=== PATIENT | female | born 2000 | race Caucasian/White ===

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

== ENCOUNTER → 2020-01-09 14:15 | Outpatient (BNVA) | payer SELFPAY | PROVIDERS: PCP Nurse Practitioner Family; Visit Provider Nurse Practitioner Family | DX: N92.6 Irregular menstruation, unspecified (principal) | CPT/HCPCS: 81025 ==

== ENCOUNTER → 2020-04-09 13:39 | Outpatient (BNVA) | payer SELFPAY | PROVIDERS: PCP Nurse Practitioner Family; Visit Provider Nurse Practitioner Family | DX: N39.0 Urinary tract infection, site not specified (principal); R30.0 Dysuria | CPT/HCPCS: 81000 ==

== ENCOUNTER 2020-06-26 20:49 | Emergency (ER) | payer SELFPAY ==
[2020-06-26 21:12] LABS: Basophils % 0.2 %; Eosinophils # 0.1 10^3/uL (0.0-0.8); Eosinophils % 0.6 %; Hematocrit 40.6 % (37.0-47.0); Hemoglobin 12.7 g/dL (11.5-15.3); Lymphocytes # 3.5 10^3/uL (1.5-6.5); Lymphocytes % 27.4 %; Mean Corpuscular HGB Conc 31.3 g/dL (30.0-36.0); Mean Corpuscular Hemoglobin 25.4 pg (28.0-34.0); Mean Corpuscular Volume 81.2 fL (81-99); Mean Platelet Volume 10.4 fL (7.4-10.4); Monocytes # 0.5 10^3/uL (0.2-0.9); Monocytes % 4.1 %; Neutrophils % 67.3 %; Nucleated Red Blood Cells % 0 %; Platelet Count 431 10^3/cmm (130-400); Red Cell Distribution Width 13.9 % (12.1-15.1); White Blood Count 12.8 10^3/uL (4.5-13.0)
[2020-06-26 21:21] VITALS: BP 120/79; PULSE 95; RESP 16; TEMP 36.6; O2SAT 96; BMI 45.3
--- NOTE | 2020-06-26 21:53 | W.ED.EXTPRO ---
HPI - Extremity Problem General: Chief complaint: Extremity Problem,Nontraumatic Stated complaint: r leg infection Time Seen by Provider: 06/26/20 21:32 History of Present Illness: HPI Narrative: Patient is a 19-year-old female comes to the ED with lesion on right lower leg. Patient says on Wednesday she noticed a red rochelle on her right lower leg. she then went into urgent care and they diagnosed with cellitis/possible spider bite and put her on cephalexin and steroid. Patient has been taking the antibiotic now for approximately 1-1/2 days. Lesion has now formed a circular pattern with redness. Patient denies any ulceration or drainage. Associated symptoms: Deny chest pain, fever(s) or rash Review of Systems Const: Denies: fever(s), chills or fatigue Eyes: Denies: change in vision or eye discomfort ENMT: Denies: throat pain, odynophagia, nasal discharge or nasal congestion Card: Denies: chest pain, palpitations, edema, swelling of feet/ankles, dyspnea on exertion or orthopnea Resp: Denies: dyspnea, productive cough or non-productive cough GI: Denies: abdominal pain, nausea, vomiting, diarrhea, constipation or hematochezia : Denies: flank pain, dysuria or hematuria Musc: Denies: neck pain, back pain or extremity swelling Skin/Breast: Reports: new lesions (On right lower extremity.); Denies: rash Neuro: Denies: headache(s), numbness in extremities or weakness in extremities PFS ED PFSH: Social History Smoking and tobacco status: never smoked Alcohol intake: never Female Reproductive History: Date of last menstrual period: 04/16/20 Physical Exam Const: COMMON NORMALS: no acute distress, patient oriented x3, healthy appearing and alert GENERAL APPEARANCE: cooperative and comfortable HENMT: COMMON NORMALS: normocephalic HEAD & SCALP: normocephalic MOUTH: Normal oral and palatal mucosa present THROAT: posterior oropharynx normal and uvula midline Eye: COMMON NORMALS: Equal, round and reactive pupils present PUPIL: Yes Equal, round and reactive pupils present Neck/C-Spine: COMMON NORMALS: supple GENERAL: Yes normal visual inspection Resp: COMMON NORMALS: normal respiratory effort, No retractions, No use of accessory muscles and clear to auscultation bilaterally AUSCULTATION: clear to auscultation bilaterally Cardio: COMMON NORMALS: regular rate, regular rhythm, S1 normal heart sound present, S2 normal heart sound present, No gallops present (Cardio), No clicks present (Cardio), No murmurs present (Cardio) and Peripheral pulses 2+ throughout RATE: regular rate RHYTHM: regular rhythm HEART SOUNDS: S1 normal heart sound present and S2 normal heart sound present PERIPHERAL PULSES: Peripheral pulses 2+ throughout GI: COMMON NORMALS: Normal to inspection, nondistended, normoactive bowel sounds present, Soft to palpation, non-tender and no masses PALPATION: Yes Soft to palpation : COMMON NORMALS: Yes no CVA tenderness BLADDER/KIDNEY EXAM: Yes no CVA tenderness Back/Pelvis: COMMON NORMALS: no CVA tenderness Extremity: NARRATIVE EXTREMITY EXAM: Circular erythematous, warm and tender lesion. No purulent drainage or discharged. No ulcerations seen either. Rash resembles cellulitis. GENERAL: Yes normal exam except as noted Neuro: COMMON NORMALS: patient oriented x3 and moves all extremities SENSORIUM/ORIENTATION: Yes alert Skin: NARRATIVE SKIN EXAM: Circular erythematous, warm and tender lesion. No purulent drainage or discharged. No ulcerations seen either. Rash resembles cellulitis. GENERAL SKIN EXAM: dry skin Course Vital Signs: Vital signs: Vital Signs Temperature 97.8 F 06/26/20 21:21 Pulse Rate 80 06/26/20 22:10 Respiratory Rate 16 06/26/20 22:10 Blood Pressure 119/81 06/26/20 22:10 Pulse Oximetry 98 06/26/20 22:10 MDM - Extremity (Nontraumatic) MDM Narrative: Medical decision making narrative: Patient is a 19-year-old female who comes to the ED with lesion on right lower leg. Patient was seen at urgent care on Wednesday diagnosed with cellulitis and sent home with prescription for cephalexin. Patient has only been taking antibiotic for about a day and a half. She states lesion has not improved. Exam shows Circular erythematous, warm and tender lesion. No purulent drainage or discharged. No ulcerations seen either. White blood cell count 12.8. Rash resembles cellulitis. Since patient just started taking the cephalexin I told patient to continue taking antibiotic and to reassess lesion approximately 3 to 4 days after taking antibiotics. She was discharged diagnosed with cellulitis. I have outlined lesion with marker so patient can monitor lesion progression. Return to ED precautions given. Follow-up with PCP in 7 to 10 days. Patient understood and agreed with plan. Lab Data: Attestation: I reviewed the patient's lab results. Labs: Lab Results 06/26/20 Range/Units 21:07 WBC 12.8 (4.5-13.0) 10^3/ uL RBC 5.00 (4.1-5.3) 10^6/u L Hgb 12.7 (11.5-15.3) g/dL Hct 40.6 (37.0-47.0) % MCV 81.2 (81-99) fL MCH 25.4 L (28.0-34.0) pg MCHC 31.3 (30.0-36.0) g/dL RDW 13.9 (12.1-15.1) % Plt Count 431 H (130-400) 10^3/c mm MPV 10.4 (7.4-10.4) fL Neut % (Auto) 67.3 % Lymph % (Auto) 27.4 % [place] % (Auto) 4.1 % Eos % (Auto) 0.6 % Baso % (Auto) 0.2 % Neut # (Auto) 8.60 H (1.8-8.0) 10^3/u L Lymph # (Auto) 3.5 (1.5-6.5) 10^3/u L [place] # (Auto) 0.5 (0.2-0.9) 10^3/u L Eos # (Auto) 0.1 (0.0-0.8) 10^3/u L Baso # (Auto) 0.0 (0.0-0.1) 10^3/u L Nucleated RBC % (a uto) 0 % Nucleated RBCs # 0.0 /100WBC Discharge Plan Discharge Patient Disposition: Home Clinical Impression: Cellulitis Qualifiers: Site of cellulitis: extremity Site of cellulitis of extremity: lower extremity Laterality: right Qualified Code(s): L03.115 - Cellulitis of right lower limb Condition: Stable Prescriptions: No Action hydroxyzine HCl 10 mg tablet 10 mg PO ONCE PRNRF: 0 albuterol sulfate [ProAir HFA] 90 mcg/actuation HFA aerosol inhaler 1 - 2 puff INHALATION Q6H PRN (Reason: shortness of breath or wheezing) Qty: 8.5 RF: 0 methylprednisolone [Medrol (Wilbert)] 4 mg tablets,dose pack See Rx Instructions PO PER PKG DIR Qty: 21 RF: 0 cephalexin 500 mg capsule 500 mg PO Q12H Qty: 20 RF: 0 triamcinolone acetonide 0.1 % cream 1 applic TOPICAL BID Qty: 80 RF: 0 clonazepam [Klonopin] 0.5 mg tablet 0.5 mg PO ONCE PRN (Reason: sleep) Qty: 30 RF: 5 Zofran 4 mg tablet 4 mg PO Q6H PRN (Reason: nausea and vomiting) Qty: 20 RF: 0 Discharge Orders: Discharge Order (Routine); Ordered 06/26/20 Ordered By: Som Brantley Referrals: Lesly Oviedo FNP [Primary Care Provider] - Discharge Diet: Regular Discharge Activity: Resume usual activity Patient Instructions: Cellulitis (ED), Insect Bite or Sting (ED), [place] Spider Bite (ED) Activity Restrictions/Additional Instructions: Follow-up with medical provider as directed in 5 to 7 days. Return to ED or urgent care if after 3+ days of being on antibiotics there is no improvement and lesion on the leg is getting worse. Continue taking previously prescribed medications. if central part of lesions starts to become ulcerated, then likely a spider bite. Return to the ER or your medical provider if condition worsens. Please read and understand discharge instructions. If any questions, please ask. Discharge Date/Time: 06/26/20 22:11 Coding Level of Care Code ED Company Controller for Yvette Pendleton
[2020-06-26 22:10] VITALS: BP 119/81; PULSE 80; RESP 16; O2SAT 98
== END 2020-06-26 22:11 | disposition home or self-care (01) ==
PROVIDERS: Emergency Medicine; Emergency Provider Physician Assistant; PCP Nurse Practitioner Family
DX: L03.115 Cellulitis of right lower limb (principal)
CPT/HCPCS: 12345; 85025; 99281

== ENCOUNTER 2020-10-03 18:43 | Emergency (ER) | payer SELFPAY ==
[2020-10-03 18:48] VITALS: BP 171/100; PULSE 90; RESP 18; TEMP 36.7; O2SAT 100; BMI 45.7
--- NOTE | 2020-10-03 19:29 | W.ED.EXTPRO ---
HPI - Extremity Problem General: Chief complaint: Extremity Problem,Nontraumatic Stated complaint: left arm numbness Time Seen by Provider: 10/03/20 19:05 History of Present Illness: HPI Narrative: 19-year-old female with MS comes in with left arm numbness and tingling. She had stopped her MS medications a year ago September. She states she has not had any flareups since that time. She states this started approximately 3 hours ago. She denies any weakness. She states that she has had this numbness and tingling previously with her MS. She denies any other complaints. Complaint: other (Numbness/tingling left upper extremity) Onset (ago): hour(s) (3) Location: left and upper extremity Radiation: none Relieving factors: nothing Exacerbating factors: nothing Associated symptoms: Reports no associated symptoms Context: other (History of multiple sclerosis) Review of Systems General: Reports: 10 or more systems reviewed and unremarkable except in HPI and below Narrative: Patient appears to be in no acute distress. She is awake and alert, answers all questions appropriately. Neuro: Reports: numbness in extremities (Current chief complaint of numbness/tingling in the left upper extremity.) and other (History of multiple sclerosis) PFSH ED PFSH: Medical History (Updated 10/03/20 @ 20:19 by Mason Li) Abnormal vaginal bleeding Chronic migraine Morbid obesity with BMI of 45.0-49.9, adult Multiple sclerosis Surgical History (Updated 08/21/20 @ 14:32 by Sp Louise MD) Hx of appendectomy Social History (Updated 08/21/20 @ 14:05 by Radha Snatos LPN) Smoking and tobacco status: never smoked Alcohol intake: never Marital status: Number of children: 0 Current occupational status: employed Female Reproductive History: Date of last menstrual period: 09/16/20 Physical Exam Const: COMMON NORMALS: no acute distress, healthy appearing, alert and well nourished GENERAL APPEARANCE: cooperative, comfortable, well kempt and well developed NUTRITIONAL APPEARANCE: obese ORIENTATION/CONSCIOUSNESS: Yes awake HENMT: COMMON NORMALS: normocephalic and atraumatic HEAD & SCALP: normocephalic and atraumatic Eye: COMMON NORMALS: Equal, round and reactive pupils present, EOMs intact bilaterally, conjunctivae normal and no scleral icterus GENERAL EYE: appearance normal, both eyes and all related structures CONJUNCTIVA: Yes conjunctivae normal SCLERA: sclerae normal PUPIL: Yes Equal, round and reactive pupils present Neck/C-Spine: COMMON NORMALS: full ROM, no lymphadenopathy, supple and no meningeal signs GENERAL: Yes normal visual inspection, Yes trachea midline, No anterior neck swelling, No lymphadenopathy, No tender, No torticollis and No Meningeal signs present CERVICAL SPINE: Yes cervical ROM normal, Yes normal cervical lordosis, No pain with cervical ROM, No Cervical spine tenderness, No Paracervical muscle tenderness, No Paracervical spasm and No Trapezius muscle tenderness Neuro: SENSORIUM/ORIENTATION: Yes alert MENINGEAL SIGNS: Yes no meningeal signs SPEECH: speech normal GAIT: Yes Normal gait present MOTOR EXAM: Other motor observations present (Good strength noted in both upper extremities. Good disability insurance claim examiner noted bilaterally) Psych: APPEARANCE: Yes well kempt Course Vital Signs: Vital signs: Vital Signs Temperature 98.1 F 10/03/20 18:48 Pulse Rate 90 10/03/20 18:48 Respiratory Rate 18 10/03/20 18:48 Blood Pressure 171/100 10/03/20 18:48 Pulse Oximetry 100 10/03/20 18:48 Discharge Plan Discharge Patient Disposition: Home Clinical Impression: Numbness and tingling in left arm, Multiple sclerosis Condition: Stable Prescriptions: New prednisone 20 mg tablet 20 mg PO BID Qty: 10 RF: 0 No Action acetaminophen [Tylenol] 325 mg tablet 325 mg PO QID PRN (Reason: Pain) RF: 0 clonazepam [Klonopin] 0.5 mg tablet 1 mg PO .hs PRN (Reason: sleep) Qty: 30 RF: 0 albuterol sulfate [ProAir HFA] 90 mcg/actuation HFA aerosol inhaler 1 - 2 puff INHALATION Q6H PRN (Reason: shortness of breath or wheezing) Qty: 8.5 RF: 0 ondansetron HCl [Zofran] 4 mg tablet 4 mg PO Q6H PRN (Reason: nausea and vomiting) Qty: 20 RF: 0 baclofen 20 mg tablet 20 mg PO BEDTIME RF: 0 Discharge Orders: Discharge ED (Routine); Ordered 10/03/20 Ordered By: Mason Li Referrals: Lesly Oviedo FNP [Primary Care Provider] - Discharge Diet: Usual diet Discharge Activity: Resume usual activity Patient Instructions: Multiple Sclerosis (GEN), Numbness and Tingling Activity Restrictions/Additional Instructions: Follow-up with your primary care provider. Follow-up with your neurologist. Coding Level of Care Code ED Lap Layer for Chg Fwd Exam Detailed
[2020-10-03 20:21] VITALS: BP 123/87; PULSE 87; RESP 16; O2SAT 99
== END 2020-10-03 20:22 | disposition home or self-care (01) ==
PROVIDERS: Emergency Provider Emergency Medicine; PCP Nurse Practitioner Family
DX: R20.0 Anesthesia of skin (principal); G35 Multiple sclerosis
CPT/HCPCS: 12345; 96372; 99281; 99283; J2930

== ENCOUNTER → 2021-03-04 15:53 | Outpatient (BNVA) | payer SELFPAY | PROVIDERS: PCP Nurse Practitioner Family; Visit Provider Nurse Practitioner | DX: J02.9 Acute pharyngitis, unspecified (principal); J02.0 Streptococcal pharyngitis | CPT/HCPCS: 87880 ==

== ENCOUNTER 2021-12-25 19:24 | Inpatient (IN) | payer SELFPAY ==
[2021-12-25 19:24] VITALS: BP 139/91; PULSE 110; RESP 18; TEMP 36.6; O2SAT 98; BMI 40.6
[2021-12-25 19:37] LABS: Basophils % 0.2 %; Eosinophils # 0.2 10^3/uL (0.0-0.8); Eosinophils % 1.1 %; Hemoglobin 11.4 g/dL (11.5-15.3); Lymphocytes % 30.4 %; Mean Corpuscular Hemoglobin 22.3 pg (28.0-34.0); Mean Corpuscular Volume 74.2 fl (81-99); Mean Platelet Volume 10.6 fL (7.4-10.4); Monocytes # 0.9 10^3/uL (0.2-0.9); Neutrophils # 8.04 10^3/uL (1.8-7.7); Neutrophils % 60.9 %; Nucleated Red Blood Cells % 0 %; Platelet Count 552 10^3/cmm (130-400); Red Blood Count 5.12 10^6/uL (4.1-5.3); White Blood Count 13.2 10^3/uL (4.0-10.0)
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
[2021-12-25 19:55] LABS: HCG, Serum Qual Negative (Negative)
[2021-12-25 20:00] LABS: Alanine Aminotransferase 42 U/L (0-33); Albumin Level 4.8 g/dL (3.5-5.2); Alkaline Phosphatase 78 IU/L (35-105); Anion Gap 16.8 (5-19); Aspartate Amino Transferase 33 U/L (0-32); Blood Urea Nitrogen 10 mg/dL (6-20); Calcium 9.4 mg/dL (8.5-10.5); Carbon Dioxide 23 mmol/L (22-29); Chloride 102 mmol/L (98-107); Globulin 3.5 g/dL (1.3-4.6); Glomerular Filtration Rate 126.2 mL/min (90-130); Glucose 89 mg/dL (65-115); Osmolality Calculated 285 mOsm/kg (285-295); Potassium 3.8 mmol/L (3.5-5.1); Sodium 138 mmol/L (136-145); Total Bilirubin 0.4 mg/dL (0.15-1.2); Total Protein 8.3 g/dL (6.6-8.7)
--- NOTE | 2021-12-25 20:55 | XRR_ITS ---
PROCEDURE INFORMATION: Exam: XR Chest Exam date and time: 12/25/2021 9:03 PM Age: 21 years old Clinical indication: Other: Ms flare up TECHNIQUE: Imaging protocol: XR of the chest. Views: 1 view. COMPARISON: CR Chest 2 views* [id number] 01/12/2018 2:38 AM FINDINGS: Lungs: Unremarkable. No consolidation. Pleural spaces: Unremarkable. No pleural effusion. No pneumothorax. Heart/Mediastinum: Unremarkable. No cardiomegaly. Bones/joints: Unremarkable. XR/XR chest 1V portable [id number] IMPRESSION: No acute findings.
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
[2021-12-25 21:51] LABS: Folate Level 13.2 ng/mL (4.8-37.3)
[2021-12-25 21:56] LABS: 25 Hydroxy Vitamin D 22 ng/mL (30-100); Ferritin 7 ng/mL (15-150); Iron 23 ug/dL (37-145); Magnesium 1.9 mg/dL (1.7-2.3); Percent Saturation 6.9 % (20-50); Thyroid Stimulating Hormone 3.01 uIU/mL (0.27-4.20); Total Iron Binding Capacity 330 mcg/dl; Unsaturated Iron Binding 307 ug/dL (112-347); Vitamin B12 799 pg/mL (232-1245)
[2021-12-25 22:18] LABS: Free T4 Free Thyroxine 1.21 ng/dL (0.82-1.77)
[2021-12-25 22:25] VITALS: BP 132/78; PULSE 88; RESP 16; O2SAT 97
[2021-12-25 22:26] VITALS: BMI 44.6
[2021-12-25 22:33] LABS: Urine Appearance SL Hazy (CLEAR); Urine Color Yellow (Yellow); pH Urine 6 (5-7)
[2021-12-25 22:34] LABS: Add Urine Culture? No; Add Urine Microscopic? YES; Bacteria Urine 1+ /hpf; Bilirubin Urine Neg (Negative); Blood Urine Neg (Negative); Glucose Urine UA Norm (Normal); Ketones Urine Negative (Negative); Leukocyte Esterase Urine 1+ (Negative); Nitrate Urine Negative (Negative); Protein Urine Neg (Negative); RBC Urine 0-4 /hpf (0-2); Sperm Urine 1+ /hpf; Squamous Epithelial Cell Urine 15-25 /hpf (0-5); Urobilinogen Urine 1 mg/dL (Negative); WBC Urine 15-25 /hpf (0-5)
[2021-12-25] MEDS: diphenhydrAMINE 25 mg Capsule PO (23:07)
[2021-12-25 23:58] VITALS: BP 144/89; PULSE 99; RESP 18; TEMP 36.6; O2SAT 98
[2021-12-26 04:00] VITALS: BP 117/69; PULSE 74; RESP 18; O2SAT 96
[2021-12-26 05:13] LABS: Basophils % 0.1 %; Hematocrit 36.1 % (37.0-47.0); Hemoglobin 10.7 g/dL (11.5-15.3); Lymphocytes # 1.3 10^3/uL (0.8-4.8); Lymphocytes % 13.9 %; Mean Corpuscular HGB Conc 29.6 g/dL (30.0-36.0); Mean Corpuscular Hemoglobin 22.2 pg (28.0-34.0); Mean Corpuscular Volume 75.1 fl (81-99); Mean Platelet Volume 10.6 fL (7.4-10.4); Monocytes % 0.4 %; Neutrophils # 7.66 10^3/uL (1.8-7.7); Neutrophils % 84.9 %; Nucleated Red Blood Cells % 0 %; Platelet Count 448 10^3/cmm (130-400); Red Blood Count 4.81 10^6/uL (4.1-5.3); Red Cell Distribution Width 15.9 % (12.1-15.1)
[2021-12-26 07:13] VITALS: BP 112/72; PULSE 90; RESP 16; TEMP 36.7; O2SAT 95
--- NOTE | 2021-12-26 08:00 | MR_ITS ---
WS: [id number] MRI LUMBAR SPINE WITHOUT AND WITH CONTRAST TECHNIQUE: Sagittal T1 postgadolinium and sagittal T2 imaging. Axial T2 imaging. Patient could not to lerate further imaging. CLINICAL INFORMATION: MS Flare COMPARISON: No prior MRI lumbar comparisons. FINDINGS: Mild lumbar curve. No acute compression. No high-grade central canal stenosis. Mild disc bulging L3-L 4 L4-L5 and L5-S1 with small annular tears/fissure. No enhancing lesions in the lower thoracic cord o r cauda equina nerve rootlets. L1-L2: Normal. L2-L3: Normal. L3-L4: Mild annular bulging with a tiny central protrusion and small annular fissure. Slight effaceme nt of ventral thecal sac. Mild narrowing of the subarticular recess bilaterally. Mild facet arthropat hy. Spinal canal and foramen are patent. L4-L5: Small central disc protrusion with annular fissure. Mild central canal stenosis with slight im pingement traversing L5 nerve roots bilaterally. Mild facet arthropathy. Mild RIGHT and no significan t LEFT foraminal narrowing. L5-S1: Broad-based LEFT pericentral disc protrusion with an annular tear. Impingement on the LEFT roselyn tral thecal sac and traversing LEFT S1 nerve root. Recommend correlation LEFT S1 nerve root symptoms. Spinal canal is patent. No significant central canal stenosis. Mild LEFT foraminal narrowing. Mild f acet arthropathy. Visualized pelvic bony structures: Normal. Paravertebral soft tissues: Normal. MR/MR lumbar spine w con [id number] IMPRESSION: 1. Mild lumbar curve. No acute compression. No high-grade central canal stenos is. 2. No enhancing lesions in the lower thoracic cord or cauda equina. 3. Broad-based LEFT pericentral disc protrusion L5-S1 impinges the traversing LEFT S1 nerve root in the subarticular recess. Recommend correlation LEFT S1 ne rve root symptoms. Spinal canal remains patent. Mild proximal LEFT L5-S1 forami nal narrowing. 4. Shallow central protrusion L3-L4 with a small annular fissure and slight ef facement of the ventral thecal sac. 5. Shallow central disc protrusion L4-L5 with mild central canal stenosis and slight impingement on the subarticular recess and traversing L5 nerve roots lizette aterally. 6. Mild facet arthropathy L3-L5.
--- NOTE | 2021-12-26 08:00 | MR_ITS ---
WS: [id number] MRI HEAD WITH CONTRAST TECHNIQUE: Sagittal T1, T2 axial, T2 axial FLAIR, axial susceptibility weighted imaging, axial diffus ion weighted images, and coronal T2 images were obtained. Pre and post-T1 axial and post T1 coronal i mages. ADC and FSPGR images. CLINICAL INFORMATION: MS Flare COMPARISON: MRI 1 FINDINGS: No evidence of restricted diffusion to suggest acute ischemia. Ventricular system and basal cisterns are patent. Patchy supratentorial white matter changes in a pericallosal and periventricular distribu tion unchanged since 2018. Stable lesions about the occipital horns bilaterally and LEFT inferior fro ntal lobe are stable. No new lesions. No enhancing lesions to indicate active demyelinating disease. Mild T1 hypointense lesion load. Normal optic chiasm and pituitary infundibulum. Normal Cavernous sin uses and Meckel's cave. Normal visualized dural venous sinuses. No significant atrophy of the corpus callosum. No significant parenchymal volume loss. No hemosiderin on susceptibly weighted images. Normal posterior fossa. Normal vascular flow voids the skull base. No extra axial fluid collections. MR/MR head wo/w con [id number] IMPRESSION: 1. No evidence of restricted diffusion to suggest acute ischemia. 2. Stable supratentorial demyelinating lesions. No new lesions compared to pre vious. 3. No enhancing lesions to indicate active disease. 4. No hemosiderin on susceptibly weighted images. 5. Mild T1 hypointense lesion load. No significant parenchymal volume loss.
--- NOTE | 2021-12-26 08:00 | MR_ITS ---
WS: [id number] MRI THORACIC SPINE WITHOUT AND WITH CONTRAST TECHNIQUE: Sagittal T2 imaging was obtained. Limited axial T2 sequences. Patient could not tolerate f urther imaging. Post gadolinium sagittal T1 imaging. CLINICAL INFORMATION: MS flare COMPARISON: November 04, 2017 FINDINGS: Some images degraded by motion artifact. Mild thoracic curve. Mild thoracic kyphosis. No acute compression fractures. Disc space heights verte bral body heights are well-maintained. No high-grade central canal stenosis. Cord signal appears norm al. A few tiny disc protrusions in the mid and upper thoracic spine more prominent at T4-T5, T5-T6, and T 6-T7. This is only covered on the sagittal imaging. Small protrusion T5-T6 eccentric to the RIGHT wit h slight contact of the thoracic cord only covered on the sagittal T2 imaging. Patient could not tole rate additional imaging. This appears more prominent compared to 2018. No high-grade central canal stenosis. Normal caliber thoracic aorta. MR/MR thoracic spine w con [id number] IMPRESSION: 1. No enhancing demyelinating plaques within the thoracic cord. 2. No high-grade central canal stenosis. 3. No significant cord atrophy. 4. Small protrusion T5-T6 eccentric to the RIGHT with slight contact of the th oracic cord. This is only covered on the sagittal T2 imaging. Patient could not tolerate additional imaging. 5. No other acute findings.
--- NOTE | 2021-12-26 08:00 | MR_ITS ---
WS: [id number] MRI CERVICAL SPINE WITHOUT AND WITH GADOLINIUM. TECHNIQUE: Sagittal T2 imaging. Post gadolinium sagittal T1 imaging. Axial T2 imaging. CLINICAL INFORMATION: MS flare COMPARISON: FINDINGS: Some images degraded by motion artifact. Straightening of the normal cervical lordosis. No high-grade central canal narrowing. Cord signal is normal. Disc bulging worse at C4-C5 C5-C6 and C6-C7. This is similar in appearance to previous. Sugge stion of a few tiny chronic demyelinating plaques at the cervical medullary junction and C5 level. No enhancing lesions to indicate active disease. No significant cord atrophy. C2-C3: Normal. C3-C4: Normal. C4-C5: Mild disc bulging and osteophytic ridging. Mild bilateral foraminal narrowing. Mild facet arth ropathy. C5-C6: Mild disc osteophytic ridging. Mild bilateral bony foraminal narrowing. Mild facet arthropathy . Spinal canal is patent. C6-C7: Mild disc bulging. Spinal canal and foramen appear patent. C7-T1: Normal. Visualized brain stem structures: Normal. Prevertebral soft tissues: Normal. MR/MR cervical spine w con [id number] IMPRESSION: 1. No enhancing demyelinating plaques in the cervical cord. 2. A few tiny faint chronic demyelinating plaques unchanged since 2018. No sig nificant cord atrophy. 3. Mild disc bulging C4-C5 C5-C6 and C6-C7 appears unchanged compared to 2018.
[2021-12-26] MEDS: gadobenate dimeglumine 20 mL vial IV (10:22)
--- NOTE | 2021-12-26 10:32 | PC.CHAP ---
Pastoral Care Encounter/Spiritual Assessment Type of Contact [] Declined hydro station operator visit [] Patient/Family/Request visit [] Outpatient visit [] Follow-up visit [] Physician referral [] Code/Alert [x] Routine visit [] Staff referral [] Actively dying [] Patient sleeping [] Family support [] [] Out of room [] Palliative care [] [] Receiving care in room [] Pre-surgical visit [] Trauma [] Long length of stay [] ICU visit [] Other: Relational/Emotional Strength [x] Patient feels connected with others/family/visitors/staff [] Distress [] Loneliness/isolation [] Abandonment Spirituality of Patient [] Person of Lily [] Attends Hoahaoism of their Lily [] Believes in Prayer [] Reads Bible or Restoration materials [x] There are Spiritual issues to be addressed Tearoom Host Interventions [x] Prayer [x] Active listening [] Non-anxious presence [] Spiritual/emotional support [] Crisis/trauma care [] Spiritual counseling [] Bereavement support [] Provided bereavement packet [] Provided Bible/devotional materials [] Provided toy/stuffed animal, coloring book to patient or family member [] Provided Communion [] Anointing/[place] [] Salvation [x] Completed spiritual assessment [] Other: Impact on Illness or Injury [] Angry [] Fearful [] Anxious [] Often cries [] Exhaustion [] Unable to work [] Unable to attend scientologist [] Unable to walk/stand [] Unable to read [] Unable to drive [] Unable to eat/drink [] Unable to sleep [] Unable to be with family [] Patient intubated [] Other: Summary Time spent with patient 5 min
--- NOTE | 2021-12-26 10:53 | P.PN_ITS ---
Subjective Subjective: Unable to be seen this morning due to patient not being in the room. She has gone for testing. Vitals/I&O/Wt Last Vital Signs Temp 98.1 F 12/26/21 07:13 Pulse 90 12/26/21 07:13 Resp 16 12/26/21 07:13 BP 112/72 12/26/21 07:13 Pulse Ox 95 12/26/21 07:13 12/25/21 12/26/21 12/26/21 22:59 06:59 14:59 Intake Total 258 / 258 Output Total 500 / 500 Balance 258 / 258 -500 / -242 Weight last 48 hrs Weight 97.522 kg Weight 107.048 kg Weight 107.048 kg Weight 97.522 kg Physical Exam Narrative: Patient not in room. Unable to examine. Data : 12/26/21 04:46 12/25/21 19:15 A&P Assessment and plan (1) Multiple sclerosis: Status: Acute (2) Bilateral leg weakness: Status: Acute (3) Morbid obesity with BMI of 45.0-49.9, adult: Status: Acute Plan #Multiple sclerosis exacerbation/flare #History of migraines #Thrombocytosis #Microcytic anemia #Obesity #Marijuana abuse ?Neurochecks every 4 hours ?PT consult ?Check B12, folic acid, TSH, free T4, magnesium, vitamin D ?MRI with and without contrast of following are currently pending: Head, cervical spine, thoracic spine, lumbar spine. Patient has gone for testing. ?Solu-Medrol 250 mg IV 8 hours. ?Further management decision after I see and examine the patient. Above plan is from history and physical. Full code 80 prophylaxis Lovenox Attestations Medical Necessity Statement*: Anticipate discharge in next 48 to 72 hours. Coding Level of Care Code Acute Medical Or Surgical Instrument Maker for Chg Fwd Diagnoses Multiple sclerosis G35 Bilateral leg weakness R29.898 Morbid obesity with BMI of 45.0-49.9, adult E66.01; Z68.42
[2021-12-26 15:12] VITALS: BP 116/76; PULSE 108; RESP 18; TEMP 36.7; O2SAT 97
[2021-12-26 20:13] VITALS: BP 111/73; PULSE 87; RESP 22; TEMP 36.6; O2SAT 99
[2021-12-26] MEDS: diphenhydrAMINE 50 mg Capsule PO (20:49)
[2021-12-26 21:48] LABS: Glucose Point of Care 192 mg/dL (70-110)
[2021-12-26] MEDS: iron sucrose 200 MG in sodium chloride 0.9% (100 ml) 100 ML 220 MG IV (21:58)
[2021-12-26 22:28] LABS: Chol HDL Ratio 3.48 mg/dL (0.0-4.40); Cholesterol 146 mg/dL (0-200); HDL Cholesterol 42 mg/dL (60-100); LDL Cholesterol Calculated 98 mg/dL (50-129); Triglycerides 31 mg/dL (0-150); VLDL Cholestrol Calculation 6 mg/dL (0-30)
[2021-12-26 22:45] LABS: Estmated Average Glucose 94; Hemoglobin A1C 4.9 % (4.0-6.0)
[2021-12-27] VITALS: BP 115/72; PULSE 85; RESP 20; TEMP 36.6; O2SAT 95
[2021-12-27 04:00] VITALS: BP 109/66; PULSE 84; RESP 18; TEMP 36.5; O2SAT 95
[2021-12-27 05:48] LABS: Basophils % 0.1 %; Hematocrit 37.3 % (37.0-47.0); Hemoglobin 10.7 g/dL (11.5-15.3); Lymphocytes # 1.5 10^3/uL (0.8-4.8); Lymphocytes % 6.3 %; Mean Corpuscular HGB Conc 28.7 g/dL (30.0-36.0); Mean Corpuscular Hemoglobin 22.3 pg (28.0-34.0); Mean Corpuscular Volume 77.7 fl (81-99); Mean Platelet Volume 11.4 fL (7.4-10.4); Monocytes # 0.6 10^3/uL (0.2-0.9); Monocytes % 2.5 %; Neutrophils # 21.56 10^3/uL (1.8-7.7); Neutrophils % 90.2 %; Nucleated Red Blood Cells % 0 %; Platelet Count 464 10^3/cmm (130-400); Red Cell Distribution Width 16.4 % (12.1-15.1); White Blood Count 23.9 10^3/uL (4.0-10.0)
[2021-12-27 06:11] LABS: Alanine Aminotransferase 26 U/L (0-33); Albumin Level 4.2 g/dL (3.5-5.2); Alkaline Phosphatase 78 IU/L (35-105); Anion Gap 15.3 (5-19); Aspartate Amino Transferase 20 U/L (0-32); Blood Urea Nitrogen 8 mg/dL (6-20); Calcium 8.5 mg/dL (8.5-10.5); Carbon Dioxide 21 mmol/L (22-29); Chloride 108 mmol/L (98-107); Globulin 2.4 g/dL (1.3-4.6); Glomerular Filtration Rate 155.7 mL/min (90-130); Glucose 198 mg/dL (65-115); Magnesium 2.1 mg/dL (1.7-2.3); Osmolality Calculated 294 mOsm/kg (285-295); Potassium 4.3 mmol/L (3.5-5.1); Sodium 140 mmol/L (136-145); Total Bilirubin 0.3 mg/dL (0.15-1.2); Total Protein 6.6 g/dL (6.6-8.7)
[2021-12-27 06:15] LABS: Glucose Point of Care 174 mg/dL (70-110)
[2021-12-27 08:00] VITALS: BP 116/70; PULSE 84; RESP 18; TEMP 36.9; O2SAT 97
[2021-12-27] MEDS: insulin lispro 100 unit/1 mL SUBCUT ×3 (09:08→22:00)
[2021-12-27] MEDS: pantoprazole DR 40 mg Tablet PO (09:09)
[2021-12-27 12:00] VITALS: BP 111/68; PULSE 90; RESP 18; TEMP 36.8; O2SAT 97
[2021-12-27 12:05] LABS: Glucose Point of Care 161 mg/dL (70-110)
--- NOTE | 2021-12-27 12:11 | PC.RESP ---
Niff greater than -60
--- NOTE | 2021-12-27 13:39 | PM.PN ---
Subjective Subjective: Seen this morning. She states she experienced a little bit of left arm weakness this morning which has resolved by now. Her lower extremities however are about the same. She does get shooting pain from all the way her hip to her foot at times. Otherwise she feels well. Vitals/I&O/Wt Last Vital Signs Temp 98.2 F 12/27/21 12:00 Pulse 90 12/27/21 12:00 Resp 18 12/27/21 12:00 BP 111/68 12/27/21 12:00 Pulse Ox 97 12/27/21 12:00 12/26/21 12/27/21 12/27/21 22:59 06:59 14:59 Intake Total 350 / 350 940 / 1290 Output Total 400 / 400 Balance 350 / 350 540 / 890 Weight last 48 hrs Weight 108.953 kg Weight 97.522 kg Weight 107.048 kg Weight 107.048 kg Weight 97.522 kg Physical Exam Narrative: General: Alert oriented x3, patient seen sitting in recliner appearing comfortable. HEENT: Normocephalic, atraumatic, EOMI, breathing room air. Cardio: Regular rate rhythm, normal S1-S2, no murmurs Respiratory: Good bilateral air entry, no wheezes no rhonchi appreciated GI: Abdomen soft, nontender, nondistended, bowel sounds + Behavior: Appropriate and cooperative Extremities:no edema, no cyanosis Neuro: Bilateral lower extremity weakness present 3 out of 5 sensation intact.? Weakness is improved but there is pain present upon movement. Data : 12/27/21 04:38 12/27/21 04:38 Micro: Microbiology 12/27/21 11:23 Blood Culture - Preliminary Blood SPECIMEN COLLECTED 12/27/21 11:18 Blood Culture - Preliminary Blood SPECIMEN COLLECTED Other data: Thoracic MRI 1.? No enhancing demyelinating plaques within the thoracic cord. 2.? No high-grade central canal stenosis. 3.? No significant cord atrophy. 4.? Small protrusion T5-T6 eccentric to the RIGHT with slight contact of the thoracic cord. This is only covered on the sagittal T2 imaging. Patient could not tolerate additional imaging. 5.? No other acute findings. Lumbar spine MRI 1.? Mild lumbar curve. No acute compression. No high-grade central canal stenosis. 2.? No enhancing lesions in the lower thoracic cord or cauda equina. 3.? Broad-based LEFT pericentral disc protrusion L5-S1 impinges the traversing LEFT S1 nerve root in the subarticular recess. Recommend correlation LEFT S1 nerve root symptoms. Spinal canal remains patent. Mild proximal LEFT L5-S1 foraminal narrowing. 4.? Shallow central protrusion L3-L4 with a small annular fissure and slight effacement of the ventral thecal sac. 5.? Shallow central disc protrusion L4-L5 with mild central canal stenosis and slight impingement on the subarticular recess and traversing L5 nerve roots bilaterally. 6.? Mild facet arthropathy L3-L5. Head MRI 1.? No evidence of restricted diffusion to suggest acute ischemia. 2.? Stable supratentorial demyelinating lesions. No new lesions compared to previous. 3.? No enhancing lesions to indicate active disease. 4.? No hemosiderin on susceptibly weighted images. 5.? Mild T1 hypointense lesion load. No significant parenchymal volume loss. Cervical spine MRI 1.? No enhancing demyelinating plaques in the cervical cord. 2.? A few tiny faint chronic demyelinating plaques unchanged since 2018. No significant cord atrophy. 3.? Mild disc bulging C4-C5 C5-C6 and C6-C7 appears unchanged compared to 2018. A&P Assessment and plan (1) Bilateral leg weakness: Status: Acute (2) Multiple sclerosis: Status: Acute (3) Morbid obesity with BMI of 45.0-49.9, adult: Status: Acute (4) Abnormal vaginal bleeding: Status: Acute (5) Iron deficiency anemia: Status: Acute (6) Hyperglycemia, drug-induced: Status: Acute (7) Anxiety: Status: Acute (8) UTI (urinary tract infection): Status: Acute Plan #Multiple sclerosis exacerbation/flare #Acute UTI #History of migraines #Thrombocytosis #Microcytic anemia #Obesity #Marijuana abuse #Anemia most likely iron deficiency ?Neurochecks every 4 hours ?PT consult ? Continue Solu-Medrol 250 mg every 6 hours. She will need 1 g daily for next 5 days. Vitamin D 22, TSH 3 Free T4 1.21. ? MRI complete. No new lesions seen on brain MRI. There is a left paracentral disc protrusion at L5-S1 impinging the left S1 nerve root. Patient denies any incontinence of urine. ? We will start patient on citalopram 20 mg daily ? Hydroxyzine 25 mg every 6 for anxiety ? Patient complains of dysuria and increased frequency. We will treat for UTI with Macrobid for 5 days. Urinalysis abnormal on admission. Urine culture has been sent. ? Iron panel indicates iron deficiency anemia. We will start her on Venofer 200 daily over 5 days. ? Low-dose insulin sliding scale due to hyperglycemia secondary to steroid use. ? Case discussed with Dr. Saravia over the phone. She will need to follow-up with Dr. Saravia after discharge. ? We will discharge patient when she clinically improves. ?NIF -60. Full code DVT prophylaxis Lovenox Attestations Medical Necessity Statement*: Greater than 24 to 48 hours daily. Discharge pending clinical improvement of symptoms. Coding Level of Care Code Acute Advisor Advocate Angel Co Founder for Chg Fwd Diagnoses Bilateral leg weakness R29.898 Multiple sclerosis G35 Morbid obesity with BMI of 45.0-49.9, adult E66.01; Z68.42 Abnormal vaginal bleeding N93.9 Iron deficiency anemia D50.9 Hyperglycemia, drug-induced R73.9; T50.905A Anxiety F41.9 UTI (urinary tract infection) N39.0
[2021-12-27] MEDS: hyDROXYzine 25 mg Capsule PO ×2 (14:18→21:37)
[2021-12-27] MEDS: acetaminophen 325 mg Tablet 650 MG PO (14:18)
[2021-12-27 16:00] VITALS: BP 107/69; PULSE 79; RESP 18; TEMP 36.7; O2SAT 97
[2021-12-27 17:47] LABS: Glucose Point of Care 116 mg/dL (70-110)
--- NOTE | 2021-12-27 17:48 | PC.RESP ---
Niff greater than -60
[2021-12-27 20:00] VITALS: PULSE 81; RESP 108; TEMP 36.6; O2SAT 98
[2021-12-27] MEDS: cefTRIAXone 1,000 MG in sodium chloride 0.9% (plus) 50 ML 100 MG IV (20:02)
[2021-12-27] MEDS: iron sucrose 200 MG in sodium chloride 0.9% (100 ml) 100 ML 220 MG IV (21:38)
[2021-12-28] VITALS (7 sets, daily range): BP systolic 110–124; BP diastolic 65–81; PULSE 69–89; RESP 16–20; TEMP 36.4–36.7; O2SAT 95–99
[2021-12-28 06:14] LABS: Glucose Point of Care 134 mg/dL (70-110)
[2021-12-28 06:39] LABS: Glucose Point of Care 194 mg/dL (70-110)
[2021-12-28] MEDS: cefTRIAXone 1,000 MG in sodium chloride 0.9% (plus) 50 ML 100 MG IV (08:10)
[2021-12-28] MEDS: pantoprazole DR 40 mg Tablet PO (08:11)
[2021-12-28] MEDS: citalopram 20 mg Tablet PO (08:11)
--- NOTE | 2021-12-28 08:38 | PC.RESP ---
Nif greater than -60
--- NOTE | 2021-12-28 12:45 | PM.PN ---
Subjective Subjective: Seen this morning. SHe states she is feeling better but not back to baseline. She is able to ambulate with a walker today but not without it. NO acute events overnight. Vitals/I&O/Wt Last Vital Signs Temp 98.0 F 12/28/21 08:00 Pulse 81 12/28/21 08:00 Resp 16 12/28/21 08:00 BP 124/65 12/28/21 08:00 Pulse Ox 98 12/28/21 08:00 12/27/21 12/28/21 12/28/21 22:59 06:59 14:59 Intake Total 530 / 530 350 / 880 Balance 530 / 530 350 / 880 Weight last 48 hrs Weight 108.953 kg Physical Exam Narrative: General: Alert oriented x3, patient seen sitting in recliner appearing comfortable. HEENT: Normocephalic, atraumatic, EOMI, breathing room air. Cardio: Regular rate rhythm, normal S1-S2, no murmurs Respiratory: Good bilateral air entry, no wheezes no rhonchi appreciated GI: Abdomen soft, nontender, nondistended, bowel sounds + Behavior: Appropriate and cooperative Extremities:no edema, no cyanosis Neuro: Cranial nerves II to XII intact, strength upper extremities 5 out of 5, right lower extremity strength 4/5, left lower extremity strength 3 out of 5.?Improved compared to yesterday. Sensation intact.? Data : 12/27/21 04:38 12/27/21 04:38 Micro: Microbiology 12/27/21 11:23 Blood Culture - Preliminary Blood NEGATIVE TO DATE 12/27/21 11:18 Blood Culture - Preliminary Blood NEGATIVE TO DATE 12/27/21 06:22 Occult Blood (FIT) - Final Stool Routine Collection Other data: Thoracic MRI 1.? No enhancing demyelinating plaques within the thoracic cord. 2.? No high-grade central canal stenosis. 3.? No significant cord atrophy. 4.? Small protrusion T5-T6 eccentric to the RIGHT with slight contact of the thoracic cord. This is only covered on the sagittal T2 imaging. Patient could not tolerate additional imaging. 5.? No other acute findings. Lumbar spine MRI 1.? Mild lumbar curve. No acute compression. No high-grade central canal stenosis. 2.? No enhancing lesions in the lower thoracic cord or cauda equina. 3.? Broad-based LEFT pericentral disc protrusion L5-S1 impinges the traversing LEFT S1 nerve root in the subarticular recess. Recommend correlation LEFT S1 nerve root symptoms. Spinal canal remains patent. Mild proximal LEFT L5-S1 foraminal narrowing. 4.? Shallow central protrusion L3-L4 with a small annular fissure and slight effacement of the ventral thecal sac. 5.? Shallow central disc protrusion L4-L5 with mild central canal stenosis and slight impingement on the subarticular recess and traversing L5 nerve roots bilaterally. 6.? Mild facet arthropathy L3-L5. Head MRI 1.? No evidence of restricted diffusion to suggest acute ischemia. 2.? Stable supratentorial demyelinating lesions. No new lesions compared to previous. 3.? No enhancing lesions to indicate active disease. 4.? No hemosiderin on susceptibly weighted images. 5.? Mild T1 hypointense lesion load. No significant parenchymal volume loss. Cervical spine MRI 1.? No enhancing demyelinating plaques in the cervical cord. 2.? A few tiny faint chronic demyelinating plaques unchanged since 2018. No significant cord atrophy. 3.? Mild disc bulging C4-C5 C5-C6 and C6-C7 appears unchanged compared to 2018. A&P Assessment and plan (1) UTI (urinary tract infection): Status: Acute (2) Anxiety: Status: Acute (3) Hyperglycemia, drug-induced: Status: Acute (4) Iron deficiency anemia: Status: Acute (5) Bilateral leg weakness: Status: Acute (6) Multiple sclerosis: Status: Acute (7) Morbid obesity with BMI of 45.0-49.9, adult: Status: Acute (8) Abnormal vaginal bleeding: Status: Acute Plan #Multiple sclerosis exacerbation/flare #Acute UTI #History of migraines #Thrombocytosis #Microcytic anemia #Obesity #Marijuana abuse #Anemia most likely iron deficiency ?Neurochecks every 4 hours ?PT consult ? Continue Solu-Medrol 250 mg every 6 hours.? She will need 1 g daily for next 5 days.? Vitamin D 22, TSH 3 Free T4 1.21. ? MRI complete.? No new lesions seen on brain MRI.? There is a left paracentral disc protrusion at L5-S1 impinging the left S1 nerve root.? Patient denies any incontinence of urine. ? We will start patient on citalopram 20 mg daily ? Hydroxyzine 25 mg every 6 for anxiety ? Patient complains of dysuria and increased frequency.? Urinalysis abnormal on admission.? Urine culture has been sent. Ceftriaxone 1 mg daily. Switch to oral at discharge. ? Iron panel indicates iron deficiency anemia.? Continue Venofer 200 daily over 5 days. ? Low-dose insulin sliding scale due to hyperglycemia secondary to steroid use. ? Case discussed with Dr. Saravia over the phone.? She will need to follow-up with Dr. Saravia after discharge. ? We will discharge patient when she clinically improves. ?NIF -60. -Pt is improving. Potential dc in AM. Full code DVT prophylaxis Lovenox Attestations Medical Necessity Statement*: Potential dc in AM pending clinical improvement. Coding Level of Care Code Acute Middle School Band Teacher for Chg Fwd Diagnoses UTI (urinary tract infection) N39.0 Anxiety F41.9 Hyperglycemia, drug-induced R73.9; T50.905A Iron deficiency anemia D50.9 Bilateral leg weakness R29.898 Multiple sclerosis G35 Morbid obesity with BMI of 45.0-49.9, adult E66.01; Z68.42 Abnormal vaginal bleeding N93.9
[2021-12-28 18:09] LABS: Glucose Point of Care 83 mg/dL (70-110)
[2021-12-28 18:09] LABS: Glucose Point of Care 210 mg/dL (70-110)
[2021-12-28] MEDS: hyDROXYzine 25 mg Capsule PO (19:57)
[2021-12-28 21:55] LABS: Glucose Point of Care 188 mg/dL (70-110)
[2021-12-28] MEDS: iron sucrose 200 MG in sodium chloride 0.9% (100 ml) 100 ML 220 MG IV (22:10)
[2021-12-28] MEDS: insulin lispro 100 unit/1 mL SUBCUT (22:10)
[2021-12-29] VITALS (7 sets, daily range): BP systolic 114–131; BP diastolic 69–82; PULSE 62–86; RESP 18–28; TEMP 36.6–36.9; O2SAT 94–97
[2021-12-29] MEDS: hyDROXYzine 25 mg Capsule PO ×2 (03:00→20:48)
[2021-12-29 05:05] LABS: Basophils % 0.2 %; Hematocrit 33.1 % (37.0-47.0); Hemoglobin 9.9 g/dL (11.5-15.3); Lymphocytes # 2.6 10^3/uL (0.8-4.8); Lymphocytes % 14.2 %; Mean Corpuscular HGB Conc 29.9 g/dL (30.0-36.0); Mean Corpuscular Hemoglobin 22.5 pg (28.0-34.0); Mean Corpuscular Volume 75.2 fl (81-99); Mean Platelet Volume 10.4 fL (7.4-10.4); Monocytes # 0.6 10^3/uL (0.2-0.9); Monocytes % 3.3 %; Neutrophils # 14.18 10^3/uL (1.8-7.7); Neutrophils % 78.9 %; Nucleated Red Blood Cells # 0.1 /100WBC; Nucleated Red Blood Cells % 0.3 %; Platelet Count 413 10^3/cmm (130-400); Red Cell Distribution Width 16.8 % (12.1-15.1)
[2021-12-29 05:17] LABS: Anion Gap 15.7 (5-19); Blood Urea Nitrogen 15 mg/dL (6-20); Calcium 7.9 mg/dL (8.5-10.5); Carbon Dioxide 21 mmol/L (22-29); Chloride 106 mmol/L (98-107); Glomerular Filtration Rate 155.7 mL/min (90-130); Glucose 140 mg/dL (65-115); Magnesium 2.2 mg/dL (1.7-2.3); Osmolality Calculated 291 mOsm/kg (285-295); Potassium 3.7 mmol/L (3.5-5.1); Sodium 139 mmol/L (136-145)
[2021-12-29 06:40] LABS: Glucose Point of Care 148 mg/dL (70-110)
[2021-12-29] MEDS: insulin lispro 100 unit/1 mL SUBCUT ×2 (09:21→20:48)
[2021-12-29] MEDS: pantoprazole DR 40 mg Tablet PO (09:22)
[2021-12-29] MEDS: citalopram 20 mg Tablet PO (09:22)
[2021-12-29] MEDS: cefTRIAXone 1,000 MG in sodium chloride 0.9% (plus) 50 ML 100 MG IV (11:49)
[2021-12-29 12:22] LABS: Glucose Point of Care 122 mg/dL (70-110)
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
--- NOTE | 2021-12-29 14:35 | P.PN_ITS ---
Subjective Subjective: The patient reports worsened weakness in the left lower extremity. Interferes with her ambulation. She denies any significant weakness in the left upper extremity. No fever or chills. No nausea or vomiting. No chest pain, shortness of breath, cough, palpitations. No problems with speech. No headache. Denies numbness. Denies any problems with bowel movements or bladder habits. Medications: Medication Review Details: Generic Name Dose Route Start Last Admin Trade Name Freq PRN Reason Stop Dose Admin Acetaminophen 650 mg 12/25/21 22:25 12/27/21 14:18 Acetaminophen 32 5 Mg Tablet PO 650 mg Q6H PRN Administration Mild/Mod Pain Or Temp >/= 101 Citalopram Hydrobr omide 20 mg 12/28/21 09:00 12/29/21 09:22 Citalopram 20 Mg Tablet PO 20 mg DAILY RAMEZ Administration Hydroxyzine Pamoat e 25 mg 12/27/21 13:49 12/29/21 03:00 Hydroxyzine 25 M g Capsule PO 25 mg QID PRN Administration ANXIETY Iron Sucrose 200 m g/ Sodium 110 mls @ 220 mls /hr 12/26/21 21:45 12/28/21 23:16 Chloride IV 12/30/21 22:14 Infused Q24H RAMEZ Infusion Ceftriaxone Sodium 1,000 mg/ 50 mls @ 100 mls/ hr 12/27/21 20:00 12/29/21 12:26 Sodium Chloride IV Infused DAILY RAMEZ Infusion Protocol Insulin Human Lisp ro 0 unit 12/27/21 08:00 12/29/21 12:26 Insulin Lispro 1 00 Unit/1 Ml SUBCUT Not Given WM&BEDTIME RAMEZ Protocol Methylprednisolone Sodium Succinate 250 mg 12/27/21 11:01 12/29/21 09:22 Methylprednisolo ne Sod Succ 125 Mg /2 Ml Inj IVP 250 mg Q6H RAMEZ Administration Pantoprazole Sodiu m 40 mg 12/26/21 09:00 12/29/21 09:[address] 40 Mg Tablet PO 40 mg DAILY RAMEZ Administration Vitals/I&O/Wt Last Vital Signs Temp 98.1 F 12/29/21 12:00 Pulse 83 12/29/21 12:00 Resp 18 12/29/21 12:00 BP 126/75 12/29/21 12:00 Pulse Ox 94 12/29/21 12:00 12/28/21 12/29/21 12/29/21 22:59 06:59 14:59 Intake Total 50 / 50 110 / 160 290 / 290 Balance 50 / 50 110 / 160 290 / 290 Physical Exam Narrative: General: Alert oriented x3, no acute distress. There is some frustration due to ongoing weakness in the leg. Responses are adequate. HEENT: Normocephalic, atraumatic, EOMI, breathing room air. Cardio: Regular rate rhythm, normal S1-S2, no murmurs Respiratory: Good bilateral air entry, no wheezes no rhonchi appreciated GI: Abdomen soft, nontender, nondistended, bowel sounds + Behavior: Appropriate and cooperative Extremities:no edema, no cyanosis, no calf tenderness. No bruises or swellings. Neuro: Cranial nerves II to XII intact, strength upper extremities 5 out of 5, right lower extremity strength 4/5, left lower extremity strength 2 out of 5. Normal speech. Data : 12/29/21 04:43 12/29/21 04:43 Other Labs: Radiology Impressions Chest X-Ray 12/25/21 20:55 IMPRESSION: No acute findings. Cervical Spine MRI 12/26/21 08:00 IMPRESSION: 1. No enhancing demyelinating plaques in the cervical cord. 2. A few tiny faint chronic demyelinating plaques unchanged since 2018. No significant cord atrophy. 3. Mild disc bulging C4-C5 C5-C6 and C6-C7 appears unchanged compared to 2018. Head MRI 12/26/21 08:00 IMPRESSION: 1. No evidence of restricted diffusion to suggest acute ischemia. 2. Stable supratentorial demyelinating lesions. No new lesions compared to pre vious. 3. No enhancing lesions to indicate active disease. 4. No hemosiderin on susceptibly weighted images. 5. Mild T1 hypointense lesion load. No significant parenchymal volume loss. Lumbar Spine MRI 12/26/21 08:00 IMPRESSION: 1. Mild lumbar curve. No acute compression. No high-grade central canal stenosis. 2. No enhancing lesions in the lower thoracic cord or cauda equina. 3. Broad-based LEFT pericentral disc protrusion L5-S1 impinges the traversing LEFT S1 nerve root in the subarticular recess. Recommend correlation LEFT S1 nerve root symptoms. Spinal canal remains patent. Mild proximal LEFT L5-S1 foraminal narrowing. 4. Shallow central protrusion L3-L4 with a small annular fissure and slight effacement of the ventral thecal sac. 5. Shallow central disc protrusion L4-L5 with mild central canal stenosis and slight impingement on the subarticular recess and traversing L5 nerve roots bilaterally. 6. Mild facet arthropathy L3-L5. Thoracic Spine MRI 12/26/21 08:00 IMPRESSION: 1. No enhancing demyelinating plaques within the thoracic cord. 2. No high-grade central canal stenosis. 3. No significant cord atrophy. 4. Small protrusion T5-T6 eccentric to the RIGHT with slight contact of the thoracic cord. This is only covered on the sagittal T2 imaging. Patient could not tolerate additional imaging. 5. No other acute findings. Laboratory Results WBC 18.0 10^3/uL (4.0-10.0) H 12/29/21 04:43 RBC 4.40 10^6/uL (4.1-5.3) 12/29/21 04:43 Hgb 9.9 g/dL (11.5-15.3) L 12/29/21 04:43 Hct 33.1 % (37.0-47.0) L 12/29/21 04:43 MCV 75.2 fl (81-99) L 12/29/21 04:43 MCH 22.5 pg (28.0-34.0) L 12/29/21 04:43 MCHC 29.9 g/dL (30.0-36.0) L 12/29/21 04:43 RDW 16.8 % (12.1-15.1) H 12/29/21 04:43 Plt Count 413 10^3/cmm (130-400) H 12/29/21 04:43 MPV 10.4 fL (7.4-10.4) 12/29/21 04:43 Neut % (Auto) 78.9 % 12/29/21 04:43 Lymph % (Auto) 14.2 % 12/29/21 04:43 Terrell % (Auto) 3.3 % 12/29/21 04:43 Eos % (Auto) 0.0 % 12/29/21 04:43 Baso % (Auto) 0.2 % 12/29/21 04:43 Neut # (Auto) 14.18 10^3/uL (1.8-7.7) H 12/29/21 04:43 Lymph # (Auto) 2.6 10^3/uL (0.8-4.8) 12/29/21 04:43 Terrell # (Auto) 0.6 10^3/uL (0.2-0.9) 12/29/21 04:43 Eos # (Auto) 0.0 10^3/uL (0.0-0.8) 12/29/21 04:43 Baso # (Auto) 0.0 10^3/uL (0.0-0.1) 12/29/21 04:43 Nucleated RBC % (auto) 0.3 % 12/29/21 04:43 Nucleated RBCs # 0.1 /100WBC 12/29/21 04:43 Sodium 139 mmol/L (136-145) 12/29/21 04:43 Potassium 3.7 mmol/L (3.5-5.1) 12/29/21 04:43 Chloride 106 mmol/L (98-107) 12/29/21 04:43 Carbon Dioxide 21 mmol/L (22-29) L 12/29/21 04:43 Anion Gap 15.7 (5-19) 12/29/21 04:43 BUN 15 mg/dL (6-20) 12/29/21 04:43 Creatinine 0.5 mg/dL (0.5-0.9) 12/29/21 04:43 GFR Calculation 155.7 mL/min (90-130) H 12/29/21 04:43 Glucose 140 mg/dL (65-115) H 12/29/21 04:43 POC Glucose 122 mg/dL (70-110) H 12/29/21 11:24 Estimat Average Glucose 94 12/26/21 19:15 Hemoglobin A1c 4.9 % (4.0-6.0) 12/26/21 19:15 Calculated Osmolality 291 mOsm/kg (285-295) 12/29/21 04:43 Calcium 7.9 mg/dL (8.5-10.5) L 12/29/21 04:43 Magnesium 2.2 mg/dL (1.7-2.3) 12/29/21 04:43 Iron 23 ug/dL (37-145) L 12/25/21 19:15 TIBC 330 mcg/dl 12/25/21 19:15 % Saturation 6.9 % (20-50) L 12/25/21 19:15 Unsat Iron Binding 307 ug/dL (112-347) 12/25/21 19:15 Ferritin 7 ng/mL (15-150) L 12/25/21 19:15 Total Bilirubin 0.3 mg/dL (0.15-1.2) 12/27/21 04:38 AST 20 U/L (0-32) 12/27/21 04:38 ALT 26 U/L (0-33) 12/27/21 04:38 Alkaline Phosphatase 78 IU/L (35-105) 12/27/21 04:38 Total Protein 6.6 g/dL (6.6-8.7) 12/27/21 04:38 Albumin 4.2 g/dL (3.5-5.2) 12/27/21 04:38 Globulin 2.4 g/dL (1.3-4.6) 12/27/21 04:38 Triglycerides 31 mg/dL (0-150) 12/26/21 19:15 Cholesterol 146 mg/dL (0-200) 12/26/21 19:15 LDL Cholesterol, Calc 98 mg/dL (50-129) 12/26/21 19:15 Total VLDL Cholesterol 6 mg/dL (0-30) 12/26/21 19:15 HDL Cholesterol 42 mg/dL (60-100) L 12/26/21 19:15 Cholesterol/HDL Ratio 3.48 mg/dL (0.0-4.40) 12/26/21 19:15 Vitamin B12 799 pg/mL (232-1245) 12/25/21 19:15 25-OH Vitamin D Total 22 ng/mL (30-100) L 12/25/21 19:15 Folate 13.2 ng/mL (4.8-37.3) 12/25/21 19:15 TSH 3.01 uIU/mL (0.27-4.20) 12/25/21 19:15 Free T4 1.21 ng/dL (0.82-1.77) 12/25/21 19:15 HCG, Qual Negative (Negative) 12/25/21 19:15 Urine Color Yellow (Yellow) 12/25/21 21:30 Urine Appearance Sl hazy (CLEAR) 12/25/21 21:30 Urine pH 6 (5-7) 12/25/21 21:30 Ur Specific [place] 1.020 (1.005-1.030) 12/25/21 21:30 Urine Protein Neg (Negative) 12/25/21 21:30 Urine Glucose (UA) Norm (Normal) 12/25/21 21:30 Urine Ketones Negative (Negative) 12/25/21 21:30 Urine Blood Neg (Negative) 12/25/21 21:30 Urine Nitrate Negative (Negative) 12/25/21 21:30 Urine Bilirubin Neg (Negative) 12/25/21 21:30 Urine Urobilinogen 1 mg/dL (Negative) H 12/25/21 21:30 Ur Leukocyte Esterase 1+ (Negative) H 12/25/21 21:30 Urine RBC 0-4 /hpf (0-2) H 12/25/21 21:30 Urine WBC 15-25 /hpf (0-5) H 12/25/21 21:30 Ur Squamous Epith Cells 15-25 /hpf (0-5) H 12/25/21 21:30 Amorphous Sediment Not Reportable 12/25/21 21:30 Urine Bacteria 1+ /hpf (NONE) H 12/25/21 21:30 Urine Sperm 1+ /hpf 12/25/21 21:30 Micro: Microbiology 12/27/21 16:00 Urine Culture - Final Urine,Voided Strep agalactiae - (group b) 12/27/21 11:23 Blood Culture - Preliminary Blood NEGATIVE TO DATE 12/27/21 11:18 Blood Culture - Preliminary Blood NEGATIVE TO DATE A&P Assessment and plan (1) UTI (urinary tract infection): Status: Acute (2) Anxiety: Status: Acute (3) Hyperglycemia, drug-induced: Status: Acute (4) Iron deficiency anemia: Status: Acute (5) Bilateral leg weakness: Status: Acute (6) Multiple sclerosis: Status: Acute (7) Morbid obesity with BMI of 45.0-49.9, adult: Status: Acute (8) Abnormal vaginal bleeding: Status: Acute Plan #Multiple sclerosis exacerbation/flare #Acute UTI #History of migraines #Thrombocytosis #Microcytic anemia #Obesity #Marijuana abuse #Anemia most likely iron deficiency ?Neurochecks every 4 hours ?PT consult ? Continue Solu-Medrol 250 mg every 6 hours.? She will need 1 g daily for next 5 days.? Vitamin D 22, TSH 3 Free T4 1.21. ? MRI complete.? No new lesions seen on brain MRI.? There is a left paracentral disc protrusion at L5-S1 impinging the left S1 nerve root.? Patient denies any incontinence of urine. ? We will start patient on citalopram 20 mg daily ? Hydroxyzine 25 mg every 6 for anxiety ? Patient complains of dysuria and increased frequency.? Urinalysis abnormal on admission.? Urine culture has been sent. Ceftriaxone 1 mg daily. Switch to oral at discharge. ? Iron panel indicates iron deficiency anemia.? Continue Venofer 200 daily over 5 days. ? Low-dose insulin sliding scale due to hyperglycemia secondary to steroid use. ? Case discussed with Dr. Saravia over the phone.? She will need to follow-up with Dr. Saravia after discharge. ? We will discharge patient when she clinically improves. ?NIF -60. -Pt is improving. Potential dc in AM. Full code DVT prophylaxis Lovenox [place] Left lower extremity weakness. MRI revealed MS lesions but no evidence of flares. Completing course of steroids without significant improvement of the weakness. There is L5/S1 disc disease. We will consult Dr. Briceno for neurosurgical evaluation. I am wondering if the patient might be a candidate for decompression. I appreciate Dr. Briceno's input. Continue PT OT efforts. History of MS. The patient will continue outpatient follow-up with Dr. Saravia. UTI. Continue Rocephin. Iron deficiency. Replacing iron via IV DVT prophylaxis. Ambulation and SCDs. Hyperglycemia due to the steroids. Hoping to see improved numbers after completion of steroid treatments. Leukocytosis. Due to steroids mainly. We will continue monitoring. The plan of care was discussed with the patient and her family. They verbalized understanding and agreement with the plan of care. Attestations Medical Necessity Statement*: The plan of care requires that she remains hospitalized. Coding Level of Care Code Acute Configuration Management Specialist for Chg Fwd Diagnoses UTI (urinary tract infection) N39.0 Anxiety F41.9 Hyperglycemia, drug-induced R73.9; T50.905A Iron deficiency anemia D50.9 Bilateral leg weakness R29.898 Multiple sclerosis G35 Morbid obesity with BMI of 45.0-49.9, adult E66.01; Z68.42 Abnormal vaginal bleeding N93.9
[2021-12-29 17:09] LABS: Glucose Point of Care 126 mg/dL (70-110)
[2021-12-29 20:19] LABS: Glucose Point of Care 187 mg/dL (70-110)
[2021-12-29] MEDS: iron sucrose 200 MG in sodium chloride 0.9% (100 ml) 100 ML 220 MG IV (21:10)
[2021-12-30] VITALS (7 sets, daily range): BP systolic 114–145; BP diastolic 75–85; PULSE 68–78; RESP 14–18; TEMP 36.7–37.1; O2SAT 92–98
[2021-12-30 06:42] LABS: Glucose Point of Care 153 mg/dL (70-110)
[2021-12-30] MEDS: insulin lispro 100 unit/1 mL SUBCUT ×4 (08:44→21:17)
[2021-12-30] MEDS: cefTRIAXone 1,000 MG in sodium chloride 0.9% (plus) 50 ML 100 MG IV (08:44)
[2021-12-30] MEDS: pantoprazole DR 40 mg Tablet PO (08:45)
[2021-12-30] MEDS: citalopram 20 mg Tablet PO (08:45)
--- NOTE | 2021-12-30 10:42 | PM.PN ---
Subjective Subjective: The patient reports worsened unchanged weakness in the left lower extremity. Interferes with her ambulation. She denies any significant weakness in the left upper extremity. No fever or chills. No nausea or vomiting. No chest pain, shortness of breath, cough, palpitations. No problems with speech. No headache. Denies numbness. Denies any problems with bowel movements or bladder habits. Medications: Medication Review Details: Generic Name Dose Route Start Last Admin Trade Name Freq PRN Reason Stop Dose Admin Acetaminophen 650 mg 12/25/21 22:25 12/27/21 14:18 Acetaminophen 32 5 Mg Tablet PO 650 mg Q6H PRN Administration Mild/Mod Pain Or Temp >/= 101 Citalopram Hydrobr omide 20 mg 12/28/21 09:00 12/29/21 09:22 Citalopram 20 Mg Tablet PO 20 mg DAILY RAMEZ Administration Hydroxyzine Pamoat e 25 mg 12/27/21 13:49 12/29/21 03:00 Hydroxyzine 25 M g Capsule PO 25 mg QID PRN Administration ANXIETY Iron Sucrose 200 m g/ Sodium 110 mls @ 220 mls /hr 12/26/21 21:45 12/28/21 23:16 Chloride IV 12/30/21 22:14 Infused Q24H RAMEZ Infusion Ceftriaxone Sodium 1,000 mg/ 50 mls @ 100 mls/ hr 12/27/21 20:00 12/29/21 12:26 Sodium Chloride IV Infused DAILY RAMEZ Infusion Protocol Insulin Human Lisp ro 0 unit 12/27/21 08:00 12/29/21 12:26 Insulin Lispro 1 00 Unit/1 Ml SUBCUT Not Given WM&BEDTIME RAMEZ Protocol Methylprednisolone Sodium Succinate 250 mg 12/27/21 11:01 12/29/21 09:22 Methylprednisolo ne Sod Succ 125 Mg /2 Ml Inj IVP 250 mg Q6H RAMEZ Administration Pantoprazole Sodiu m 40 mg 12/26/21 09:00 12/29/21 09:[address] 40 Mg Tablet PO 40 mg DAILY RAMEZ Administration Vitals/I&O/Wt Last Vital Signs Temp 98.7 F 12/30/21 08:00 Pulse 78 12/30/21 08:00 Resp 18 12/30/21 08:00 BP 127/76 12/30/21 08:00 Pulse Ox 92 12/30/21 08:00 12/29/21 12/30/21 12/30/21 22:59 06:59 14:59 Intake Total 0 / 290 110 / 400 Balance 0 / 290 110 / 400 Physical Exam Narrative: General: Alert oriented x3, no acute distress. There is some frustration due to ongoing weakness in the leg. Responses are adequate. HEENT: Normocephalic, atraumatic, EOMI, breathing room air. Respiratory: No respiratory distress. Behavior: Appropriate and cooperative Extremities:no edema, no cyanosis, no calf tenderness. Neuro: Cranial nerves II to XII intact, strength upper extremities 5 out of 5, right lower extremity strength 4/5, left lower extremity strength 2 out of 5. Normal speech. Data : 12/29/21 04:43 12/29/21 04:43 Micro: Microbiology 12/27/21 16:00 Urine Culture - Final Urine,Voided Strep agalactiae - (group b) A&P Assessment and plan (1) UTI (urinary tract infection): Status: Acute (2) Anxiety: Status: Acute (3) Hyperglycemia, drug-induced: Status: Acute (4) Iron deficiency anemia: Status: Acute (5) Bilateral leg weakness: Status: Acute (6) Multiple sclerosis: Status: Acute (7) Morbid obesity with BMI of 45.0-49.9, adult: Status: Acute (8) Abnormal vaginal bleeding: Status: Acute Plan #Multiple sclerosis exacerbation/flare #Acute UTI #History of migraines #Thrombocytosis #Microcytic anemia #Obesity #Marijuana abuse #Anemia most likely iron deficiency ?Neurochecks every 4 hours ?PT consult ? Continue Solu-Medrol 250 mg every 6 hours.? She will need 1 g daily for next 5 days.? Vitamin D 22, TSH 3 Free T4 1.21. ? MRI complete.? No new lesions seen on brain MRI.? There is a left paracentral disc protrusion at L5-S1 impinging the left S1 nerve root.? Patient denies any incontinence of urine. ? We will start patient on citalopram 20 mg daily ? Hydroxyzine 25 mg every 6 for anxiety ? Patient complains of dysuria and increased frequency.? Urinalysis abnormal on admission.? Urine culture has been sent. Ceftriaxone 1 mg daily. Switch to oral at discharge. ? Iron panel indicates iron deficiency anemia.? Continue Venofer 200 daily over 5 days. ? Low-dose insulin sliding scale due to hyperglycemia secondary to steroid use. ? Case discussed with Dr. Saravia over the phone.? She will need to follow-up with Dr. Saravia after discharge. ? We will discharge patient when she clinically improves. ?NIF -60. -Pt is improving. Potential dc in AM. Full code DVT prophylaxis Lovenox [place] Left lower extremity weakness. MRI revealed MS lesions but no evidence of flares. Completing course of steroids without significant improvement of the weakness. There is L5/S1 disc disease. Appreciate Dr. Briceno for neurosurgical evaluation. Probably the patient will undergo decompression tomorrow. Continue PT OT efforts. History of MS. The patient will continue outpatient follow-up with Dr. Saravia. UTI. Continue Rocephin. Iron deficiency. Replacing iron via IV DVT prophylaxis. Ambulation and SCDs. Hyperglycemia due to the steroids. Hoping to see improved numbers after completion of steroid treatments. Leukocytosis. Due to steroids mainly. We will continue monitoring. The plan of care was discussed with the patient. They verbalized understanding and agreement with the plan of care. Attestations Medical Necessity Statement*: Surgery tomorrow Coding Level of Care Code Acute Electrical Assemblies Supervisor for Chg Fwd Diagnoses UTI (urinary tract infection) N39.0 Anxiety F41.9 Hyperglycemia, drug-induced R73.9; T50.905A Iron deficiency anemia D50.9 Bilateral leg weakness R29.898 Multiple sclerosis G35 Morbid obesity with BMI of 45.0-49.9, adult E66.01; Z68.42 Abnormal vaginal bleeding N93.9
[2021-12-30 11:38] LABS: Glucose Point of Care 166 mg/dL (70-110)
[2021-12-30] MEDS: diphenhydrAMINE 25 mg Capsule PO (14:19)
[2021-12-30 18:00] LABS: Glucose Point of Care 166 mg/dL (70-110)
[2021-12-30 21:02] LABS: Glucose Point of Care 158 mg/dL (70-110)
[2021-12-30] MEDS: iron sucrose 200 MG in sodium chloride 0.9% (100 ml) 100 ML 220 MG IV (23:04)
[2021-12-31] VITALS (16 sets, daily range): BP systolic 105–133; BP diastolic 69–87; PULSE 61–86; RESP 13–21; TEMP 36.1–37; O2SAT 92–98
--- NOTE | 2021-12-31 | SCC_ITS ---
Procedure done: 1. L5/S1 laminectomy, partial facetectomy and discectomy 2. L4/5 laminectomy with partial facetectomy 20.5 seconds of fluoroscopic guidance, for a cumulative dose of 16.15 mGy, was provided to Dr. Briceno by the radiology department. C-arm images of the lumbar spine were saved for the patient's permanent record. [facility]
--- NOTE | 2021-12-31 | XR_ITS ---
WS: [id number] Exam: XR lumbar spine 1V [id number] Date/Time of Exam: 12/31/2021 12:00 AM Reason For Exam: ms flare up. left l4-5, left l5-s1 decompression Anterior posterior C-arm images of the lower lumbar spine are submitted for evaluation. Localization hardware positioned over the L4-5 and L5-S1 disc levels. No other significant finding on this limited series.
[2021-12-31] MEDS: diphenhydrAMINE 25 mg Capsule PO ×2 (02:55→21:10)
[2021-12-31 05:31] LABS: Basophils % 0.2 %; Hematocrit 37.9 % (37.0-47.0); Hemoglobin 11.4 g/dL (11.5-15.3); Lymphocytes # 2.4 10^3/uL (0.8-4.8); Lymphocytes % 14.6 %; Mean Corpuscular HGB Conc 30.1 g/dL (30.0-36.0); Mean Corpuscular Hemoglobin 22.7 pg (28.0-34.0); Mean Corpuscular Volume 75.3 fl (81-99); Mean Platelet Volume 10.7 fL (7.4-10.4); Monocytes # 0.6 10^3/uL (0.2-0.9); Monocytes % 3.5 %; Neutrophils # 12.68 10^3/uL (1.8-7.7); Nucleated Red Blood Cells # 0.1 /100WBC; Nucleated Red Blood Cells % 0.6 %; Platelet Count 438 10^3/cmm (130-400); Red Blood Count 5.03 10^6/uL (4.1-5.3); White Blood Count 16.1 10^3/uL (4.0-10.0)
[2021-12-31 05:59] LABS: Albumin Level 3.9 g/dL (3.5-5.2); Anion Gap 17.4 (5-19); Blood Urea Nitrogen 15 mg/dL (6-20); Carbon Dioxide 23 mmol/L (22-29); Chloride 102 mmol/L (98-107); Glomerular Filtration Rate 126.2 mL/min (90-130); Glucose 145 mg/dL (65-115); Magnesium 2.5 mg/dL (1.7-2.3); Phosphorus 4.2 mg/dL (2.5-4.5); Potassium 3.4 mmol/L (3.5-5.1); Sodium 139 mmol/L (136-145)
[2021-12-31 06:29] LABS: Glucose Point of Care 149 mg/dL (70-110)
--- NOTE | 2021-12-31 09:38 | ANES.PREANE2 ---
Pre-Anesthetic Assessment Height/Weight: Height 1.55 m Weight 108.953 kg Temp Pulse Resp BP Pulse Ox 98.3 F 77 17 133/77 98 12/31/21 08:00 12/31/21 08:00 12/31/21 03:20 12/31/21 08:00 12/31/21 07:50 Preop Diagnosis: Herniated nucleus pulposus to the left at L4-5 L5-S1 Operation Date: 12/31/21 10:10 Proposed Procedures p Lumbar Spine Decompression(Not Applicable) - Kaushal Briceno, Familial anesthetic complications: None Was Beta Cinda taken within 24 hours: N/A Was Clonidine taken within 24 hours: N/A Last intake: 12/30/21 Social No alcohol and No tobacco Exam alert, oriented x 3, clear to auscultation bilaterally and regular rate & rhythm Airway Submandibular: within normal limits Cervical ROM: within normal limits Mallampati: Class II Dentition: full Pulmonary Exertional Dyspnea and Sleep Apnea Not using CPAP CV/HEM Anemia UTI hx AUB K 3.4 Hepatic None reported Metabolic Morbid Obesity [facility] [place] Lower Back Pain Neuropsych Anxiety, Headache and Neuropathy (Radiculopathy ) MS not on treatment B/L leg weakness Anxiety Herniated nucleus pulposus MRI Head 01/02 MR/MR head wo/w con [id number] IMPRESSION: ? 1.? No evidence of restricted diffusion to suggest acute ischemia. 2.? Stable supratentorial demyelinating lesions. No new lesions compared to previous. 3.? No enhancing lesions to indicate active disease. 4.? No hemosiderin on susceptibly weighted images. 5.? Mild T1 hypointense lesion load. No significant parenchymal volume loss. ? MRI Neck 01/02 MR/MR cervical spine w con [id number] IMPRESSION: ? 1.? No enhancing demyelinating plaques in the cervical cord. 2.? A few tiny faint chronic demyelinating plaques unchanged since 2018. No significant cord atrophy. 3.? Mild disc bulging C4-C5 C5-C6 and C6-C7 appears unchanged compared to 2018. MRI T spine 422 MR/MR thoracic spine w con [id number] IMPRESSION: ? 1.? No enhancing demyelinating plaques within the thoracic cord. 2.? No high-grade central canal stenosis. 3.? No significant cord atrophy. 4.? Small protrusion T5-T6 eccentric to the RIGHT with slight contact of the thoracic cord. This is only covered on the sagittal T2 imaging. Patient could not tolerate additional imaging. 5.? No other acute findings. ? ? Anesthetic Plan ASA status: 3 Anesthesia: Anesthesia Evaluation and General Other: We discussed risk and benefits of general anesthesia including PONV, sore throat (sometimes severe), corneal abrasion, MS exacerbation, positioning and peripheral nerve injuries, life threatening allergic reaction, post operative ICU admission requiring prolonged intubation, stroke, heart attack, , and rare incidences of recall. Patient consents to proceed with general anesthesia. Plan general with euthermia. Risk of > 500 ml blood loss (7ml/kg in children): No Medications/Allergies Home Medications Medication Instructions Recorded Confirmed Last Taken Type No Known Home Medications 12/25/21 12/25/21 Unknown History Allergies Allergy/AdvReac Type Severity Reaction Status Date / Time No Known Allergies Allergy Verified 08/18/21 13:30 Current Medications Generic Name Dose Route Start Last Admin Trade Name Freq PRN Reason Stop Dose Admin Acetaminophen 650 mg 12/25/21 22:25 12/27/21 14:18 Acetaminophen 325 Mg Tablet PO 650 mg Q6H PRN Administration Mild/Mod Pain Or Temp >/= 101 Citalopram Hydrobromide 20 mg 12/28/21 09:00 12/30/21 08:45 Citalopram 20 Mg Tablet PO 20 mg DAILY RAMEZ Administration Diphenhydramine HCl 25 mg 12/30/21 13:51 12/31/21 02:55 Diphenhydramine 25 Mg Capsule PO 25 mg Q8H PRN Administration INFLAMMATION Hydroxyzine Pamoate 25 mg 12/27/21 13:49 12/29/21 20:48 Hydroxyzine 25 Mg Capsule PO 25 mg QID PRN Administration ANXIETY Ceftriaxone Sodium 1,000 mg/ 50 mls @ 100 mls/hr 12/27/21 20:00 12/30/21 13:00 Sodium Chloride IV Infused DAILY RAMEZ Infusion Protocol Insulin Human Lispro 0 unit 12/27/21 08:00 12/31/21 07:16 Insulin Lispro 100 Unit/1 Ml SUBCUT Not Given WM&BEDTIME RAMEZ Protocol Pantoprazole Sodium 40 mg 12/26/21 09:00 12/30/21 08:[address] 40 Mg Tablet PO 40 mg DAILY RAMEZ Administration Additional Medication Information Generic Name Dose Route Start Last Admin Trade Name Latrice PRN Reason Stop Dose Admin Acetaminophen 650 mg 12/25/21 22:25 12/27/21 14:18 Acetaminophen 325 Mg Tablet PO 650 mg Q6H PRN Administration Mild/Mod Pain Or Temp >/= 101 Citalopram Hydrobromide 20 mg 12/28/21 09:00 12/29/21 09:22 Citalopram 20 Mg Tablet PO 20 mg DAILY RAMEZ Administration Hydroxyzine Pamoate 25 mg 12/27/21 13:49 12/29/21 03:00 Hydroxyzine 25 Mg Capsule PO 25 mg QID PRN Administration ANXIETY Iron Sucrose 200 mg/ Sodium 110 mls @ 220 mls/hr 12/26/21 21:45 12/28/21 23:16 Chloride IV 12/30/21 22:14 Infused Q24H RAMEZ Infusion Ceftriaxone Sodium 1,000 mg/ 50 mls @ 100 mls/hr 12/27/21 20:00 12/29/21 12:26 Sodium Chloride IV Infused DAILY RAMEZ Infusion Protocol Insulin Human Lispro 0 unit 12/27/21 08:00 12/29/21 12:26 Insulin Lispro 100 Unit/1 Ml SUBCUT Not Given WM&BEDTIME RAMEZ Protocol Methylprednisolone Sodium Succinate 250 mg 12/27/21 11:01 12/29/21 09:22 Methylprednisolone Sod Succ 125 Mg/2 Ml Inj IVP 250 mg Q6H RAMEZ Administration Pantoprazole Sodium 40 mg 12/26/21 09:00 12/29/21 09:[address] 40 Mg Tablet PO 40 mg DAILY RAMEZ Administration [facility] Anesthesia Medical History Abnormal vaginal bleeding Chronic migraine Morbid obesity with BMI of 45.0-49.9, adult Multiple sclerosis Surgical History Hx of appendectomy Social History Smoking and tobacco status: never smoked Alcohol intake: never Marital status: Number of children: 0 Current occupational status: employed Female Reproductive History Date of last menstrual period: 09/16/20 Data Anesthesia : 12/31/21 05:05 12/31/21 05:05 Short CBC 12/31/21 Range/Units 05:05 WBC 16.1 H (4.0-10.0) 10^3/uL Hgb 11.4 L (11.5-15.3) g/dL Hct 37.9 (37.0-47.0) % MCV 75.3 L (81-99) fl Plt Count 438 H (130-400) 10^3/cmm Neut % (Auto) 79.0 % Neut # (Auto) 12.68 H (1.8-7.7) 10^3/uL BMP 12/31/21 05:05 Sodium 139 Potassium 3.4 L Chloride 102 Carbon Dioxide 23 BUN 15 Creatinine 0.6 Glucose 145 H Calcium 9.0 Liver Function 12/31/21 Range/Units 05:05 Albumin 3.9 (3.5-5.2) g/dL Cardiac Studies: No Data to Display
[2021-12-31] MEDS: sodium chloride 0.9% 1,000 ML 30 ML IV (10:12)
[2021-12-31 10:41] LABS: OR HCG Qualitative Urine Negative (Negative)
--- NOTE | 2021-12-31 10:48 | P.PN_ITS ---
Subjective Subjective: No significant changes since yesterday. Reports left lower extremity weakness. No problems with speech. No weakness in the upper extremities. Going to the OR soon. Medications: Medication Review Details: Generic Name Dose Route Start Last Admin Trade Name Freq PRN Reason Stop Dose Admin Acetaminophen 650 mg 12/25/21 22:25 12/27/21 14:18 Acetaminophen 32 5 Mg Tablet PO 650 mg Q6H PRN Administration Mild/Mod Pain Or Temp >/= 101 Citalopram Hydrobr omide 20 mg 12/28/21 09:00 12/30/21 08:45 Citalopram 20 Mg Tablet PO 20 mg DAILY RAMEZ Administration Diphenhydramine HC l 25 mg 12/30/21 13:51 12/31/21 02:55 Diphenhydramine 25 Mg Capsule PO 25 mg Q8H PRN Administration INFLAMMATION Hydroxyzine Pamoat e 25 mg 12/27/21 13:49 12/29/21 20:48 Hydroxyzine 25 M g Capsule PO 25 mg QID PRN Administration ANXIETY Ceftriaxone Sodium 1,000 mg/ 50 mls @ 100 mls/ hr 12/27/21 20:00 12/30/21 13:00 Sodium Chloride IV Infused DAILY RAMEZ Infusion Protocol Sodium Chloride 1,000 mls @ 30 ml s/hr 12/31/21 10:15 12/31/21 10:12 Sodium Chloride 0.9% IV 01/01/22 10:14 30 mls/hr .Q24H RAMEZ Administration Insulin Human Lisp ro 0 unit 12/27/21 08:00 12/31/21 07:16 Insulin Lispro 1 00 Unit/1 Ml SUBCUT Not Given WM&BEDTIME RAMEZ Protocol Pantoprazole Sodiu m 40 mg 12/26/21 09:00 12/30/21 08:[address] 40 Mg Tablet PO 40 mg DAILY RAMEZ Administration Vitals/I&O/Wt Last Vital Signs Temp 97 F L 12/31/21 10:04 Pulse 73 12/31/21 10:04 Resp 18 12/31/21 10:04 BP 120/78 12/31/21 10:04 Pulse Ox 97 12/31/21 10:04 12/30/21 12/31/21 12/31/21 22:59 06:59 14:59 Intake Total 110 / 280 Balance 110 / 280 Physical Exam Narrative: General: Alert oriented x3, no acute distress. There is some frustration due to ongoing weakness in the leg. Responses are adequate. HEENT: Normocephalic, atraumatic, EOMI, breathing room air. Respiratory: No respiratory distress. Behavior: Appropriate and cooperative Extremities:no edema, no cyanosis, no calf tenderness. Neuro: Cranial nerves II to XII intact, strength upper extremities 5 out of 5, right lower extremity strength 4/5, left lower extremity strength 2 out of 5. Normal speech. Data : 12/31/21 05:05 12/31/21 05:05 A&P Assessment and plan (1) UTI (urinary tract infection): Status: Acute (2) Anxiety: Status: Acute (3) Hyperglycemia, drug-induced: Status: Acute (4) Iron deficiency anemia: Status: Acute (5) Bilateral leg weakness: Status: Acute (6) Multiple sclerosis: Status: Acute (7) Morbid obesity with BMI of 45.0-49.9, adult: Status: Acute (8) Abnormal vaginal bleeding: Status: Acute Plan #Multiple sclerosis exacerbation/flare #Acute UTI #History of migraines #Thrombocytosis #Microcytic anemia #Obesity #Marijuana abuse #Anemia most likely iron deficiency ?Neurochecks every 4 hours ?PT consult ? Continue Solu-Medrol 250 mg every 6 hours.? She will need 1 g daily for next 5 days.? Vitamin D 22, TSH 3 Free T4 1.21. ? MRI complete.? No new lesions seen on brain MRI.? There is a left paracentral disc protrusion at L5-S1 impinging the left S1 nerve root.? Patient denies any incontinence of urine. ? We will start patient on citalopram 20 mg daily ? Hydroxyzine 25 mg every 6 for anxiety ? Patient complains of dysuria and increased frequency.? Urinalysis abnormal on admission.? Urine culture has been sent. Ceftriaxone 1 mg daily. Switch to oral at discharge. ? Iron panel indicates iron deficiency anemia.? Continue Venofer 200 daily over 5 days. ? Low-dose insulin sliding scale due to hyperglycemia secondary to steroid use. ? Case discussed with Dr. Saravia over the phone.? She will need to follow-up with Dr. Saravia after discharge. ? We will discharge patient when she clinically improves. ?NIF -60. -Pt is improving. Potential dc in AM. Full code DVT prophylaxis Lovenox [place] Left lower extremity weakness. MRI revealed MS lesions but no evidence of flares. Completed IV steroids. Will consider prednisone taper if okay from the surgical standpoint after the surgery. History of MS. The patient will continue outpatient follow-up with Dr. Saravia. L5/S1 disc disease. Appreciate Dr. Briceno for neurosurgical evaluation. Going to the OR today. Pain management. Continue PT OT efforts. UTI. Continue Rocephin. Iron deficiency. Replacing iron via IV DVT prophylaxis. Ambulation and SCDs. Hyperglycemia due to the steroids. Hoping to see improved numbers after completion of steroid treatments. Leukocytosis. Due to steroids mainly. We will continue monitoring. The plan of care was discussed with the patient and the family. They verbalized understanding and agreement with the plan of care. Attestations Medical Necessity Statement*: Going to the OR today. Will need PT OT assessment before determining her projected discharge date after the surgery. Coding Level of Care Code Acute Personnel Consultant for Chg Fwd Diagnoses UTI (urinary tract infection) N39.0 Anxiety F41.9 Hyperglycemia, drug-induced R73.9; T50.905A Iron deficiency anemia D50.9 Bilateral leg weakness R29.898 Multiple sclerosis G35 Morbid obesity with BMI of 45.0-49.9, adult E66.01; Z68.42 Abnormal vaginal bleeding N93.9
--- NOTE | 2021-12-31 12:35 | PM.OP ---
Operative Report Date of procedure: December 31, 2021 Pre-op diagnosis: Preop Diagnosis Herniated nucleus pulposus to the left at L4-5 L5-S1 Post-op diagnosis: same Procedure done: 1. L5/S1 laminectomy, partial facetectomy and discectomy 2. L4/5 laminectomy with partial facetectomy Surgeon: Kaushal Briceno Health Insurance Adjuster: Lennox Fuchs Health Insurance Adjuster: The surgical elastic knitter, Lennox Fuchs, PAC was needed for his expertise under the microscope. He was important and necessary throughout the procedure to complete in a safe and timely manner. He assisted with patient positioning prepping and draping tissue retraction suctioning of the operative field protection of the dural sac and tissue closure Procedure: 1. L5/S1 laminectomy, with partial facetectomy and discectomy 2. L4/5 Laminectomy with partial facetectomy Patient is brought to the operative suite. After undergoing anesthesia they are placed in the prone position. All areas of impingement are well padded. Patient is then prepped and draped in the normal sterile fashion. A skin incision is made over the L4/5 level. This is confirmed under c-arm guidance. A series of dilators are passed and the tubular retractor is docked on the L4 lamina. A bovie is used to clear the soft tissue off the lamina and the L 4/5 facet joint. A high speed renee is then used to perform the laminectomy and take down the medial aspect of the L 4/5 facet joint. A kerrison rongeure was then used to take down the remaining lamina and smooth the edge of the laminectomy up to the point where the ligamentum flavum attaches. Attention was then brought to the medial aspect of the facet joint. The remaining medial aspect of the superior and inferior aspect of the facet joint were taken down with the kerrison from the pedicle of L4 to L 5. The facet joint had significant hypertrophy. Attention was then brought to the Ligamentum Flavum. The ligament was taken down from the lamina of L4 to L5 and out medially to the remaining facet joint. The ligament was thick. The dura was then exposed. The dura was in good repair. The L4 nerve was then traced with a curette out the L4/5 foramen and found to be adequately decompressed. The L5 nerve was traced with a curette around the L5 pedicle. The lateral recess was opened with a kerrison helping to further decompress the L5 nerve. Wound is then irrigated copiously with saline and surgiflo is used to stop any bleeding. The tubular retractor is removed and A skin incision is made over the L5/S1 level. This is confirmed under c-arm guidance. A series of dilators are passed and the tubular retractor is docked on the L5 lamina. A bovie is used to clear the soft tissue off the lamina and the L 5/S1 facet joint. A high speed renee is then used to perform the laminectomy and take down the medial aspect of the L 5/S1 facet joint. A kerrison rongeure was then used to take down the remaining lamina and smooth the edge of the laminectomy up to the point where the ligamentum flavum attaches. Attention was then brought to the medial aspect of the facet joint. The remaining medial aspect of the superior and inferior aspect of the facet joint were taken down with the kerrison from the pedicle of L5 to S1. The facet joint had significant hypertrophy. Attention was then brought to the Ligamentum Flavum. The ligament was taken down from the lamina of L5 to S1 and out medially to the remaining facet joint. The ligament was thick. The dura was then exposed. The dura was in good repair. The L5 nerve was then traced with a curette out the l5/s1 foramen and found to be adequately decompressed. The s1 nerve was traced with a curette around the S1 pedicle. The lateral recess was opened with a kerrison helping to further decompress the S1 nerve. Wound is then irrigated copiously with saline and surgiflo is used to stop any bleeding. The tubular retractor is removed and the wound is closed with vicryl and monocryl suture. Glue is then used to protect the wound. A sterile dressing is then placed. Patient was then placed in the supine position and transferred to the PACU in stable condition.
[2021-12-31] MEDS: HYDROmorphone 1 mg/mL INJ 1 mL 0.5 MG IVP (12:40)
--- NOTE | 2021-12-31 12:53 | SUR.PHASEI ---
1236 PT TO PACU 5 PT AWKE ALERT ON RA SATS 95% IV TO RT HAND #20 PATENT WITH NS200 ML AT KVO RATE PER GRAVITY PT ABLE TO MOVE BILAT FEET TO COMMAND STRONG BILAT FLEXATION AND EXTENSION DORSAL. MONITOR SR NO ECTOPY NOTED, VSS. DRESSING TO LOWER BACK D/I 1240 SEE IV PAIN MED GIVEN PER AUTOMATION AND CONTROLS INSTRUCTOR ORDER TO START WITH DILAUDID FOR PAIN IN PACU
[2021-12-31] MEDS: HYDROcodone-acetaminophen 5-325 mg Tablet PO ×2 (15:56→19:56)
[2021-12-31] MEDS: ketorolac 30 mg/mL INJ IVP (15:56)
--- NOTE | 2021-12-31 17:45 | ANE.PACU2 ---
Inpatient post-anesthesia follow up: Airway intact: Yes Vital signs: Temperature 98 F Pulse Rate 75 Respiratory Rate 14 Blood Pressure 105/69 Pulse Oximetry 92 Oxygen Delivery Me thod Room Air Oxygen Flow Rate 3 Fraction of Inspir ed Oxygen Hydration adequate: Yes Nausea and vomiting: No Pain level: 2 Mental status: Baseline
[2021-12-31 17:59] LABS: Glucose Point of Care 182 mg/dL (70-110)
[2021-12-31] MEDS: insulin lispro 100 unit/1 mL SUBCUT ×2 (18:12→21:10)
[2021-12-31] MEDS: docusate sodium 100 mg Capsule PO (18:12)
[2021-12-31 20:55] LABS: Glucose Point of Care 146 mg/dL (70-110)
[2022-01-01] VITALS: BP 103/63; PULSE 61; RESP 17; TEMP 36.4; O2SAT 95
[2022-01-01 03:03] LABS: Basophils % 0.1 %; Hematocrit 33.3 % (37.0-47.0); Hemoglobin 10.2 g/dL (11.5-15.3); Lymphocytes # 2.4 10^3/uL (0.8-4.8); Lymphocytes % 11.3 %; Mean Corpuscular HGB Conc 30.6 g/dL (30.0-36.0); Mean Platelet Volume 10.5 fL (7.4-10.4); Monocytes # 1.6 10^3/uL (0.2-0.9); Monocytes % 7.5 %; Neutrophils # 17.06 10^3/uL (1.8-7.7); Neutrophils % 78.7 %; Nucleated Red Blood Cells % 0.1 %; Platelet Count 410 10^3/cmm (130-400); Red Blood Count 4.44 10^6/uL (4.1-5.3); Red Cell Distribution Width 18.6 % (12.1-15.1); White Blood Count 21.7 10^3/uL (4.0-10.0)
[2022-01-01 03:26] LABS: Albumin Level 3.2 g/dL (3.5-5.2); Anion Gap 12.7 (5-19); Blood Urea Nitrogen 15 mg/dL (6-20); Calcium 8.3 mg/dL (8.5-10.5); Carbon Dioxide 25 mmol/L (22-29); Chloride 105 mmol/L (98-107); Glomerular Filtration Rate 126.2 mL/min (90-130); Glucose 112 mg/dL (65-115); Phosphorus 4.4 mg/dL (2.5-4.5); Potassium 3.7 mmol/L (3.5-5.1); Sodium 139 mmol/L (136-145)
[2022-01-01 04:00] VITALS: BP 103/65; PULSE 57; RESP 18; TEMP 36.6; O2SAT 97
[2022-01-01] MEDS: enoxaparin 40 mg/0.4 mL Syringe SUBCUT (04:58)
[2022-01-01] MEDS: HYDROcodone-acetaminophen 5-325 mg Tablet PO ×2 (06:18→11:02)
[2022-01-01 06:42] LABS: Glucose Point of Care 108 mg/dL (70-110)
[2022-01-01 07:20] VITALS: BP 106/72; PULSE 69; RESP 12; TEMP 36.5; O2SAT 96
--- NOTE | 2022-01-01 07:42 | P.PN_ITS ---
Subjective Subjective: POD 1 Patient is up in the chair having some mild back pain. States the leg pain is completely resolved. She denies any shortness of breath, chest pain, headaches. Vitals/I&O/Wt Last Vital Signs Temp 97.7 F 01/01/22 07:20 Pulse 69 01/01/22 07:20 Resp 12 01/01/22 07:20 BP 106/72 01/01/22 07:20 Pulse Ox 96 01/01/22 07:20 12/31/21 01/01/22 01/01/22 22:59 06:59 14:59 Intake Total 500 / 596.5 940 / 1536.5 Output Total 1000 / 1025 Balance 500 / 571.5 -60 / 511.5 Weight last 48 hrs Weight 249 lb 8 oz Physical Exam Narrative: Patient presents alert and oriented x3 with a good general appearance normal mood and affect. Normal coordination normal stability. Mild tenderness around the incisional site but clean and dry. No signs of erythema or drainage. No signs of infection. Patient denies any fevers or chills. 5/5 motor strength both lower extremities with negative straight leg raise b ilaterally. Calves are supple no medial thigh tenderness. Pulses are 2+ at the dorsalis pedis and posterior tibial region. Good capillary refill throughout normal sensation light touch both lower extremities. Data : 01/01/22 02:09 01/01/22 02:09 A&P Assessment and plan (1) Status post lumbar laminectomy: Encourage her to continue walking program. No bending lifting or twisting more than 15 pounds. Keep the incision clean and dry. We will see her back in the office in 1 week's time for a wound check. Status: Acute Attestations Medical Necessity Statement*: Defer to medical team Coding Level of Care Code Acute Flight Deck Officer for Chg Fwd Diagnoses Status post lumbar laminectomy Z98.890
[2022-01-01] MEDS: citalopram 20 mg Tablet PO (07:48)
[2022-01-01] MEDS: pantoprazole DR 40 mg Tablet PO (07:49)
[2022-01-01] MEDS: docusate sodium 100 mg Capsule PO (07:49)
[2022-01-01] MEDS: cefTRIAXone 1,000 MG in sodium chloride 0.9% (plus) 50 ML 100 MG IV (07:49)
[2022-01-01] MEDS: predniSONE 20 mg Tablet 40 MG PO (07:49)
[2022-01-01 08:00] VITALS: BP 106/72; PULSE 69; RESP 12; TEMP 36.5
--- NOTE | 2022-01-01 10:55 | P.DS_ITS ---
Discharge Providers Date of Admission: 12/25/21 21:05 Date of Discharge: January 01, 2022 Attending Provider at Admission: Nikhil Gillis DO Attending Provider at Discharge: Fransico Parker Primary Care Provider: JUSTIN Kaur Diagnoses at Discharge Discharge Diagnosis (1) Status post lumbar laminectomy: Status: Acute Reason for Visit Reason for Visit: MS flare up Hospital Course Hospital Course Please see patient's H&P, consult notes, progress notes and procedure notes for more details. Discharge diagnoses and problem list #Multiple sclerosis exacerbation/flare #Acute UTI #History of migraines #Thrombocytosis #Microcytic anemia #Obesity #Marijuana abuse #Anemia most likely iron deficiency MS. Left lower extremity weakness.? MRI revealed MS lesions but no radiographic evidence of flares.? Completed IV steroids due to clinical concerns. The mat ent will continue outpatient follow-up with Dr. Saravia. Today I discussed with Dr. Saravia regarding hospital course and patient's condition at discharge. She recommended to stop the steroids at discharge. I appreciate her input. The patient was instructed to follow-up with Dr. Saravia in 1 week for further monitoring and management. She was asked to come back to emergency room if she develops any new weakness, numbness, problems with gait, vision, speech, or any other new complaints. She verbalized understanding and agreement. L5/S1 disc disease.? Appreciate Dr. Briceno for neurosurgical evaluation.? She underwent laminectomy yesterday and her left lower extremity is much improved today. She is going to go home with outpatient PT OT recommendations. Discussed with the case management and multidisciplinary team. Continue pain management.? UTI.? She will complete course of therapy with oral Omnicef. Iron deficiency.? Replaced IV. Being discharged on oral iron. Outpatient monitoring and adjustments are recommended. We will follow-up with the primary care physician. Hyperglycemia due to the steroids.? Outpatient monitoring and screening for possible diabetes. Management per primary care physician Leukocytosis.? Due to steroids mainly.? Repeat CBC in 1 week. No evidence of infection at this time The patient is feeling well and is eager to go home. She is very excited that her symptoms have improved significantly. Reports improved numbness and weakness in the left lower extremity. No weakness in the upper extremities. No dysuria or incontinence. Physical Exam Narrative: General: Alert oriented x3, no acute distress. Normal mood, response are adequate. HEENT: Normocephalic, atraumatic, EOMI, breathing room air. Respiratory: No respiratory distress. Clear to auscultation bilaterally Heart S1, S2, regular Extremities:no edema, no cyanosis, no calf tenderness. Neuro: Cranial nerves II to XII intact, strength upper extremities 5 out of 5, right lower extremity strength 5/5, left lower extremity strength 4 out of 5. Normal speech. Discharge Data Studies Completed and Pending Completed Studies During Hospitalization Category Date Time Status XR chest 1V portable [id number] Stat Exams 12/25/21 20:55 Completed XR lumbar spine 1V [id number] Routine Exams 12/31/21 Completed MR cervical spine w con [id number] Urgent MRI 12/26/21 08:00 Completed MR head wo/w con [id number] Urgent MRI 12/26/21 08:00 Completed MR lumbar spine w con [id number] Urgent MRI 12/26/21 08:00 Completed MR thoracic spine w con [id number] Urgent MRI 12/26/21 08:00 Completed Pending at discharge Category Date Time Status Blood Culture Stat Lab 12/27/21 11:23 Results Complete Blood Count w/Auto AM LABS Lab 01/02/22 04:00 Ordered Sputum Culture and Gram Stain Stat Lab 12/27/21 10:57 Uncollected Radiology Impressions Chest X-Ray 12/25/21 20:55 IMPRESSION: No acute findings. Cervical Spine MRI 12/26/21 08:00 IMPRESSION: 1. No enhancing demyelinating plaques in the cervical cord. 2. A few tiny faint chronic demyelinating plaques unchanged since 2018. No significant cord atrophy. 3. Mild disc bulging C4-C5 C5-C6 and C6-C7 appears unchanged compared to 2018. Head MRI 12/26/21 08:00 IMPRESSION: 1. No evidence of restricted diffusion to suggest acute ischemia. 2. Stable supratentorial demyelinating lesions. No new lesions compared to previous. 3. No enhancing lesions to indicate active disease. 4. No hemosiderin on susceptibly weighted images. 5. Mild T1 hypointense lesion load. No significant parenchymal volume loss. Lumbar Spine MRI 12/26/21 08:00 IMPRESSION: 1. Mild lumbar curve. No acute compression. No high-grade central canal stenosis. 2. No enhancing lesions in the lower thoracic cord or cauda equina. 3. Broad-based LEFT pericentral disc protrusion L5-S1 impinges the traversing LEFT S1 nerve root in the subarticular recess. Recommend correlation LEFT S1 nerve root symptoms. Spinal canal remains patent. Mild proximal LEFT L5-S1 foraminal narrowing. 4. Shallow central protrusion L3-L4 with a small annular fissure and slight effacement of the ventral thecal sac. 5. Shallow central disc protrusion L4-L5 with mild central canal stenosis and slight impingement on the subarticular recess and traversing L5 nerve roots bilaterally. 6. Mild facet arthropathy L3-L5. Thoracic Spine MRI 12/26/21 08:00 IMPRESSION: 1. No enhancing demyelinating plaques within the thoracic cord. 2. No high-grade central canal stenosis. 3. No significant cord atrophy. 4. Small protrusion T5-T6 eccentric to the RIGHT with slight contact of the thoracic cord. This is only covered on the sagittal T2 imaging. Patient could not tolerate additional imaging. 5. No other acute findings. Laboratory Results WBC 21.7 10^3/uL (4.0-10.0) H 01/01/22 02:09 RBC 4.44 10^6/uL (4.1-5.3) 01/01/22 02:09 Hgb 10.2 g/dL (11.5-15.3) L 01/01/22 02:09 Hct 33.3 % (37.0-47.0) L 01/01/22 02:09 MCV 75.0 fl (81-99) L 01/01/22 02:09 MCH 23.0 pg (28.0-34.0) L 01/01/22 02:09 MCHC 30.6 g/dL (30.0-36.0) 01/01/22 02:09 RDW 18.6 % (12.1-15.1) H 01/01/22 02:09 Plt Count 410 10^3/cmm (130-400) H 01/01/22 02:09 MPV 10.5 fL (7.4-10.4) H 01/01/22 02:09 Neut % (Auto) 78.7 % 01/01/22 02:09 Lymph % (Auto) 11.3 % 01/01/22 02:09 [place] % (Auto) 7.5 % 01/01/22 02:09 Eos % (Auto) 0.0 % 01/01/22 02:09 Baso % (Auto) 0.1 % 01/01/22 02:09 Neut # (Auto) 17.06 10^3/uL (1.8-7.7) H 01/01/22 02:09 Lymph # (Auto) 2.4 10^3/uL (0.8-4.8) 01/01/22 02:09 [place] # (Auto) 1.6 10^3/uL (0.2-0.9) H 01/01/22 02:09 Eos # (Auto) 0.0 10^3/uL (0.0-0.8) 01/01/22 02:09 Baso # (Auto) 0.0 10^3/uL (0.0-0.1) 01/01/22 02:09 Nucleated RBC % (auto) 0.1 % 01/01/22 02:09 Nucleated RBCs # 0.0 /100WBC 01/01/22 02:09 Sodium 139 mmol/L (136-145) 01/01/22 02:09 Potassium 3.7 mmol/L (3.5-5.1) 01/01/22 02:09 Chloride 105 mmol/L (98-107) 01/01/22 02:09 Carbon Dioxide 25 mmol/L (22-29) 01/01/22 02:09 Anion Gap 12.7 (5-19) 01/01/22 02:09 BUN 15 mg/dL (6-20) 01/01/22 02:09 Creatinine 0.6 mg/dL (0.5-0.9) 01/01/22 02:09 GFR Calculation 126.2 mL/min (90-130) 01/01/22 02:09 Glucose 112 mg/dL (65-115) 01/01/22 02:09 POC Glucose 108 mg/dL (70-110) 01/01/22 06:33 Estimat Average Glucose 94 12/26/21 19:15 Hemoglobin A1c 4.9 % (4.0-6.0) 12/26/21 19:15 Calculated Osmolality 291 mOsm/kg (285-295) 12/29/21 04:43 Calcium 8.3 mg/dL (8.5-10.5) L 01/01/22 02:09 Phosphorus 4.4 mg/dL (2.5-4.5) 01/01/22 02:09 Magnesium 2.5 mg/dL (1.7-2.3) H 12/31/21 05:05 Iron 23 ug/dL (37-145) L 12/25/21 19:15 TIBC 330 mcg/dl 12/25/21 19:15 % Saturation 6.9 % (20-50) L 12/25/21 19:15 Unsat Iron Binding 307 ug/dL (112-347) 12/25/21 19:15 Ferritin 7 ng/mL (15-150) L 12/25/21 19:15 Total Bilirubin 0.3 mg/dL (0.15-1.2) 12/27/21 04:38 AST 20 U/L (0-32) 12/27/21 04:38 ALT 26 U/L (0-33) 12/27/21 04:38 Alkaline Phosphatase 78 IU/L (35-105) 12/27/21 04:38 Total Protein 6.6 g/dL (6.6-8.7) 12/27/21 04:38 Albumin 3.2 g/dL (3.5-5.2) L 01/01/22 02:09 Globulin 2.4 g/dL (1.3-4.6) 12/27/21 04:38 Triglycerides 31 mg/dL (0-150) 12/26/21 19:15 Cholesterol 146 mg/dL (0-200) 12/26/21 19:15 LDL Cholesterol, Calc 98 mg/dL (50-129) 12/26/21 19:15 Total VLDL Cholesterol 6 mg/dL (0-30) 12/26/21 19:15 HDL Cholesterol 42 mg/dL (60-100) L 12/26/21 19:15 Cholesterol/HDL Ratio 3.48 mg/dL (0.0-4.40) 12/26/21 19:15 Vitamin B12 799 pg/mL (232-1245) 12/25/21 19:15 25-OH Vitamin D Total 22 ng/mL (30-100) L 12/25/21 19:15 Folate 13.2 ng/mL (4.8-37.3) 12/25/21 19:15 TSH 3.01 uIU/mL (0.27-4.20) 12/25/21 19:15 Free T4 1.21 ng/dL (0.82-1.77) 12/25/21 19:15 HCG, Qual Negative (Negative) 12/25/21 19:15 Urine Color Yellow (Yellow) 12/25/21 21:30 Urine Appearance Sl hazy (CLEAR) 12/25/21 21:30 Urine pH 6 (5-7) 12/25/21 21:30 Ur Specific [place] 1.020 (1.005-1.030) 12/25/21 21:30 Urine Protein Neg (Negative) 12/25/21 21:30 Urine Glucose (UA) Norm (Normal) 12/25/21 21:30 Urine Ketones Negative (Negative) 12/25/21 21:30 Urine Blood Neg (Negative) 12/25/21 21: Urine Nitrate Negative (Negative) 12/25/21 21:30 Urine Bilirubin Neg (Negative) 12/25/21 21:30 Urine Urobilinogen 1 mg/dL (Negative) H 12/25/21 21:30 Ur Leukocyte Esterase 1+ (Negative) H 12/25/21 21:30 Urine RBC 0-4 /hpf (0-2) H 12/25/21 21:30 Urine WBC 15-25 /hpf (0-5) H 12/25/21 21:30 Ur Squamous Epith Cells 15-25 /hpf (0-5) H 12/25/21 21:30 Amorphous Sediment Not Reportable 12/25/21 21:30 Urine Bacteria 1+ /hpf (NONE) H 12/25/21 21:30 Urine Sperm 1+ /hpf 12/25/21 21:30 Urine HCG, Qual Negative (Negative) 12/31/21 10:40 Vitals Last Vital Signs Temp 97.7 F 01/01/22 08:00 Pulse 69 01/01/22 08:00 Resp 12 01/01/22 08:00 BP 106/72 01/01/22 08:00 Pulse Ox 96 01/01/22 07:20 Discharge Plan Discharge Patient Disposition: Home Condition: Stable Prescriptions: New acetaminophen 325 mg Tablet 650 mg PO Q4H PRN (Reason: Mild Pain or fever >101.5) Qty: 30 0RF cefdinir 300 mg capsule 300 mg PO BID 10 Days Qty: 6 0RF hydrocodone-acetaminophen 5-325 mg Tablet 1 - 2 tab PO Q4H PRN (Reason: Moderate To Severe Pain) Qty: 30 0RF docusate sodium 100 mg Capsule 100 mg PO BID Qty: 30 0RF ferrous sulfate 325 mg (65 mg iron) tablet 325 mg PO DAILY Qty: 30 0RF Discharge Orders: Discharge Order (Routine); Ordered 01/01/22 Ordered By: Fransico Parker Other Ambulatory Orders: Complete Blood Count w/Auto (Routine) Timeframe: 1 Week Location: Determined by Patient Ordered By: Fransico Parker Physical Therapy Eval and Treat Outpatient (Order) Timeframe: 3 Days Facility: [facility] - Location: Physical Therapy Ordered By: Fransico Parker Referrals: Colleen Saravia MD [Physician] - 4-7 days Kaushal Briceno DO [Physician] - Lesly Oviedo FNP [Primary Care Provider] - Discharge Diet: Regular Discharge Activity: Increase activity as tolerated Patient Instructions: Opioid Safety Activity Restrictions/Additional Instructions: Thank you for [facility] for your care! The following is a list of instructions, from your provider, to follow upon your discharge to ensure you have the optimal recovery from your recent injury orsurgery. Follow-up care is a kilpatrick part of your treatment and safety. Be sure to make and go to all appointments, and call your doctor if you are having problems. If you do not already have a follow-up appointment made, call Dr. Fraser office in the next 1-3 days to make follow up appointment for 1-2 weeks at [phone]. It is also a good idea to know your test results and keep a list of the medicines you take. Medications will be prescribed for you at your provider's discretion. These medications are to be used as instructed; if they are taken more often that prescribed they will not be refilled early and in most cases will not be refilled at all. > When a refill is needed,you should contact edith sun 2-3 business days before your prescription runs out. Medications will NOT be refilled by [employer] providers after hours! > Many pain medications contain Tylenol (Acetaminophen). Do not consume more than 4,000 mg of Tylenol per day in total with any combination ofmedications. > Pain medications can cause constipation. Please use an over the counter stool softener as directed, while taking pain medications. Consulty our local pharmacist with questions or recommendations on stool softeners. If constipation persists, contact our office or your primary care provider. > While under our care,you are not to receive pain medications or other controlled substances from any other provider unless our office is notified and approves. Any attempts to do so will result in refusal to prescribe any further pain medications and possible dismissal from our practice. ? Your wound and/or dressing should remain clean and dry for 2 days after surgery. On postoperative day 2 (48 hours after your surgery) the dressing (if present) should be removed and it is okay to shower and get the incision wet. Pad dry afterwards. No further dressing should be required from that point on. Do not put any creams or ointments on theincision > It is normal for there to be a small amount of discharge (bloody or blood tinged) present from a surgical wound for the first 1-3days. > The wound should be examined twice a day for signs of infection. Mild redness or bruising is to be expected but indications that an infection maybe starting would include; An increase in redness, swelling, or discharge, a foul odor present around the incision, and/or a fever greater than 101 ?F ? Showering is permitted, however we ask that you do not take a bath, sit in a whirlpool / Jacuzzi, or go swimming for 1 month. For only the first 2 days after surgery, lt wilt be necessary for you to cover your wound/dressing with plastic and tape to keep it dry. ? Walking is essential for the healing process after surgery. We would like you to slowly advance your walking. This should be done on relatively flat clear ground (inside or out) or can be done on a treadmill. Vickie mber this goal does not have to happen all at once, slowly increase your distance and duration. This can be broken into more more than one walk per day as tolerated. Patients who walk as directed after surgery rarely require Physical Therapy. In the unlikely event this issue arises your provider will direct hospital staff to make the appropriate arrangements. ? No lifting over 5 pounds {a gallon of milk) or bending/twisting until further notice. Each of these activities places an unnecessary amount of stress onto the body and can impede the delicate healing process. > Instead of bending at the waist, keep your back straight and bend at the knees. > Instead of twisting your torso, keep your back straight and turn your entire body with your feet. ? You may sleep in any position which makes you comfortable. Many patients find comfort sleeping in a reclining chair. It is not abnormal to have difficulty sleeping for the first several weeks following your surgery. We recommend trying Benadry! or Tylenol PM as directed to help with your sleeping difficulties. Both medications are over the counter and available withoutprescription. ? NO SMOKING!!! Smoking dramatically increases the probability of developing postoperative wound infections. ? Common complaints after lumbar and/or thoracic spine surgery include, but are not limited to: numbness and/or tingling in the legs, pain around the incision and surrounding tissues, muscle spasms, or stiffness of the middle to low back. Contact our office if these symptoms persist or if an acute change occurs. ? No driving for the first 3-5days, and not while taking narcotics until seen at your follow-up appointment and cleared. There are no restrictions for riding on short trips, however if you take a longer trip, arrangements should be made to make regular stops to get out of the vehicle and stretch . ? Swelling is an unfortunate event that will take place with any surgery and is the primary source of your postoperative discomfort. While walking and regular approved activities helps control inflammation, there are additional steps you can take to minimizeswelling. > Place ice over the surgical site and surrounding tissue for twenty minutes, followed by applying a low/medium heat (heating pad) for an additional twenty minutes every 1-2 hours as needed for painrelief. > You may use of over the counter anti-inflammatory medications (Ibuprofen, Motrin, Aleve, Advil, etc) as directed on the package label. These types of medicines wm significantly reduce the amount of discomfort you experience after surgery from swelling. It should be noted that if you have and allergy to any of these medications, or a history of ulcers or kidney disease you should consult you primary care provider prior to starting these medications. Discharge Attestations Time Spent in Discharge Care*: greater than 30 min Quality Metrics Clinical Quality Measures [ No reported AMI, CVA or VTE this stay] Coding Level of Care Code Acute g [facility] note Diagnoses Status post lumbar laminectomy Z98.890
[2022-01-01 11:02] VITALS: BP 115/77; PULSE 75; RESP 13; O2SAT 96
[2022-01-01 11:02] LABS: Glucose Point of Care 117 mg/dL (70-110)
[2022-01-01 13:18] VITALS: BP 115/77; PULSE 75; RESP 13; O2SAT 96
--- NOTE | 2022-01-05 06:53 | W.PM.OPSUD ---
Surgery/Procedure H&P Update DATE OF PROCEDURE: December 31, 2021 DATE H&P PERFORMED: 12/29/21 H&P UPDATE INFORMATION: I have reviewed H&P completed within last 30 days, I have examined patient prior to procedure and No changes to prior documentation PREOP DIAGNOSIS: Herniated nucleus pulposus to the left at L4-5 L5-S1 PLANNED PROCEDURE: Operation Date: 12/31/21 10:10 Proposed Procedures p Lumbar Spine Decompression(Not Applicable) - Kaushal Briceno DO
== END 2022-01-01 13:18 | disposition home or self-care (01) | DRG 29 ==
LOC: ER 21:09 → MEDSURG 22:17
PROVIDERS: Anesthesiology; Internal Medicine; Orthopaedic Surgery; Admitting Provider Internal Medicine; Emergency Provider Nurse Practitioner Family; PCP Nurse Practitioner Family; Visit Provider Internal Medicine
PROC: 01NB0ZZ Release Lumbar Nerve, Open Approach (ICD-10-PCS; CPT 63005; principal; 2021-12-31 10:00)
DX: G35 Multiple sclerosis (principal); Z68.42 Body mass index [BMI] 45.0-49.9, adult; N39.0 Urinary tract infection, site not specified; M51.27 Other intervertebral disc displacement, lumbosacral region; F12.10 Cannabis abuse, uncomplicated; D75.839 Thrombocytosis, unspecified; D50.9 Iron deficiency anemia, unspecified; E66.01 Morbid (severe) obesity due to excess calories; F41.9 Anxiety disorder, unspecified; R73.9 Hyperglycemia, unspecified; T38.0X5A Adverse effect of glucocorticoids and synthetic analogues, initial encounter; M79.604 Pain in right leg; D72.829 Elevated white blood cell count, unspecified; Z86.69 Personal history of other diseases of the nervous system and sense organs
CPT/HCPCS: 36415; 36416; 70553; 71045; 72020; 72142; 72147; 72149; 76000; 80048; 80053; 80061; 80069; 81001; 81025; 82274; 82306; 82607; 82728; 82746; 82962; 83036; 83540; 83550; 83735; 84439; 84443; 84703; 85025; 87040; 87086; 87205; 96372; 96374; 97110; 97116; 97161; 97164; 97530; 99285; A9577; J0690; J0696; J1100; J1170; J1200; J1650; J1756; J1815; J1885; J2250; J2405; J2704; J2710; J2930; J3010; J3490; J7030; J7050; J7512; Q0163

== ENCOUNTER → 2022-03-23 09:26 | Outpatient (BNVA) | payer SELFPAY | PROVIDERS: PCP Nurse Practitioner Family; Visit Provider Family Medicine | DX: N92.6 Irregular menstruation, unspecified (principal); N92.0 Excessive and frequent menstruation with regular cycle | CPT/HCPCS: 81025 ==

== ENCOUNTER → 2022-03-31 16:17 | Outpatient (BNVA) | payer SELFPAY | PROVIDERS: PCP Nurse Practitioner Family; Visit Provider Family Medicine | DX: Z12.4 Encounter for screening for malignant neoplasm of cervix (principal) | CPT/HCPCS: 88175 ==

== ENCOUNTER 2022-04-28 08:55 | Emergency (ER) | payer SELFPAY ==
[2022-04-28 09:04] VITALS: BP 172/99; PULSE 111; RESP 16; TEMP 36.6; O2SAT 97; BMI 46.3
--- NOTE | 2022-04-28 09:04 | ECG_ITS ---
[facility] Test Date: 2022-04-28 Pat Name: Allyn Lira Department: Room: Gender: Female Electrical Electronics Engineer: : 2000 Requested By: Sreedhar Phillips Order Number: [id number] Sarahy MD: Ariadne Rodriguez M.D. Measurements Intervals [place] Rate: 107 P: 55 [place]: 142 QRS: 25 QRSD: 80 T: 49 QT: 317 QTc: 423 Interpretive Statements SINUS TACHYCARDIA LOW QRS VOLTAGE IN PRECORDIAL LEADS [QRS DEFLECTION < 1.0 mV IN CHEST LEADS] No previous ECG available for comparison Electronically Signed On 04-28-2022 18:01:25 CDT by Ariadne Rodriguez M.D. [email or web address]
--- NOTE | 2022-04-28 09:21 | XR_ITS ---
WS: [id number] Exam: XR chest 1V portable [id number] Date/Time of Exam: 04/28/2022 9:21 AM Reason For Exam: dyspnea/cough Comparison 12/25/2021. Findings: The lungs are clear and fully expanded. Costophrenic angles are sharp. No infiltrates. Bronchovascula r relief appears normal. Cardiac silhouette is unremarkable. Bony elements are intact. XR/XR chest 1V portable [id number] IMPRESSION: Unremarkable chest radiograph.
--- NOTE | 2022-04-28 09:34 | ED_ITS ---
HPI - Chest Pain General: Chief Complaint: Chest Pain Stated Complaint: Chest pains Time Seen by Provider: 04/28/22 09:11 Source: patient Mode of arrival: ambulatory Limitations: no limitations History of Present Illness: 21-year-old female presents emergency room with complaint of chest pain. She had it for the last 3 days not radiate is worse when she takes a deep breath. Also increases with palp patient of the chest wall. She not had any fever sweats chills cough or shortness of breath. No re cent upper respiratory symptoms. No trauma. MD complaint: chest pain Onset (ago): day(s) (3) Pain location: substernal Pain radiation: none Severity: mild Quality: sharp Relieving factors: other (Shallow inspiration) Exacerbating factors: inspiration and palpation Associated symptoms: Deny abdominal pain, diaphoresis, dyspnea, fever(s), leg edema, nausea, palpitations, sense of impending doom, syncope or vomiting Treatment prior to arrival: none Review of Systems Const: Denies: fever(s), chills, fatigue, malaise or diaphoresis ENMT: Denies: throat pain, ear or mastoid pain, nasal discharge or nasal congestion Card: Reports: chest pain; Denies: palpitations or syncope Resp: Denies: dyspnea GI: Denies: abdominal pain, nausea or vomiting : Denies: flank pain, difficulty voiding, dysuria, urinary frequency or urinary urgency Skin/Breast: Denies: rash or pruritus [facility] ED PFSH: Medical History Abnormal vaginal bleeding Anxiety Chronic migraine Hyperglycemia, drug-induced Morbid obesity with BMI of 45.0-49.9, adult Multiple sclerosis Surgical History Hx of appendectomy Social History Smoking and tobacco status: never smoked Alcohol intake: never Marital status: Number of children: 0 Current occupational status: employed Female Reproductive History: Date of last menstrual period: 09/16/20 Spontaneous abortions: No Physical Exam Const: COMMON NORMALS: no acute distress GENERAL APPEARANCE: cooperative a nd comfortable ORIENTATION/CONSCIOUSNESS: Yes awake, Yes oriented to person, Yes oriented to place and Yes oriented to time HENMT: COMMON NORMALS: normocephalic, atraumatic and hearing grossly normal bilaterally HEAD & SCALP: normocephalic and atraumatic Eye: COMMON NORMALS: Equal, round and reactive pupils present, EOMs intact bilaterally, conjunctivae normal and no scleral icterus CONJUNCTIVA: Yes conjunctivae normal PUPIL: Yes Equal, round and reactive pupils present Neck/C-Spine: COMMON NORMALS: full ROM, no lymphadenopathy, supple and no JVD Resp: COMMON NORMALS: normal respiratory effort, No retractions, No use of accessory muscles and clear to auscultation bilaterally AUSCULTATION: clear to auscultation bilaterally Cardio: COMMON NORMALS: no JVD, regular rate, regular rhythm and No murmurs present (Cardio) RATE: regular rate RHYTHM: regular rhythm GI: COMMON NORMALS: Soft to palpation and No hepatosplenomegaly present AUSCULTATION: Yes normoactive bowel sounds PALPATION: Yes Soft to palpation, No Tenderness to palpation present (GI), No Guarding due to palpation present (GI) and Yes No hepatosplenomegaly present Extremity: COMMON NORMALS: normal to inspection, capillary refill normal, no clubbing, cyanosis or edema, no calf tenderness and no pedal edema Neuro: SENSORIUM/ORIENTATION: Yes oriented to person, Yes oriented to place and Yes oriented to time Skin: COMMON NORMALS: no rashes or lesions noted GENERAL SKIN EXAM: no rashes or lesions noted Course Vital Signs: Vital signs: Vital Signs Temperature 97.8 F 04/28/22 09:04 Pulse Rate 90 04/28/22 11:23 Respiratory Rate 16 04/28/22 09:04 Blood Pressure 121/74 04/28/22 11:23 Pulse Oximetry 99 04/28/22 11:23 Oxygen Delivery Me thod 04/28/22 11:22 MDM - Chest Pain Medical Decision Making Labs imaging and EKG reviewed patient and her pain is reproducible chest pain deep inspiration discharge home with anti-inflammatories. She also has some anxiety issues gave her some hydroxyzine to use as needed. Medical Records I reviewed the patient's medical records. Lab Data I reviewed the patient's lab results. : 04/28/22 09:45 Radiology Impressions Chest X-Ray 04/28/22 09:21 IMPRESSION: Unremarkable chest radiograph. Laboratory Results WBC 13.6 10^3/uL (4.0-10.0) H 04/28/22 09:45 RBC 5.20 10^6/uL (4.1-5.3) 04/28/22 09:45 Hgb 13.3 g/dL (11.5-15.3) 04/28/22 09:45 Hct 42.4 % (37.0-47.0) 04/28/22 09:45 MCV 81.5 fl (81-99) 04/28/22 09:45 MCH 25.6 pg (28.0-34.0) L 04/28/22 09:45 MCHC 31.4 g/dL (30.0-36.0) 04/28/22 09:45 RDW 13.8 % (12.1-15.1) 04/28/22 09:45 Plt Count 423 10^3/cmm (130-400) H 04/28/22 09:45 MPV 10.0 fL (7.4-10.4) 04/28/22 09:45 Neut % (Auto) 76.7 % 04/28/22 09:45 Lymph % (Auto) 15.2 % 04/28/22 09:45 [place] % (Auto) 7.3 % 04/28/22 09:45 Eos % (Auto) 0.4 % 04/28/22 09:45 Baso % (Auto) 0.1 % 04/28/22 09:45 Neut # (Auto) 10.45 10^3/uL (1.8-7.7) H 04/28/22 09:45 Lymph # (Auto) 2.1 10^3/uL (0.8-4.8) 04/28/22 09:45 [place] # (Auto) 1.0 10^3/uL (0.2-0.9) H 04/28/22 09:45 Eos # (Auto) 0.1 10^3/uL (0.0-0.8) 04/28/22 09:45 Baso # (Auto) 0.0 10^3/uL (0.0-0.1) 04/28/22 09:45 Nucleated RBC % (auto) 0 % 04/28/22 09:45 Nucleated RBCs # 0.0 /100WBC 04/28/22 09:45 Discharge Plan Discharge Patient Disposition: Home Clinical Impression: Anterior chest wall pain, Anxiety Condition: Stable Prescriptions: New diclofenac sodium 75 mg tablet,delayed release (DR/EC) 75 mg PO Q12H PRN (Reason: pain) Qty: 20 0RF hydroxyzine HCl 25 mg tablet 25 mg PO Q4H PRN (Reason: anxiety) Qty: 20 0RF No Action Emgality Syringe 120 mg/mL syringe 240 mg SUBCUT ONCE Qty: 2 3RF acetaminophen 325 mg Tablet 650 mg PO Q4H PRN (Reason: Mild Pain or fever >101.5) Qty: 30 0RF ropinirole 0.5 mg tablet 0.5 mg PO DAILY PRN (Reason: Restless Leg(S)) Rx Instructions: 1-2 at bedtime for restless legs Discharge Orders: Discharge ED (Routine); Ordered 04/28/22 Ordered By: Sreedhar Marvin Referrals: eLsly Oviedo FNP [Primary Care Provider] - Discharge Diet: Usual diet Discharge Activity: Increase activity as tolerated Patient Instructions: Opioid Safety Activity Restrictions/Additional Instructions: Case management will help you establish with a primary care provider. Coding Level of Care Code ED Marine Operations Coordinator for Chg Fwd Exam Comprehensive
[2022-04-28] MEDS: ketorolac 30 mg/mL INJ IVP (09:55)
[2022-04-28 09:57] LABS: Basophils % 0.1 %; Eosinophils # 0.1 10^3/uL (0.0-0.8); Eosinophils % 0.4 %; Hematocrit 42.4 % (37.0-47.0); Hemoglobin 13.3 g/dL (11.5-15.3); Lymphocytes # 2.1 10^3/uL (0.8-4.8); Lymphocytes % 15.2 %; Mean Corpuscular HGB Conc 31.4 g/dL (30.0-36.0); Mean Corpuscular Hemoglobin 25.6 pg (28.0-34.0); Mean Corpuscular Volume 81.5 fl (81-99); Monocytes % 7.3 %; Neutrophils # 10.45 10^3/uL (1.8-7.7); Neutrophils % 76.7 %; Nucleated Red Blood Cells % 0 %; Platelet Count 423 10^3/cmm (130-400); Red Cell Distribution Width 13.8 % (12.1-15.1); White Blood Count 13.6 10^3/uL (4.0-10.0)
[2022-04-28 09:59] VITALS: BP 129/81; PULSE 102; O2SAT 96
[2022-04-28 10:06] VITALS: PULSE 96; O2SAT 95
[2022-04-28 11:22] VITALS: BP 121/74; PULSE 90; O2SAT 99
[2022-04-28 11:23] VITALS: BP 121/74; PULSE 90; O2SAT 99
== END 2022-04-28 11:24 | disposition home or self-care (01) ==
PROVIDERS: Emergency Provider Family Medicine; PCP Nurse Practitioner Family
DX: R07.89 Other chest pain (principal); F41.9 Anxiety disorder, unspecified
CPT/HCPCS: 71045; 85025; 93005; 96374; 99284; J1885

== ENCOUNTER 2022-05-03 19:06 | Emergency (ER) | payer SELFPAY ==
[2022-05-03 19:11] VITALS: BP 126/90; PULSE 104; RESP 17; TEMP 36.8; O2SAT 98; BMI 45.3
[2022-05-03 20:11] LABS: Rapid Strep A Test Negative (Negative)
--- NOTE | 2022-05-03 20:17 | W.ED.GENADLT ---
HPI - General Adult General: Chief complaint: General Medical Stated complaint: throat pain Time Seen by Provider: 05/03/22 19:38 History of Present Illness: Patient is a 21-year-old female comes to the ED with sore throat. Symptoms started this morning when she woke up. She states that she frequently gets strep throat. Today her sore throat is rated a 7 out of 10. She looked in the mirror and noticed that her tonsils are swollen and thought she needed to be seen by a provider. Urgent care was closely came to the ED. Denies any fever, nausea/vomiting, bladder or bowel symptoms. Patient did state that she has had some nasal congestion and drainage for the past couple days. Associated symptoms: Deny chest pain, dyspnea, headache(s), nausea, rash, palpitations or vomiting Review of Systems Const: Denies: fever(s), chills or fatigue Eyes: Denies: change in vision or eye discomfort ENMT: Reports: throat pain, odynophagia, nasal discharge and nasal congestion Card: Denies: chest pain, palpitations, edema, swelling of feet/ankles, dyspnea on exertion or orthopnea Resp: Denies: dyspnea, productive cough or non-productive cough GI: Denies: abdominal pain, nausea, vomiting, diarrhea, constipation or hematochezia : Denies: flank pain, dysuria or hematuria Musc: Denies: neck pain, back pain or extremity swelling Skin/Breast: Denies: rash or new lesions Neuro: Denies: headache(s), numbness in extremities or weakness in extremities [facility] ED PFSH: Medical History Abnormal vaginal bleeding Anxiety Chronic migraine Hyperglycemia, drug-induced Morbid obesity with BMI of 45.0-49.9, adult Multiple sclerosis Surgical History Hx of appendectomy Social History Smoking and tobacco status: never smoked Alcohol intake: never Marital status: Number of children: 0 Current occupational status: employed Female Reproductive History: Date of last menstrual period: 09/16/20 Spontaneous abortions: No Physical Exam Const: COMMON NORMALS: no acute distress, patient oriented x3 and alert GENERAL APPEARANCE: cooperative HENMT: COMMON NORMALS: normocephalic HEAD & SCALP: normocephalic MOUTH: Normal oral and palatal mucosa present THROAT: uvula midline, abnormal tonsil bilateral exudates and hypertrophy 3+ and posterior oropharynx abnormal erythema and exudates Neck/C-Spine: COMMON NORMALS: supple GENERAL: Yes normal visual inspection Resp: COMMON NORMALS: normal respiratory effort, No retractions, No use of accessory muscles and clear to auscultation bilaterally AUSCULTATION: clear to auscultation bilaterally Cardio: COMMON NORMALS: regular rate, regular rhythm, S1 normal heart sound present, S2 normal heart sound present, No gallops present (Cardio), No clicks present (Cardio), No murmurs present (Cardio) and Peripheral pulses 2+ throughout RATE: regular rate RHYTHM: regular rhythm HEART SOUNDS: S1 normal heart sound present and S2 normal heart sound present PERIPHERAL PULSES: Peripheral pulses 2+ throughout GI: COMMON NORMALS: Normal to inspection, nondistended, normoactive bowel sounds present, Soft to palpation, non-tender and no masses PALPATION: Yes Soft to palpation : COMMON NORMALS: Yes no CVA tenderness BLADDER/KIDNEY EXAM: Yes no CVA tenderness Back/Pelvis: COMMON NORMALS: no CVA tenderness Extremity: COMMON NORMALS: normal to inspection Neuro: COMMON NORMALS: patient oriented x3 SENSORIUM/ORIENTATION: Yes alert GAIT: Yes Normal gait present Skin: GENERAL SKIN EXAM: dry skin Course Vital Signs: Vital signs: Vital Signs Temperature 98.3 F 05/03/22 20:28 Pulse Rate 98 05/03/22 20:28 Respiratory Rate 17 05/03/22 20:28 Blood Pressure 130/84 05/03/22 20:28 Pulse Oximetry 98 05/03/22 20:28 Oxygen Delivery Me thod 05/03/22 19:11 [facility] - General Adult Medical Decision Making Patient is a 21-year-old female comes to the ED with sore throat. Vitals are stable. Exam of patient shows 3+ hypertrophy of the tonsils with some exudates present. Posterior pharynx has erythema and some exudates as well. Strep test was negative. Given patient's exam findings I am going to treat her with an antibiotic. She is diagnosed with pharyngitis and acute infective tonsillitis. She was discharged home with a prescription for amoxicillin. Told to follow-up with her PCP in the next week for reevaluation. Return to ED precautions given. Patient understood and agreed with plan. Lab Data I reviewed the patient's lab results. Laboratory Results Group A Strep Rapid Negative (Negative) 05/03/22 20:00 Discharge Plan Discharge Patient Disposition: Home Clinical Impression: Pharyngitis Qualifiers: Pharyngitis/tonsillitis etiology: unspecified etiology Qualified Code(s): J02.9 - Acute pharyngitis, unspecified Acute infective tonsillitis Qualifiers: Pharyngitis/tonsillitis etiology: other specified organisms Qualified Code(s): J03.80 - Acute tonsillitis due to other specified organisms Condition: Stable Prescriptions: New amoxicillin 500 mg capsule 500 mg PO BID 10 Days Qty: 20 0RF No Action Emgality Syringe 120 mg/mL syringe 240 mg SUBCUT ONCE Qty: 2 3RF acetaminophen 325 mg Tablet 650 mg PO Q4H PRN (Reason: Mild Pain or fever >101.5) Qty: 30 0RF ropinirole 0.5 mg tablet 0.5 mg PO DAILY PRN (Reason: Restless Leg(S)) Rx Instructions: 1-2 at bedtime for restless legs diclofenac sodium 75 mg tablet,delayed release (DR/EC) 75 mg PO Q12H PRN (Reason: pain) Qty: 20 0RF hydroxyzine HCl 25 mg tablet 25 mg PO Q4H PRN (Reason: anxiety) Qty: 20 0RF Discharge Orders: Discharge ED (Routine); Ordered 05/03/22 Ordered By: Som Brantley Referrals: Lesly Oviedo FNP [Primary Care Provider] - Discharge Diet: Regular Discharge Activity: Increase activity as tolerated Patient Instructions: Pharyngitis (ED), Tonsillitis (ED) Activity Restrictions/Additional Instructions: Follow-up with medical provider as directed in the next 7 to 10 days for reevaluation. Take medications as prescribed. Return to the ER or your medical provider if condition worsens. Please read and understand discharge instructions. Thank you for choosing [facility] for your healthcare needs today. Please realize this is an emergency room and that we are providing you with a medical screening exam and this may not be complete and all inclusive of all the testing and or work up that you may need to determine your ailment or severity of your illness. It is very important that you follow up as instructed or that you return to the Emergency Department should you have concerns or if your condition changes or worsens in any way. Coding Level of Care Code ED Oil Burner for Yvette Fwd Exam Comprehensive
[2022-05-03 20:28] VITALS: BP 130/84; PULSE 98; RESP 17; TEMP 36.8; O2SAT 98
[2022-05-03] MEDS: amoxicillin 500 mg Capsule PO (20:28)
== END 2022-05-03 20:30 | disposition home or self-care (01) ==
PROVIDERS: Emergency Provider Physician Assistant; PCP Nurse Practitioner Family
DX: J03.80 Acute tonsillitis due to other specified organisms (principal); G35 Multiple sclerosis
CPT/HCPCS: 87081; 87880; 99283

== ENCOUNTER → 2022-06-04 13:40 | Outpatient (BNVA) | payer SELFPAY | PROVIDERS: PCP Nurse Practitioner Family; Visit Provider Family Medicine | DX: R19.8 Other specified symptoms and signs involving the digestive system and abdomen (principal); N30.90 Cystitis, unspecified without hematuria | CPT/HCPCS: 81000; 81025 ==

== ENCOUNTER 2022-06-29 21:16 | Emergency (ER) | payer SELFPAY ==
[2022-06-29 21:20] VITALS: BP 129/83; PULSE 104; RESP 16; TEMP 36.8; O2SAT 97; BMI 46.8
--- NOTE | 2022-06-29 22:04 | ED_ITS ---
HPI - General Adult General: Chief complaint: Vaginal Bleeding Stated complaint: Period Pain Time Seen by Provider: 06/29/22 22:01 History of Present Illness: 21-year-old female comes in today for complaints of pelvic pain with abnormal vaginal bleeding. Patient reports bleeding since 04 June. Patient was seen by primary care this morning and diagnosed with a urinary tract infection. Patient reports passing large clots and going through 3 pads since being seen by primary care this morning. Patient appears nontoxic. Patient appears in mild pain. Patient has a history of anxiety disorder, chronic migraines, low back pain, iron deficiency, and morbid obesity. Review of Systems Const: Denies: fever(s) : Reports: vaginal bleeding and pelvic pain [facility] ED PFSH: Medical History Abnormal vaginal bleeding Anxiety Chronic migraine Hyperglycemia, drug-induced Morbid obesity with BMI of 45.0-49.9, adult Multiple sclerosis Surgical History Hx of appendectomy Social History Smoking and tobacco status: never smoked Alcohol intake: never Marital status: Number of children: 0 Current occupational status: employed Female Reproductive History: Date of last menstrual period: 06/04/22 Spontaneous abortions: No Physical Exam Const: COMMON NORMALS: alert HENMT: COMMON NORMALS: normocephalic HEAD & SCALP: normocephalic Neck/C-Spine: COMMON NORMALS: full ROM Resp: COMMON NORMALS: normal respiratory effort and clear to auscultation bilaterally AUSCULTATION: clear to auscultation bilaterally Cardio: COMMON NORMALS: regular rate RATE: regular rate Back/Pelvis: COMMON NORMALS: thoracic and lumbar spine normal to inspection Extremity: COMMON NORMALS: normal to inspection Neuro: SENSORIUM/ORIENTATION: Yes alert Skin: COMMON NORMALS: turgor normal GENERAL SKIN EXAM: turgor normal Course Vital Signs: Vital signs: Vital Signs Temperature 98.2 F 06/29/22 21:20 Pulse Rate 104 H 06/29/22 21:20 Respiratory Rate 16 06/29/22 21:20 Blood Pressure 129/83 06/29/22 21:20 Pulse Oximetry 97 06/29/22 21:20 Oxygen Delivery Me thod 06/29/22 21:20 MDM - General Adult Medical Decision Making 21-year-old female comes in today for complaints of abnormal uterine bleeding. Patient reports going through 3 pads today within 30 minutes of each pad. Patient reports some large clots. Bleeding is slowed down since this evening. On exam abdomen is soft with some tenderness in the suprapubic area. Respirations are even lungs are clear to auscultation. Skin is warm and dry. Patient moves all extremities well. Pupils are equal and reactive. Differentia l diagnosis includes but not limited to anemia, abnormal uterine bleeding, pelvic mass, ovarian cyst, ectopic . CBC CMP were unremarkable. Patient did have some microcytic blood cells. Urine was adulterated with large amounts of red blood cells. hCG was negative. Ultrasound of the pelvis noted 2 cm cyst on the left ovary but no signs of abnormal pelvic mass. Reviewed exam with patient recommended norethindrone acetate 5 mg daily for the next 10 days to control abnormal uterine bleeding. Case management was also requested to help patient with her follow-up appoint with NURSE WOUND CARE. Lab Data : 06/29/22 22:10 06/29/22 22:10 Laboratory Results WBC 8.4 10^3/uL (4.0-10.0) 06/29/22 22:10 RBC 4.87 10^6/uL (4.1-5.3) 06/29/22 22:10 Hgb 12.6 g/dL (11.5-15.3) 06/29/22 22:10 Hct 39.1 % (37.0-47.0) 06/29/22 22:10 MCV 80.3 fl (81-99) L 06/29/22 22:10 MCH 25.9 pg (28.0-34.0) L 06/29/22 22:10 MCHC 32.2 g/dL (30.0-36.0) 06/29/22 22:10 RDW 14.9 % (12.1-15.1) 06/29/22 22:10 Plt Count 399 10^3/cmm (130-400) 06/29/22 22:10 MPV 10.2 fL (7.4-10.4) 06/29/22 22:10 Neut % (Auto) 54.5 % 06/29/22 22:10 Lymph % (Auto) 35.0 % 06/29/22 22:10 [place] % (Auto) 6.9 % 06/29/22 22:10 Eos % (Auto) 3.2 % 06/29/22 22:10 Baso % (Auto) 0.2 % 06/29/22 22:10 Neut # (Auto) 4.60 10^3/uL (1.8-7.7) 06/29/22 22:10 Lymph # (Auto) 3.0 10^3/uL (0.8-4.8) 06/29/22 22:10 [place] # (Auto) 0.6 10^3/uL (0.2-0.9) 06/29/22 22:10 Eos # (Auto) 0.3 10^3/uL (0.0-0.8) 06/29/22 22:10 Baso # (Auto) 0.0 10^3/uL (0.0-0.1) 06/29/22 22:10 Nucleated RBC % (auto) 0 % 06/29/22 22:10 Nucleated RBCs # 0.0 /100WBC 06/29/22 22:10 Sodium 137 mmol/L (136-145) 06/29/22 22:10 Potassium 3.8 mmol/L (3.5-5.1) 06/29/22 22:10 Chloride 104 mmol/L (98-107) 06/29/22 22:10 Carbon Dioxide 22 mmol/L (22-29) 06/29/22 22:10 Anion Gap 14.8 (5-19) 06/29/22 22:10 BUN 8 mg/dL (6-20) 06/29/22 22:10 Creatinine 0.7 mg/dL (0.5-0.9) 06/29/22 22:10 GFR Calculation 105.6 mL/min (90-130) 06/29/22 22:10 Glucose 96 mg/dL (65-115) 06/29/22 22:10 Calculated Osmolality 282 mOsm/kg (285-295) L 06/29/22 22:10 Calcium 9.3 mg/dL (8.5-10.5) 06/29/22 22:10 Total Bilirubin 0.4 mg/dL (0.15-1.2) 06/29/22 22:10 AST 25 U/L (0-32) 06/29/22 22:10 ALT 31 U/L (0-33) 06/29/22 22:10 Alkaline Phosphatase 73 U/L (35-105) 06/29/22 22:10 Total Protein 7.3 g/dL (6.6-8.7) 06/29/22 22:10 Albumin 4.2 g/dL (3.5-5.2) 06/29/22 22:10 Globulin 3.1 g/dL (1.3-4.6) 06/29/22 22:10 Lipase 34 U/L (13-60) 06/29/22 22:10 HCG, Qual Negative (Negative) 06/29/22 22:10 Urine Color Red (Yellow) 06/29/22 22:05 Urine Appearance Sl hazy (CLEAR) A 06/29/22 22: Urine pH 7 (5-7) 06/29/22 22:05 Ur Specific [place] 1.020 (1.005-1.030) 06/29/22 22:05 Urine Protein 2+ (Negative) H 06/29/22 22:05 Urine Glucose (UA) Norm (Normal) 06/29/22 22:05 Urine Ketones 1+ (Negative) H 06/29/22 22:05 Urine Blood 3+ (Negative) H 06/29/22 22:05 Urine Nitrate Negative (Negative) 06/29/22 22:05 Urine Bilirubin Neg (Negative) 06/29/22 22:05 Prot Sulfosalicylic Acd Negative (Negative) 06/29/22:05 Urine Urobilinogen 4 mg/dL (Negative) H 06/29/22 22:05 Ur Leukocyte Esterase 1+ (Negative) H 06/29/22 22:05 Urine RBC Too numerous to cnt /hpf (0-2) H 06/29/22 22:05 Urine WBC 0-4 /hpf (0-5) H 06/29/22 22:05 Ur Squamous Epith Cells 0-4 /hpf (0-5) H 06/29/22 22:05 Amorphous Sediment Not Reportable 06/29/22 22:05 Urine Bacteria Trace /hpf (NONE) 06/29/22 22:05 Discharge Plan Discharge Patient Disposition: Home Clinical Impression: Dysfunctional uterine bleeding Iron deficiency anemia Qualifiers: Iron deficiency anemia type: chronic blood loss Qualified Code(s): D50.0 - Iron deficiency anemia secondary to blood loss (chronic) Condition: Stable Prescriptions: New norethindrone acetate 5 mg tablet 5 mg PO DAILY 10 Days Qty: 10 0RF No Action escitalopram oxalate [Lexapro] 5 mg tablet 5 mg PO DAILY Qty: 30 1RF clonazepam 1 mg tablet 1 mg PO DAILY PRN (Reason: Severe anxiety) Qty: 14 0RF cephalexin 500 mg capsule 500 mg PO BID Qty: 14 0RF acetaminophen 325 mg Tablet 650 mg PO Q4H PRN (Reason: Mild Pain or fever >101.5) Qty: 30 0RF Discharge Orders: Discharge ED (Routine); Ordered 06/29/22 Ordered By: Melvin Sinha Referrals: Yasir Hamilton DO [Primary Care Provider] - Discharge Diet: Usual diet Discharge Activity: Increase activity as tolerated Patient Instructions: Abnormal (Dysfunctional) Uterine Bleeding (ED) Activity Restrictions/Additional Instructions: Drink plenty of water. Eat a healthy diet. Take hormone norephedrine acetate 5 mg daily for the next 10 days to stop bleeding. Follow-up with NURSE WOUND CARE for fu rther evaluation and treatment. Return to ER for high fever greater than 100.4, uncontrolled abdominal pelvic pain, or new concerns. Coding Level of Care Code ED Chief Customer Officer for Yvette Fwd Exam Comprehensive
--- NOTE | 2022-06-29 22:12 | USR_ITS ---
PROCEDURE INFORMATION: Exam: US Nonobstetric Pelvis; Complete Exam date and time: 06/29/2022 11:17 PM Age: 21 years old Clinical indication: Pelvic pain; Prior surgery; Surgery date: 6+ months; Surgery type: Appendectomy 2011; Patient HX: Heavy vaginal bleeding, non-stop since June 04, 2022. Long history of irregular menses. Last regular cycle was 2019. G1-p0-a1-l1 (one miscarriage). ; Additional info: Pelvic pain, abnormal vaginal bleeding TECHNIQUE: Imaging protocol: Transabdominal pelvic nonobstetric ultrasound. Complete exam. Real time ultrasound with image documentation. COMPARISON: US abdomen limited [id number] 09/08/2018 10:34 AM FINDINGS: Uterus: 7.6 x 5.1 x 6.0 cm uterus. 5 mm endometrial stripe. Right ovary/adnexa: 3.3 x 2.0 x 2.3 cm right ovary with estimated volume 8.0 cc. Left ovary/adnexa: 3.1 x 2.6 x 3.4 cm left ovary with estimated volume 14 cc. 2 cm simple left ovarian cyst. Intraperitoneal space: No intraperitoneal fluid. Urinary bladder: Normal. US/US pelvic complete* [id number] IMPRESSION: 1. 2 cm simple left ovarian cyst. 2. Normal uterus. 3. Normal ovarian perfusion bilaterally with no torsion.
[2022-06-29 22:13] LABS: Basophils % 0.2 %; Eosinophils # 0.3 10^3/uL (0.0-0.8); Eosinophils % 3.2 %; Hematocrit 39.1 % (37.0-47.0); Hemoglobin 12.6 g/dL (11.5-15.3); Mean Corpuscular HGB Conc 32.2 g/dL (30.0-36.0); Mean Corpuscular Hemoglobin 25.9 pg (28.0-34.0); Mean Corpuscular Volume 80.3 fl (81-99); Mean Platelet Volume 10.2 fL (7.4-10.4); Monocytes # 0.6 10^3/uL (0.2-0.9); Monocytes % 6.9 %; Neutrophils % 54.5 %; Nucleated Red Blood Cells % 0 %; Platelet Count 399 10^3/cmm (130-400); Red Blood Count 4.87 10^6/uL (4.1-5.3); Red Cell Distribution Width 14.9 % (12.1-15.1); White Blood Count 8.4 10^3/uL (4.0-10.0)
[2022-06-29 22:36] LABS: HCG, Serum Qual Negative (Negative)
[2022-06-29 22:40] LABS: Alanine Aminotransferase 31 U/L (0-33); Albumin Level 4.2 g/dL (3.5-5.2); Alkaline Phosphatase 73 U/L (35-105); Anion Gap 14.8 (5-19); Aspartate Amino Transferase 25 U/L (0-32); Blood Urea Nitrogen 8 mg/dL (6-20); Calcium 9.3 mg/dL (8.5-10.5); Carbon Dioxide 22 mmol/L (22-29); Chloride 104 mmol/L (98-107); Globulin 3.1 g/dL (1.3-4.6); Glomerular Filtration Rate 105.6 mL/min (90-130); Glucose 96 mg/dL (65-115); Lipase 34 U/L (13-60); Osmolality Calculated 282 mOsm/kg (285-295); Potassium 3.8 mmol/L (3.5-5.1); Sodium 137 mmol/L (136-145); Total Bilirubin 0.4 mg/dL (0.15-1.2); Total Protein 7.3 g/dL (6.6-8.7)
[2022-06-29] MEDS: sodium chloride 0.9% 500 ML 999 ML IV (22:40)
[2022-06-29] MEDS: ketorolac 30 mg/mL INJ 15 MG IVP (22:40)
[2022-06-29 22:45] LABS: Add Urine Microscopic? YES; Bilirubin Urine Neg (Negative); Blood Urine 3+ (Negative); Glucose Urine UA Norm (Normal); Ketones Urine 1+ (Negative); Leukocyte Esterase Urine 1+ (Negative); Nitrate Urine Negative (Negative); Protein Urine 2+ (Negative); Sulfosalicylic Acid Urine Negative (Negative); Urine Appearance SL Hazy (CLEAR); Urine Color Red (Yellow); Urobilinogen Urine 4 mg/dL (Negative); pH Urine 7 (5-7)
[2022-06-29 22:48] LABS: Add Urine Culture? No; Bacteria Urine TRACE /hpf; RBC Urine TOO NUMEROUS TO CNT /hpf (0-2); Squamous Epithelial Cell Urine 0-4 /hpf (0-5); WBC Urine 0-4 /hpf (0-5)
--- NOTE | 2022-06-30 15:45 | DCPLANNER ---
Addendum entered by Nedra Villaseñor 09/09/22 13:28: Patient had a follow up appointment scheduled with [facility] - patient did attend appointment. Addendum entered by Nedra Villaseñor 07/01/22 10:43: Patient has a follow up appointment scheduled for Thursday, September 01, 2022 at 8:[address] Boo at [facility]. Clinic will call patient with appointment information. Original Note: shift manager had message to schedule a follow up appointment for patient with [facility]. shift manager sent patients information to the front office staff at [facility]. Patients information will be printed and reviewed. Clinic will call patient with appointment information.
== END 2022-06-30 00:09 | disposition home or self-care (01) ==
PROVIDERS: Emergency Medicine; Emergency Provider Nurse Practitioner Family; PCP Family Medicine
DX: D50.0 Iron deficiency anemia secondary to blood loss (chronic) (principal); N93.8 Other specified abnormal uterine and vaginal bleeding
CPT/HCPCS: 76856; 80053; 81000; 81001; 81025; 83690; 84703; 85025; 87086; 96361; 96374; 99285; J1885; J7040

== ENCOUNTER 2022-07-02 15:30 | Emergency (ER) | payer SELFPAY ==
[2022-07-02 15:59] VITALS: BP 151/95; PULSE 92; RESP 16; TEMP 36.9; O2SAT 97
[2022-07-02 19:27] LABS: Basophils % 0.4 %; Eosinophils # 0.1 10^3/uL (0.0-0.8); Eosinophils % 1.3 %; Hematocrit 40.3 % (37.0-47.0); Hemoglobin 12.6 g/dL (11.5-15.3); Lymphocytes # 2.9 10^3/uL (0.8-4.8); Lymphocytes % 31.3 %; Mean Corpuscular HGB Conc 31.3 g/dL (30.0-36.0); Mean Corpuscular Hemoglobin 25.4 pg (28.0-34.0); Mean Corpuscular Volume 81.3 fl (81-99); Mean Platelet Volume 10.6 fL (7.4-10.4); Monocytes # 0.6 10^3/uL (0.2-0.9); Monocytes % 6.3 %; Neutrophils # 5.55 10^3/uL (1.8-7.7); Neutrophils % 60.5 %; Nucleated Red Blood Cells % 0 %; Platelet Count 437 10^3/cmm (130-400); Red Blood Count 4.96 10^6/uL (4.1-5.3); Red Cell Distribution Width 15.1 % (12.1-15.1); White Blood Count 9.2 10^3/uL (4.0-10.0)
[2022-07-02 19:56] LABS: Alanine Aminotransferase 34 U/L (0-33); Albumin Level 4.2 g/dL (3.5-5.2); Alkaline Phosphatase 72 U/L (35-105); Anion Gap 14.8 (5-19); Aspartate Amino Transferase 27 U/L (0-32); Blood Urea Nitrogen 8 mg/dL (6-20); Calcium 9.4 mg/dL (8.5-10.5); Carbon Dioxide 24 mmol/L (22-29); Chloride 104 mmol/L (98-107); Globulin 3.5 g/dL (1.3-4.6); Glomerular Filtration Rate 126.2 mL/min (90-130); Glucose 71 mg/dL (65-115); Osmolality Calculated 285 mOsm/kg (285-295); Potassium 3.8 mmol/L (3.5-5.1); Sodium 139 mmol/L (136-145); Total Bilirubin 0.5 mg/dL (0.15-1.2); Total Protein 7.7 g/dL (6.6-8.7)
--- NOTE | 2022-07-02 20:24 | USR_ITS ---
PROCEDURE INFORMATION: Exam: US Pelvis Complete, Transabdominal and US Pelvis, Transvaginal Exam date and time: 07/02/2022 9:17 PM Age: 21 years old Clinical indication: Dysmenorrhea; Patient HX: Patient was seen here on 06/29/2022. C/O continued bilateral lower pelvic pain. G1-p0-a1-l0 miscarriage HX; Additional info: Abd pain TECHNIQUE: Imaging protocol: Real-time complete transabdominal and transvaginal pelvic ultrasound with image documentation. Transvaginal imaging was used for better evaluation of the endometrium, adnexa, and/or cervix. COMPARISON: US pelvic complete* [id number] 06/29/2022 11:17 PM FINDINGS: Uterus: The uterus is unremarkable. The uterus measures 7.1 x 5.0 x 6.2 cm. The endometrium is unremarkable. Endometrium measures 4.1 mm. Right ovary/adnexa: The right ovary measures 3.0 x 1.9 x 2.6 cm. Multiple subcentimeter follicles in the right ovary. Normal arterial and venous waveforms on Doppler imaging in the right ovary. Left ovary/adnexa: The left ovary measures 2.0 x 1.0 x 1.6 cm. Multiple subcentimeter follicles in the left ovary. Normal arterial and venous waveforms on Doppler imaging in the left ovary. Intraperitoneal space: Small amount of free fluid in the left adnexa adjacent to the left ovary. Urinary bladder: Unremarkable as visualized. US/US pelvic complete* [id number] IMPRESSION: 1. Small amount of free fluid in the left adnexa adjacent to the left ovary. 2. Multiple subcentimeter follicles in both right and left ovaries.
--- NOTE | 2022-07-02 20:29 | W.ED.ABDPA2 ---
HPI - Abdominal Pain General: Chief Complaint: Abdominal Pain Stated Complaint: abd pain/bleeding Time Seen by Provider: 07/02/22 20:23 Source: patient Mode of arrival: ambulatory Limitations: no limitations History of Present Illness: 21-year-old female who states that she been having some vaginal bleeding over the last month and some lower abdominal cramping she was seen here 3 days ago had an ultrasound that showed a ovarian cyst she supposed to follow-up with NURSING DEPARTMENT CHAIRPERSON but her follow-up was in August states that today she had some increased bleeding and increased pain in her left lower quadrant. States the pain currently is a 7 out of 10 denies any large amount of bleeding denies passing any clots denies any fever or dysuria. Associated Symptoms: Denies chills and fever(s) Related Data: Date of Last Menstrual Period: 07/02/22 Review of Systems Const: Denies: fever(s), chills, body aches or change in appetite Eyes: Denies: blurry vision or eye discomfort ENMT: Denies: throat pain or dental pain Card: Denies: chest pain Resp: Denies: dyspnea GI: Reports: abdominal pain : Reports: vaginal bleeding Musc: Denies: neck pain or back pain Skin/Breast: Denies: rash Neuro: Denies: headache(s) Psych: Denies: depression Ned/Lymph: Denies: easy bruising All/Imm: Denies: urticaria PFSH ED PFSH: Medical History Abnormal vaginal bleeding Anxiety Chronic migraine Hyperglycemia, drug-induced Morbid obesity with BMI of 45.0-49.9, adult Multiple sclerosis Surgical History Hx of appendectomy Social History Smoking and tobacco status: never smoked Alcohol intake: never Marital status: Number of children: 0 Current occupational status: employed Female Reproductive History: Date of last menstrual period: 07/02/22 Spontaneous abortions: No Physical Exam Const: COMMON NORMALS: no acute distress, patient oriented x3 and healthy appearing HENMT: COMMON NORMALS: normocephalic and atraumatic HEAD & SCALP: normocephalic and atraumatic Eye: COMMON NORMALS: Equal, round and reactive pupils present and EOMs intact bilaterally PUPIL: Yes Equal, round and reactive pupils present Neck/C-Spine: COMMON NORMALS: full ROM and supple Chest: COMMONS NORMALS: normal inspection of the chest and normal palpation of entire chest wall Resp: COMMON NORMALS: normal respiratory effort, No retractions, No use of accessory muscles and clear to auscultation bilaterally AUSCULTATION: clear to auscultation bilaterally Cardio: COMMON NORMALS: regular rate, regular rhythm and No murmurs present (Cardio) RATE: regular rate RHYTHM: regular rhythm GI: COMMON NORMALS: Normal to inspection, nondistended, normoactive bowel sounds present, Soft to palpation, non-tender and no masses PALPATION: Yes Soft to palpation Extremity: COMMON NORMALS: normal to inspection and full ROM Neuro: COMMON NORMALS: patient oriented x3, moves all extremities and no focal motor deficits Psych: COMMON NORMALS: mental status grossly normal, Normal thought process present and cooperative THOUGHT PROCESS: Normal thought process present Skin: COMMON NORMALS: no rashes or lesions noted and no wounds GENERAL SKIN EXAM: no rashes or lesions noted Course Vital Signs: Vital signs: Vital Signs Temperature 98.5 F 07/02/22 15:59 Pulse Rate 92 07/02/22 15:59 Respiratory Rate 16 07/02/22 15:59 Blood Pressure 151/95 07/02/22 15:59 Pulse Oximetry 97 07/02/22 15:59 Oxygen Delivery Me thod 07/02/22 15:59 MDM - Abdominal Pain Medical Decision Making Patient presents here with dysfunctional uterine bleeding along with some abdominal pain her exam here is benign ultrasound showed no acute abnormalities we will start her on pain meds she is to follow-up with NURSING DEPARTMENT CHAIRPERSON she is return if worsening she understands agrees to plan. Lab Data : 07/02/22 18:32 07/02/22 18:32 Labs/Radiology: Laboratory Results WBC 9.2 10^3/uL (4.0-10.0) 07/02/22 18:32 RBC 4.96 10^6/uL (4.1-5.3) 07/02/22 18:32 Hgb 12.6 g/dL (11.5-15.3) 07/02/22 18:32 Hct 40.3 % (37.0-47.0) 07/02/22: MCV 81.3 fl (81-99) 07/02/22: MCH 25.4 pg (28.0-34.0) L 07/02/22: MCHC 31.3 g/dL (30.0-36.0) 07/02/22: RDW 15.1 % (12.1-15.1) 07/02/22: Plt Count 437 10^3/cmm (130-400) H 07/02/22: MPV 10.6 fL (7.4-10.4) H 07/02/22: Neut % (Auto) 60.5 % 07/02/22: Lymph % (Auto) 31.3 % 07/02/22: Brewster % (Auto) 6.3 % 07/02/22: Eos % (Auto) 1.3 % 07/02/22: Baso % (Auto) 0.4 % 07/02/22: Neut # (Auto) 5.55 10^3/uL (1.8-7.7) 07/02/22: Lymph # (Auto) 2.9 10^3/uL (0.8-4.8) 07/02/22: Brewster # (Auto) 0.6 10^3/uL (0.2-0.9) 07/02/22: Eos # (Auto) 0.1 10^3/uL (0.0-0.8) 07/02/22: Baso # (Auto) 0.0 10^3/uL (0.0-0.1) 07/02/22: Nucleated RBC % (auto) 0 % 07/02/22: Nucleated RBCs # 0.0 /100WBC 07/02/22 18: Sodium 139 mmol/L (136-145) 07/02/22: Potassium 3.8 mmol/L (3.5-5.1) 07/02/22: Chloride 104 mmol/L (98-107) 07/02/22 18: Carbon Dioxide 24 mmol/L (22-29) 07/02/22 18: Anion Gap 14.8 (5-19) 07/02/22 18:32 BUN 8 mg/dL (6-20) 07/02/22 18:32 Creatinine 0.6 mg/dL (0.5-0.9) 07/02/22 18:32 GFR Calculation 126.2 mL/min (90-130) 07/02/22 18:32 Glucose 71 mg/dL (65-115) 07/02/22 18:32 Calculated Osmolality 285 mOsm/kg (285-295) 07/02/22 18:32 Calcium 9.4 mg/dL (8.5-10.5) 07/02/22 18:32 Total Bilirubin 0.5 mg/dL (0.15-1.2) 07/02/22 18:32 AST 27 U/L (0-32) 07/02/22 18:32 ALT 34 U/L (0-33) H 07/02/22 18:32 Alkaline Phosphatase 72 U/L (35-105) 07/02/22 18:32 Total Protein 7.7 g/dL (6.6-8.7) 07/02/22 18:32 Albumin 4.2 g/dL (3.5-5.2) 07/02/22 18:32 Globulin 3.5 g/dL (1.3-4.6) 07/02/22 18:32 Discharge Plan Discharge Patient Disposition: Home Clinical Impression: Abdominal pain, DUB (dysfunctional uterine bleeding) Condition: Stable Prescriptions: New hydrocodone-acetaminophen 5-325 mg tablet 1 tab PO Q6H PRN (Reason: pain) Qty: 14 0RF No Action escitalopram oxalate [Lexapro] 5 mg tablet 5 mg PO DAILY Qty: 30 1RF clonazepam 1 mg tablet 1 mg PO DAILY PRN (Reason: Severe anxiety) Qty: 14 0RF cephalexin 500 mg capsule 500 mg PO BID Qty: 14 0RF acetaminophen 325 mg Tablet 650 mg PO Q4H PRN (Reason: Mild Pain or fever >101.5) Qty: 30 0RF norethindrone acetate 5 mg tablet 5 mg PO DAILY 10 Days Qty: 10 0RF Discharge Orders: Discharge ED (Routine); Ordered 07/02/22 Ordered By: Hannah Moore Referrals: Yasir Hamilton DO [Primary Care Provider] - Discharge Diet: Advance as tolerated Discharge Activity: Resume usual activity Patient Instructions: Abdominal Pain (ED), Opioid Safety Coding Level of Care Code ED [employer] Operator for Chg Fwd Exam Comprehensive
[2022-07-02] MEDS: HYDROcodone-acetaminophen 5-325 mg Tablet 1 TAB PO (20:41)
[2022-07-02 21:50] VITALS: BP 150/84; PULSE 89; RESP 16; O2SAT 98
--- NOTE | 2022-07-03 10:38 | DCPLANNER ---
Addendum entered by Nedra Villaseñor 07/03/22 13:58: online communications manager placed a referral to [facility] from a previous visit on 06.29.22 - please refer to that visit with updated notes concerning appointment information. Original Note: online communications manager had message to schedule a follow up appointment for patient with [facility]. online communications manager sent patients information to the front office staff at [facility]. Patients information will be printed and reviewed. Clinic will call patient with appointment information.
== END 2022-07-02 21:52 | disposition home or self-care (01) ==
PROVIDERS: Registered Nurse; Emergency Provider Emergency Medicine; PCP Family Medicine
DX: N93.8 Other specified abnormal uterine and vaginal bleeding (principal); R10.9 Unspecified abdominal pain; G35 Multiple sclerosis
CPT/HCPCS: 36415; 76856; 80053; 85025; 99284

== ENCOUNTER 2022-07-07 15:22 | Outpatient (CLI) | payer SELFPAY ==
[2022-07-07 18:39] LABS: Follicle Stimulating Hormone 8.2 mIU/mL; Prolactin 10.97 ng/mL (4.8-23.3); Thyroid Stimulating Hormone 3.47 uIU/mL (0.27-4.20)
== END 2022-07-07 15:23 | disposition home or self-care (01) ==
LOC: LAB 15:24
PROVIDERS: PCP Family Medicine; Visit Provider Obstetrics & Gynecology
DX: N93.9 Abnormal uterine and vaginal bleeding, unspecified (principal)
CPT/HCPCS: 36415; 83001; 84146; 84443; 84702

== ENCOUNTER → 2022-07-17 12:15 | Outpatient (BNVA) | payer SELFPAY | PROVIDERS: PCP Family Medicine; Visit Provider Obstetrics & Gynecology | DX: N92.1 Excessive and frequent menstruation with irregular cycle (principal); N83.291 Other ovarian cyst, right side; N85.4 Malposition of uterus | CPT/HCPCS: 76830 ==

== ENCOUNTER → 2022-07-22 13:11 | Outpatient (BNVA) | payer SELFPAY | PROVIDERS: PCP Family Medicine; Visit Provider Specialist | DX: G35 Multiple sclerosis (principal); G43.711 Chronic migraine without aura, intractable, with status migrainosus; R63.5 Abnormal weight gain; Z68.27 Body mass index [BMI] 27.0-27.9, adult | CPT/HCPCS: 99215 ==

== ENCOUNTER 2022-07-24 14:50 | Outpatient (CLI) | payer SELFPAY ==
[2022-07-24 15:10] LABS: Basophils % 0.3 %; Eosinophils # 0.2 10^3/uL (0.0-0.8); Eosinophils % 1.7 %; Hematocrit 40.7 % (37.0-47.0); Hemoglobin 12.6 g/dL (11.5-15.3); Lymphocytes # 2.6 10^3/uL (0.8-4.8); Lymphocytes % 28.4 %; Mean Corpuscular Volume 80.6 fl (81-99); Monocytes # 0.5 10^3/uL (0.2-0.9); Monocytes % 5.4 %; Neutrophils # 5.91 10^3/uL (1.8-7.7); Nucleated Red Blood Cells % 0 %; Platelet Count 364 10^3/cmm (130-400); Red Blood Count 5.05 10^6/uL (4.1-5.3); Red Cell Distribution Width 15.1 % (12.1-15.1); White Blood Count 9.3 10^3/uL (4.0-10.0)
[2022-07-24 15:43] LABS: Estmated Average Glucose 97
[2022-07-24 16:09] LABS: Alanine Aminotransferase 35 U/L (0-33); Albumin Level 4.5 g/dL (3.5-5.2); Alkaline Phosphatase 70 U/L (35-105); Anion Gap 13.5 (5-19); Aspartate Amino Transferase 30 U/L (0-32); Blood Urea Nitrogen 10 mg/dL (6-20); Calcium 9.3 mg/dL (8.5-10.5); Carbon Dioxide 25 mmol/L (22-29); Chloride 102 mmol/L (98-107); Globulin 3.1 g/dL (1.3-4.6); Glomerular Filtration Rate 126.2 mL/min (90-130); Glucose 118 mg/dL (65-115); Osmolality Calculated 284 mOsm/kg (285-295); Potassium 3.5 mmol/L (3.5-5.1); Sodium 137 mmol/L (136-145); Thyroid Stimulating Hormone 2.68 uIU/mL (0.27-4.20); Total Bilirubin 0.3 mg/dL (0.15-1.2); Total Protein 7.6 g/dL (6.6-8.7)
== END 2022-07-24 14:51 | disposition home or self-care (01) ==
LOC: LAB 14:51
PROVIDERS: PCP Family Medicine; Visit Provider Specialist
DX: R20.0 Anesthesia of skin (principal); R20.2 Paresthesia of skin
CPT/HCPCS: 80053; 83036; 84443; 85025

== ENCOUNTER 2022-07-31 15:34 | Outpatient (CLI) | payer SELFPAY ==
[2022-07-31 17:24] LABS: Estradiol 48.8 pg/mL; Follicle Stimulating Hormone 6.8 mIU/mL
[2022-08-03 17:13] LABS: Anti-Mullerian Hormone Female 3.22 ng/mL (1.02-14.63)
== END 2022-07-31 15:35 | disposition home or self-care (01) ==
LOC: LAB 15:36
PROVIDERS: PCP Family Medicine; Visit Provider Obstetrics & Gynecology
DX: N97.9 Female infertility, unspecified (principal)
CPT/HCPCS: 82670; 83001; 83520

== ENCOUNTER 2022-10-20 12:13 | Emergency (ER) | payer MEDICAID, SELFPAY ==
[2022-10-20 12:26] VITALS: BP 128/89; PULSE 92; RESP 19; TEMP 36.7; O2SAT 97; BMI 47.2
[2022-10-20 14:55] LABS: Basophils % 0.2 %; Eosinophils # 0.3 10^3/uL (0.0-0.8); Eosinophils % 2.6 %; Hematocrit 43.6 % (37.0-47.0); Hemoglobin 13.5 g/dL (11.5-15.3); Lymphocytes # 3.2 10^3/uL (0.8-4.8); Lymphocytes % 33.4 %; Mean Corpuscular Hemoglobin 24.4 pg (28.0-34.0); Mean Corpuscular Volume 78.7 fl (81-99); Mean Platelet Volume 9.9 fL (7.4-10.4); Monocytes # 0.7 10^3/uL (0.2-0.9); Monocytes % 6.8 %; Neutrophils # 5.39 10^3/uL (1.8-7.7); Neutrophils % 56.9 %; Nucleated Red Blood Cells % 0 %; Platelet Count 430 10^3/cmm (130-400); Red Blood Count 5.54 10^6/uL (4.1-5.3); Red Cell Distribution Width 14.4 % (12.1-15.1); White Blood Count 9.5 10^3/uL (4.0-10.0)
--- NOTE | 2022-10-20 15:08 | ED_ITS ---
HPI - General Adult General: Chief complaint: General Medical Stated complaint: vision loss, leg/arm numbness Time Seen by Provider: 10/20/22 14:32 Source: patient Mode of arrival: ambulatory History of Present Illness: 21-year-old female presents emergency room she is stating she is having an MS flareup she has been seen by Dr. Saravia for MS previous notes were reviewed she tried various medications different side effects with failure and has not remained on any thing long-term. She has been having what she describes as a flareup for the last several weeks now has not advanced at this point but is persisting. She is concerned that the symptoms could worsen she wants treatment with high-dose steroids. She is not currently taking anything although several medications are listed she has not been taking them. She has not any other problems no fever sweats or chills no cough cold symptoms chest or abdominal pain no dysuria urgency frequency nausea vomiting or diarrhea Onset (ago): week(s) Severity: mild Relieving factors: none Exacerbating factors: none Associated symptoms: Reports malaise and weakness; Deny chest pain, confusion, cough, diaphoresis, decreased appetite, dyspnea, fevers/chills, headache(s), nausea, rash, palpitations, seizures, short of breath, syncope or vomiting Treatments prior to arrival: none Review of Systems Const: Reports: fatigue and malaise; Denies: fever(s), chills or diaphoresis Eyes: Reports: blurry vision ENMT: Denies: throat pain, ear or mastoid pain, nasal discharge or nasal congestion Card: Denies: chest pain, palpitations or syncope Resp: Denies: dyspnea GI: Denies: abdominal pain, nausea or vomiting : Denies: flank pain, difficulty voiding, dysuria, urinary frequency or urinary urgency Skin/Breast: Denies: rash Neuro: Reports: numbness in extremities; Denies: headache(s) or confusion PFSH ED PFSH: Medical History Abnormal vaginal bleeding Anxiety Chronic migraine Hyperglycemia, drug-induced Morbid obesity with BMI of 45.0-49.9, adult Multiple sclerosis Psychiatric care Surgical History Hx of appendectomy Family History Father Diabetes Grandfather Diabetes paternal Grandmother Diabetes paternal Hypertension paternal Denies family history of Colon cancer Ovarian cancer Clotting disorder Heart disease Hyperlipidemia Breast cancer Anesthesia complication Bleeding disorder Uterine cancer Thyroid condition Stroke Social History Smoking and tobacco status: never smoked Alcohol intake: never Marital status: Number of children: 0 Current occupational status: employed Female Reproductive History: Date of last menstrual period: 07/02/22 Spont aneous abortions: No Physical Exam Const: COMMON NORMALS: no acute distress GENERAL APPEARANCE: cooperative and comfortable ORIENTATION/CONSCIOUSNESS: Yes awake, Yes oriented to person, Yes oriented to place and Yes oriented to time HENMT: COMMON NORMALS: normocephalic, atraumatic, hearing grossly normal bilaterally, external ears normal, EAC's normal, TM's normal bilaterally, Normal nasal mucous membranes and turbinates present, moist oral mucous membranes and oropharynx normal HEAD & SCALP: normocephalic and atraumatic NOSE: Normal nasal mucous membranes and turbinates present EXTERNAL EAR: Yes external ears normal EXTERNAL AUDITORY CANAL: EAC's normal TYMPANIC MEMBRANE: TM's normal bilaterally Eye: COMMON NORMALS: Equal, round and reactive pupils present, EOMs intact bilaterally, conjunctivae normal and no scleral icterus CONJUNCTIVA: Yes conjunctivae normal PUPIL: Yes Equal, round and reactive pupils present Neck/C-Spine: COMMON NORMALS: full ROM, no lymphadenopathy, supple and no JVD Lymph: LYMPHATIC: no lymphadenopathy noted and no lymphedema noted Resp: COMMON NORMALS: normal respiratory effort, No retractions, No use of accessory muscles and clear to auscultation bilaterally AUSCULTATION: clear to auscultation bilaterally Cardio: COMMON NORMALS: no JVD, regular rate, regular rhythm and No murmurs present (Cardio) RATE: regular rate RHYTHM: regular rhythm GI: COMMON NORMALS: Soft to palpation and No hepatosplenomegaly present AUSCULTATION: Yes normoactive bowel sounds PALPATION: Yes Soft to palpation, No Tenderness to palpation present (GI), No Guarding due to palpation present (GI) and Yes No hepatosplenomegaly present Extremity: COMMON NORMALS: normal to inspection, capillary refill normal, no clubbing, cyanosis or edema, no calf tenderness and no pedal edema Neuro: SENSORIUM/ORIENTATION: Yes oriented to person, Yes oriented to place and Yes oriented to time Skin: COMMON NORMALS: no rashes or lesions noted GENERAL SKIN EXAM: no rashes or lesions noted Course 2 Vital Signs: Vital signs: Vital Signs Temperature 98.0 F 10/20/22 12:26 Pulse Rate 87 10/20/22 15:20 Respiratory Rate 16 10/20/22 15:20 Blood Pressure 151/94 10/20/22 15:20 Pulse Oximetry 99 10/20/22 15:20 Oxygen Delivery Me thod 10/20/22 15:20 MDM - General Adult Medical Decision Making Reviewed patient's old records and called and discussed with Dr. Saravia. She does not feel it would be appropriate to treat with high-dose steroids at this point. She does recommend follow-up with neurology in the office. She does feel there are other options that the patient could pursue. Patient is wanting to get a second opinion and after discussion essentially that is why she is here. Advised her that I would defer to Dr. Saravia and treatment of progressive degenerative neurologic disease. She certainly is formal qualified for long-term management. Patient expressed that she is frustrated with where she is at. Recommend at this point that she follow-up with Dr. Saravia she has not seen her in since September for about the time she said this flareup seemed to begin although it has not worsened. She is still functional at this time. We will make a referral to case management to try to get her an appointment with another neurologist for second opinion however encouraged the patient I think she would be far better served discussing her concerns with Dr. Saravia since it is very difficult to be seen by neurology in this area due to lack of availability. If symptoms do change he certainly moderate return. Medical Records I reviewed the patient's medical records. Lab Data I reviewed the patient's lab results. 10/20/22 14:45 10/20/22 14:45 Laboratory Results WBC 9.5 10^3/uL (4.0-10.0) 10/20/22 14:45 RBC 5.54 10^6/uL (4.1-5.3) H 10/20/22 14:45 Hgb 13.5 g/dL (11.5-15.3) 10/20/22 14:45 Hct 43.6 % (37.0-47.0) 10/20/22 14:45 MCV 78.7 fl (81-99) L 10/20/22 14:45 MCH 24.4 pg (28.0-34.0) L 10/20/22 14:45 MCHC 31.0 g/dL (30.0-36.0) 10/20/22 14:45 RDW 14.4 % (12.1-15.1) 10/20/22 14:45 Plt Count 430 10^3/cmm (130-400) H 10/20/22 14:45 MPV 9.9 fL (7.4-10.4) 10/20/22 14:45 Neut % (Auto) 56.9 % 10/20/22 14:45 Lymph % (Auto) 33.4 % 10/20/22 14:45 [place]pie % (Auto) 6.8 % 10/20/22 14:45 Eos % (Auto) 2.6 % 10/20/22 14:45 Baso % (Auto) 0.2 % 10/20/22 14:45 Neut # (Auto) 5.39 10^3/uL (1.8-7.7) 10/20/22 14:45 Lymph # (Auto) 3.2 10^3/uL (0.8-4.8) 10/20/22 14:45 Gillespie # (Auto) 0.7 10^3/uL (0.2-0.9) 10/20/22 14:45 Eos # (Auto) 0.3 10^3/uL (0.0-0.8) 10/20/22 14:45 Baso # (Auto) 0.0 10^3/uL (0.0-0.1) 10/20/22 14:45 Nucleated RBC % (auto) 0 % 10/20/22 14:45 Nucleated RBCs # 0.0 /100WBC 10/20/22 14:45 Sodium 135 mmol/L (136-145) L 10/20/22 14:45 Potassium 4.0 mmol/L (3.5-5.1) 10/20/22 14:45 Chloride 98 mmol/L (98-107) 10/20/22 14:45 Carbon Dioxide 26 mmol/L (22-29) 10/20/22 14:45 Anion Gap 15.0 (5-19) 10/20/22 14:45 BUN 8 mg/dL (6-20) 10/20/22 14:45 Creatinine 0.7 mg/dL (0.5-0.9) 10/20/22 14:45 GFR Calculation 105.6 mL/min (90-130) 10/20/22 14:45 Glucose 67 mg/dL (65-115) 10/20/22 14:45 Calculated Osmolality 277 mOsm/kg (285-295) L 10/20/22 14:45 Calcium 9.3 mg/dL (8.5-10.5) 10/20/22 14:45 Total Bilirubin 0.7 mg/dL (0.15-1.2) 10/20/22 14:45 AST 36 U/L (0-32) H 10/20/22 14:45 ALT 47 U/L (0-33) H 10/20/22 14:45 Alkaline Phosphatase 80 U/L (35-105) 10/20/22 14:45 Total Protein 7.9 g/dL (6.6-8.7) 10/20/22 14:45 Albumin 4.9 g/dL (3.5-5.2) 10/20/22 14:45 Globulin 3.0 g/dL (1.3-4.6) 10/20/22 14:45 Discharge Plan Discharge Patient Disposition: Home Clinical Impression: Multiple sclerosis Condition: Stable Prescriptions: No Action escitalopram oxalate [Lexapro] 10 mg tablet 10 mg PO DAILY Qty: 30 5RF propranolol 20 mg tablet 10 mg PO BID 90 Days Qty: 90 3RF Emgality Syringe 120 mg/mL syringe 240 mg SUBCUT ONCE Qty: 2 0RF Rx Instructions: Loading Dose Emgality Syringe 120 mg/mL syringe 120 mg SUBCUT ONCE Qty: 1 6RF acetaminophen 325 mg Tablet 650 mg PO Q4H PRN (Reason: Mild Pain or fever >101.5) Qty: 30 0RF Discharge Orders: Discharge ED (Routine); Ordered 10/20/22 Ordered By: Sreedhar Marvin Referrals: Yasir Hamilton DO [Primary Care Provider] - Discharge Diet: Usual diet Discharge Activity: Increase activity as tolerated Patient Instructions: Opioid Safety, Pain Management Activity Restrictions/Additional Instructions: Reccommend you follow up with Dr. Saravia or neurology as soon as you are able. Coding Level of Care Code ED [employer] Express Clerk for Yvette Pendleton
[2022-10-20 15:20] VITALS: BP 151/94; PULSE 87; RESP 16; O2SAT 99
[2022-10-20 15:21] LABS: Alanine Aminotransferase 47 U/L (0-33); Albumin Level 4.9 g/dL (3.5-5.2); Alkaline Phosphatase 80 U/L (35-105); Aspartate Amino Transferase 36 U/L (0-32); Blood Urea Nitrogen 8 mg/dL (6-20); Calcium 9.3 mg/dL (8.5-10.5); Carbon Dioxide 26 mmol/L (22-29); Chloride 98 mmol/L (98-107); Creatinine Clr Calc Pharmacy 148.5926; Glomerular Filtration Rate 105.6 mL/min (90-130); Glucose 67 mg/dL (65-115); Osmolality Calculated 277 mOsm/kg (285-295); Sodium 135 mmol/L (136-145); Total Bilirubin 0.7 mg/dL (0.15-1.2); Total Protein 7.9 g/dL (6.6-8.7)
--- NOTE | 2022-10-21 11:19 | DCPLANNER ---
Addendum entered by Nedra Villaseñor 01/13/23 11:31: This appointment was cancelled Addendum entered by Nedra Villaseñor 10/23/22 13:38: digital sales manager received the following message from the neurology clinic regarding follow up appointment: Patient is established and was seen on 09/16/22 with follow up appt on 01/08/23 @ 3:00 pm. Patient has a follow up appointment scheduled for Sunday, January 08, 2023 at 3:[address] Saravia at neurology. Clinic will call patient with appointment information. Original Note: digital sales manager had a message to schedule a follow up appointment for patient with neurology. digital sales manager sent patients information to the front office staff at neurology. Patients information will be printed and reviewed. Clinic will call patient with appointment information.
== END 2022-10-20 15:51 | disposition home or self-care (01) ==
PROVIDERS: Emergency Provider Family Medicine; PCP Family Medicine
DX: G35 Multiple sclerosis (principal)
CPT/HCPCS: 36415; 80053; 85025; 99283

== ENCOUNTER 2022-11-01 14:20 | Emergency (ER) | payer SELFPAY ==
[2022-11-01 14:20] VITALS: BP 121/82; PULSE 90; RESP 20; TEMP 36.7; O2SAT 99; BMI 47.2
--- NOTE | 2022-11-01 14:27 | ED_ITS ---
HPI - Back Pain/Injury General: Chief Complaint: Back Pain/Injury Stated Complaint: low back pain Time Seen by Provider: 11/01/22 14:27 History of Present Illness: Ms. Lira is a 21-year-old lady with history of spine surgery presenting due to back pain. She reports bending over to lift something out of a suitcase when she heard a pop and felt a pop in her low back. She has had pain since that time which has not improved. No new neurologic symptoms. Similar to before her surgery. No other specific changes in health, exacerbating, or alleviating factors identified. Onset (ago): hour(s) Timing: constant Severity: severe Similar Symptoms Previously: Yes Quality: sharp and aching Location: lumbar spine Radiation: none Exacerbating factors: movement Relieving factors: none Context: while lifting and bending Associated symptoms: Reports no associated symptoms Treatments prior to arrival: acetaminophen Review of Systems General: Reports: 10 or more systems reviewed and unremarkable except in HPI and below PFSH ED PFSH: Medical History Abnormal vaginal bleeding Anxiety Chronic migraine Hyperglycemia, drug-induced Morbid obesity with BMI of 45.0-49.9, adult Multiple sclerosis Psychiatric care Surgical History Hx of appendectomy Family History Father Diabetes Grandfather Diabetes paternal Grandmother Diabetes paternal Hypertension paternal Denies family history of Colon cancer Ovarian cancer Clotting disorder Heart disease Hyperlipidemia Breast cancer Anesthesia complication Bleeding disorder Uterine cancer Thyroid condition Stroke Social History Smoking and tobacco status: never smoked Alcohol intake: never Marital status: Number of children: 0 Current occupational status: employed Female Reproductive History: Spontaneous abortions: No Physical Exam Const: COMMON NORMALS: alert GENERAL APPEARANCE: cooperative and well developed HENMT: COMMON NORMALS: normocephalic and atraumatic HEAD & SCALP: normocephalic and atraumatic Eye: COMMON NORMALS: conjunctivae normal CONJUNCTIVA: Yes conjunctivae normal SCLERA: sclerae normal Neck/C-Spine: COMMON NORMALS: supple GENERAL: Yes trachea midline Resp: COMMON NORMALS: clear to auscultation bilaterally EFFORT & INSPECTION: Yes able to speak in complete sentences AUSCULTATION: clear to auscultation bilaterally Cardio: COMMON NORMALS: regular rate and regular rhythm RATE: regular rate RHYTHM: regular rhythm GI: COMMON NORMALS: Soft to palpation PALPATION: Yes Soft to palpation and No Tenderness to palpation present (GI) Back/Pelvis: THORACIC SPINE/UPPER BACK: No thoracic spinal tenderness LUMBAR SPINE/LOWER BACK: Yes lumbar spinal tenderness and Yes paraspinal muscle tenderness Extremity: GENERAL: Yes normal exam except as noted and No edema Neuro: COMMON NORMALS: moves all extremities SENSORIUM/ORIENTATION: Yes alert and No Orientation impaired Psych: COMMON NORMALS: mental status grossly normal and Normal thought process present THOUGHT PROCESS: Normal thought process present Course Vital Signs: Vital signs: Vital Signs Temperature 98.1 F 11/01/22 14:20 Pulse Rate 76 11/01/22 17:28 Respiratory Rate 16 11/01/22 17:28 Blood Pressure 121/82 11/01/22 14:20 Pulse Oximetry 100 11/01/22 17:28 Oxygen Delivery Me thod 11/01/22 14:20 MDM - Back Pain/Injury Medical Decision Making 21-year-old lady with multiple past diagnoses presenting to the emergency department for back pain. This occurred in the context of bending and lifting. No loss of control of bowel or bladder, no weakness or other red flag symptoms. Exam as above. Mild hematuria present the patient does report being on her period. Given surgical history I believe that x-rays are not likely to be clinically useful. CT obtained and demonstrates no acute pathology. Patient improved with multimodal approach. Most likely etiology of patient's symptoms is musculoskeletal low back pain. The results of ED evaluation were discussed with the patient including prescriptions and/or symptomatic cares (if applicable) including appropriate and responsible use, followup plan, and return precautions. The patient verbalized understanding and felt safe for discharge. Medical Records I reviewed the patient's medical records. Labs I reviewed the patient's lab results. Radiology Impressions Lumbar Spine CT 11/01/22 14:36 IMPRESSION: There are degenerative changes as described above. No evidence for acute fracture. Laboratory Results HCG, Qual Negative (Negative) 11/01/22 14:50 Urine Color Straw (Yellow) 11/01/22 14:50 Urine Appearance Sl hazy (CLEAR) A 11/01/22 14:50 Urine pH 5 (5-7) 11/01/22 14:50 Ur Specific [place] 1.030 (1.005-1.030) 11/01/22 14:50 Urine Protein Neg (Negative) 11/01/22 14:50 Urine Glucose (UA) Norm (Normal) 11/01/22 14:50 Urine Ketones Negative (Negative) 11/01/22 14:50 Urine Blood 3+ (Negative) H 11/01/22 14:50 Urine Nitrate Negative (Negative) 11/01/22 14:50 Urine Bilirubin Neg (Negative) 11/01/22 14:50 Urine Urobilinogen Norm mg/dL (Negative) 11/01/22 14:50 Ur Leukocyte Esterase Negative (Negative) 11/01/22 14:50 Urine RBC 40-50 /hpf (0-2) H 11/01/22 14:50 Urine WBC 0-4 /hpf (0-5) H 11/01/22 14:50 Ur Squamous Epith Cells 0-4 /hpf (0-5) H 11/01/22 14:50 Amorphous Sediment Not Reportable 11/01/22 14:50 Urine Bacteria Trace /hpf (NONE) 11/01/22 14:50 Discharge Plan Discharge Patient Disposition: Home Clinical Impression: Low back pain Condition: Stable Prescriptions: New oxycodone 5 mg tablet 5 mg PO Q4H PRN (Reason: pain) Qty: 10 0RF methocarbamol 750 mg tablet 750 mg PO Q8H PRN (Reason: back pain) Qty: 20 0RF No Action propranolol 20 mg tablet 10 mg PO BID 90 Days Qty: 90 3RF fluoxetine 20 mg capsule 20 mg PO DAILY Qty: 30 1RF trazodone 50 mg tablet 100 mg PO .HS PRN (Reason: insomnia) Qty: 60 1RF acetaminophen 325 mg Tablet 650 mg PO Q4H PRN (Reason: Mild Pain or fever >101.5) Qty: 30 0RF Discharge Orders: Discharge ED (Routine); Ordered 11/01/22 Ordered By: Matthew Awan Referrals: Yasir Hamilton, [Primary Care Provider] - Discharge Diet: Usual diet Discharge Activity: Increase activity as tolerated Patient Instructions: Acute Low Back Pain (ED), Lower Back Exercises (ED), Opioid Safety Activity Restrictions/Additional Instructions: Thank you for visiting the emergency department. You were seen and evaluated for low back pain. The exact cause your symptoms is unclear though is likely related to muscle strain. I would expect improvement in the next few days. You may use [id number] medications such as acetaminophen and ibuprofen for pain however please do not exceed the daily recommended dosage as listed on the packaging and please keep in mind that many namebrand medications contain the same active ingredients. Please avoid these medications if previously instructed to do so by another physician due to other underlying medical condition. I will prescribe oxycodone, use this cautiously as it is an opioid. Please follow-up with your primary care provider. Return to the emergency department for uncontrolled pain, any new neurologic symptoms, or anything else that you are concerned about and feel needs emergency department evaluation. Coding Level of Care Code ED Call Center Support Consultant for Yvette Pendleton
--- NOTE | 2022-11-01 14:36 | CTR_ITS ---
PROCEDURE INFORMATION: Exam: CT Lumbar Spine Without Contrast Exam date and time: 11/01/2022 3:31 PM Age: 21 years old Clinical indication: Low back pain; Prior surgery; Additional info: Sudden pain with lifting, HX surgery TECHNIQUE: Imaging protocol: Computed tomography of the lumbar spine without contrast. Radiation optimization: All CT scans at this facility use at least one of these dose optimization techniques: automated exposure control; mA and/or kV adjustment per patient size (includes targeted exams where dose is matched to clinical indication); or iterative reconstruction. Other protocol: This patient has received 0 known CTs and 0 known cardiac nuclear medicine studies in the 12 months prior to the current study. COMPARISON: MR lumbar spine w con [id number] 12/26/2021 11:31 AM RADIATION DOSE METRICS: Total DLP (mGy-cm): 1410.04 FINDINGS: Bones/joints: No acute fracture. Normal alignment. Lower lumbar mild facet arthropathy. There are small marginal osteophytes across the L3-L4, L4-L5, and L5-S1 levels. Multilevel mild disc space narrowing. L1-L2: No significant disc bulge or herniation. No severe spinal canal stenosis. No significant neural foraminal narrowing. L2-L3: No significant disc bulge or herniation. No severe spinal canal stenosis. No significant neural foraminal narrowing. L3-L4: There is a minimal disc bulge with a superimposed midline protrusion indenting the anterior thecal sac. Neural foramina and canal are within normal limits in caliber. L4-L5: There is a minimal disc bulge with a superimposed midline/right paracentral protrusion indenting the anterior thecal sac. No significant canal or neural foramina stenosis. L5-S1: There is a minimal disc bulge with a superimposed left paracentral protrusion and posterior osteophytes which contribute to mild to moderate narrowing of the left neural foramen. Soft tissues: Unremarkable. CT/CT lumbar spine wo con* [id number] IMPRESSION: There are degenerative changes as described above. No evidence for acute fracture.
[2022-11-01] MEDS: cyclobenzaprine 10 mg Tablet PO (14:48)
[2022-11-01] MEDS: morphine 4 mg/mL SDV 1 mL IM (14:49)
[2022-11-01 15:15] LABS: HCG Qualitative Urine. Negative (Negative)
[2022-11-01 15:25] LABS: Urine Appearance SL Hazy (CLEAR); Urine Color Straw (Yellow); pH Urine 5 (5-7)
[2022-11-01 15:26] LABS: Add Urine Culture? Yes; Add Urine Microscopic? YES; Bacteria Urine TRACE /hpf; Bilirubin Urine Neg (Negative); Blood Urine 3+ (Negative); Glucose Urine UA Norm (Normal); Ketones Urine Negative (Negative); Leukocyte Esterase Urine Negative (Negative); Nitrate Urine Negative (Negative); Protein Urine Neg (Negative); RBC Urine 40-50 /hpf (0-2); Squamous Epithelial Cell Urine 0-4 /hpf (0-5); Urobilinogen Urine Norm (Negative); WBC Urine 0-4 /hpf (0-5)
[2022-11-01] MEDS: ketorolac 30 mg/mL INJ IM (16:54)
[2022-11-01] MEDS: diazePAM 2 mg Tablet PO (16:55)
[2022-11-01 17:28] VITALS: PULSE 76; RESP 16; O2SAT 100
== END 2022-11-01 17:29 | disposition home or self-care (01) ==
PROVIDERS: Emergency Provider Emergency Medicine; PCP Family Medicine
DX: M54.50 Low back pain, unspecified (principal); G35 Multiple sclerosis
CPT/HCPCS: 72131; 81001; 81025; 87086; 96372; 99284; J1885; J2270

== ENCOUNTER 2022-12-20 22:08 | Emergency (ER) | payer SELFPAY ==
[2022-12-20 22:09] VITALS: BP 167/120; PULSE 115; RESP 14; TEMP 36.8; O2SAT 99
--- NOTE | 2022-12-20 22:21 | CTR_ITS ---
PROCEDURE INFORMATION: Exam: CT Head Without Contrast Exam date and time: 12/20/2022 11:09 PM Age: 22 years old Clinical indication: Pain; Headache; Additional info: WEBB TECHNIQUE: Imaging protocol: Computed tomography of the head without contrast. Radiation optimization: All CT scans at this facility use at least one of these dose optimization techniques: automated exposure control; mA and/or kV adjustment per patient size (includes targeted exams where dose is matched to clinical indication); or iterative reconstruction. REPORTING DATA: Count of CT and Cardiac NM exams in prior 12 months: This patient has received [address] and 0 known cardiac nuclear medicine studies in the 12 months prior to the current study. COMPARISON: MR head wo/w con [id number] 12/26/2021 10:15 AM RADIATION DOSE METRICS: Total DLP (mGy-cm): 1116 FINDINGS: Brain: Normal. No hemorrhage. Unremarkable white matter. No mass effect. Cerebral ventricles: No ventriculomegaly. Paranasal sinuses: Visualized sinuses are unremarkable. No fluid levels. Mastoid air cells: Visualized mastoid air cells are well aerated. Bones/joints: Unremarkable. No acute fracture. Soft tissues: Unremarkable. CT/CT head wo con* [id number] IMPRESSION: No acute intracranial abnormality.
--- NOTE | 2022-12-20 22:21 | XRR_ITS ---
PROCEDURE INFORMATION: Exam: XR Chest Exam date and time: 12/20/2022 10:41 PM Age: 22 years old Clinical indication: Shortness of breath; Additional info: SOB TECHNIQUE: Imaging protocol: Radiologic exam of the chest. Views: 1 view. COMPARISON: CR XR chest 1V portable [id number] 04/28/2022 9:29 AM FINDINGS: Lungs: Unremarkable. No consolidation. Pleural spaces: Unremarkable. No pleural effusion. No pneumothorax. Heart/Mediastinum: Unremarkable. No cardiomegaly. Bones/joints: Unremarkable. XR/XR chest 1V portable [id number] IMPRESSION: No acute findings.
--- NOTE | 2022-12-20 22:27 | ECG_ITS ---
[facility] Test Date: 2022-12-20 Pat Name: Allyn Lira Department: Room: Gender: Female Soap Mixer: : 2000 Requested By: Hannah Moore Order Number: [id number] Sarahy MD: Raimundo Baez M.D. Measurements Intervals [place] Rate: 88 P: 53 [place]: 135 QRS: -12 QRSD: 83 T: 9 QT: 335 QTc: 407 Interpretive Statements SINUS RHYTHM POSSIBLE LEFT ATRIAL ENLARGEMENT [-0.1mV P-WAVE IN V1/V2] POSSIBLE ANTERIOR MYOCARDIAL INFARCTION , OF INDETERMINATE AGE [30 ms Q WAVE IN V3/V4, OR R < 0.2 mV IN V4] Compared to ECG 04/28/2022 09:04:01 Myocardial infarct finding now present Sinus tachycardia no longer present Electronically Signed On 12-21-2022 23:36:53 CDT by Raimundo Baez M.D. [id number]
--- NOTE | 2022-12-20 22:29 | ED_ITS ---
HPI - General Adult General: Chief complaint: General Medical Stated complaint: numbness and tingling in bilateral arms and legs Time Seen by Provider: 12/20/22 22:21 Source: patient Mode of arrival: ambulatory Limitations: no limitations History of Present Illness: 22-year-old female has a history of anxiety along with EMS she states that over the last 2 days she has had some numbness in EXTR extremities she states she had some double vision. She states she is also been having some memory issues. She states she is concerned that she may be having an MS flare states she is also very anxious she denies any chest pain denies any fevers denies any vomiting. Patient able answer all my questions appropriately here with no difficulties. Associated symptoms: Deny chest pain, dyspnea, nausea, rash or vomiting Review of Systems Const: Denies: fever(s), chills, body aches or change in appetite Eyes: Denies: blurry vision or eye discomfort ENMT: Denies: throat pain or dental pain Card: Denies: chest pain Resp: Denies: dyspnea GI: Denies: abdominal pain, nausea, vomiting or diarrhea : Denies: dysuria Musc: Denies: neck pain or back pain Skin/Breast: Denies: rash Neuro: Reports: numbness in extremities and dizziness Psych: Reports: anxiety Ned/Lymph: Denies: easy bruising All/Imm: Denies: urticaria PFSH ED PFSH: Medical History Abnormal vaginal bleeding Anxiety Chronic migraine Hyperglycemia, drug-induced Morbid obesity with BMI of 45.0-49.9, adult Multiple sclerosis Psychiatric care Surgical History Hx of appendectomy Family History Father Diabetes Grandfather Diabetes paternal Grandmother Diabetes paternal Hypertension paternal Denies family history of Colon cancer Ovarian cancer Clotting disorder Heart disease Hyperlipidemia Breast cancer Anesthesia complication Bleeding disorder Uterine cancer Thyroid condition Stroke Social History Smoking and tobacco status: never smoked Alcohol intake: never Marital status: Number of children: 0 Current occupational status: employed Female Reproductive History: Spontaneous abortions: No Physical Exam Const: COMMON NORMALS: no acute distress, patient oriented x3 and healthy appearing GENERAL APPEARANCE: anxious HENMT: COMMON NORMALS: normocephalic and atraumatic HEAD & SCALP: normocephalic and atraumatic Eye: COMMON NORMALS: Equal, round and reactive pupils present and EOMs intact bilaterally PUPIL: Yes Equal, round and reactive pupils present Neck/C-Spine: COMMON NORMALS: full ROM and supple Chest: COMMONS NORMALS: normal inspection of the chest and normal palpation of entire chest wall Resp: COMMON NORMALS: normal respiratory effort, No retractions, No use of accessory muscles and clear to auscultation bilaterally AUSCULTATION: clear to auscultation bilaterally Cardio: COMMON NORMALS: regular rate, regular rhythm and No murmurs present (Cardio) RATE: regular rate RHYTHM: regular rhythm GI: COMMON NORMALS: Normal to inspection, nondistended, normoactive bowel sounds present, Soft to palpation, non-tender and no masses PALPATION: Yes Soft to palpation Extremity: COMMON NORMALS: normal to inspection and full ROM Neuro: COMMON NORMALS: patient oriented x3, moves all extremities and no focal motor deficits Psych: COMMON NORMALS: mental status grossly normal, Normal thought process present and cooperative THOUGHT PROCESS: Normal thought process present Skin: COMMON NORMALS: no rashes or lesions noted and no wounds GENERAL SKIN EXAM: no rashes or lesions noted Course Vital Signs: Vital signs: Vital Signs Temperature 98.3 F 12/20/22 22:09 Pulse Rate 115 H 12/20/22 22:09 Respiratory Rate 14 12/20/22 22:09 Blood Pressure 167/120 12/20/22 22:09 Pulse Oximetry 99 12/20/22 22:09 Oxygen Delivery Me thod 12/20/22 22:09 [facility] - General Adult Medical Decision Making Patient presents here with history of MS she had some blurred vision paresthesias been going off and on for months this is lasted 2 days she does appear anxious she feels much improved her symptoms have resolved after Ativan and Solu-Medrol her white counts slightly elevated as she was recently on steroids she has no signs of infection we will start her on prednisone she is to follow-up with her neurologist she is return if worsening. Lab Data 12/20/22 22:49 12/20/22 22:49 Radiology Impressions Chest X-Ray 12/20/22 22:21 IMPRESSION: No acute findings. Head CT 12/20/22 22:21 IMPRESSION: No acute intracranial abnormality. Laboratory Results WBC 14.6 10^3/uL (4.0-10.0) H 12/20/22 22:49 RBC 5.35 10^6/uL (4.1-5.3) H 12/20/22 22:49 Hgb 13.5 g/dL (11.5-15.3) 12/20/22 22:49 Hct 43.0 % (37.0-47.0) 12/20/22 22:49 MCV 80.4 fl (81-99) L 12/20/22 22:49 MCH 25.2 pg (28.0-34.0) L 12/20/22 22:49 MCHC 31.4 g/dL (30.0-36.0) 12/20/22 22:49 RDW 15.8 % (12.1-15.1) H 12/20/22 22:49 Plt Count 376 10^3/cmm (130-400) 12/20/22 22:49 MPV 9.5 fL (7.4-10.4) 12/20/22 22:49 Neut % (Auto) 63.0 % 12/20/22 22:49 Lymph % (Auto) 28.2 % 12/20/22 22:49 [place] % (Auto) 7.0 % 12/20/22 22:49 Eos % (Auto) 1.4 % 12/20/22 22:49 Baso % (Auto) 0.1 % 12/20/22 22:49 Neut # (Auto) 9.17 10^3/uL (1.8-7.7) H 12/20/22 22:49 Lymph # (Auto) 4.1 10^3/uL (0.8-4.8) 12/20/22 22:49 [place] # (Auto) 1.0 10^3/uL (0.2-0.9) H 12/20/22 22:49 Eos # (Auto) 0.2 10^3/uL (0.0-0.8) 12/20/22 22:49 Baso # (Auto) 0.0 10^3/uL (0.0-0.1) 12/20/22 22:49 Nucleated RBC % (auto) 0 % 12/20/22 22:49 Nucleated RBCs # 0.0 /100WBC 12/20/22 22:49 Sodium 138 mmol/L (136-145) 12/20/22 22:49 Potassium 4.0 mmol/L (3.5-5.1) 12/20/22 22:49 Chloride 100 mmol/L (98-107) 12/20/22 22:49 Carbon Dioxide 26 mmol/L (22-29) 12/20/22 22:49 Anion Gap 16.0 (5-19) 12/20/22 22:49 BUN 14 mg/dL (6-20) 12/20/22 22:49 Creatinine 0.7 mg/dL (0.5-0.9) 12/20/22 22:49 GFR Calculation 104.6 mL/min (90-130) 12/20/22 22:49 Glucose 92 mg/dL (65-115) 12/20/22 22:49 Calculated Osmolality 286 mOsm/kg (285-295) 12/20/22 22:49 Calcium 9.3 mg/dL (8.5-10.5) 12/20/22 22:49 Total Bilirubin 0.9 mg/dL (0.15-1.2) 12/20/22 22:49 AST 30 U/L (0-32) 12/20/22 22:49 ALT 33 U/L (0-33) 12/20/22 22:49 Alkaline Phosphatase 77 U/L (35-105) 12/20/22 22:49 Total Protein 8.0 g/dL (6.6-8.7) 12/20/22 22:49 Albumin 4.2 g/dL (3.5-5.2) 12/20/22 22:49 Globulin 3.8 g/dL (1.3-4.6) 12/20/22 22:49 Lipase 73 U/L (13-60) H 12/20/22 22:49 HCG, Qual Negative (Negative) 12/20/22 22:49 Urine Color Red (Yellow) 12/20/22 22:38 Urine Appearance Hazy (CLEAR) A 12/20/22 22:38 Urine pH 7 (5-7) 12/20/22 22:38 Ur Specific [place] 1.015 (1.005-1.030) 12/20/22 22:38 Urine Protein 2+ (Negative) H 12/20/22 22:38 Urine Glucose (UA) Norm (Normal) 12/20/22 22:38 Urine Ketones Negative (Negative) 12/20/22 22:38 Urine Blood 3+ (Negative) H 12/20/22 22:38 Urine Nitrate Negative (Negative) 12/20/22 22:38 Urine Bilirubin Neg (Negative) 12/20/22 22:38 Urine Urobilinogen 4 mg/dL (Negative) H 12/20/22 22:38 Ur Leukocyte Esterase Trace (Negative) H 12/20/22 22:38 Urine RBC Too numerous to cnt /hpf (0-2) H 12/20/22 22:38 Urine WBC 15-25 /hpf (0-5) H 12/20/22 22:38 Ur Squamous Epith Cells 0-4 /hpf (0-5) H 12/20/22 22:38 Amorphous Sediment Not Reportable 12/20/22 22:38 Urine Bacteria 2+ /hpf (NONE) H 12/20/22 22:38 EKG Data EKG 1: I personally reviewed and interpreted this EKG as follows: EKG interpretation date: 12/20/22 EKG interpretation time: 22:27 Interpretation: nsr hr [address] or t wave abnormalities qrs 83 qtc 381 Computer generated interpretation: Chest X-Ray 12/20/22 22:21 IMPRESSION: No acute findings. Head CT 12/20/22 22:21 IMPRESSION: No acute intracranial abnormality. Discharge Plan Discharge Patient Disposition: Home Clinical Impression: Blurred vision, Paresthesia, Anxiety, Multiple sclerosis Condition: Stable Prescriptions: New prednisone 50 mg tablet 50 mg PO DAILY Qty: 5 0RF No Action propranolol 20 mg tablet 10 mg PO BID 90 Days Qty: 90 3RF methylprednisolone 4 mg tablet 12 mg PO TID Rx Instructions: Every seven (7) days the dosage drops down one (1) tablet for 17 days. hydroxyzine HCl 50 mg tablet 50 mg PO QID PRN (Reason: insomnia/anxiety) Qty: 120 1RF duloxetine 30 mg capsule,delayed release(DR/EC) 30 mg PO DAILY 30 Days Qty: 30 0RF duloxetine 60 mg capsule,delayed release(DR/EC) 60 mg PO DAILY Qty: 30 0RF Rx Instructions: Take 30 mg for 1 month then start 60 mg. acetaminophen 325 mg Tablet 650 mg PO Q4H PRN (Reason: Mild Pain or fever >101.5) Qty: 30 0RF methocarbamol 750 mg tablet 750 mg PO Q8H PRN (Reason: back pain) Qty: 20 0RF Discharge Orders: Discharge ED (Routine); Ordered 12/20/22 Ordered By: Hannah Moore Referrals: Yasir Hamilton, [Primary Care Provider] - 1-3 days Discharge Diet: Advance as tolerated Discharge Activity: Resume usual activity Patient Instructions: Multiple Sclerosis (DC) Coding Level of Care Code ED Garment Inspector for Yvette Pendleton
[2022-12-20] MEDS: sodium chloride 0.9% 1,000 ML 999 ML IV (22:52)
[2022-12-20] MEDS: LORazepam 2 mg/mL INJ 1 mL 1 MG IVP (22:53)
[2022-12-20 22:55] LABS: Basophils % 0.1 %; Eosinophils # 0.2 10^3/uL (0.0-0.8); Eosinophils % 1.4 %; Hemoglobin 13.5 g/dL (11.5-15.3); Lymphocytes # 4.1 10^3/uL (0.8-4.8); Lymphocytes % 28.2 %; Mean Corpuscular HGB Conc 31.4 g/dL (30.0-36.0); Mean Corpuscular Hemoglobin 25.2 pg (28.0-34.0); Mean Corpuscular Volume 80.4 fl (81-99); Mean Platelet Volume 9.5 fL (7.4-10.4); Neutrophils # 9.17 10^3/uL (1.8-7.7); Nucleated Red Blood Cells % 0 %; Platelet Count 376 10^3/cmm (130-400); Red Blood Count 5.35 10^6/uL (4.1-5.3); Red Cell Distribution Width 15.8 % (12.1-15.1); White Blood Count 14.6 10^3/uL (4.0-10.0)
[2022-12-20 22:57] LABS: Bilirubin Urine Neg (Negative); Blood Urine 3+ (Negative); Glucose Urine UA Norm (Normal); Ketones Urine Negative (Negative); Nitrate Urine Negative (Negative); Protein Urine 2+ (Negative); Specific Gravity, Urine 1.015 (1.005-1.030); Urine Appearance Hazy (CLEAR); Urine Color Red (Yellow); Urobilinogen Urine 4 mg/dL (Negative); pH Urine 7 (5-7)
[2022-12-20 22:58] LABS: Add Urine Microscopic? YES; Leukocyte Esterase Urine Trace (Negative); RBC Urine TOO NUMEROUS TO CNT /hpf (0-2)
[2022-12-20 22:59] LABS: Bacteria Urine 2+ /hpf; Squamous Epithelial Cell Urine 0-4 /hpf (0-5); WBC Urine 15-25 /hpf (0-5)
[2022-12-20 23:00] LABS: Add Urine Culture? Yes
[2022-12-20 23:07] LABS: HCG, Serum Qual Negative (Negative)
[2022-12-20 23:16] LABS: Alanine Aminotransferase 33 U/L (0-33); Albumin Level 4.2 g/dL (3.5-5.2); Alkaline Phosphatase 77 U/L (35-105); Blood Urea Nitrogen 14 mg/dL (6-20); Calcium 9.3 mg/dL (8.5-10.5); Carbon Dioxide 26 mmol/L (22-29); Chloride 100 mmol/L (98-107); Globulin 3.8 g/dL (1.3-4.6); Glomerular Filtration Rate 104.6 mL/min (90-130); Glucose 92 mg/dL (65-115); Lipase 73 U/L (13-60); Osmolality Calculated 286 mOsm/kg (285-295); Sodium 138 mmol/L (136-145); Total Bilirubin 0.9 mg/dL (0.15-1.2)
[2022-12-20 23:32] LABS: Aspartate Amino Transferase 30 U/L (0-32)
--- NOTE | 2022-12-21 14:04 | DCPLANNER ---
Addendum entered by Nedra Villaseñor 12/22/22 09:10: it service delivery manager received the following message from the neurology clinic regarding follow up appointment: Spoke with patient this morning. She wanted to see if she could come in today to see Dr. Saravia for flare-up of MS symptoms. However, Dr. Saravia is out of the office for two weeks and will not return until 01/04/2023. I spoke with Dr. Conway concerning this patient and was willing to work her in on his schedule in the morning. I called the patient back to update and she stated she had a referral to a Neurologist in [place] and was heading there to see if she could be seen today. I asked her to call the office back with an update. She verbalized understanding and appreciation. She has no further questions or concerns at this time. Original Note: it service delivery manager had message to schedule a follow up appointment for patient with neurology. it service delivery manager sent patients information to the front office staff at neurology. Patients information will be printed and reviewed. Clinic will call patient with appointment information.
== END 2022-12-21 00:58 | disposition home or self-care (01) ==
PROVIDERS: Emergency Provider Emergency Medicine; PCP Family Medicine
DX: H53.8 Other visual disturbances (principal); R20.2 Paresthesia of skin; F41.9 Anxiety disorder, unspecified; G35 Multiple sclerosis
CPT/HCPCS: 70450; 71045; 80053; 81001; 83690; 84703; 85025; 87086; 93005; 96361; 96374; 96375; 99285; J2060; J2930; J7030

== ENCOUNTER 2022-12-28 08:50 | Emergency (ER) | payer SELFPAY ==
--- NOTE | 2022-12-28 08:51 | XR_ITS ---
WS: [id number] Portable AP upright chest, 12/28/2022 Clinical Data: chest pain Comparison: Portable chest, 12/20/2022 Findings: No nodules, masses or effusions are seen. The heart is normal. The pulmonary vascularity is not increased. No pneumonia or pneumothorax is seen. XR/XR chest 1V portable [id number] Impression: Negative chest.
--- NOTE | 2022-12-28 08:56 | ECG_ITS ---
[facility] Test Date: 2022-12-28 Pat Name: Allyn Lira Department: Room: Gender: Female Dry Mill Operator: : 2000 Requested By: Robyn Caruso Order Number: [id number] Sarahy MD: Buster Larios M.D. Measurements Intervals [place] Rate: 103 P: 137 DC: 134 QRS: 17 QRSD: 86 T: -6 QT: 332 QTc: 437 Interpretive Statements SINUS TACHYCARDIA POSSIBLE LEFT ATRIAL ENLARGEMENT [-0.1mV P-WAVE IN V1/V2] Compared to ECG 12/20/2022 22:27:37 Sinus rhythm no longer present Myocardial infarct finding no longer present Electronically Signed On 12-28-2022 17:12:11 CDT by Buster Larios M.D. [id number]
[2022-12-28 09:01] VITALS: BP 122/88; PULSE 98; TEMP 36.7; O2SAT 99; BMI 47.2
[2022-12-28 10:11] LABS: Basophils % 0.2 %; Eosinophils # 0.2 10^3/uL (0.0-0.8); Eosinophils % 2.4 %; Hematocrit 41.3 % (37.0-47.0); Hemoglobin 12.6 g/dL (11.5-15.3); Lymphocytes # 1.6 10^3/uL (0.8-4.8); Lymphocytes % 26.3 %; Mean Corpuscular HGB Conc 30.5 g/dL (30.0-36.0); Mean Corpuscular Volume 82.1 fl (81-99); Mean Platelet Volume 9.8 fL (7.4-10.4); Monocytes # 0.3 10^3/uL (0.2-0.9); Monocytes % 5.2 %; Neutrophils # 4.04 10^3/uL (1.8-7.7); Neutrophils % 65.4 %; Nucleated Red Blood Cells % 0 %; Platelet Count 343 10^3/cmm (130-400); Red Blood Count 5.03 10^6/uL (4.1-5.3); Red Cell Distribution Width 15.9 % (12.1-15.1); White Blood Count 6.2 10^3/uL (4.0-10.0)
[2022-12-28 10:38] LABS: Troponin(5th) Baseline 6 ng/L (0-10)
[2022-12-28 10:46] LABS: Alanine Aminotransferase 44 U/L (0-33); Albumin Level 4.2 g/dL (3.5-5.2); Alkaline Phosphatase 73 U/L (35-105); Anion Gap 12.8 (5-19); Aspartate Amino Transferase 39 U/L (0-32); Blood Urea Nitrogen 8 mg/dL (6-20); Calcium 8.9 mg/dL (8.5-10.5); Carbon Dioxide 23 mmol/L (22-29); Chloride 101 mmol/L (98-107); Globulin 3.3 g/dL (1.3-4.6); Glomerular Filtration Rate 104.6 mL/min (90-130); Glucose 94 mg/dL (65-115); NT Pro B Type Natriuretic Pept 36 pg/mL (0-125); Osmolality Calculated 274 mOsm/kg (285-295); Potassium 3.8 mmol/L (3.5-5.1); Sodium 133 mmol/L (136-145); Total Bilirubin 0.8 mg/dL (0.15-1.2); Total Protein 7.5 g/dL (6.6-8.7)
--- NOTE | 2022-12-28 11:04 | ECG_ITS ---
[facility] Test Date: 2022-12-28 Pat Name: Allyn Lira Department: Room: Gender: Female Mail List Processor: : 2000 Requested By: Sreedhar Phillips Order Number: [id number] Sarahy MD: Buster Larios M.D. Measurements Intervals [place] Rate: 95 P: 36 [place]: 142 QRS: 7 QRSD: 84 T: 13 QT: 330 QTc: 417 Interpretive Statements SINUS RHYTHM Compared to ECG 12/28/2022 08:56:47 Sinus tachycardia no longer present Electronically Signed On 12-28-2022 17:09:38 CDT by Buster Larios M.D. [id number]
--- NOTE | 2022-12-28 12:41 | ED_ITS ---
HPI - Chest Pain General: Chief Complaint: Chest Pain Stated Complaint: CP, pain down right arm Time Seen by Provider: 12/28/22 12:40 Source: patient Mode of arrival: ambulatory Limitations: no limitations History of Present Illness: Patient is a 22-year-old female presents to ED today for evaluation of chest pain. Patient states she has a longstanding history of chest pains states she has had multiple emergency department evaluations for her chest discomforts. She states sometimes at home after chest pain begins that she will take a baby aspirin and within minutes feels better. Patient states she has been seen here in our ED, her PCP, as well as [facility] ED for these chest pains. She states at one point she looked on a patient portal and said her EKG computer generated interpretation said she had a heart attack. She also said [facility] told her she had a heart attack yet she was never admitted to the hospital nor started on any type of cardiac medication. Denies SOB/difficulty breathing. No PE risk factors. No fevers/URI like symptoms. Denies exertional component. complaint: chest pain Onset (ago): hour(s) Timing of current episode: episodic Prior episodes: Yes Onset: during rest Pain location: substernal Pain radiation: none Severity: moderate Quality: tightness and heaviness Relieving factors: other (aspirin) Exacerbating factors: nothing Associated symptoms: Reports no associated symptoms; Deny abdominal pain, dyspnea, nausea, palpitations, syncope or vomiting Treatment prior to arrival: aspirin Risk Factors: Coronary artery disease risk factors: none Thoracic aortic dissection risk factors: none Related Data: On Oral Contraceptives: No Review of Systems Card: Reports: chest pain; Denies: palpitations, irregular heart rhythm, edema, swelling of feet/ankles, lightheadedness, syncope, pre-syncope, dyspnea on exertion, orthopnea or leg pain with exertion Resp: Denies: dyspnea, productive cough, non-productive cough, wheezing, hemoptysis or chest congestion GI: Denies: abdominal pain, nausea, vomiting or diarrhea Musc: Denies: neck pain, back pain, extremity pain or joint pain Skin/Breast: Denies: rash Neuro: Denies: headache(s), numbness in extremities, weakness in extremities or sensory changes [facility] ED PFSH: Medical History Abnormal vaginal bleeding Anxiety Chronic migraine Hyperglycemia, drug-induced Morbid obesity with BMI of 45.0-49.9, adult Multiple sclerosis Psychiatric care Surgical History Hx of appendectomy Family History Father Diabetes Grandfather Diabetes paternal Grandmother Diabetes paternal Hypertension paternal Denies family history of Colon cancer Ovarian cancer Clotting disorder Heart disease Hyperlipidemia Breast cancer Anesthesia complication Bleeding disorder Uterine cancer Thyroid condition Stroke Social History Smoking and tobacco status: never smoked Alcohol intake: never Marital status: Number of children: 0 Current occupational status: employed Female Reproductive History: Spontaneous abortions: No Physical Exam Const: COMMON NORMALS: no acute distress, patient oriented x3, no limitations and alert GENERAL APPEARANCE: cooperative NUTRITIONAL APPEARANCE: obese morbidly obese ORIENTATION/CONSCIOUSNESS: Yes awake, Yes oriented to person, Yes oriented to place and Yes oriented to time Neck/C-Spine: COMMON NORMALS: no JVD Chest: COMMONS NORMALS: normal inspection of the chest and normal palpation of entire chest wall Resp: COMMON NORMALS: normal respiratory effort and clear to auscultation bilaterally AUSCULTATION: clear to auscultation bilaterally Cardio: COMMON NORMALS: no JVD, regular rate and regular rhythm RATE: regular rate RHYTHM: regular rhythm GI: COMMON NORMALS: Normal to inspection, nondistended, normoactive bowel sounds present, Soft to palpation and non-tender PALPATION: Yes Soft to palpation Extremity: COMMON NORMALS: normal to inspection, no joint enlargement, no clubbing, cyanosis or edema and no pedal edema GENERAL: Yes normal exam except as noted Neuro: COMMON NORMALS: patient oriented x3 SENSORIUM/ORIENTATION: Yes alert, Yes oriented to person, Yes oriented to place and Yes oriented to time Skin: COMMON NORMALS: no rashes or lesions noted GENERAL SKIN EXAM: no rashes or lesions noted Course Vital Signs: Vital signs: Vital Signs Temperature 98.1 F 12/28/22 09:01 Pulse Rate 100 12/28/22 12:45 Respiratory Rate 19 H 12/28/22 12:45 Blood Pressure 122/88 12/28/22 09:01 Pulse Oximetry 100 12/28/22 12:45 Oxygen Delivery Me thod Room Air 12/28/22 12:45 MDM - Chest Pain Medical Decision Making Patient appears in no acute distress. Her vital signs are perfect. Patient's blood work including troponin are unremarkable. She has minor elevations to her LFTs most likely consistent with a fatty liver as patient is morbidly obese. Her baseline and repeat EKGs show no ischemic changes. She has no significant risk factors for cardiac disease apart from her obesity. Patient's history does not seem accurate as she tells me she was told at [facility] she had a heart attack yet she was not hospitalized nor was she started on any type of cardiac medication regimen nor was she given cardiology follow-up. At this time I have zero suspicion for cardiac etiology for patient's discomfort. She reports multiple episodes previously and multiple evaluations. At this time I recommend she follow-up with her primary care provider. Return ED precautions given. Lab Data 12/28/22 10:04 12/28/22 10:04 Radiology Impressions Chest X-Ray 12/28/22 08:51 Impression: Negative chest. Laboratory Results WBC 6.2 10^3/uL (4.0-10.0) 12/28/22 10:04 RBC 5.03 10^6/uL (4.1-5.3) 12/28/22 10:04 Hgb 12.6 g/dL (11.5-15.3) 12/28/22 10:04 Hct 41.3 % (37.0-47.0) 12/28/22 10:04 MCV 82.1 fl (81-99) 12/28/22 10:04 MCH 25.0 pg (28.0-34.0) L 12/28/22 10:04 MCHC 30.5 g/dL (30.0-36.0) 12/28/22 10:04 RDW 15.9 % (12.1-15.1) H 12/28/22 10:04 Plt Count 343 10^3/cmm (130-400) 12/28/22 10:04 MPV 9.8 fL (7.4-10.4) 12/28/22 10:04 Neut % (Auto) 65.4 % 12/28/22 10:04 Lymph % (Auto) 26.3 % 12/28/22 10:04 [place] % (Auto) 5.2 % 12/28/22 10:04 Eos % (Auto) 2.4 % 12/28/22 10:04 Baso % (Auto) 0.2 % 12/28/22 10:04 Neut # (Auto) 4.04 10^3/uL (1.8-7.7) 12/28/22 10:04 Lymph # (Auto) 1.6 10^3/uL (0.8-4.8) 12/28/22 10:04 [place] # (Auto) 0.3 10^3/uL (0.2-0.9) 12/28/22 10:04 Eos # (Auto) 0.2 10^3/uL (0.0-0.8) 12/28/22 10:04 Baso # (Auto) 0.0 10^3/uL (0.0-0.1) 12/28/22 10:04 Nucleated RBC % (auto) 0 % 12/28/22 10:04 Nucleated RBCs # 0.0 /100WBC 12/28/22 10:04 Sodium 133 mmol/L (136-145) L 12/28/22 10:04 Potassium 3.8 mmol/L (3.5-5.1) 12/28/22 10:04 Chloride 101 mmol/L (98-107) 12/28/22 10:04 Carbon Dioxide 23 mmol/L (22-29) 12/28/22 10:04 Anion Gap 12.8 (5-19) 12/28/22 10:04 BUN 8 mg/dL (6-20) 12/28/22 10:04 Creatinine 0.7 mg/dL (0.5-0.9) 12/28/22 10:04 GFR Calculation 104.6 mL/min (90-130) 12/28/22 10:04 Glucose 94 mg/dL (65-115) 12/28/22 10:04 Calculated Osmolality 274 mOsm/kg (285-295) L 12/28/22 10:04 Calcium 8.9 mg/dL (8.5-10.5) 12/28/22 10:04 Total Bilirubin 0.8 mg/dL (0.15-1.2) 12/28/22 10:04 AST 39 U/L (0-32) H 12/28/22 10:04 ALT 44 U/L (0-33) H 12/28/22 10:04 Alkaline Phosphatase 73 U/L (35-105) 12/28/22 10:04 Troponin T Baseline 6 ng/L (0-10) 12/28/22 10:04 NT-Pro-B Natriuret Pep 36 pg/mL (0-125) 12/28/22 10:04 Total Protein 7.5 g/dL (6.6-8.7) 12/28/22 10:04 Albumin 4.2 g/dL (3.5-5.2) 12/28/22 10:04 Globulin 3.3 g/dL (1.3-4.6) 12/28/22 10:04 Discharge Plan Discharge Patient Disposition: Home Clinical Impression: Atypical chest pain Condition: Stable Prescriptions: No Action propranolol 20 mg tablet 10 mg PO BID 90 Days Qty: 90 3RF methylprednisolone 4 mg tablet 12 mg PO TID Rx Instructions: Every seven (7) days the dosage drops down one (1) tablet for 17 days. hydroxyzine HCl 50 mg tablet 50 mg PO QID PRN (Reason: insomnia/anxiety) Qty: 120 1RF duloxetine 30 mg capsule,delayed release(DR/EC) 30 mg PO DAILY 30 Days Qty: 30 0RF duloxetine 60 mg capsule,delayed release(DR/EC) 60 mg PO DAILY Qty: 30 0RF Rx Instructions: Take 30 mg for 1 month then start 60 mg. acetaminophen 325 mg Tablet 650 mg PO Q4H PRN (Reason: Mild Pain or fever >101.5) Qty: 30 0RF methocarbamol 750 mg tablet 750 mg PO Q8H PRN (Reason: back pain) Qty: 20 0RF prednisone 50 mg tablet 50 mg PO DAILY Qty: 5 0RF Discharge Orders: Discharge ED (Routine); Ordered 12/28/22 Ordered By: Robyn Caruso Referrals: Yasir Hamilton DO [Primary Care Provider] - Stand Alone Forms: Work/School Release Coding Level of Care Code ED Vendor Relationship Manager for Yvette Pendleton
[2022-12-28 12:45] VITALS: PULSE 100; RESP 19; O2SAT 100
[2022-12-28 13:06] VITALS: PULSE 106; RESP 18; O2SAT 96
[2022-12-28 13:10] LABS: Troponin 5 2HR Delta 0 ABS# (0-10)
== END 2022-12-28 13:07 | disposition home or self-care (01) ==
PROVIDERS: Family Medicine; Emergency Provider Physician Assistant; PCP Family Medicine
DX: R07.89 Other chest pain (principal); G35 Multiple sclerosis
CPT/HCPCS: 36415; 71045; 80053; 83880; 84484; 85025; 93005; 99285

== ENCOUNTER 2023-03-22 12:18 | Emergency (ER) | payer BC, SELFPAY ==
[2023-03-22 12:46] VITALS: BP 123/78; PULSE 76; RESP 18; TEMP 36.9; O2SAT 99; BMI 47.2
[2023-03-22 12:52] VITALS: BP 134/88; PULSE 75; RESP 18; TEMP 36.9; O2SAT 96
[2023-03-22 13:49] LABS: Basophils % 0.1 %; Eosinophils # 0.2 10^3/uL (0.0-0.8); Eosinophils % 2.5 %; Hematocrit 40.8 % (37.0-47.0); Hemoglobin 12.8 g/dL (11.5-15.3); Lymphocytes # 2.1 10^3/uL (0.8-4.8); Mean Corpuscular HGB Conc 31.4 g/dL (30.0-36.0); Mean Corpuscular Hemoglobin 25.2 pg (28.0-34.0); Mean Corpuscular Volume 80.3 fl (81-99); Mean Platelet Volume 10.4 fL (7.4-10.4); Monocytes # 0.5 10^3/uL (0.2-0.9); Monocytes % 7.1 %; Neutrophils % 59.2 %; Nucleated Red Blood Cells % 0 %; Platelet Count 343 10^3/cmm (130-400); Red Blood Count 5.08 10^6/uL (4.1-5.3); Red Cell Distribution Width 14.6 % (12.1-15.1); White Blood Count 6.8 10^3/uL (4.0-10.0)
--- NOTE | 2023-03-22 13:56 | W.ED.FEMALGU ---
HPI - Female Genitourinary General: Chief complaint: Vaginal Bleeding Stated complaint: severe vaginal bleeding and chest pain Time Seen by Provider: 03/22/23 13:50 Source: patient Mode of arrival: ambulatory History of Present Illness: 22-year-old female presents emergency room with complaint of heavy vaginal bleeding. This been a longstanding issue she is seeking gynecology for it before she is not currently on anything she states she has had continual menstruation for nearly a months now to varying degrees it has worsened again the last several days. She denies any dysuria urgency or frequency no flank pain. She is seen Dr. Boo in the past MD elicited complaint: vaginal bleeding Onset (ago): week(s) (4) Severity: moderate Quality of pain: cramping Consistency: constant Vaginal bleeding: heavy Exacerbating factors: none Relieving factors: none Associated symptoms: Deny abdominal pain, short of breath, fevers/chills, headache(s), nausea, rash, seizures, syncope, vaginal bleeding, vaginal discharge or weakness Review of Systems Const: Denies: fever(s), chills, fatigue or malaise Card: Reports: chest pain; Denies: palpitations, irregular heart rhythm or syncope Resp: Denies: dyspnea, productive cough or non-productive cough GI: Denies: abdominal pain, nausea or vomiting : Reports: vaginal bleeding; Denies: dysuria, urinary frequency, urinary urgency or vaginal discharge Musc: Reports: back pain; Denies: neck pain Skin/Breast: Denies: rash or pruritus Neuro: Denies: headache(s) PFS ED PFSH: Medical History Abnormal vaginal bleeding Anxiety Chronic migraine Hyperglycemia, drug-induced Morbid obesity with BMI of 45.0-49.9, adult Multiple sclerosis Psychiatric care Surgical History Hx of appendectomy Family History Father Diabetes Grandfather Diabetes paternal Grandmother Diabetes paternal Hypertension paternal Denies family history of Colon cancer Ovarian cancer Clotting disorder Heart disease Hyperlipidemia Breast cancer Anesthesia complication Bleeding disorder Uterine cancer Thyroid condition Stroke Social History Smoking and tobacco status: never smoked Alcohol intake: never Substance/Drug Use: never Marital status: Number of children: 0 Current occupational status: employed Female Reproductive History: Spontaneous abortions: No Physical Exam Const: GENERAL APPEARANCE: cooperative and comfortable ORIENTATION/CONSCIOUSNESS: Yes awake, Yes oriented to person, Yes oriented to place and Yes oriented to time HENMT: COMMON NORMALS: normocephalic, atraumatic and hearing grossly normal bilaterally HEAD & SCALP: normocephalic and atraumatic Resp: COMMON NORMALS: normal respiratory effort, No retractions, No use of accessory muscles and clear to auscultation bilaterally AUSCULTATION: clear to auscultation bilaterally Cardio: COMMON NORMALS: regular rate, regular rhythm and No murmurs present (Cardio) RATE: regular rate RHYTHM: regular rhythm GI: COMMON NORMALS: Soft to palpation and No hepatosplenomegaly present AUSCULTATION: Yes normoactive bowel sounds PALPATION: Yes Soft to palpation, No Tenderness to palpation present (GI), No Guarding due to palpation present (GI) and Yes No hepatosplenomegaly present : SPECULUM EXAM - VAGINA: No vaginal bleeding OB/EXTERNAL & SPECULUM: No vaginal bleeding Extremity: COMMON NORMALS: normal to inspection, capillary refill normal, no clubbing, cyanosis or edema, no calf tenderness and no pedal edema Neuro: SENSORIUM/ORIENTATION: Yes oriented to person, Yes oriented to place and Yes oriented to time Skin: COMMON NORMALS: no rashes or lesions noted GENERAL SKIN EXAM: no rashes or lesions noted Course Vital Signs: Vital signs: Vital Signs Temperature 98.4 F 03/22/23 15:00 Pulse Rate 75 03/22/23 12:52 Respiratory Rate 18 03/22/23 12:52 Blood Pressure 125/75 03/22/23 14:00 Pulse Oximetry 96 03/22/23 12:52 Oxygen Delivery Me thod Room Air 03/22/23 12:52 MDM - Female Medical Decision Making Hemoglobin stable hCG negative. Patient has a history of metromenorrhagia. Recommend she start medroxyprogesterone 10 mg daily for 10 days. Discussed with the bleeding should stabilize and stop and then will resume when she finishes the course. Follow-up with Dr. Boo in the next 7 to 10 days return if is worsening problems. Medical Records I reviewed the patient's medical records. Lab Data I reviewed the patient's lab results. 03/22/23 13:38 03/22/23 13:38 Laboratory Results WBC 6.8 10^3/uL (4.0-10.0) 03/22/23 13:38 RBC 5.08 10^6/uL (4.1-5.3) 03/22/23 13:38 Hgb 12.8 g/dL (11.5-15.3) 03/22/23 13:38 Hct 40.8 % (37.0-47.0) 03/22/23 13:38 MCV 80.3 fl (81-99) L 03/22/23 13:38 MCH 25.2 pg (28.0-34.0) L 03/22/23 13:38 MCHC 31.4 g/dL (30.0-36.0) 03/22/23 13:38 RDW 14.6 % (12.1-15.1) 03/22/23 13:38 Plt Count 343 10^3/cmm (130-400) 03/22/23 13:38 MPV 10.4 fL (7.4-10.4) 03/22/23 13:38 Neut % (Auto) 59.2 % 03/22/23 13:38 Lymph % (Auto) 31.0 % 03/22/23 13:38 [place] % (Auto) 7.1 % 03/22/23 13:38 Eos % (Auto) 2.5 % 03/22/23 13:38 Baso % (Auto) 0.1 % 03/22/23 13:38 Neut # (Auto) 4.00 10^3/uL (1.8-7.7) 03/22/23 13:38 Lymph # (Auto) 2.1 10^3/uL (0.8-4.8) 03/22/23 13:38 [place] # (Auto) 0.5 10^3/uL (0.2-0.9) 03/22/23 13:38 Eos # (Auto) 0.2 10^3/uL (0.0-0.8) 03/22/23 13:38 Baso # (Auto) 0.0 10^3/uL (0.0-0.1) 03/22/23 13:38 Nucleated RBC % (auto) 0 % 03/22/23 13:38 Nucleated RBCs # 0.0 /100WBC 03/22/23 13:38 Sodium 135 mmol/L (136-145) L 03/22/23 13:38 Potassium 4.1 mmol/L (3.5-5.1) 03/22/23 13:38 Chloride 102 mmol/L (98-107) 03/22/23 13:38 Carbon Dioxide 24 mmol/L (22-29) 03/22/23 13:38 Anion Gap 13.1 (5-19) 03/22/23 13:38 BUN 7 mg/dL (6-20) 03/22/23 13:38 Creatinine 0.6 mg/dL (0.5-0.9) 03/22/23 13:38 GFR Calculation 125.0 mL/min (90-130) 03/22/23 13:38 Glucose 84 mg/dL (65-115) 03/22/23 13:38 Calculated Osmolality 277 mOsm/kg (285-295) L 03/22/23 13:38 Calcium 9.2 mg/dL (8.5-10.5) 03/22/23 13:38 Total Bilirubin 0.6 mg/dL (0.15-1.2) 03/22/23 13:38 AST 32 U/L (0-32) 03/22/23 13:38 ALT 39 U/L (0-33) H 03/22/23 13:38 Alkaline Phosphatase 72 U/L (35-105) 03/22/23 13:38 Total Protein 7.2 g/dL (6.6-8.7) 03/22/23 13:38 Albumin 4.2 g/dL (3.5-5.2) 03/22/23 13:38 Globulin 3.0 g/dL (1.3-4.6) 03/22/23 13:38 Lipase 24 U/L (13-60) 03/22/23 13:38 HCG, Qual Negative (Negative) 03/22/23 13:38 Urine Color Yellow (Yellow) 03/22/23 14:30 Urine Appearance Clear (CLEAR) 03/22/23 14:30 Urine pH 6 (5-7) 03/22/23 14:30 Ur Specific [place] 1.015 (1.005-1.030) 03/22/23 14:30 Urine Protein Neg (Negative) 03/22/23 14:30 Urine Glucose (UA) Norm (Normal) 03/22/23 14:30 Urine Ketones Negative (Negative) 03/22/23 14:30 Urine Blood 3+ (Negative) H 03/22/23 14:30 Urine Nitrate Negative (Negative) 03/22/23 14:30 Urine Bilirubin Neg (Negative) 03/22/23 14:30 Urine Urobilinogen Norm mg/dL (Negative) 03/22/23 14:30 Ur Leukocyte Esterase Negative (Negative) 03/22/23 14:30 Urine RBC 10-15 /hpf (0-2) H 03/22/23 14:30 Urine WBC None /hpf (0-5) 03/22/23 14:30 Ur Squamous Epith Cells 0-4 /hpf (0-5) H 03/22/23 14:30 Amorphous Sediment Not Reportable 03/22/23 14:30 Urine Bacteria Trace /hpf (NONE) 03/22/23 14:30 Discharge Plan Discharge Patient Disposition: Home Clinical Impression: Menometrorrhagia Condition: Stable Prescriptions: New medroxyprogesterone 10 mg tablet 10 mg PO DAILY 10 Days Qty: 10 0RF Rx Instructions: begin day 16 of cycle No Action glatiramer 40 mg/mL syringe 40 mg SUBCUT .3 X Weekly Rx Instructions: ON [id number] amitriptyline 25 mg tablet 25 mg PO DAILY gabapentin 600 mg tablet 600 mg PO DAILY acetaminophen 325 mg Tablet 650 mg PO Q4H PRN (Reason: Mild Pain or fever >101.5) Qty: 30 0RF Discharge Orders: Discharge ED (Routine); Ordered 03/22/23 Ordered By: Sreedhar Marvin Referrals: Yasir Hamilton DO [Primary Care Provider] - Discharge Diet: Usual diet Discharge Activity: Increase activity as tolerated Patient Instructions: Opioid Safety, Pain Management Activity Restrictions/Additional Instructions: You were seen today for irregular vaginal bleeding. Start the medroxyprogesterone today 1 pill daily for 10 days. While you are taking the medications the vaginal bleeding should cease however when you finish she will have a heavy period again. Recommend that you follow-up with Dr. Boo sometime in the next 7 to 10 days. Coding Level of Care Code ED Employee Development Specialist for Yvette Pendleton
[2023-03-22 14:00] VITALS: BP 125/75
[2023-03-22 14:02] LABS: HCG, Serum Qual Negative (Negative)
[2023-03-22 14:05] LABS: Alanine Aminotransferase 39 U/L (0-33); Albumin Level 4.2 g/dL (3.5-5.2); Alkaline Phosphatase 72 U/L (35-105); Anion Gap 13.1 (5-19); Aspartate Amino Transferase 32 U/L (0-32); Blood Urea Nitrogen 7 mg/dL (6-20); Calcium 9.2 mg/dL (8.5-10.5); Carbon Dioxide 24 mmol/L (22-29); Chloride 102 mmol/L (98-107); Glucose 84 mg/dL (65-115); Osmolality Calculated 277 mOsm/kg (285-295); Potassium 4.1 mmol/L (3.5-5.1); Sodium 135 mmol/L (136-145); Total Bilirubin 0.6 mg/dL (0.15-1.2); Total Protein 7.2 g/dL (6.6-8.7)
[2023-03-22] MEDS: sodium chloride 0.9% 1,000 ML 999 ML IV (14:19)
[2023-03-22 14:51] LABS: Lipase 24 U/L (13-60)
[2023-03-22 14:55] LABS: Add Urine Microscopic? YES; Bilirubin Urine Neg (Negative); Blood Urine 3+ (Negative); Glucose Urine UA Norm (Normal); Ketones Urine Negative (Negative); Leukocyte Esterase Urine Negative (Negative); Nitrate Urine Negative (Negative); Protein Urine Neg (Negative); Specific Gravity, Urine 1.015 (1.005-1.030); Urine Appearance Clear (CLEAR); Urine Color Yellow (Yellow); Urobilinogen Urine Norm (Negative); pH Urine 6 (5-7)
[2023-03-22 14:56] LABS: Add Urine Culture? Yes; Bacteria Urine TRACE /hpf; Squamous Epithelial Cell Urine 0-4 /hpf (0-5)
[2023-03-22 15:00] VITALS: TEMP 36.9
[2023-03-22 16:34] VITALS: BP 124/68; PULSE 88; RESP 18; TEMP 36.9; O2SAT 99
== END 2023-03-22 16:00 | disposition home or self-care (01) ==
PROVIDERS: Physician Assistant; Emergency Provider Family Medicine; PCP Family Medicine
DX: N92.1 Excessive and frequent menstruation with irregular cycle (principal); E66.01 Morbid (severe) obesity due to excess calories; Z68.42 Body mass index [BMI] 45.0-49.9, adult; Z79.899 Other long term (current) drug therapy
CPT/HCPCS: 36415; 80053; 81001; 83690; 84703; 85025; 87086; 99284; J7030

== ENCOUNTER 2023-03-31 12:51 | Emergency (ER) | payer BC, SELFPAY ==
[2023-03-31 12:57] VITALS: BP 120/71; PULSE 84; RESP 16; TEMP 36.9; O2SAT 99; BMI 47.2
--- NOTE | 2023-03-31 13:09 | ECG_ITS ---
[facility] Test Date: 2023-03-31 Pat Name: Allyn Lira Department: Room: Gender: Female Engineer [employer]: : 2000 Requested By: Sreedhar Phillips Order Number: [id number] Sarahy MD: Raimundo Baez M.D. Measurements Intervals [place] Rate: 96 P: 41 NC: 138 QRS: 17 QRSD: 85 T: 13 QT: 338 QTc: 428 Interpretive Statements SINUS RHYTHM POSSIBLE LEFT ATRIAL ENLARGEMENT [-0.1mV P-WAVE IN V1/V2] Compared to ECG 12/28/2022 12:49:14 No significant changes Electronically Signed On 03-31-2023 21:17:37 CDT by Raimundo Baez M.D. [email or web address]
--- NOTE | 2023-03-31 13:13 | W.ED.CHESTPA ---
HPI - Chest Pain General: Chief Complaint: Chest Pain Stated Complaint: Alfonso sent for chest pain and vaginal bleeding Time Seen by Provider: 03/31/23 13:13 Source: patient Mode of arrival: ambulatory History of Present Illness: 22-year-old female she was seen about 10 days ago for mental menorrhagia and started on medroxyprogesterone. She reports that the bleeding never stopped she followed up with Dr. Benitez who referred her to the emergency room. She is finished the medroxyprogesterone she does not want appointment with [facility] for another 3 weeks. He is also complaining of some shortness of breath some generalized chest discomfort that she has had for several days. No radiation of the pain. No shortness of breath no fever sweats chills. MD complaint: chest pain and other (Heavy vaginal bleeding) Onset (ago): week(s) Pain location: substernal Pain radiation: none Relieving factors: nothing Exacerbating factors: nothing Associated symptoms: Reports dyspnea; Deny abdominal pain, diaphoresis, fever(s), leg edema, nausea, palpitations, sense of impending doom, syncope or vomiting Review of Systems Const: Denies: fever(s) or diaphoresis ENMT: Denies: throat pain, ear or mastoid pain, nasal discharge or nasal congestion Card: Reports: chest pain; Denies: palpitations or syncope Resp: Reports: dyspnea; Denies: productive cough or non-productive cough GI: Denies: abdominal pain, nausea or vomiting : Denies: flank pain, difficulty voiding, dysuria, urinary frequency or urinary urgency Musc: Denies: neck pain or back pain Skin/Breast: Denies: rash or pruritus [facility] ED PFSH: Medical History Abnormal vaginal bleeding Anxiety Chronic migraine Hyperglycemia, drug-induced Morbid obesity with BMI of 45.0-49.9, adult Multiple sclerosis Psychiatric care Surgical History Hx of appendectomy Family History Father Diabetes Grandfather Diabetes paternal Grandmother Diabetes paternal Hypertension paternal Denies family history of Colon cancer Ovarian cancer Clotting disorder Heart disease Hyperlipidemia Breast cancer Anesthesia complication Bleeding disorder Uterine cancer Thyroid condition Stroke Social History Smoking and tobacco status: never smoked Alcohol intake: never Substance/Drug Use: never Marital status: Number of children: 0 Current occupational status: employed Female Reproductive History: Spontaneous abortions: No Physical Exam Const: COMMON NORMALS: no acute distress GENERAL APPEARANCE: cooperative and comfortable ORIENTATION/CONSCIOUSNESS: Yes awake, Yes oriented to person, Yes oriented to place and Yes oriented to time HENMT: COMMON NORMALS: normocephalic, atraumatic and hearing grossly normal bilaterally HEAD & SCALP: normocephalic and atraumatic Resp: COMMON NORMALS: normal respiratory effort, No retractions, No use of accessory muscles and clear to auscultation bilaterally AUSCULTATION: clear to auscultation bilaterally Cardio: COMMON NORMALS: regular rate, regular rhythm and No murmurs present (Cardio) RATE: regular rate RHYTHM: regular rhythm GI: COMMON NORMALS: Soft to palpation and No hepatosplenomegaly present AUSCULTATION: Yes normoactive bowel sounds PALPATION: Yes Soft to palpation, No Tenderness to palpation present (GI), No Guarding due to palpation present (GI) and Yes No hepatosplenomegaly present Extremity: COMMON NORMALS: normal to inspection, capillary refill normal, no clubbing, cyanosis or edema, no calf tenderness and no pedal edema Neuro: SENSORIUM/ORIENTATION: Yes oriented to person, Yes oriented to place and Yes oriented to time Skin: COMMON NORMALS: no rashes or lesions noted GENERAL SKIN EXAM: no rashes or lesions noted Course Vital Signs: Vital signs: Vital Signs Temperature 98.4 F 03/31/23 12:57 Pulse Rate 89 03/31/23 14:36 Respiratory Rate 18 03/31/23 14:36 Blood Pressure 143/90 03/31/23 14:36 Pulse Oximetry 92 03/31/23 14:36 Oxygen Delivery Me thod Room Air 03/31/23 14:36 MDM - Chest Pain Medical Decision Making EKG normal patient is not tachycardic or hypoxic and I believe she has a PE at this point she is not symptomatic of such. Her hemoglobin is stable. We will increase her medroxyprogesterone to 20 mg daily for 10 days and have her follow-up with gynecology as soon as possible. Return if she has further problems. Medical Records I reviewed the patient's medical records. Lab Data I reviewed the patient's lab results. 03/31/23 13:20 03/31/23 13:20 Radiology Impressions Chest X-Ray 03/31/23 13:25 IMPRESSION: Unremarkable chest radiograph. Laboratory Results WBC 6.6 10^3/uL (4.0-10.0) 03/31/23 13:20 RBC 5.21 10^6/uL (4.1-5.3) 03/31/23 13:20 Hgb 12.9 g/dL (11.5-15.3) 03/31/23 13:20 Hct 41.2 % (37.0-47.0) 03/31/23 13:20 MCV 79.1 fl (81-99) L 03/31/23 13:20 MCH 24.8 pg (28.0-34.0) L 03/31/23 13:20 MCHC 31.3 g/dL (30.0-36.0) 03/31/23 13:20 RDW 14.7 % (12.1-15.1) 03/31/23 13:20 Plt Count 384 10^3/cmm (130-400) 03/31/23 13:20 MPV 10.0 fL (7.4-10.4) 03/31/23 13:20 Neut % (Auto) 54.0 % 03/31/23 13:20 Lymph % (Auto) 32.1 % 03/31/23 13:20 [place] % (Auto) 9.0 % 03/31/23 13:20 Eos % (Auto) 4.4 % 03/31/23 13:20 Baso % (Auto) 0.3 % 03/31/23 13:20 Neut # (Auto) 3.56 10^3/uL (1.8-7.7) 03/31/23 13:20 Lymph # (Auto) 2.1 10^3/uL (0.8-4.8) 03/31/23 13:20 [place] # (Auto) 0.6 10^3/uL (0.2-0.9) 03/31/23 13:20 Eos # (Auto) 0.3 10^3/uL (0.0-0.8) 03/31/23 13:20 Baso # (Auto) 0.0 10^3/uL (0.0-0.1) 03/31/23 13:20 Nucleated RBC % (auto) 0 % 03/31/23 13:20 Nucleated RBCs # 0.0 /100WBC 03/31/23 13:20 Sodium 137 mmol/L (136-145) 03/31/23 13:20 Potassium 3.9 mmol/L (3.5-5.1) 03/31/23 13:20 Chloride 104 mmol/L (98-107) 03/31/23 13:20 Carbon Dioxide 25 mmol/L (22-29) 03/31/23 13:20 Anion Gap 11.9 (5-19) 03/31/23 13:20 BUN 8 mg/dL (6-20) 03/31/23 13:20 Creatinine 0.7 mg/dL (0.5-0.9) 03/31/23 13:20 GFR Calculation 104.6 mL/min (90-130) 03/31/23 13:20 Glucose 80 mg/dL (65-115) 03/31/23 13:20 Calculated Osmolality 281 mOsm/kg (285-295) L 03/31/23 13:20 Calcium 9.1 mg/dL (8.5-10.5) 03/31/23 13:20 Total Bilirubin 0.5 mg/dL (0.15-1.2) 03/31/23 13:20 AST 42 U/L (0-32) H 03/31/23 13:20 ALT 48 U/L (0-33) H 03/31/23 13:20 Alkaline Phosphatase 75 U/L (35-105) 03/31/23 13:20 Total Protein 7.9 g/dL (6.6-8.7) 03/31/23 13:20 Albumin 4.4 g/dL (3.5-5.2) 03/31/23 13:20 Globulin 3.5 g/dL (1.3-4.6) 03/31/23 13:20 Discharge Plan Discharge Patient Disposition: Home Clinical Impression: Menometrorrhagia, PCOS (polycystic ovarian syndrome) Condition: Stable Prescriptions: New medroxyprogesterone 10 mg tablet 20 mg PO DAILY 10 Days Qty: 20 0RF Discontinued medroxyprogesterone 10 mg tablet 10 mg PO DAILY 10 Days Qty: 10 0RF Rx Instructions: begin day 16 of cycle No Action glatiramer 40 mg/mL syringe 40 mg SUBCUT .3 X Weekly Rx Instructions: ON [id number] amitriptyline 25 mg tablet 25 mg PO DAILY gabapentin 600 mg tablet 600 mg PO DAILY acetaminophen 325 mg Tablet 650 mg PO Q4H PRN (Reason: Mild Pain or fever >101.5) Qty: 30 0RF Discharge Orders: Discharge ED (Routine); Ordered 03/31/23 Ordered By: Sreedhar Marvin Referrals: Yasir Hamilton DO [Primary Care Provider] - Discharge Diet: Usual diet Discharge Activity: Resume usual activity Patient Instructions: Opioid Safety, Pain Management Activity Restrictions/Additional Instructions: You are seen today for abnormal heavy uterine bleeding. Recommend you increase your medroxyprogesterone to 20 mg daily follow-up with gynecology as soon as you are able ask case management to make contact with them to see if they can move your appointment up. Your hemoglobin today is stable from the last visit to the emergency room. Coding Level of Care Code ED Fire Tender for Yvette Pendleton
--- NOTE | 2023-03-31 13:25 | XR_ITS ---
WS: [id number] Exam: XR chest 1V portable [id number] Date/Time of Exam: 03/31/2023 1:34 PM Reason For Exam: dyspnea/cough Findings: The lungs are clear and fully expanded. Costophrenic angles are sharp. No infiltrates. Bronchovascula r relief appears normal. Cardiac silhouette is unremarkable. Bony elements are intact. XR/XR chest 1V portable [id number] IMPRESSION: Unremarkable chest radiograph.
[2023-03-31 13:30] LABS: Basophils % 0.3 %; Eosinophils # 0.3 10^3/uL (0.0-0.8); Eosinophils % 4.4 %; Hematocrit 41.2 % (37.0-47.0); Hemoglobin 12.9 g/dL (11.5-15.3); Lymphocytes # 2.1 10^3/uL (0.8-4.8); Lymphocytes % 32.1 %; Mean Corpuscular HGB Conc 31.3 g/dL (30.0-36.0); Mean Corpuscular Hemoglobin 24.8 pg (28.0-34.0); Mean Corpuscular Volume 79.1 fl (81-99); Monocytes # 0.6 10^3/uL (0.2-0.9); Neutrophils # 3.56 10^3/uL (1.8-7.7); Nucleated Red Blood Cells % 0 %; Platelet Count 384 10^3/cmm (130-400); Red Blood Count 5.21 10^6/uL (4.1-5.3); Red Cell Distribution Width 14.7 % (12.1-15.1); White Blood Count 6.6 10^3/uL (4.0-10.0)
[2023-03-31 13:31] VITALS: BP 123/90; PULSE 94; RESP 18; O2SAT 97
[2023-03-31 13:39] VITALS: BP 128/90; PULSE 91; RESP 16; O2SAT 96
[2023-03-31 13:55] LABS: Alanine Aminotransferase 48 U/L (0-33); Albumin Level 4.4 g/dL (3.5-5.2); Alkaline Phosphatase 75 U/L (35-105); Anion Gap 11.9 (5-19); Aspartate Amino Transferase 42 U/L (0-32); Blood Urea Nitrogen 8 mg/dL (6-20); Calcium 9.1 mg/dL (8.5-10.5); Carbon Dioxide 25 mmol/L (22-29); Chloride 104 mmol/L (98-107); Globulin 3.5 g/dL (1.3-4.6); Glomerular Filtration Rate 104.6 mL/min (90-130); Glucose 80 mg/dL (65-115); Osmolality Calculated 281 mOsm/kg (285-295); Potassium 3.9 mmol/L (3.5-5.1); Sodium 137 mmol/L (136-145); Total Bilirubin 0.5 mg/dL (0.15-1.2); Total Protein 7.9 g/dL (6.6-8.7)
[2023-03-31 14:36] VITALS: BP 143/90; PULSE 89; RESP 18; O2SAT 92
--- NOTE | 2023-04-01 10:08 | DCPLANNER ---
Addendum entered by Nedra Villaseñor 04/02/23 13:02: Patient had a follow up appointment scheduled with [facility] - patient did attend appointment. Original Note: wind energy project manager had message to schedule a follow up appointment for patient with [facility]. wind energy project manager sent patients information to the front office staff at [facility]. Patients information will be printed and reviewed. Clinic will call patient with appointment information.
== END 2023-03-31 15:25 | disposition home or self-care (01) ==
PROVIDERS: Emergency Provider Family Medicine; PCP Family Medicine
DX: N92.1 Excessive and frequent menstruation with irregular cycle (principal); E28.2 Polycystic ovarian syndrome
CPT/HCPCS: 71045; 80053; 85025; 93005; 99285

== ENCOUNTER → 2023-04-01 13:30 | Outpatient (BNVA) | payer BC, SELFPAY | PROVIDERS: PCP Family Medicine; Visit Provider Obstetrics & Gynecology | DX: N92.1 Excessive and frequent menstruation with irregular cycle (principal) | CPT/HCPCS: 83036; 83525 ==

== ENCOUNTER → 2023-04-05 07:58 | Outpatient (BNVA) | payer BC, SELFPAY | PROVIDERS: PCP Family Medicine; Visit Provider Obstetrics & Gynecology | DX: N92.0 Excessive and frequent menstruation with regular cycle (principal) | CPT/HCPCS: 76830 ==

== ENCOUNTER → 2023-05-20 13:13 | Outpatient (BNVA) | payer BC, SELFPAY | PROVIDERS: PCP Family Medicine; Visit Provider Nurse Practitioner Family | DX: R05.9 Cough, unspecified (principal) | CPT/HCPCS: 87426 ==

== ENCOUNTER 2023-07-22 10:19 | Emergency (ER) | payer BC, SELFPAY ==
[2023-07-22 10:26] VITALS: BP 121/92; PULSE 82; RESP 16; TEMP 36.7; O2SAT 99; BMI 47.2
--- NOTE | 2023-07-22 10:34 | ED_ITS ---
HPI - Back Pain/Injury General: Chief Complaint: Back Pain/Injury Stated Complaint: lower back pain, top part of legs numb Time Seen by Provider: 07/22/23 10:25 Source: patient Mode of arrival: ambulatory History of Present Illness: 22-year-old female presents emergency room with low back pain with pain rating into her lower extremities no difficulty with fecal incontinence or urinary retention. Pain radiates down both legs. She has previously had a L5-S1 L4-5 laminectomy and partial facetectomies with discectomy at the L 5 S1 level.. No recent trauma or fall. MD elicited complaint: back pain Pertinent past history: prior back pain Location: lumbar spine Radiation: left upper leg and right upper leg Exacerbating factors: sitting upright and walking Relieving factors: supine Associated symptoms: Deny abdominal pain, arthralgias, chills, change in bowel habits, difficulty walking, dysuria, fatigue, fecal incontinence, fever(s), hematuria, myalgias, nausea, numbness, syncope, tingling/numbness/burning, urinary frequency, urinary urgency, vomiting or weakness Review of Systems Const: Denies: fever(s), chills or fatigue Card: Denies: syncope Resp: Denies: dyspnea GI: Denies: abdominal pain, nausea, vomiting, fecal incontinence or change in bowel habits : Denies: dysuria, urinary urgency or hematuria Musc: Denies: neck pain or back pain Skin/Breast: Denies: rash Neuro: Denies: difficulty walking [facility] ED PFSH: Medical History Abnormal vaginal bleeding Anxiety Chronic migraine Hyperglycemia, drug-induced Morbid obesity with BMI of 45.0-49.9, adult Multiple sclerosis Psychiatric care Surgical History Hx of appendectomy Status post lumbar spine surgery for decompression of spinal cord Family History Father Diabetes Grandfather Diabetes paternal Grandmother Diabetes paternal Hypertension paternal Denies family history of Colon cancer Ovarian cancer Clotting disorder Heart disease Hyperlipidemia Breast cancer Anesthesia complication Bleeding disorder Uterine cancer Thyroid condition Stroke Social History Smoking and tobacco/nicotine status: never used tobacco/nicotine Alcohol intake: never Substance/Drug Use: never Marital status: Number of children: 0 Current occupational status: employed Female Reproductive History: Date of last menstrual period: 06/13/23 Sp ontaneous abortions: No Physical Exam Const: GENERAL APPEARANCE: cooperative and comfortable ORIENTATION/CONSCIOUSNESS: Yes awake, Yes oriented to person, Yes oriented to place and Yes oriented to time HENMT: COMMON NORMALS: normocephalic, atraumatic and hearing grossly normal bilaterally HEAD & SCALP: normocephalic and atraumatic Resp: COMMON NORMALS: normal respiratory effort, No retractions, No use of accessory muscles and clear to auscultation bilaterally AUSCULTATION: clear to auscultation bilaterally Cardio: COMMON NORMALS: regular rate, regular rhythm and No murmurs present (Cardio) RATE: regular rate RHYTHM: regular rhythm GI: COMMON NORMALS: Soft to palpation and No hepatosplenomegaly present AUSCULTATION: Yes normoactive bowel sounds PALPATION: Yes Soft to palpation, No Tenderness to palpation present (GI), No Guarding due to palpation present (GI) and Yes No hepatosplenomegaly present Extremity: COMMON NORMALS: normal to inspection, capillary refill normal, no clubbing, cyanosis or edema, no calf tenderness and no pedal edema Neuro: SENSORIUM/ORIENTATION: Yes oriented to person, Yes oriented to place and Yes oriented to time OTHER: Deep tendon reflexes +24 bilaterally patellar tendon straight leg raising negative dorsum plantar flex strength 5 of 5 sensation lower extremities normal Skin: COMMON NORMALS: no rashes or lesions noted GENERAL SKIN EXAM: no rashes or lesions noted Course Vital Signs: Vital signs: Vital Signs Temperature 98.0 F 07/22/23 10:26 Pulse Rate 99 07/22/23 11:23 Respiratory Rate 17 07/22/23 11:23 Blood Pressure 130/107 07/22/23 11:23 Pulse Oximetry 95 07/22/23 11:23 Oxygen Delivery Me thod Room Air 07/22/23 11:23 MDM - Back Pain/Injury Medical Decision Making Symptoms improved with medications given will discharge home with steroid taper anti-inflammatories and muscle relaxer. Follow-up with Dr. Briceno if not improving Medical Records I reviewed the patient's medical records. Labs I reviewed the patient's lab results. No radiology studies performed this visit Discharge Plan Discharge Patient Disposition: Home Clinical Impression: Lumbar radiculopathy Condition: Stable Prescriptions: New tizanidine 4 mg tablet 4 mg PO Q6H PRN (Reason: muscle spasticity) Qty: 20 0RF Rx Instructions: do not exceed 3 doses per 24 hrs hydrocodone-acetaminophen 5-325 mg tablet 1 tab PO Q6H PRN (Reason: pain) Qty: 15 0RF prednisone 20 mg tablet 20 mg PO TID Qty: 15 0RF Rx Instructions: 1 p.o. 3 times daily x3 days, 1 p.o. twice daily x2 days, 1 p.o. daily x2 days No Action amitriptyline 25 mg tablet 25 mg PO DAILY metformin 500 mg tablet 500 mg PO DAILY Qty: 90 0RF ibuprofen 800 mg tablet 800 mg PO TID Qty: 90 0RF acetaminophen 325 mg Tablet 650 mg PO Q4H PRN (Reason: Mild Pain or fever >101.5) Qty: 30 0RF Discharge Orders: Discharge ED (Routine); Ordered 07/22/23 Ordered By: Sreedhar Marvin Referrals: Yasir Hamilton DO [Primary Care Provider] - Discharge Diet: Usual diet Discharge Activity: Limit activity as instructed Patient Instructions: Back Pain (ED), Opioid Safety, Pain Management Activity Restrictions/Additional Instructions: Thank you for choosing [facility] for your healthcare needs today. Please realize this is an emergency room and that we are providing you with a medical screening exam and this may not be complete and all inclusive of all the testing and or work up that you may need to determine your ailment or severity of your illness. It is very important that you follow up as instructed or that you return to the Emergency Department should you have concerns or if your condition changes or worsens in any way. If not improving follow-up with Dr. Briceno Stand Alone Forms: Work/School Release Coding Level of Care Code ED Gill Box Tender for Yvette Pendleton
[2023-07-22] MEDS: ketorolac 30 mg/mL INJ IVP (10:59)
[2023-07-22 11:00] VITALS: RESP 17; O2SAT 96
[2023-07-22] MEDS: dexamethasone 10 mg/mL INJ IM (11:00)
[2023-07-22] MEDS: orphenadrine 30 mg/mL Inj 2 mL 60 MG IVP (11:00)
[2023-07-22] MEDS: morphine 4 mg/mL SDV 1 mL IVP (11:00)
[2023-07-22] MEDS: ketorolac 30 mg/mL INJ IM (11:16)
[2023-07-22 11:23] VITALS: BP 130/107; PULSE 99; RESP 17; O2SAT 95
--- NOTE | 2023-07-22 11:27 | PC.NURSE ---
Per Dr. Marvin, after attempting an IV using ultrasound 4 times, Dr. Marvin reviewed the medications I had pulled up to give the patient via IV push and stated that I could give them IM. So I gave all of the IV medications via IM.
== END 2023-07-22 12:14 | disposition home or self-care (01) ==
PROVIDERS: Emergency Provider Family Medicine; PCP Family Medicine
DX: M54.16 Radiculopathy, lumbar region (principal); Z79.84 Long term (current) use of oral hypoglycemic drugs; G35 Multiple sclerosis
CPT/HCPCS: 96372; 96374; 96375; 99284; J1100; J1885; J2270; J2360

== ENCOUNTER → 2023-08-16 12:55 | Outpatient (BNVA) | payer BC, SELFPAY | PROVIDERS: PCP Family Medicine; Visit Provider Obstetrics & Gynecology | DX: N93.9 Abnormal uterine and vaginal bleeding, unspecified (principal); Z31.69 Encounter for other general counseling and advice on procreation | CPT/HCPCS: 83001; 83520; 84443 ==

== ENCOUNTER 2023-08-30 08:15 | Outpatient (CLI) | payer BC, SELFPAY ==
--- NOTE | 2023-08-30 08:30 | FL_ITS ---
WS: [id number] Hysterosalpingogram, 08/30/2023 Clinical Data: N97.9 - Female infertility, unspecified Comparison: None. Fluoroscopy time: 0min [id number] # of spot films: 4 Findings: Dr. BOYKIN no injected contrast material. The uterine configuration was normal. No intraluminal filling d efects were seen. There was a small bubble which did dissipate. Both fallopian tubes filled and there is bilateral pelvic spill. There is no fallopian tube dilatation. Impression: Negative hysterosalpingogram.
== END 2023-08-30 08:16 | disposition home or self-care (01) ==
LOC: RAD 08:17
PROVIDERS: PCP Family Medicine; Visit Provider Obstetrics & Gynecology
DX: N97.9 Female infertility, unspecified (principal)
CPT/HCPCS: 74740

== ENCOUNTER 2023-10-31 18:03 | Emergency (ER) | payer BC, SELFPAY ==
[2023-10-31 18:07] VITALS: BP 139/88; PULSE 110; RESP 16; TEMP 36.6; O2SAT 100; BMI 47.2
--- NOTE | 2023-10-31 18:07 | XRR_ITS ---
PROCEDURE INFORMATION: Exam: XR Chest Exam date and time: 10/31/2023 6:43 PM Age: 22 years old Clinical indication: Shortness of breath; Additional info: SOB TECHNIQUE: Imaging protocol: Radiologic exam of the chest. Views: 1 view. COMPARISON: CR XR chest 1V portable [id number] 03/31/2023 1:30 PM FINDINGS: Lungs: Unremarkable. No consolidation. Pleural spaces: Unremarkable. No pleural effusion. No pneumothorax. Heart/Mediastinum: Unremarkable. No cardiomegaly. Bones/joints: Unremarkable. XR/XR chest 1V portable [id number] IMPRESSION: No acute findings.
[2023-10-31 18:26] VITALS: BP 140/92; PULSE 105; RESP 16; O2SAT 99
--- NOTE | 2023-10-31 19:14 | ED_ITS ---
HPI - URI/Sore Throat General: Chief Complaint: Upper Respiratory Infection Stated Complaint: sob headache lung pain Time Seen by Provider: 10/31/23 18:30 Source: patient and family Mode of arrival: ambulatory Limitations: no limitations History of Present Illness: Patient is a 22-year-old female who presents to ED today with a complaint of nasal congestion, runny nose, discharge, chest congestion, productive cough, and body aches. Patient states she felt like she might be getting sick yesterday evening but states she woke up this morning with diffuse body aches. She states her productive cough is one of her most bothersome symptoms and states she feels short of breath when she is coughing. She reports coughing up thick yellow phlegm. Denies sick contacts. She has not been running fevers. MD elicited complaint: cough, rhinorrhea, nasal congestion and sinus pain Onset (ago): hour(s) Consistency: constant Severity: moderate Description of mucous: yellow Able to tolerate fluids by mouth: Yes Exacerbating factors: other (coughing) Relieving factors: nothing Associated symptoms: Reports chills, nasal congestion and sinus pain; Deny abdominal pain, chest pain, diarrhea, ear or mastoid pain, fever(s), headache(s), nausea or vomiting Treatments prior to arrival: none Review of Systems Const: Reports: chills, body aches and other (body aches); Denies: fever(s), fatigue, malaise or night sweats Eyes: Denies: change in vision, blurry vision, photophobia, eye discomfort or eye discharge ENMT: Reports: nasal discharge, nasal congestion and sinus pain; Denies: throat pain, enlarged tonsils, odynophagia, swelling of lips/tongue, oral sores, ear or mastoid pain, ear discharge or post nasal drip Card: Denies: chest pain, palpitations, irregular heart rhythm, edema, lightheadedness, syncope, pre-syncope, dyspnea on exertion or orthopnea Resp: Reports: dyspnea, productive cough and chest congestion; Denies: non-productive cough, wheezing or hemoptysis GI: Denies: abdominal pain, nausea, vomiting or diarrhea Musc: Denies: neck pain, back pain, extremity pain or joint pain Skin/Breast: Denies: rash Neuro: Denies: headache(s), numbness in extremities, weakness in extremities, sensory changes or dizziness All/Imm: Denies: facial swelling or seasonal rhinorrhea PFSH ED PFSH: Medical History Psychiatric care Anxiety Hyperglycemia, drug-induced Morbid obesity with BMI of 45.0-49.9, adult Abnormal vaginal bleeding Chronic migraine Multiple sclerosis Surgical History Status post lumbar spine surgery for decompression of spinal cord Hx of appendectomy Family History Father Diabetes Grandfather Diabetes paternal Grandmother Diabetes paternal Hypertension paternal Denies family history of Colon cancer Ovarian cancer Clotting disorder Heart disease Hyperlipidemia Breast cancer Anesthesia complication Bleeding disorder Uterine cancer Thyroid disease Stroke Social History Smoking and tobacco/nicotine status: never used tobacco/nicotine Alcohol intake: never Substance/Drug Use: never Marital status: Number of children: 0 Current occupational status: employed Female Reproductive History: Spontaneous abortions: No Physical Exam Const: COMMON NORMALS: no acute distress, patient oriented x3, no limitations, alert and well nourished GENERAL APPEARANCE: cooperative NUTRITIONAL APPEARANCE: obese morbidly obese (BMI 47.2) HENMT: COMMON NORMALS: normocephalic, atraumatic, hearing grossly normal bilaterally, external ears normal, EAC's normal, TM's normal bilaterally, Normal external nose present, Normal nasal mucous membranes and turbinates present, moist oral mucous membranes and gingiva normal HEAD & SCALP: normal to inspection, normocephalic and atraumatic FACE & SINUS: normal facial exam NOSE: Normal external nose present and Normal nasal mucous membranes and turbinates present EXTERNAL EAR: Yes external ears normal EXTERNAL AUDITORY CANAL: EAC's normal TYMPANIC MEMBRANE: TM's normal bilaterally MOUTH: Normal oral and palatal mucosa present and lip normal THROAT: posterior oropharynx normal and tonsils normal (large tonsils-appear normal/physiologic) Eye: GENERAL EYE: appearance normal, both eyes and all related structures Neck/C-Spine: COMMON NORMALS: full ROM and no lymphadenopathy GENERAL: Yes normal visual inspection Resp: COMMON NORMALS: normal respiratory effort and clear to auscultation bilaterally AUSCULTATION: clear to auscultation bilaterally Cardio: COMMON NORMALS: regular rhythm RATE: tachycardic (mild) RHYTHM: regular rhythm Extremity: COMMON NORMALS: no clubbing, cyanosis or edema, no calf tenderness and no pedal edema Neuro: ADRIANA COMA SCALE: document GCS findings [place] coma scale eye opening: Spontaneous Adriana coma scale verbal response: Orientated [place] coma scale motor response: Obey commands Adriana coma scale total score: 15 COMMON NORMALS: patient oriented x3 SENSORIUM/ORIENTATION: Yes alert Skin: COMMON NORMALS: no rashes or lesions noted GENERAL SKIN EXAM: no rashes or lesions noted Course Vital Signs: Vital signs: Vital Signs Temperature 97.9 F 10/31/23 18:07 Pulse Rate 105 H 10/31/23 18:26 Respiratory Rate 16 10/31/23 18:26 Blood Pressure 140/92 10/31/23 18:26 Pulse Oximetry 99 10/31/23 18:26 Oxygen Delivery Me thod Room Air 10/31/23 18:26 MDM - URI/Sore Throat Medical Decision Making Patient's vital signs are stable. Her CXR is unremarkable. Respiratory panel collected and pending. Will place her on steroids. She will be contacted if her respiratory panel comes back positive and we can tailor any form of treatment at that time. Return ED precautions given. Otherwise follow-up with primary care in 1 to 2 weeks if she does not seem to be improving. Lab Data I reviewed the patient's lab results. Radiology Impressions Chest X-Ray 10/31/23 18:07 IMPRESSION: No acute findings. All radiology interpretation(s) finalized by discharge Discharge Plan Discharge Patient Disposition: Home Clinical Impression: Viral illness Condition: Stable Prescriptions: New prednisone 10 mg tablet 10 mg PO DAILY 10 Days Qty: 20 0RF Rx Instructions: Take 5 tabs on day 1-2, 4 tabs on day 3, 3 tabs on day 4, 2 tabs on day 5, and 1 tab on day 6 No Action amitriptyline 25 mg tablet 25 mg PO DAILY metformin 500 mg tablet 500 mg PO DAILY Qty: 90 0RF ibuprofen 800 mg tablet 800 mg PO TID Qty: 90 0RF acetaminophen 325 mg Tablet 650 mg PO Q4H PRN (Reason: Mild Pain or fever >101.5) Qty: 30 0RF tizanidine 4 mg tablet 4 mg PO Q6H PRN (Reason: muscle spasticity) Qty: 20 0RF Rx Instructions: do not exceed 3 doses per 24 hrs hydrocodone-acetaminophen 5-325 mg tablet 1 tab PO Q6H PRN (Reason: pain) Qty: 15 0RF prednisone 20 mg tablet 20 mg PO TID Qty: 15 0RF Rx Instructions: 1 p.o. 3 times daily x3 days, 1 p.o. twice daily x2 days, 1 p.o. daily x2 days Discharge Orders: Discharge ED (Routine); Ordered 10/31/23 Ordered By: Robyn Caruso Referrals: Yasir Hamilton DO [Primary Care Provider] - Patient Instructions: Viral Syndrome (ED) Activity Restrictions/Additional Instructions: As we discussed we will contact you later today if your respiratory panel comes back positive for anything. Stand Alone Forms: Work/School Release Coding Level of Care Code ED Stain Wiper for Yvette Pendleton
[2023-10-31] MEDS: methylPREDNISolone sod succ 125 mg/2 mL INJ IM (19:43)
[2023-10-31 19:52] VITALS: BP 140/92; PULSE 105; RESP 16; TEMP 36.6; O2SAT 99
[2023-10-31 20:51] LABS: Adenovirus Not Detected (NOT DETECT); Chlamydia Pneumoniae Not Detected (NOT DETECT); Human Metapneumovirus Not Detected (NOT DETECT); Human Rhinovirus/Enterovirus Not Detected (NOT DETECT); Influenza A Not Detected (NOT DETECT); Influenza A H1 Not Detected (NOT DETECT); Influenza A H1-2009 Not Detected (NOT DETECT); Influenza A H3 Not Detected (NOT DETECT); Influenza B Not Detected (NOT DETECT); Mycoplasma Pneumoniae Not Detected (NOT DETECT); Parainfluenza Virus Type 1 Not Detected (NOT DETECT); Parainfluenza Virus Type 2 Not Detected (NOT DETECT); Parainfluenza Virus Type 3 Not Detected (NOT DETECT); Parainfluenza Virus Type 4 Not Detected (NOT DETECT); Respiratory Syncytial Virus A Not Detected (NOT DETECT); Respiratory Syncytial Virus B Not Detected (NOT DETECT); SARS-COV-2 Not Detected (NOT DETECT)
[2023-10-31 21:25] LABS: Coronavirus 229E,HKU1,NL63,OC4 Detected (NOT DETECT)
== END 2023-10-31 19:53 | disposition home or self-care (01) ==
PROVIDERS: Emergency Provider Physician Assistant; PCP Family Medicine
DX: B34.9 Viral infection, unspecified (principal); Z79.84 Long term (current) use of oral hypoglycemic drugs; G35 Multiple sclerosis
CPT/HCPCS: 71045; 87486; 87581; 87633; 96372; 99284; J2930

== ENCOUNTER 2024-01-17 08:31 | Emergency (ER) | payer BC, SELFPAY ==
[2024-01-17 08:38] VITALS: BP 131/68; PULSE 88; TEMP 36.6; O2SAT 100; BMI 47.2
--- NOTE | 2024-01-17 08:51 | ED_ITS ---
HPI - Abdominal Pain 2 General: Chief Complaint: Abdominal Pain Stated Complaint: abd pain Time Seen by Provider: 01/17/24 08:36 Source: patient Mode of arrival: ambulatory History of Present Illness: 23-year-old female presents to the emerg ency room with complaints of abdominal discomfort. He has had this in the past. She is epigastric discomfort rating to the right upper quadrant and into the back. Last night she was up most the night with abdominal discomfort and cramping and radiating pain into the back along with acholic loose stools. She has had them in the past but not as intense as last night. She has not noticed anything that aggravates or relieves it. She has previously had an appendectomy no other previous abdominal surgeries MD elicited complaint: abdominal pain Onset (ago): hour(s) Pain Consistency: intermittent Location: Epigastric and RUQ Severity: moderate Quality: cramping Exacerbating factors: nothing Relieving factors: nothing Associated Symptoms: Reports bloating, diarrhea (Acholic), nausea and poor appetite; Denies anorexia, belching, change in bowel habits, change in stool character, chills, coffee ground emesis, constipation, GI cramping, dyspepsia, dysuria, excessive flatus, fever(s), heartburn, hematochezia, hematuria, hematemesis, fecal incontinence, loose stools, melena, syncope and vomiting Review of Systems 2 Const: Denies: fever(s) or chills Card: Denies: chest pain or syncope Resp: Denies: dyspnea GI: Reports: nausea, diarrhea (Acholic) and bloating; Denies: abdominal pain, vomiting, hematemesis, coffee ground emesis, heartburn, constipation, GI cramping, belching, excessive flatus, fecal incontinence, change in bowel habits, change in stool character, hematochezia or melena : Denies: dysuria, urinary frequency, urinary urgency or hematuria Musc: Denies: neck pain or back pain Skin/Breast: Denies: rash PFSH ED 2 PFSH: Medical History Psychiatric care Anxiety Hyperglycemia, drug-induced Morbid obesity with BMI of 45.0-49.9, adult Abnormal vaginal bleeding Chronic migraine Multiple sclerosis Surgical History Status post lumbar spine surgery for decompression of spinal cord Hx of appendectomy Family History Father Diabetes Grandfather Diabetes paternal Grandmother Diabetes paternal Hypertension paternal Denies family history of Colon cancer Ovarian cancer Clotting disorder Heart disease Hyperlipidemia Breast cancer Anesthesia complication Bleeding disorder Uterine cancer Thyroid disease Stroke Social History Smoking and tobacco/nicotine status: never used tobacco/nicotine Alcohol intake: never Substance/Drug Use: never Marital status: Number of children: 0 Current occupational status: employed Female Reproductive History: Spontaneous abortions: No Physical Exam 2 Const: GENERAL APPEARANCE: cooperative and comfortable O RIENTATION/CONSCIOUSNESS: Yes awake, Yes oriented to person, Yes oriented to place and Yes oriented to time HENMT: COMMON NORMALS: normocephalic, atraumatic and hearing grossly normal bilaterally HEAD & SCALP: normocephalic and atraumatic Resp: COMMON NORMALS: normal respiratory effort, No retractions, No use of accessory muscles and clear to auscultation bilaterally AUSCULTATION: clear to auscultation bilaterally Cardio: COMMON NORMALS: regular rate, regular rhythm and No murmurs present (Cardio) RATE: regular rate RHYTHM: regular rhythm GI: COMMON NORMALS: No hepatosplenomegaly present AUSCULTATION: Yes normoactive bowel sounds PALPATION: Yes Tenderness to palpation present (GI) (Epigastric/right upper quadrant positive Fenton sign), No Guarding due to palpation present (GI) and Yes No hepatosplenomegaly present Extremity: COMMON NORMALS: normal to inspection, capillary refill normal, no clubbing, cyanosis or edema, no calf tenderness and no pedal edema Neuro: SENSORIUM/ORIENTATION: Yes oriented to person, Yes oriented to place and Yes oriented to time Skin: COMMON NORMALS: no rashes or lesions noted GENERAL SKIN EXAM: no rashes or lesions noted Course 2 Vital Signs: Vital signs: Vital Signs Temperature 97.9 F 01/17/24 08:38 Pulse Rate 88 01/17/24 08:38 Blood Pressure 131/68 01/17/24 08:38 Pulse Oximetry 100 01/17/24 08:38 Oxygen Delivery Me thod Room Air 01/17/24 08:38 MDM - Abdominal Pain Medical Decision Making Gallbladder ultrasound unremarkable. Suspect patient has biliary dyskinesia with epigastric right upper quadrant abdominal pain radiating to her back slight increase in liver enzymes with a normal T. bili. She also had acholic stools. Will set her up for an outpatient HIDA scan and follow-up with general surgery. Reviewed foods to avoid. Gave hydrocodone and promethazine to use if has recurrent symptoms. If she has recurrent symptoms and or uncontrollable return to the emergency room Medical Records I reviewed the patient's medical records. Lab Data I reviewed the patient's lab results. 01/17/24 08:50 01/17/24 08:50 Labs/Radiology: Radiology Impressions Gallbladder Ultrasound 01/17/24 09:01 IMPRESSION: Normal right upper quadrant ultrasound. Laboratory Results WBC 9.37 10^3/uL (3.29-11.43) 01/17/24 08:50 RBC 5.54 10^6/uL (3.85-5.65) 01/17/24 08:50 Hgb 13.20 g/dL (11.27-16.99) 01/17/24 08:50 Hct 42.6 % (36-47) 01/17/24 08:50 MCV 76.9 fl (85-98) L 01/17/24 08:50 MCH 23.8 pg (27-33) L 01/17/24 08:50 MCHC 31.0 g/dL (30-55) 01/17/24 08:50 RDW 16.8 % (12.1-15.1) H 01/17/24 08:50 Plt Count 440 10^3/cmm (157-399) H 01/17/24 08:50 MPV 10.1 fL (7.4-10.4) 01/17/24 08:50 Neut % (Auto) 64.8 % 01/17/24 08:50 Lymph % (Auto) 26.7 % 01/17/24 08:50 [place] % (Auto) 6.0 % 01/17/24 08:50 Eos % (Auto) 2.0 % 01/17/24 08:50 Baso % (Auto) 0.3 % 01/17/24 08:50 Neut # (Auto) 6.07 10^3/uL (1.8-7.7) 01/17/24 08:50 Lymph # (Auto) 2.5 10^3/uL (0.8-4.8) 01/17/24 08:50 [place] # (Auto) 0.6 10^3/uL (0.2-0.9) 01/17/24 08:50 Eos # (Auto) 0.2 10^3/uL (0.0-0.8) 01/17/24 08:50 Baso # (Auto) 0.0 10^3/uL (0.0-0.1) 01/17/24 08:50 Nucleated RBC % (auto) 0 % 01/17/24 08:50 Nucleated RBCs # 0.0 /100WBC 01/17/24 08:50 Sodium 137 mmol/L (136-145) 01/17/24 08:50 Potassium 4.3 mmol/L (3.5-5.1) 01/17/24 08:50 Chloride 103 mmol/L (98-107) 01/17/24 08:50 Carbon Dioxide 23 mmol/L (22-29) 01/17/24 08:50 Anion Gap 15.3 (5-19) 01/17/24 08:50 BUN 10 mg/dL (6-20) 01/17/24 08:50 Creatinine 0.6 mg/dL (0.5-0.9) 01/17/24 08:50 GFR Calculation 123.9 mL/min (90-130) 01/17/24 08:50 Glucose 153 mg/dL (65-115) H 01/17/24 08:50 Calculated Osmolality 286 mOsm/kg (285-295) 01/17/24 08:50 Calcium 9.3 mg/dL (8.5-10.5) 01/17/24 08:50 Magnesium 1.8 mg/dL (1.7-2.3) 01/17/24 08:50 Total Bilirubin 0.4 mg/dL (0.15-1.2) 01/17/24 08:50 AST 35 U/L (0-32) H 01/17/24 08:50 ALT 44 U/L (0-33) H 01/17/24 08:50 Alkaline Phosphatase 76 U/L (35-105) 01/17/24 08:50 Total Protein 8.4 g/dL (6.6-8.7) 01/17/24 08:50 Albumin 4.6 g/dL (3.5-5.2) 01/17/24 08:50 Globulin 3.8 g/dL (1.3-4.6) 01/17/24 08:50 Lipase 44 U/L (13-60) 01/17/24 08:50 HCG, Qual Negative (Negative) 01/17/24 08:50 Urine Color Yellow (Yellow) 01/17/24 08:55 Urine Appearance Hazy (CLEAR) A 01/17/24 08:55 Urine pH 7 (5-7) 01/17/24 08:55 Ur Specific Barre 1.015 (1.005-1.030) 01/17/24 08:55 Urine Protein Neg (Negative) 01/17/24 08:55 Urine Glucose (UA) Norm (Normal) 01/17/24 08:55 Urine Ketones Negative (Negative) 01/17/24 08:55 Urine Blood Neg (Negative) 01/17/24 08:55 Urine Nitrate Negative (Negative) 01/17/24 08:55 Urine Bilirubin Neg (Negative) 01/17/24 08:55 Urine Urobilinogen Neg mg/dL (Negative) 01/17/24 08:55 Ur Leukocyte Esterase Negative (Negative) 01/17/24 08:55 Urine RBC 0-4 /hpf (0-2) H 01/17/24 08:55 Urine WBC 0-4 /hpf (0-5) H 01/17/24 08:55 Ur Squamous Epith Cells 10-15 /hpf (0-5) H 01/17/24 08:55 Amorphous Sediment Not Reportable 01/17/24 08:55 Urine Bacteria Trace /hpf (NONE) 01/17/24 08:55 Urine Mucus Trace /hpf 01/17/24 08:55 All radiology interpretation(s) finalized by discharge Discharge Plan Discharge Patient Disposition: Home Clinical Impression: Cholecystitis, Biliary colic Condition: Stable Prescriptions: New hydrocodone-acetaminophen 5-325 mg tablet 1 tab PO Q6H PRN (Reason: pain) Qty: 15 0RF promethazine 25 mg tablet 25 mg PO Q6H PRN (Reason: nausea and vomiting) Qty: 20 0RF No Action metformin 500 mg tablet 500 mg PO DAILY Qty: 90 3RF Discharge Orders: Discharge ED (Routine); Ordered 01/17/24 Ordered By: Sreedhar Marvin Referrals: Yasir Hamilton, [Primary Care Provider] - Discharge Activity: Resume usual activity Patient Instructions: Cholecystitis (ED), Biliary Colic (ED), Abdominal Pain (ED), Opioid Safety, Pain Management Activity Restrictions/Additional Instructions: Thank you for choosing [facility] for your healthcare needs today. Please realize this is an emergency room and that we are providing you with a medical screening exam and this may not be complete and all inclusive of all the testing and or work up that you may need to determine your ailment or severity of your illness. It is very important that you follow up as instructed or that you return to the Emergency Department should you have concerns or if your condition changes or worsens in any way. You were seen today with complaints of abdominal pain. Given your symptoms and the laboratory findings your symptoms are due to gallbladder dysfunction. Avoid fatty foods citrus foods and alcohol. Case management make arrangements for you to follow-up with surgery Coding Level of Care Code ED Drying Rack Changer for Yvette Pendleton
--- NOTE | 2024-01-17 09:01 | US_ITS ---
WS: [id number] RIGHT UPPER QUADRANT ULTRASOUND HISTORY: RUQ abd pain radiating into the back COMPARISON: 09/08/2018 Liver: 15.2 cm in length. Normal size liver and echogenicity. No bile duct dilatation or mass. Portal Vein: Normal hepatopetal flow with monophasic waveform. Gallbladder: Normally distended gallbladder with no stones or wall thickening. CBD: 0.4 cm Pancreas: Normal size and echogenicity. Right kidney: 11.5 cm in length. Normal size and echogenicity. No hydronephrosis or mass. Aorta and IVC: Unremarkable abdominal aorta and IVC. No ascites. US/US gall bladder [id number] IMPRESSION: Normal right upper quadrant ultrasound.
[2024-01-17 09:03] LABS: Basophils % 0.3 %; Eosinophils # 0.2 10^3/uL (0.0-0.8); Hematocrit 42.6 % (36-47); Lymphocytes # 2.5 10^3/uL (0.8-4.8); Lymphocytes % 26.7 %; Mean Corpuscular Hemoglobin 23.8 pg (27-33); Mean Corpuscular Volume 76.9 fl (85-98); Mean Platelet Volume 10.1 fL (7.4-10.4); Monocytes # 0.6 10^3/uL (0.2-0.9); Neutrophils # 6.07 10^3/uL (1.8-7.7); Neutrophils % 64.8 %; Nucleated Red Blood Cells % 0 %; Platelet Count 440 10^3/cmm (157-399); Red Blood Count 5.54 10^6/uL (3.85-5.65); Red Cell Distribution Width 16.8 % (12.1-15.1); White Blood Count 9.37 10^3/uL (3.29-11.43)
[2024-01-17 09:19] LABS: HCG, Serum Qual Negative (Negative)
[2024-01-17 09:24] LABS: Alanine Aminotransferase 44 U/L (0-33); Albumin Level 4.6 g/dL (3.5-5.2); Alkaline Phosphatase 76 U/L (35-105); Anion Gap 15.3 (5-19); Aspartate Amino Transferase 35 U/L (0-32); Blood Urea Nitrogen 10 mg/dL (6-20); Calcium 9.3 mg/dL (8.5-10.5); Carbon Dioxide 23 mmol/L (22-29); Chloride 103 mmol/L (98-107); Creatinine Clr Calc Pharmacy 170.4444; Globulin 3.8 g/dL (1.3-4.6); Glomerular Filtration Rate 123.9 mL/min (90-130); Glucose 153 mg/dL (65-115); Lipase 44 U/L (13-60); Magnesium 1.8 mg/dL (1.7-2.3); Osmolality Calculated 286 mOsm/kg (285-295); Potassium 4.3 mmol/L (3.5-5.1); Sodium 137 mmol/L (136-145); Total Bilirubin 0.4 mg/dL (0.15-1.2); Total Protein 8.4 g/dL (6.6-8.7)
[2024-01-17 09:58] LABS: Add Urine Microscopic? YES; Bilirubin Urine Neg (Negative); Blood Urine Neg (Negative); Glucose Urine UA Norm (Normal); Ketones Urine Negative (Negative); Leukocyte Esterase Urine Negative (Negative); Nitrate Urine Negative (Negative); Protein Urine Neg (Negative); RBC Urine 0-4 /hpf (0-2); Specific Gravity, Urine 1.015 (1.005-1.030); Urine Appearance Hazy (CLEAR); Urine Color Yellow (Yellow); Urobilinogen Urine Neg (Negative); WBC Urine 0-4 /hpf (0-5); pH Urine 7 (5-7)
[2024-01-17 09:59] LABS: Add Urine Culture? No; Bacteria Urine TRACE /hpf; Mucus Urine TRACE /hpf
--- NOTE | 2024-01-25 12:11 | DCPLANNER ---
Sent Hida scan out patient request to centralized scheduling
== END 2024-01-17 10:38 | disposition home or self-care (01) ==
PROVIDERS: Emergency Provider Family Medicine; PCP Family Medicine
DX: K81.9 Cholecystitis, unspecified (principal); G35 Multiple sclerosis
CPT/HCPCS: 76705; 80053; 81001; 83690; 83735; 84703; 85025; 99284

== ENCOUNTER 2024-01-18 22:16 | Emergency (ER) | payer BC, SELFPAY ==
[2024-01-18 22:20] VITALS: BP 129/88; PULSE 128; RESP 18; TEMP 36.9; O2SAT 97
--- NOTE | 2024-01-18 22:34 | CTR_ITS ---
PROCEDURE INFORMATION: Exam: CT Abdomen And Pelvis With Contrast Exam date and time: 01/18/2024 11:17 PM Age: 23 years old Clinical indication: Abdominal pain; Prior surgery; Surgery date: 6+ months; Surgery type: Appy; Additional info: Epigastric pain TECHNIQUE: Imaging protocol: Computed tomography of the abdomen and pelvis with contrast. Radiation optimization: All CT scans at this facility use at least one of these dose optimization techniques: automated exposure control; mA and/or kV adjustment per patient size (includes targeted exams where dose is matched to clinical indication); or iterative reconstruction. Contrast material: OMNI 350; Contrast volume: 100 ml; Contrast route: INTRAVENOUS (IV); COMPARISON: US gall bladder [id number] 01/17/2024 9:27 AM RADIATION DOSE METRICS: Total DLP (mGy-cm): 1193.7 FINDINGS: Lungs: Lung bases are clear. Liver: There is a diffuse decrease in hepatic parenchymal density, consistent with moderate fatty infiltration. There is no focal abnormality within the liver. Gallbladder and bile ducts: The gallbladder is normal. There is no common bile duct dilation. Pancreas: The pancreas is normal. Spleen: The spleen is normal. Adrenal glands: The adrenal glands are normal. Kidneys and ureters: The kidneys are normal. There is no evidence of hydronephrosis. There is no evidence of renal or ureteral calcifications. Stomach and bowel: There is no evidence of colitis/diverticulitis. There is no evidence of intestinal obstruction. Stomach is moderately distended with food and fluid. There are flaky calcific densities within the stomach and throughout the colon which may represent some ingested medication. Please correlate with the patient's history. Appendix: Not identified Intraperitoneal space: There is no evidence of free intraperitoneal fluid. Vasculature: Unremarkable. No abdominal aortic aneurysm. Lymph nodes: Unremarkable. No enlarged lymph nodes. Urinary bladder: Unremarkable as visualized. Reproductive: Endometrium is thickened to 16 mm. Bones/joints: Unremarkable. No acute fracture. Soft tissues: Unremarkable. CT/CT abdomen pelvis w con* [id number] IMPRESSION: 1. Fatty liver 2. Distended stomach of uncertain significance. This could be due to recent ingestion of a meal. Please correlate with the patient's history.
[2024-01-18 22:40] VITALS: BP 131/84; PULSE 112; RESP 18; O2SAT 92
[2024-01-18 22:44] LABS: Erythrocyte Sedimentation Rate 20 mm/hr (0-15)
[2024-01-18 22:46] VITALS: RESP 18; O2SAT 95
[2024-01-18 22:46] LABS: Basophils % 0.2 %; Eosinophils # 0.2 10^3/uL (0.0-0.8); Eosinophils % 1.5 %; Hematocrit 40.2 % (36-47); Lymphocytes # 3.3 10^3/uL (0.8-4.8); Lymphocytes % 27.1 %; Mean Corpuscular HGB Conc 31.3 g/dL (30-55); Mean Corpuscular Volume 76.4 fl (85-98); Mean Platelet Volume 9.8 fL (7.4-10.4); Monocytes # 0.8 10^3/uL (0.2-0.9); Monocytes % 6.6 %; Neutrophils # 7.87 10^3/uL (1.8-7.7); Neutrophils % 64.4 %; Nucleated Red Blood Cells % 0 %; Platelet Count 437 10^3/cmm (157-399); Red Blood Count 5.26 10^6/uL (3.85-5.65); Red Cell Distribution Width 16.4 % (12.1-15.1); White Blood Count 12.23 10^3/uL (3.29-11.43)
[2024-01-18] MEDS: morphine 4 mg/mL SDV 1 mL IVP (22:46)
[2024-01-18] MEDS: ondansetron 2 mg/ML SDV 2 mL 4 MG IVP (22:46)
[2024-01-18] MEDS: sodium chloride 0.9% 1,000 ML 999 ML IV (22:48)
--- NOTE | 2024-01-18 22:48 | ED_ITS ---
Documented by User: PETE Benitez 01/19/24 01:12 HPI - Abdominal Pain 2 General: Chief Complaint: Abdominal Pain Stated Complaint: Gall Bladder Pains Time Seen by Provider: 01/18/24 22:29 Source: patient Mode of arrival: ambulatory Limitations: no limitations History of Present Illness: Patient is a 23-year-old female presenting to the emergency department complaining of epigastric pain onset past couple days. Patient was seen in the emergency department yesterday for the same complaint, where she had negative gallbladder ultrasound and was sent home with outpatient follow-up for further evaluation with HIDA scan. She notes that since being discharged, her pain has only worsened and her nausea and diarrhea have also steadily worsened. She notes no improvement from her hydrocodone. She states the pain is now shooting through to her back, and is a constant sharpness. No fever, urinary symptoms, blood in stool, vomiting, or other symptoms to report at this time. She has a history of appendectomy, still has her gallbladder. She does note that her pain is improved with lying supine, no other specific alleviating or exacerbating factors noted. MD elicited complaint: abdominal pain Onset (ago): day(s) Pain Consistency: constant Location: Epigastric and RUQ Severity: severe Quality: stabbing and sharp Radiation: back Relieving factors: other (Lying supine) Associated Symptoms: Reports diarrhea and nausea; Denies bloating, change in stool character, chills, constipation, dysuria, fever(s), hematochezia and vomiting Related Data: Date of Last Menstrual Period: 11/25/23 Review of Systems 2 General: Reports: 10 or more systems reviewed and unremarkable except in HPI and below Const: Denies: fever(s), chills, change in appetite, change in weight or diaphoresis ENMT: Denies: throat pain or hoarseness Card: Denies: chest pain, palpitations or lightheadedness Resp: Denies: dyspnea, productive cough or wheezing GI: Reports: abdominal pain, nausea and diarrhea; Denies: vomiting, constipation, bloating, change in stool character or hematochezia : Denies: flank pain, difficulty voiding, dysuria, urinary frequency or urinary urgency Musc: Denies: neck pain or back pain Skin/Breast: Denies: rash or new lesions Neuro: Denies: headache(s) or dizziness PFSH ED 2 PFSH: Medical History Psychiatric care Anxiety Hyperglycemia, drug-induced Morbid obesity with BMI of 45.0-49.9, adult Abnormal vaginal bleeding Chronic migraine Multiple sclerosis Surgical History Status post lumbar spine surgery for decompression of spinal cord Hx of appendectomy Family History Father Diabetes Grandfather Diabetes paternal Grandmother Diabetes paternal Hypertension paternal Denies family history of Colon cancer Ovarian cancer Clotting disorder Heart disease Hyperlipidemia Breast cancer Anesthesia complication Bleeding disorder Uterine cancer Thyroid disease Stroke Social History Smoking and tobacco/nicotine status: never used tobacco/nicotine Alcohol intake: never Substance/Drug Use: never Marital status: Number of children: 0 Current occupational status: employed Female Reproductive History: Date of last menstrual period: 11/25/23 S pontaneous abortions: No Physical Exam 2 Const: COMMON NORMALS: no acute distress, patient oriented x3, no limitations, healthy appearing, alert and well nourished GENERAL APPEARANCE: cooperative and comfortable ORIENTATION/CONSCIOUSNESS: Yes awake HENMT: COMMON NORMALS: normocephalic, atraumatic, hearing grossly normal bilaterally, external ears normal, Normal external nose present, Normal nasal mucous membranes and turbinates present and moist oral mucous membranes HEAD & SCALP: normocephalic and atraumatic NOSE: Normal external nose present and Normal nasal mucous membranes and turbinates present EXTERNAL EAR: Yes external ears normal Eye: COMMON NORMALS: Equal, round and reactive pupils present, EOMs intact bilaterally, conjunctivae normal and normal visual dye by confrontation C ONJUNCTIVA: Yes conjunctivae normal PUPIL: Yes Equal, round and reactive pupils present Neck/C-Spine: COMMON NORMALS: full ROM, supple, no meningeal signs and no JVD Resp: COMMON NORMALS: normal respiratory effort, No retractions, No use of accessory muscles and clear to auscultation bilaterally AUSCULTATION: clear to auscultation bilaterally, no crackles, no rales, no rhonchi and no wheezes Cardio: COMMON NORMALS: no JVD, regular rate, regular rhythm, S1 normal heart sound present, S2 normal heart sound present, No gallops present (Cardio), No clicks present (Cardio), No murmurs present (Cardio), No rub (Cardio) and Peripheral pulses 2+ throughout RATE: regular rate RHYTHM: regular rhythm HEART SOUNDS: S1 normal heart sound present and S2 normal heart sound present PERIPHERAL PULSES: Peripheral pulses 2+ throughout GI: COMMON NORMALS: Normal to inspection, nondistended, normoactive bowel sounds present, Soft to palpation and no masses INSPECTION: Yes central obesity AUSCULTATION: Yes normoactive bowel sounds PALPATION: Yes Soft to palpation, Yes Tenderness to palpation present (GI) (Epigastric/right upper quadrant), No Guarding due to palpation present (GI) and No Rigid due to palpation RECTAL EXAM: deferred : COMMON NORMALS: Yes no CVA tenderness BLADDER/KIDNEY EXAM: Yes no CVA tenderness Back/Pelvis: COMMON NORMALS: no CVA tenderness Extremity: COMMON NORMALS: normal to inspection and full ROM Neuro: COMMON NORMALS: patient oriented x3, moves all extremities, no focal motor deficits and no sensory deficits noted SENSORIUM/ORIENTATION: Yes alert MENINGEAL SIGNS: Yes no meningeal signs Psych: COMMON NORMALS: mental status grossly normal, cooperative and speech normal SPEECH: Yes normal speech Skin: COMMON NORMALS: no rashes or lesions noted GENERAL SKIN EXAM: no rashes or lesions noted Course 2 Vital Signs: Vital signs: Vital Signs Temperature 98.5 F 01/18/24 22:20 Pulse Rate 97 01/19/24 01:21 Respiratory Rate 16 01/19/24 01:21 Blood Pressure 147/66 01/19/24 01:21 Pulse Oximetry 98 01/19/24 01:21 Oxygen Delivery Me thod Room Air 01/18/24 22:40 MDM - Abdominal Pain Medical Decision Making Patient seen and evaluated for epigastric and right upper quadrant pain. She was seen yesterday for the same thing and diagnosed with biliary dyskinesia and arranged for outpatient follow-up with general surgery for potential HIDA scan or upper endoscopy. She arrives stating pain was worse and associated with worsening nausea and diarrhea. On arrival vitals unremarkable aside from a minimally elevated heart rate. I initially gave her Zofran and morphine through an IV, she states she feels better on reexamination. Her overall lab work essentially unchanged from yesterday. CT abdomen showed fatty liver and distention of her stomach, and upon further history patient states she did recently eat. I will do a trial of GI cocktail and sent prescription for Pepcid for potential reflux and gastritis. I also informed her to continue awaiting call for appointment scheduling with general surgery to discuss further outpatient management. She will enact a clear liquid diet and continue taking her nausea medications and pain medications at home as normal. All other questions and concerns are addressed, and return precautions are given to which the patient endorses understanding. Lab Data I reviewed the patient's lab results. 01/18/24 22:40 01/18/24 22:40 Labs/Radiology: Radiology Impressions Abdomen/Pelvis CT 01/18/24 22:34 IMPRESSION: 1. Fatty liver 2. Distended stomach of uncertain significance. This could be due to recent ingestion of a meal. Please correlate with the patient's history. Laboratory Results WBC 12.23 10^3/uL (3.29-11.43) H 01/18/24 22:40 RBC 5.26 10^6/uL (3.85-5.65) 01/18/24 22:40 Hgb 12.60 g/dL (11.27-16.99) 01/18/24 22:40 Hct 40.2 % (36-47) 01/18/24 22:40 MCV 76.4 fl (85-98) L 01/18/24 22:40 MCH 24.0 pg (27-33) L 01/18/24 22:40 MCHC 31.3 g/dL (30-55) 01/18/24 22:40 RDW 16.4 % (12.1-15.1) H 01/18/24 22:40 Plt Count 437 10^3/cmm (157-399) H 01/18/24 22:40 MPV 9.8 fL (7.4-10.4) 01/18/24 22:40 Neut % (Auto) 64.4 % 01/18/24 22:40 Lymph % (Auto) 27.1 % 01/18/24 22:40 [place] % (Auto) 6.6 % 01/18/24 22:40 Eos % (Auto) 1.5 % 01/18/24 22:40 Baso % (Auto) 0.2 % 01/18/24 22:40 Neut # (Auto) 7.87 10^3/uL (1.8-7.7) H 01/18/24 22:40 Lymph # (Auto) 3.3 10^3/uL (0.8-4.8) 01/18/24 22:40 [place] # (Auto) 0.8 10^3/uL (0.2-0.9) 01/18/24 22:40 Eos # (Auto) 0.2 10^3/uL (0.0-0.8) 01/18/24 22:40 Baso # (Auto) 0.0 10^3/uL (0.0-0.1) 01/18/24 22:40 Nucleated RBC % (auto) 0 % 01/18/24 22:40 Nucleated RBCs # 0.0 /100WBC 01/18/24 22:40 ESR 20 mm/hr (0-15) H 01/18/24 22:40 Sodium 136 mmol/L (136-145) 01/18/24 22:40 Potassium 3.9 mmol/L (3.5-5.1) 01/18/24 22:40 Chloride 102 mmol/L (98-107) 01/18/24 22:40 Carbon Dioxide 21 mmol/L (22-29) L 01/18/24 22:40 Anion Gap 16.9 (5-19) 01/18/24 22:40 BUN 9 mg/dL (6-20) 01/18/24 22:40 Creatinine 0.9 mg/dL (0.5-0.9) 01/18/24 22:40 GFR Calculation 77.6 mL/min (90-130) L 01/18/24 22:40 Glucose 115 mg/dL (65-115) 01/18/24 22:40 Calculated Osmolality 282 mOsm/kg (285-295) L 01/18/24 22:40 Calcium 9.1 mg/dL (8.5-10.5) 01/18/24 22:40 Total Bilirubin 0.4 mg/dL (0.15-1.2) 01/18/24 22:40 AST 31 U/L (0-32) 01/18/24 22:40 ALT 41 U/L (0-33) H 01/18/24 22:40 Alkaline Phosphatase 66 U/L (35-105) 01/18/24 22:40 C-Reactive Protein 5.4 mg/L (0.0-4.9) H 01/18/24 22:40 Total Protein 7.5 g/dL (6.6-8.7) 01/18/24 22:40 Albumin 4.3 g/dL (3.5-5.2) 01/18/24 22:40 Globulin 3.2 g/dL (1.3-4.6) 01/18/24 22:40 Lipase 34 U/L (13-60) 01/18/24 22:40 HCG, Qual Negative (Negative) 01/18/24 22:40 Urine Color Yellow (Yellow) 01/18/24 22:40 Urine Appearance Hazy (CLEAR) A 01/18/24 22:40 Urine pH 5 (5-7) 01/18/24 22:40 Ur Specific [place] 1.025 (1.005-1.030) 01/18/24 22:40 Urine Protein Trace (Negative) 01/18/24 22:40 Urine Glucose (UA) Norm (Normal) 01/18/24 22:40 Urine Ketones 1+ (Negative) H 01/18/24 22:40 Urine Blood Neg (Negative) 01/18/24 22:40 Urine Nitrate Negative (Negative) 01/18/24 22:40 Urine Bilirubin Neg (Negative) 01/18/24 22:40 Urine Urobilinogen 1 mg/dL (Negative) H 01/18/24 22:40 Ur Leukocyte Esterase Trace (Negative) H 01/18/24 22:40 Urine RBC 0-4 /hpf (0-2) H 01/18/24 22:40 Urine WBC 0-4 /hpf (0-5) H 01/18/24 22:40 Ur Squamous Epith Cells 15-25 /hpf (0-5) H 01/18/24 22:40 Calcium Oxalate Crystal 15-25 /hpf H 01/18/24 22:40 Amorphous Sediment Not Reportable 01/18/24 22:40 Urine Bacteria Trace /hpf (NONE) 01/18/24 22:40 Urine Mucus 2+ /hpf 01/18/24 22:40 All radiology interpretation(s) finalized by discharge Discharge Plan Discharge Patient Disposition: Home Clinical Impression: Gastroenteritis Condition: Stable Prescriptions: New Pepcid 20 mg tablet 40 mg PO DAILY Qty: 30 0RF No Action hydrocodone-acetaminophen 5-325 mg tablet 1 tab PO Q6H PRN (Reason: pain) Qty: 15 0RF promethazine 25 mg tablet 25 mg PO Q6H PRN (Reason: nausea and vomiting) Qty: 20 0RF metformin 500 mg tablet 500 mg PO BEDTIME Discharge Orders: Discharge ED (Routine); Ordered 01/19/24 Ordered By: Edwardo Hodges Referrals: Yasir Hamilton DO [Primary Care Provider] - Discharge Diet: Clear Liquid Discharge Activity: Increase activity as tolerated Patient Instructions: Gastritis (ED), GERD (Gastroesophageal Reflux Disease) in Children (ED), Opioid Safety, Pain Management Activity Restrictions/Additional Instructions: Pepcid as prescribed. Continue taking nausea medications and pain medications at home as needed. Follow-up with general surgery and await call to do so. Clear liquid diet. Please monitor for any new or worsening symptoms you may have and return for reevaluation. Otherwise, you may follow-up with primary care. Stand Alone Forms: Work/School Release Coding Level of Care Code ED Vice President Network Development for [employer] Documented by User: Sreedhar Marvin DO 01/24/24 06:22 HPI - Abdominal Pain 2 General: Chief Complaint: Abdominal Pain Stated Complaint: Gall Bladder Pains Time Seen by Provider: 01/18/24 22:29 PFSH ED 2 PFSH: Medical History Psychiatric care Anxiety Hyperglycemia, drug-induced Morbid obesity with BMI of 45.0-49.9, adult Abnormal vaginal bleeding Chronic migraine Multiple sclerosis Surgical History Status post lumbar spine surgery for decompression of spinal cord Hx of appendectomy Family History Father Diabetes Grandfather Diabetes paternal Grandmother Diabetes paternal Hypertension paternal Denies family history of Colon cancer Ovarian cancer Clotting disorder Heart disease Hyperlipidemia Breast cancer Anesthesia complication Bleeding disorder Uterine cancer Thyroid disease Stroke Social History Smoking and tobacco/nicotine status: never used tobacco/nicotine Alcohol intake: never Substance/Drug Use: never Marital status: Number of children: 0 Current occupational status: employed Course 2 Vital Signs: Vital signs: Vital Signs Temperature 98.5 F 01/18/24 22:20 Pulse Rate 97 01/19/24 01:21 Respiratory Rate 16 01/19/24 01:21 Blood Pressure 147/66 01/19/24 01:21 Pulse Oximetry 98 01/19/24 01:21 Oxygen Delivery Me thod Room Air 01/18/24 22:40 MDM - Abdominal Pain Medical Decision Making Patient seen and evaluated for epigastric and right upper quadrant pain. She was seen yesterday for the same thing and diagnosed with biliary dyskinesia and arranged for outpatient follow-up with general surgery for potential HIDA scan or upper endoscopy. She arrives stating pain was worse and associated with worsening nausea and diarrhea. On arrival vitals unremarkable aside from a minimally elevated heart rate. I initially gave her Zofran and morphine through an IV, she states she feels better on reexamination. Her overall lab work essentially unchanged from yesterday. CT abdomen showed fatty liver and distention of her stomach, and upon further history patient states she did recently eat. I will do a trial of GI cocktail and sent prescription for Pepcid for potential reflux and gastritis. I also informed her to continue awaiting call for appointment scheduling with general surgery to discuss further outpatient management. She will enact a clear liquid diet and continue taking her nausea medications and pain medications at home as normal. All other questions and concerns are addressed, and return precautions are given to which the patient endorses understanding. Chart reviewed Lab Data 01/18/24 22:40 01/18/24 22:40 Labs/Radiology: Radiology Impressions Abdomen/Pelvis CT 01/18/24 22:34 IMPRESSION: 1. Fatty liver 2. Distended stomach of uncertain significance. This could be due to recent ingestion of a meal. Please correlate with the patient's history. Laboratory Results WBC 12.23 10^3/uL (3.29-11.43) H 01/18/24 22:40 RBC 5.26 10^6/uL (3.85-5.65) 01/18/24 22:40 Hgb 12.60 g/dL (11.27-16.99) 01/18/24 22:40 Hct 40.2 % (36-47) 01/18/24 22:40 MCV 76.4 fl (85-98) L 01/18/24 22:40 MCH 24.0 pg (27-33) L 01/18/24 22:40 MCHC 31.3 g/dL (30-55) 01/18/24 22:40 RDW 16.4 % (12.1-15.1) H 01/18/24 22:40 Plt Count 437 10^3/cmm (157-399) H 01/18/24 22:40 MPV 9.8 fL (7.4-10.4) 01/18/24 22:40 Neut % (Auto) 64.4 % 01/18/24 22:40 Lymph % (Auto) 27.1 % 01/18/24 22:40 Mclennan % (Auto) 6.6 % 01/18/24 22:40 Eos % (Auto) 1.5 % 01/18/24 22:40 Baso % (Auto) 0.2 % 01/18/24 22:40 Neut # (Auto) 7.87 10^3/uL (1.8-7.7) H 01/18/24 22:40 Lymph # (Auto) 3.3 10^3/uL (0.8-4.8) 01/18/24 22:40 [place] # (Auto) 0.8 10^3/uL (0.2-0.9) 01/18/24 22:40 Eos # (Auto) 0.2 10^3/uL (0.0-0.8) 01/18/24 22:40 Baso # (Auto) 0.0 10^3/uL (0.0-0.1) 01/18/24 22:40 Nucleated RBC % (auto) 0 % 01/18/24 22:40 Nucleated RBCs # 0.0 /100WBC 01/18/24 22:40 ESR 20 mm/hr (0-15) H 01/18/24 22:40 Sodium 136 mmol/L (136-145) 01/18/24 22:40 Potassium 3.9 mmol/L (3.5-5.1) 01/18/24 22:40 Chloride 102 mmol/L (98-107) 01/18/24 22:40 Carbon Dioxide 21 mmol/L (22-29) L 01/18/24 22:40 Anion Gap 16.9 (5-19) 01/18/24 22:40 BUN 9 mg/dL (6-20) 01/18/24 22:40 Creatinine 0.9 mg/dL (0.5-0.9) 01/18/24 22:40 GFR Calculation 77.6 mL/min (90-130) L 01/18/24 22:40 Glucose 115 mg/dL (65-115) 01/18/24 22:40 Calculated Osmolality 282 mOsm/kg (285-295) L 01/18/24 22:40 Calcium 9.1 mg/dL (8.5-10.5) 01/18/24 22:40 Total Bilirubin 0.4 mg/dL (0.15-1.2) 01/18/24 22:40 AST 31 U/L (0-32) 01/18/24 22:40 ALT 41 U/L (0-33) H 01/18/24 22:40 Alkaline Phosphatase 66 U/L (35-105) 01/18/24 22:40 C-Reactive Protein 5.4 mg/L (0.0-4.9) H 01/18/24 22:40 Total Protein 7.5 g/dL (6.6-8.7) 01/18/24 22:40 Albumin 4.3 g/dL (3.5-5.2) 01/18/24 22:40 Globulin 3.2 g/dL (1.3-4.6) 01/18/24 22:40 Lipase 34 U/L (13-60) 01/18/24 22:40 HCG, Qual Negative (Negative) 01/18/24 22:40 Urine Color Yellow (Yellow) 01/18/24 22:40 Urine Appearance Hazy (CLEAR) A 01/18/24 22:40 Urine pH 5 (5-7) 01/18/24 22:40 Ur Specific [place] 1.025 (1.005-1.030) 01/18/24 22:40 Urine Protein Trace (Negative) 01/18/24 22:40 Urine Glucose (UA) Norm (Normal) 01/18/24 22:40 Urine Ketones 1+ (Negative) H 01/18/24 22:40 Urine Blood Neg (Negative) 01/18/24 22:40 Urine Nitrate Negative (Negative) 01/18/24 22:40 Urine Bilirubin Neg (Negative) 01/18/24 22:40 Urine Urobilinogen 1 mg/dL (Negative) H 01/18/24 22:40 Ur Leukocyte Esterase Trace (Negative) H 01/18/24 22:40 Urine RBC 0-4 /hpf (0-2) H 01/18/24 22:40 Urine WBC 0-4 /hpf (0-5) H 01/18/24 22:40 Ur Squamous Epith Cells 15-25 /hpf (0-5) H 01/18/24 22:40 Calcium Oxalate Crystal 15-25 /hpf H 01/18/24 22:40 Amorphous Sediment Not Reportable 01/18/24 22:40 Urine Bacteria Trace /hpf (NONE) 01/18/24 22:40 Urine Mucus 2+ /hpf 01/18/24 22:40 Discharge Plan Discharge Patient Disposition: Home Clinical Impression: Gastroenteritis Condition: Stable Prescriptions: New Pepcid 20 mg tablet 40 mg PO DAILY Qty: 30 0RF No Action hydrocodone-acetaminophen 5-325 mg tablet 1 tab PO Q6H PRN (Reason: pain) Qty: 15 0RF promethazine 25 mg tablet 25 mg PO Q6H PRN (Reason: nausea and vomiting) Qty: 20 0RF metformin 500 mg tablet 500 mg PO BEDTIME Discharge Orders: Discharge ED (Routine); Ordered 01/19/24 Ordered By: Edwardo Hodges Referrals: Yasir Hamilton, [Primary Care Provider] - Discharge Diet: Clear Liquid Discharge Activity: Increase activity as tolerated Patient Instructions: Gastritis (ED), GERD (Gastroesophageal Reflux Disease) in Children (ED), Opioid Safety, Pain Management Activity Restrictions/Additional Instructions: Pepcid as prescribed. Continue taking nausea medications and pain medications at home as needed. Follow-up with general surgery and await call to do so. Clear liquid diet. Please monitor for any new or worsening symptoms you may have and return for reevaluation. Otherwise, you may follow-up with primary care. Stand Alone Forms: Work/School Release Coding Level of Care Code ED Vice President Network Development for Yvette Pendleton
[2024-01-18 22:57] LABS: HCG, Serum Qual Negative (Negative)
[2024-01-18 23:04] LABS: Alanine Aminotransferase 41 U/L (0-33); Albumin Level 4.3 g/dL (3.5-5.2); Alkaline Phosphatase 66 U/L (35-105); Anion Gap 16.9 (5-19); Aspartate Amino Transferase 31 U/L (0-32); Blood Urea Nitrogen 9 mg/dL (6-20); C Reactive Protein 5.4 mg/L (0.0-4.9); Calcium 9.1 mg/dL (8.5-10.5); Carbon Dioxide 21 mmol/L (22-29); Chloride 102 mmol/L (98-107); Creatinine Clr Calc Pharmacy 113.6296; Globulin 3.2 g/dL (1.3-4.6); Glomerular Filtration Rate 77.6 mL/min (90-130); Glucose 115 mg/dL (65-115); Lipase 34 U/L (13-60); Osmolality Calculated 282 mOsm/kg (285-295); Potassium 3.9 mmol/L (3.5-5.1); Sodium 136 mmol/L (136-145); Total Bilirubin 0.4 mg/dL (0.15-1.2); Total Protein 7.5 g/dL (6.6-8.7)
[2024-01-18] MEDS: iohexol 350 mg/mL 500 mL Btl (per mL) IV (23:19)
[2024-01-18 23:34] LABS: Bilirubin Urine Neg (Negative); Blood Urine Neg (Negative); Glucose Urine UA Norm (Normal); Ketones Urine 1+ (Negative); Leukocyte Esterase Urine Trace (Negative); Nitrate Urine Negative (Negative); Protein Urine Trace (Negative); Specific Gravity, Urine 1.025 (1.005-1.030); Urine Appearance Hazy (CLEAR); Urine Color Yellow (Yellow); Urobilinogen Urine 1 mg/dL (Negative); pH Urine 5 (5-7)
[2024-01-18 23:35] LABS: Add Urine Culture? No; Add Urine Microscopic? YES; Bacteria Urine TRACE /hpf; Calcium Oxalate Crystals Urine 15-25 /hpf; Mucus Urine 2+ /hpf; RBC Urine 0-4 /hpf (0-2); Squamous Epithelial Cell Urine 15-25 /hpf (0-5); WBC Urine 0-4 /hpf (0-5)
[2024-01-18 23:38] VITALS: BP 107/69; PULSE 107; RESP 16; O2SAT 94
[2024-01-19 00:28] VITALS: BP 116/59; PULSE 96; RESP 16; O2SAT 94
[2024-01-19 00:56] VITALS: BP 116/56; PULSE 95; RESP 14; O2SAT 95
[2024-01-19] MEDS: lidocaine 2% viscous 15 ML, aluminum-mag hydrox-simethicon 30 ML, sucralfate oral liq 1 GM PO (01:04)
[2024-01-19 01:21] VITALS: BP 147/66; PULSE 97; RESP 16; O2SAT 98
== END 2024-01-19 01:23 | disposition home or self-care (01) ==
PROVIDERS: Emergency Provider Physician Assistant; PCP Family Medicine
DX: K52.9 Noninfective gastroenteritis and colitis, unspecified (principal); Z79.84 Long term (current) use of oral hypoglycemic drugs; G35 Multiple sclerosis
CPT/HCPCS: 74177; 80053; 81001; 83690; 84703; 85025; 85651; 86140; 96361; 96374; 96375; 99285; J2270; J2405; J7030; Q9967

== ENCOUNTER 2024-02-04 07:48 | Outpatient (CLI) | payer BC, SELFPAY ==
--- NOTE | 2024-02-04 07:55 | NM_ITS ---
WS: [id number] NUCLEAR MEDICINE HIDA SCAN WITH GALLBLADDER EJECTION FRACTION HISTORY: Noninfective gastroenteritis and colitis COMPARISON: Gallbladder ultrasound 01/17/2024 TECHNIQUE: The patient was intravenously injected with 7.5 mCi of TC99m Mebrofenin. Immediate imaging over the right upper quadrant was followed by 5 minute image and additional images for a total of 60 minutes. Normal uptake of radiotracer throughout the liver. Activity identified in the gallbladder at 20 minutes and well distended by 60 minutes. Activity in the proximal small bowel was seen by 60 minutes. Good washout of the radiotracer from the liver by 60 minutes. The patient then drank 8 ounces of Ensure Plus. Ejection fraction at 60 minutes was 93%. Normal GB ej ection fraction is 35-75%. Post fatty meal symptoms: None. NM/NM hepatobiliary w phar* [id number] IMPRESSION: 1. Normal HIDA scan. 2. Normal gallbladder ejection fraction.
== END 2024-02-04 07:49 | disposition home or self-care (01) ==
PROVIDERS: PCP Family Medicine; Visit Provider Family Medicine
DX: K52.9 Noninfective gastroenteritis and colitis, unspecified (principal)
CPT/HCPCS: 78227; A9537

== ENCOUNTER 2024-02-10 11:13 | Emergency (ER) | payer BC, SELFPAY ==
[2024-02-10 11:25] VITALS: BP 142/117; PULSE 94; RESP 18; TEMP 36.7; O2SAT 100; BMI 47.2
[2024-02-10 11:29] VITALS: BP 142/117; PULSE 94; RESP 16; O2SAT 97
--- NOTE | 2024-02-10 11:51 | W.ED.ABDPA2 ---
HPI - Abdominal Pain General: Chief Complaint: Abdominal Pain Stated Complaint: abd pain radiating to back Time Seen by Provider: 02/10/24 11:36 Source: patient Mode of arrival: ambulatory Limitations: no limitations History of Present Illness: 23-year-old female states she has been having abdominal issues for months she is had a HIDA scan and a CT of her abdomen and ultrasound of her gallbladder she has been following with surgery Dr. Quijano she has a scope scheduled next week states that she woke up this morning with some worsening epigastric pain and nausea she denies any fevers rates the pain a 6 out of 10. Associated Symptoms: Denies chills, diarrhea, dysuria, fever(s), nausea and vomiting Review of Systems Const: Denies: fever(s), chills, body aches or change in appetite Eyes: Denies: eye discomfort ENMT: Denies: throat pain or dental pain Card: Denies: chest pain Resp: Denies: dyspnea GI: Denies: abdominal pain, nausea, vomiting or diarrhea : Denies: dysuria Musc: Denies: neck pain or back pain Skin/Breast: Denies: rash Neuro: Denies: headache(s) Psych: Denies: depression Ned/Lymph: Denies: easy bruising All/Imm: Denies: urticaria PFSH ED PFSH: Medical History Psychiatric care Anxiety Hyperglycemia, drug-induced Morbid obesity with BMI of 45.0-49.9, adult Abnormal vaginal bleeding Chronic migraine Multiple sclerosis Surgical History Status post lumbar spine surgery for decompression of spinal cord Hx of appendectomy Family History Father Diabetes Grandfather Diabetes paternal Grandmother Diabetes paternal Hypertension paternal Denies family history of Colon cancer Ovarian cancer Clotting disorder Heart disease Hyperlipidemia Breast cancer Anesthesia complication Bleeding disorder Uterine cancer Thyroid disease Stroke Social History Smoking and tobacco/nicotine status: never used tobacco/nicotine Alcohol intake: never Substance/Drug Use: never Marital status: Number of children: 0 Current occupational status: employed Female Reproductive History: Spontaneous abortions: No Physical Exam Const: COMMON NORMALS: no acute distress, patient oriented x3 and healthy appearing HENMT: COMMON NORMALS: normocephalic and atraumatic HEAD & SCALP: normocephalic and atraumatic Eye: COMMON NORMALS: Equal, round and reactive pupils present and EOMs intact bilaterally PUPIL: Yes Equal, round and reactive pupils present Neck/C-Spine: COMMON NORMALS: full ROM Chest: COMMONS NORMALS: normal inspection of the chest Resp: COMMON NORMALS: normal respiratory effort Cardio: COMMON NORMALS: regular rate, regular rhythm and No murmurs present (Cardio) RATE: regular rate RHYTHM: regular rhythm GI: COMMON NORMALS: Normal to inspection, nondistended, normoactive bowel sounds present, Soft to palpation, non-tender and no masses PALPATION: Yes Soft to palpation Extremity: COMMON NORMALS: normal to inspection and full ROM Neuro: COMMON NORMALS: patient oriented x3, moves all extremities and no focal motor deficits Psych: COMMON NORMALS: mental status grossly normal, Normal thought process present and cooperative THOUGHT PROCESS: Normal thought process present Skin: COMMON NORMALS: no rashes or lesions noted and no wounds GENERAL SKIN EXAM: no rashes or lesions noted Course Vital Signs: Vital signs: Vital Signs Temperature 98.1 F 02/10/24 11:25 Pulse Rate 92 02/10/24 12:05 Respiratory Rate 16 02/10/24 11:29 Blood Pressure 142/117 02/10/24 12:05 Pulse Oximetry 96 02/10/24 12:05 Oxygen Delivery Me thod Room Air 02/10/24 12:05 MDM - Abdominal Pain Medical Decision Making Patient presents here with abdominal pain has been going on for months she has had imaging that is normal her HIDA scan ultrasound and CT are all normal her blood works normal here she feels much improved after Reglan will prescribe her Reglan for home she is to follow-up with Dr. Quijano as scheduled. Medical Records I reviewed the patient's medical records. Lab Data I reviewed the patient's lab results. 02/10/24 11:35 02/10/24 11:35 Labs/Radiology: Laboratory Results WBC 8.24 10^3/uL (3.29-11.43) 02/10/24 11:35 RBC 5.39 10^6/uL (3.85-5.65) 02/10/24 11:35 Hgb 13.20 g/dL (11.27-16.99) 02/10/24 11:35 Hct 42.1 % (36-47) 02/10/24 11:35 MCV 78.1 fl (85-98) L 02/10/24 11:35 MCH 24.5 pg (27-33) L 02/10/24 11:35 MCHC 31.4 g/dL (30-55) 02/10/24 11:35 RDW 16.4 % (12.1-15.1) H 02/10/24 11:35 Plt Count 446 10^3/cmm (157-399) H 02/10/24 11:35 MPV 10.2 fL (7.4-10.4) 02/10/24 11:35 Neut % (Auto) 62.0 % 02/10/24 11:35 Lymph % (Auto) 29.5 % 02/10/24 11:35 [place] % (Auto) 6.4 % 02/10/24 11:35 Eos % (Auto) 1.7 % 02/10/24 11:35 Baso % (Auto) 0.2 % 02/10/24 11:35 Neut # (Auto) 5.10 10^3/uL (1.8-7.7) 02/10/24 11:35 Lymph # (Auto) 2.4 10^3/uL (0.8-4.8) 02/10/24 11:35 [place] # (Auto) 0.5 10^3/uL (0.2-0.9) 02/10/24 11:35 Eos # (Auto) 0.1 10^3/uL (0.0-0.8) 02/10/24 11:35 Baso # (Auto) 0.0 10^3/uL (0.0-0.1) 02/10/24 11:35 Nucleated RBC % (auto) 0 % 02/10/24 11:35 Nucleated RBCs # 0.0 /100WBC 02/10/24 11:35 Sodium 138 mmol/L (136-145) 02/10/24 11:35 Potassium 4.1 mmol/L (3.5-5.1) 02/10/24 11:35 Chloride 104 mmol/L (98-107) 02/10/24 11:35 Carbon Dioxide 24 mmol/L (22-29) 02/10/24 11:35 Anion Gap 14.1 (5-19) 02/10/24 11:35 BUN 7 mg/dL (6-20) 02/10/24 11:35 Creatinine 0.7 mg/dL (0.5-0.9) 02/10/24 11:35 GFR Calculation 103.7 mL/min (90-130) 02/10/24 11:35 Glucose 92 mg/dL (65-115) 02/10/24 11:35 Calculated Osmolality 284 mOsm/kg (285-295) L 02/10/24 11:35 Calcium 9.3 mg/dL (8.5-10.5) 02/10/24 11:35 Total Bilirubin 0.5 mg/dL (0.15-1.2) 02/10/24 11:35 AST 27 U/L (0-32) 02/10/24 11:35 ALT 33 U/L (0-33) 02/10/24 11:35 Alkaline Phosphatase 73 U/L (35-105) 02/10/24 11:35 Total Protein 8.1 g/dL (6.6-8.7) 02/10/24 11:35 Albumin 4.5 g/dL (3.5-5.2) 02/10/24 11:35 Globulin 3.6 g/dL (1.3-4.6) 02/10/24 11:35 Lipase 33 U/L (13-60) 02/10/24 11:35 HCG, Qual Negative (Negative) 02/10/24 11:35 All radiology interpretation(s) finalized by discharge Discharge Plan Discharge Patient Disposition: Home Clinical Impression: Abdominal pain Condition: Stable Prescriptions: No Action pantoprazole [Protonix] 40 mg tablet,delayed release (DR/EC) 40 mg PO BID 42 Days Qty: 84 1RF hydrocodone-acetaminophen 5-325 mg tablet 1 tab PO Q6H PRN (Reason: pain) Qty: 15 0RF promethazine 25 mg tablet 25 mg PO Q6H PRN (Reason: nausea and vomiting) Qty: 20 0RF metformin 500 mg tablet 500 mg PO BEDTIME Pepcid 20 mg tablet 40 mg PO DAILY Qty: 30 0RF Discharge Orders: Discharge ED (Routine); Ordered 02/10/24 Ordered By: Hannah Moore Referrals: Yasir Hamilton DO [Primary Care Provider] - Raghu Quijano DO [Physician] - 1-3 days Discharge Diet: Advance as tolerated Discharge Activity: Resume usual activity Patient Instructions: Abdominal Pain (ED) Coding Level of Care Code ED Entry Level Sales Associate for Yvette Pendleton
[2024-02-10 11:52] LABS: Basophils % 0.2 %; Eosinophils # 0.1 10^3/uL (0.0-0.8); Eosinophils % 1.7 %; Hematocrit 42.1 % (36-47); Lymphocytes # 2.4 10^3/uL (0.8-4.8); Lymphocytes % 29.5 %; Mean Corpuscular HGB Conc 31.4 g/dL (30-55); Mean Corpuscular Hemoglobin 24.5 pg (27-33); Mean Corpuscular Volume 78.1 fl (85-98); Mean Platelet Volume 10.2 fL (7.4-10.4); Monocytes # 0.5 10^3/uL (0.2-0.9); Monocytes % 6.4 %; Nucleated Red Blood Cells % 0 %; Platelet Count 446 10^3/cmm (157-399); Red Blood Count 5.39 10^6/uL (3.85-5.65); Red Cell Distribution Width 16.4 % (12.1-15.1); White Blood Count 8.24 10^3/uL (3.29-11.43)
[2024-02-10 11:59] LABS: Alanine Aminotransferase 33 U/L (0-33); Albumin Level 4.5 g/dL (3.5-5.2); Alkaline Phosphatase 73 U/L (35-105); Anion Gap 14.1 (5-19); Aspartate Amino Transferase 27 U/L (0-32); Blood Urea Nitrogen 7 mg/dL (6-20); Calcium 9.3 mg/dL (8.5-10.5); Carbon Dioxide 24 mmol/L (22-29); Chloride 104 mmol/L (98-107); Creatinine Clr Calc Pharmacy 146.0952; Globulin 3.6 g/dL (1.3-4.6); Glomerular Filtration Rate 103.7 mL/min (90-130); Glucose 92 mg/dL (65-115); Lipase 33 U/L (13-60); Osmolality Calculated 284 mOsm/kg (285-295); Potassium 4.1 mmol/L (3.5-5.1); Sodium 138 mmol/L (136-145); Total Bilirubin 0.5 mg/dL (0.15-1.2); Total Protein 8.1 g/dL (6.6-8.7)
[2024-02-10] MEDS: metoclopramide 5 mg/mL SDV 2 mL 10 MG IVP (12:03)
[2024-02-10 12:04] LABS: HCG, Serum Qual Negative (Negative)
[2024-02-10] MEDS: diphenhydrAMINE 50 mg/mL SDV 1mL IVP (12:04)
[2024-02-10 12:05] VITALS: BP 142/117; PULSE 92; O2SAT 96
[2024-02-10 12:44] LABS: Add Urine Microscopic? YES; Bilirubin Urine Neg (Negative); Blood Urine Neg (Negative); Glucose Urine UA Norm (Normal); Ketones Urine Negative (Negative); Leukocyte Esterase Urine 2+ (Negative); Nitrate Urine Negative (Negative); Protein Urine Neg (Negative); Specific Gravity, Urine 1.015 (1.005-1.030); Urine Appearance Cloudy (CLEAR); Urine Color Yellow (Yellow); Urobilinogen Urine Norm (Negative); pH Urine 7 (5-7)
[2024-02-10 12:49] LABS: RBC Urine 0-4 /hpf (0-2); Squamous Epithelial Cell Urine 25-40 /hpf (0-5); WBC Urine 40-55 /hpf (0-5)
[2024-02-10 12:50] LABS: Add Urine Culture? Yes; Bacteria Urine TRACE /hpf; Mucus Urine TRACE /hpf; Transitional Epi Cells Urine 0-4 /hpf
[2024-02-10 13:30] VITALS: BP 132/98; PULSE 90; RESP 16; TEMP 36.7; O2SAT 98
== END 2024-02-10 13:30 | disposition home or self-care (01) ==
PROVIDERS: Emergency Provider Emergency Medicine; PCP Family Medicine
DX: R10.13 Epigastric pain (principal); G35 Multiple sclerosis; Z79.84 Long term (current) use of oral hypoglycemic drugs
CPT/HCPCS: 80053; 81001; 83690; 84703; 85025; 87086; 96374; 96375; 99284; J1200; J2765

== ENCOUNTER 2024-03-01 08:58 | Day surgery (SDC) | payer BC, SELFPAY ==
[2024-03-01 09:25] LABS: OR HCG Qualitative Urine Negative (Negative)
[2024-03-01 09:26] VITALS: BP 117/83; PULSE 88; RESP 18; TEMP 36.3; O2SAT 97; BMI 47.2
[2024-03-01] MEDS: sodium chloride 0.9% 1,000 ML 30 ML IV (09:30)
--- NOTE | 2024-03-01 10:00 | P.ANESASSM_ITS ---
Pre-Anesthetic Assessment Height/Weight: Height 1.55 m Weight 113.398 kg Temp Pulse Resp BP Pulse Ox O2 Del Method 97.4 F L 88 18 117/83 97 Room Air 03/01/24 09:26 03/01/24 09:26 03/01/24 09:26 03/01/24 09:26 03/01/24 09:26 03/01/24 09:26 Operation Date: 03/01/24 10:15 Proposed Procedures p EGD 46783, R10.13, K21.9, R10.11, R19.7(Not Applicable) - Raghu Quijano DO Familial anesthetic complications: none Was Beta Cinda taken within 24 hours: N/A Was Clonidine taken within 24 hours: N/A Last intake: Intake Last Liquid Date 02/29/24 Last Liquid Time 21:00 Last Solid Date 02/29/24 Last Solid Time 21:00 Social Alcohol (socially) MJ gummies at night Exam alert and oriented x 3 Airway Submandibular: within normal limits Cervical ROM: within normal limits Mallampati: Class III Dentition: full History/ROS No significant history except as noted Pulmonary Sleep Apnea CV/HEM None reported None reported Hepatic None reported GI Gastroesophageal Reflux Disease Metabolic Morbid Obesity [facility] [place], [place] [place] Neuropsych Anxiety Anesthetic Plan ASA status: 3 Anesthesia: Anesthesia Evaluation, General and MAC Medications/Allergies Home Medications Medication Instructions Recorded Confirmed Last Taken Type pantoprazole 40 mg tablet,delayed 40 mg PO BID 6 weeks #84 tabs 01/28/24 02/28/24 02/28/24 Rx release (Protonix) metformin 500 mg tablet See Rx Instructions .Route 02/23/24 02/28/24 02/28/24 Rx .COMPLEX #90 tabs Allergies Allergy/AdvReac Type Severity Reaction Status Date / Time glatiramer (copolymer 1) Allergy Severe ALGY-Hives Verified 01/28/24 08:15 [From Copaxone] Current Medications Generic Name Dose Route Start Last Admin Trade Name Freq PRN Reason Stop Dose Admin Sodium Chloride 1,000 mls @ 30 mls/hr 03/01/24 09:30 03/01/24 09:30 Sodium Chloride 0.9% IV 03/02/24 09:29 30 mls/hr .Q24H RAMEZ Administration PFSH Anesthesia Medical History Psychiatric care Anxiety Hyperglycemia, drug-induced Morbid obesity with BMI of 45.0-49.9, adult Abnormal vaginal bleeding Chronic migraine Multiple sclerosis Surgical History Status post lumbar spine surgery for decompression of spinal cord Hx of appendectomy Family History Father Diabetes Grandfather Diabetes paternal Grandmother Diabetes paternal Hypertension paternal Denies family history of Colon cancer Ovarian cancer Clotting disorder Heart disease Hyperlipidemia Breast cancer Anesthesia complication Bleeding disorder Uterine cancer Thyroid disease Stroke Social History Smoking and tobacco/nicotine status: never used tobacco/nicotine Alcohol intake: never Substance/Drug Use: never Marital status: Number of children: 0 Current occupational status: employed Female Reproductive History Spontaneous abortions: No Data Anesthesia Cardiac Studies: No Data to Display
--- NOTE | 2024-03-01 10:26 | PM.HP ---
Providers/Chief Complaint Primary Care Provider: Yasir Hamilton DO Chief Complaint: R10.13, K21.9, R10.11, R19.7 History of Present Illness Allyn Lira is a 23 year old female Review of Systems General: Reports: 10 or more systems reviewed and unremarkable except in HPI and below Medications/Allergies Home Medications Medication Instructions Recorded Confirmed Last Taken Type pantoprazole 40 mg tablet,delayed 40 mg PO BID 6 weeks #84 tabs 01/28/24 02/28/24 02/28/24 Rx release (Protonix) metformin 500 mg tablet See Rx Instructions .Route 02/23/24 02/28/24 02/28/24 Rx .COMPLEX #90 tabs Allergies Allergy/AdvReac Type Severity Reaction Status Date / Time glatiramer (copolymer 1) Allergy Severe ALGY-Hives Verified 01/28/24 08:15 [From Copaxone] PFSH Acute PFSH: Medical History Psychiatric care Anxiety Hyperglycemia, drug-induced Morbid obesity with BMI of 45.0-49.9, adult Abnormal vaginal bleeding Chronic migraine Multiple sclerosis Surgical History Status post lumbar spine surgery for decompression of spinal cord Hx of appendectomy Family History Father Diabetes Grandfather Diabetes paternal Grandmother Diabetes paternal Hypertension paternal Denies family history of Colon cancer Ovarian cancer Clotting disorder Heart disease Hyperlipidemia Breast cancer Anesthesia complication Bleeding disorder Uterine cancer Thyroid disease Stroke Social History Smoking and tobacco/nicotine status: never used tobacco/nicotine Alcohol intake: never Substance/Drug Use: never Marital status: Number of children: 0 Current occupational status: employed Female Reproductive History: Spontaneous abortions: No Vitals/I&O/Wt Last Vital Signs Temp 97.4 F L 03/01/24 09:26 Pulse 88 03/01/24 09:26 Resp 18 03/01/24 09:26 BP 117/83 03/01/24 09:26 Pulse Ox 97 03/01/24 09:26 O2 Del Method Room Air 03/01/24 09:26 Weight last 48 hrs Weight 250 lb A&P Assessment and plan (1) GERD (gastroesophageal reflux disease): Plan EGD Attestations Medical Necessity Statement*: Home Coding Level of Care Code Acute Code for Chg Fwd Diagnoses GERD (gastroesophageal reflux disease) K21.9
[2024-03-01 10:37] VITALS: BP 119/67; PULSE 71; RESP 18; TEMP 36.4; O2SAT 90
--- NOTE | 2024-03-01 10:39 | ANE.PACU2 ---
Inpatient post-anesthesia follow up: Airway intact: Yes Vital signs: Temperature 97.6 F Pulse Rate 71 Respiratory Rate 18 Blood Pressure 119/67 Pulse Oximetry 90 Oxygen Delivery Me thod Room Air Oxygen Flow Rate Fraction of Inspir ed Oxygen Hydration adequate: Yes Nausea and vomiting: No Pain level: 1 Mental status: Baseline
[2024-03-01 10:40] VITALS: BP 108/75; PULSE 79; RESP 18; O2SAT 92
[2024-03-01 10:50] VITALS: BP 129/84; PULSE 75; RESP 18; O2SAT 97
== END 2024-03-01 11:08 | disposition home or self-care (01) ==
PROVIDERS: Anesthesiology; PCP Family Medicine; Visit Provider Surgery
PROC: 0DJ08ZZ Inspection of Upper Intestinal Tract, Via Natural or Artificial Opening Endoscopic (ICD-10-PCS; CPT 43235; principal; 2024-03-01 10:15)
DX: K21.9 Gastro-esophageal reflux disease without esophagitis (principal); F41.9 Anxiety disorder, unspecified; E66.01 Morbid (severe) obesity due to excess calories; Z68.42 Body mass index [BMI] 45.0-49.9, adult; G35 Multiple sclerosis; G47.30 Sleep apnea, unspecified
CPT/HCPCS: 43239; 81025; 88305; 88342; J2704; J7030

== ENCOUNTER 2024-03-11 01:28 | Emergency (ER) | payer BC, SELFPAY ==
[2024-03-11 01:42] VITALS: BP 130/89; PULSE 102; RESP 16; O2SAT 99; BMI 47.2
--- NOTE | 2024-03-11 01:46 | W.ED.ABDPA2 ---
HPI - Abdominal Pain General: Chief Complaint: Abdominal Pain Stated Complaint: ABD Pain Time Seen by Provider: 03/11/24 01:31 Source: patient Mode of arrival: ambulatory Limitations: no limitations History of Present Illness: 23-year-old female states been having intermittent abdominal pain for months she has been seen here for this in the past she is follows with a surgeon as well Dr. Quijano. Patient had a HIDA scan along with a EGD along with other imaging states that tonight she started having epigastric pain again it has been sharp and just cannot get comfortable rates her pain an 8 out of 10 denies any vomiting or diarrhea. Associated Symptoms: Denies chills, diarrhea, dysuria, fever(s), nausea and vomiting Review of Systems Const: Denies: fever(s), chills, body aches or change in appetite ENMT: Denies: throat pain or dental pain Card: Denies: chest pain Resp: Denies: dyspnea GI: Reports: abdominal pain; Denies: nausea, vomiting or diarrhea : Denies: dysuria Musc: Denies: neck pain or back pain Skin/Breast: Denies: rash Neuro: Denies: headache(s) PFSH ED PFSH: Medical History Anxiety Hyperglycemia, drug-induced Morbid obesity with BMI of 45.0-49.9, adult Abnormal vaginal bleeding Chronic migraine Multiple sclerosis Surgical History Status post lumbar spine surgery for decompression of spinal cord Hx of appendectomy Family History Father Diabetes Grandfather Diabetes paternal Grandmother Diabetes paternal Hypertension paternal Denies family history of Colon cancer Ovarian cancer Clotting disorder Heart disease Hyperlipidemia Breast cancer Anesthesia complication Bleeding disorder Uterine cancer Thyroid disease Stroke Social History Smoking and tobacco/nicotine status: never used tobacco/nicotine Alcohol intake: never Substance/Drug Use: never Marital status: Number of children: 0 Current occupational status: employed Female Reproductive History: Spontaneous abortions: No Physical Exam Const: COMMON NORMALS: no acute distress, patient oriented x3 and healthy appearing HENMT: COMMON NORMALS: normocephalic and atraumatic HEAD & SCALP: normocephalic and atraumatic Eye: COMMON NORMALS: conjunctivae normal CONJUNCTIVA: Yes conjunctivae normal Neck/C-Spine: COMMON NORMALS: full ROM and supple Chest: COMMONS NORMALS: normal inspection of the chest Resp: COMMON NORMALS: normal respiratory effort Cardio: COMMON NORMALS: regular rate, regular rhythm and No murmurs present (Cardio) RATE: regular rate RHYTHM: regular rhythm GI: COMMON NORMALS: Normal to inspection, nondistended, normoactive bowel sounds present, Soft to palpation, non-tender and no masses PALPATION: Yes Soft to palpation Extremity: COMMON NORMALS: normal to inspection and full ROM Neuro: COMMON NORMALS: patient oriented x3, moves all extremities and no focal motor deficits Psych: COMMON NORMALS: mental status grossly normal, Normal thought process present and cooperative THOUGHT PROCESS: Normal thought process present Skin: COMMON NORMALS: no rashes or lesions noted and no wounds GENERAL SKIN EXAM: no rashes or lesions noted Course Vital Signs: Vital signs: Vital Signs Pulse Rate 93 03/11/24 02:31 Respiratory Rate 16 03/11/24 02:31 Blood Pressure 113/85 03/11/24 02:31 Pulse Oximetry 99 03/11/24 02:31 Oxygen Delivery Me thod Room Air 03/11/24 01:42 MDM - Abdominal Pain Medical Decision Making Patient presents with abdominal pains been chronic in nature blood work here is normal no signs of acute surgical abdomen she stable for discharge she is to follow-up with her surgeon return if worsening. Medical Records I reviewed the patient's medical records. Lab Data I reviewed the patient's lab results. 03/11/24 01:38 03/11/24 01:38 Labs/Radiology: Laboratory Results WBC 9.81 10^3/uL (3.29-11.43) 03/11/24 01:38 RBC 5.29 10^6/uL (3.85-5.65) 03/11/24 01:38 Hgb 13.00 g/dL (11.27-16.99) 03/11/24 01:38 Hct 41.4 % (36-47) 03/11/24 01:38 MCV 78.3 fl (85-98) L 03/11/24 01:38 MCH 24.6 pg (27-33) L 03/11/24 01:38 MCHC 31.4 g/dL (30-55) 03/11/24 01:38 RDW 15.7 % (12.1-15.1) H 03/11/24 01:38 Plt Count 429 10^3/cmm (157-399) H 03/11/24 01:38 MPV 10.0 fL (7.4-10.4) 03/11/24 01:38 Neut % (Auto) 65.4 % 03/11/24 01:38 Lymph % (Auto) 28.2 % 03/11/24 01:38 [place] % (Auto) 4.6 % 03/11/24 01:38 Eos % (Auto) 1.3 % 03/11/24 01:38 Baso % (Auto) 0.2 % 03/11/24 01:38 Neut # (Auto) 6.41 10^3/uL (1.8-7.7) 03/11/24 01:38 Lymph # (Auto) 2.8 10^3/uL (0.8-4.8) 03/11/24 01:38 [place] # (Auto) 0.5 10^3/uL (0.2-0.9) 03/11/24 01:38 Eos # (Auto) 0.1 10^3/uL (0.0-0.8) 03/11/24 01:38 Baso # (Auto) 0.0 10^3/uL (0.0-0.1) 03/11/24 01:38 Nucleated RBC % (auto) 0 % 03/11/24 01:38 Nucleated RBCs # 0.0 /100WBC 03/11/24 01:38 Sodium 139 mmol/L (136-145) 03/11/24 01:38 Potassium 3.6 mmol/L (3.5-5.1) 03/11/24 01:38 Chloride 103 mmol/L (98-107) 03/11/24 01:38 Carbon Dioxide 24 mmol/L (22-29) 03/11/24 01:38 Anion Gap 15.6 (5-19) 03/11/24 01:38 BUN 11 mg/dL (6-20) 03/11/24 01:38 Creatinine 0.8 mg/dL (0.5-0.9) 03/11/24 01:38 GFR Calculation 88.9 mL/min (90-130) L 03/11/24 01:38 Glucose 102 mg/dL (65-115) 03/11/24 01:38 Calculated Osmolality 288 mOsm/kg (285-295) 03/11/24 01:38 Calcium 9.4 mg/dL (8.5-10.5) 03/11/24 01:38 Total Bilirubin 0.5 mg/dL (0.15-1.2) 03/11/24 01:38 AST 30 U/L (0-32) 03/11/24 01:38 ALT 36 U/L (0-33) H 03/11/24 01:38 Alkaline Phosphatase 68 U/L (35-105) 03/11/24 01:38 Total Protein 7.8 g/dL (6.6-8.7) 03/11/24 01:38 Albumin 4.5 g/dL (3.5-5.2) 03/11/24 01:38 Globulin 3.3 g/dL (1.3-4.6) 03/11/24 01:38 Lipase 31 U/L (13-60) 03/11/24 01:38 HCG, Qual Negative (Negative) 03/11/24 01:38 Urine Color Dark yellow (Yellow) A 03/11/24 01:39 Urine Appearance Cloudy (CLEAR) A 03/11/24 01:39 Urine pH 5 (5-7) 03/11/24 01:39 Ur Specific [place] 1.025 (1.005-1.030) 03/11/24 01:39 Urine Protein Neg (Negative) 03/11/24 01:39 Urine Glucose (UA) Norm (Normal) 03/11/24 01:39 Urine Ketones 1+ (Negative) H 03/11/24 01:39 Urine Blood Neg (Negative) 03/11/24 01:39 Urine Nitrate Negative (Negative) 03/11/24 01:39 Urine Bilirubin Neg (Negative) 03/11/24 01:39 Urine Urobilinogen 4 mg/dL (Negative) H 03/11/24 01:39 Ur Leukocyte Esterase Negative (Negative) 03/11/24 01:39 Urine RBC 0-4 /hpf (0-2) H 03/11/24 01:39 Urine WBC 0-4 /hpf (0-5) H 03/11/24 01:39 Ur Squamous Epith Cells 15-25 /hpf (0-5) H 03/11/24 01:39 Calcium Oxalate Crystal 15-25 /hpf H 03/11/24 01:39 Amorphous Sediment Not Reportable 03/11/24 01:39 Urine Bacteria Trace /hpf (NONE) 03/11/24 01:39 Urine Mucus 1+ /hpf 03/11/24 01:39 No radiology studies performed this visit Discharge Plan Discharge Patient Disposition: Home Clinical Impression: Abdominal pain Condition: Stable Prescriptions: New ondansetron 4 mg tablet,disintegrating 4 mg PO Q6H PRN (Reason: nausea and vomiting) Qty: 14 0RF No Action pantoprazole [Protonix] 40 mg tablet,delayed release (DR/EC) 40 mg PO BID 42 Days Qty: 84 1RF metformin 500 mg tablet See Rx Instructions .ROUTE .COMPLEX Qty: 90 0RF Dose Instruction: TAKE 1 TABLET BY MOUTH DAILY FOR PCOS Rx Instructions: TAKE 1 TABLET BY MOUTH DAILY FOR PCOS Discharge Orders: Discharge ED (Routine); Ordered 03/11/24 Ordered By: Hannah Moore Referrals: Yasir Hamilton DO [Primary Care Provider] - Raghu Quijano DO [Physician] - 1-3 days Discharge Diet: Advance as tolerated Discharge Activity: Resume usual activity Patient Instructions: Abdominal Pain (ED) Coding Level of Care Code ED Ski Production Supervisor for Yvette Pendleton
[2024-03-11 01:48] LABS: Basophils % 0.2 %; Eosinophils # 0.1 10^3/uL (0.0-0.8); Eosinophils % 1.3 %; Hematocrit 41.4 % (36-47); Lymphocytes # 2.8 10^3/uL (0.8-4.8); Lymphocytes % 28.2 %; Mean Corpuscular HGB Conc 31.4 g/dL (30-55); Mean Corpuscular Hemoglobin 24.6 pg (27-33); Mean Corpuscular Volume 78.3 fl (85-98); Monocytes # 0.5 10^3/uL (0.2-0.9); Monocytes % 4.6 %; Neutrophils # 6.41 10^3/uL (1.8-7.7); Neutrophils % 65.4 %; Nucleated Red Blood Cells % 0 %; Platelet Count 429 10^3/cmm (157-399); Red Blood Count 5.29 10^6/uL (3.85-5.65); Red Cell Distribution Width 15.7 % (12.1-15.1); White Blood Count 9.81 10^3/uL (3.29-11.43)
[2024-03-11] MEDS: ondansetron 2 mg/ML SDV 2 mL 4 MG IVP ×2 (02:00→02:45)
[2024-03-11] MEDS: morphine 4 mg/mL SDV 1 mL IVP (02:00)
[2024-03-11] MEDS: sodium chloride 0.9% 1,000 ML 999 ML IV (02:00)
[2024-03-11 02:01] VITALS: BP 94/73; PULSE 102; RESP 16; O2SAT 97
[2024-03-11 02:04] LABS: HCG, Serum Qual Negative (Negative)
[2024-03-11 02:08] LABS: Alanine Aminotransferase 36 U/L (0-33); Albumin Level 4.5 g/dL (3.5-5.2); Alkaline Phosphatase 68 U/L (35-105); Anion Gap 15.6 (5-19); Aspartate Amino Transferase 30 U/L (0-32); Blood Urea Nitrogen 11 mg/dL (6-20); Calcium 9.4 mg/dL (8.5-10.5); Carbon Dioxide 24 mmol/L (22-29); Chloride 103 mmol/L (98-107); Creatinine Clr Calc Pharmacy 127.8333; Globulin 3.3 g/dL (1.3-4.6); Glomerular Filtration Rate 88.9 mL/min (90-130); Glucose 102 mg/dL (65-115); Lipase 31 U/L (13-60); Osmolality Calculated 288 mOsm/kg (285-295); Potassium 3.6 mmol/L (3.5-5.1); Sodium 139 mmol/L (136-145); Total Bilirubin 0.5 mg/dL (0.15-1.2); Total Protein 7.8 g/dL (6.6-8.7)
[2024-03-11 02:18] LABS: Add Urine Microscopic? YES; Bacteria Urine TRACE /hpf; Bilirubin Urine Neg (Negative); Blood Urine Neg (Negative); Calcium Oxalate Crystals Urine 15-25 /hpf; Glucose Urine UA Norm (Normal); Ketones Urine 1+ (Negative); Leukocyte Esterase Urine Negative (Negative); Mucus Urine 1+ /hpf; Nitrate Urine Negative (Negative); Protein Urine Neg (Negative); RBC Urine 0-4 /hpf (0-2); Specific Gravity, Urine 1.025 (1.005-1.030); Squamous Epithelial Cell Urine 15-25 /hpf (0-5); Urine Appearance Cloudy (CLEAR); Urine Color Dark Yellow (Yellow); Urobilinogen Urine 4 mg/dL (Negative); WBC Urine 0-4 /hpf (0-5); pH Urine 5 (5-7)
[2024-03-11 02:31] VITALS: BP 113/85; PULSE 93; RESP 16; O2SAT 99
[2024-03-11] MEDS: HYDROcodone-acetaminophen 5-325 mg Tablet 1 TAB PO (02:52)
== END 2024-03-11 03:04 | disposition home or self-care (01) ==
PROVIDERS: Emergency Provider Emergency Medicine; PCP Family Medicine
DX: R10.13 Epigastric pain (principal); Z79.84 Long term (current) use of oral hypoglycemic drugs; G35 Multiple sclerosis
CPT/HCPCS: 36415; 80053; 81001; 83690; 84703; 85025; 96361; 96374; 96375; 96376; 99284; J2270; J2405; J7030

== ENCOUNTER 2024-03-30 05:48 | Day surgery (SDC) | payer BC, SELFPAY ==
[2024-03-30] VITALS (11 sets, daily range): BP systolic 107–130; BP diastolic 70–86; PULSE 68–99; RESP 16–18; TEMP 36.1–36.8; O2SAT 95–98
[2024-03-30 06:09] LABS: OR HCG Qualitative Urine Negative (Negative)
--- NOTE | 2024-03-30 06:27 | W.PM.OPSUD ---
Surgery/Procedure H&P Update DATE OF PROCEDURE: March 30, 2024 DATE H&P PERFORMED: 03/24/24 H&P UPDATE INFORMATION: I have reviewed H&P completed within last 30 days, I have examined patient prior to procedure and No changes to prior documentation PLANNED PROCEDURE: Operation Date: 03/30/24 07:00 Proposed Procedures p Laparoscopic Cholecystectomy 78146, KK82.8(Not Applicable) - Raghu Quijano,
[2024-03-30] MEDS: sodium chloride 0.9% 1,000 ML 30 ML IV (06:29)
[2024-03-30] MEDS: scopolamine 1.5 Patch 1 PATCH TRANSDERMA (06:30)
--- NOTE | 2024-03-30 06:58 | ANES.PREANE2 ---
Pre-Anesthetic Assessment Height/Weight: Height 1.55 m Temp Pulse Resp BP Pulse Ox O2 Del Method 97.8 F 99 18 122/79 98 Room Air 03/30/24 06:13 03/30/24 06:13 03/30/24 06:13 03/30/24 06:13 03/30/24 06:13 03/30/24 06:16 Operation Date: 03/30/24 07:00 Proposed Procedures p Laparoscopic Cholecystectomy 58481, KK82.8(Not Applicable) - Raghu Quijano DO Familial anesthetic complications: None Was Beta Cinda taken within 24 hours: N/A Was Clonidine taken within 24 hours: N/A Last intake: Intake Last Liquid Date 03/29/24 Last Liquid Time 22:00 Last Solid Date 03/29/24 Last Solid Time 21:00 Social No alcohol and No tobacco Exam alert, oriented x 3, clear to auscultation bilaterally and regular rate & rhythm Airway Mallampati: Class III Dentition: chipped (molars) and full GI Gastroesophageal Reflux Disease Metabolic Diabetes Mellitus and Morbid Obesity PCOS Anesthetic Plan ASA status: 3 Anesthesia: General Risk of > 500 ml blood loss (7ml/kg in children): No Medications/Allergies Home Medications Medication Instructions Recorded Confirmed Last Taken Type pantoprazole 40 mg tablet,delayed 40 mg PO BID 6 weeks #84 tabs 01/28/24 03/29/24 03/29/24 Rx release (Protonix) ondansetron 4 mg disintegrating 4 mg PO Q6H PRN nausea and 03/11/24 03/29/24 Unknown Rx tablet vomiting #14 tabs metformin 500 mg tablet 500 mg PO DAILY 03/29/24 03/29/24 03/28/24 History amitriptyline 25 mg tablet 25 mg PO DAILY 03/30/24 03/30/24 03/28/24 History Allergies Allergy/AdvReac Type Severity Reaction Status Date / Time glatiramer (copolymer 1) Allergy Severe ALGY-Hives Verified 03/24/24 08:19 [From Copaxone] Current Medications Generic Name Dose Route Start Last Admin Trade Name Freq PRN Reason Stop Dose Admin Sodium Chloride 1,000 mls @ 30 mls/hr 03/30/24 06:00 03/30/24 06:29 Sodium Chloride 0.9% IV 03/31/24 05:59 30 mls/hr .Q24H RAMEZ Administration PFSH Anesthesia Medical History Anxiety Hyperglycemia, drug-induced Morbid obesity with BMI of 45.0-49.9, adult Abnormal vaginal bleeding Chronic migraine Multiple sclerosis Surgical History Status post lumbar spine surgery for decompression of spinal cord Hx of appendectomy Family History Father Diabetes Grandfather Diabetes paternal Grandmother Diabetes paternal Hypertension paternal Denies family history of Colon cancer Ovarian cancer Clotting disorder Heart disease Hyperlipidemia Breast cancer Anesthesia complication Bleeding disorder Uterine cancer Thyroid disease Stroke Social History Smoking and tobacco/nicotine status: current some day tobacco/nicotine user Alcohol intake: never Substance/Drug Use: never Marital status: Number of children: 0 Current occupational status: employed Female Reproductive History Spontaneous abortions: No Data Anesthesia Cardiac Studies: No Data to Display
[2024-03-30] MEDS: ceFAZolin 2,000 mg SDV 2000 MG IVP (07:01)
[2024-03-30] MEDS: lidocaine-epi 2% PF 1:200,000 20 mL SDV XX (07:25)
--- NOTE | 2024-03-30 07:55 | P.OP_ITS ---
Operative Report Date of procedure: March 30, 2024 Surgeon: Raghu Quijano DO Brief History: This is a very pleasant 23-year-old female who presented to my office with abdominal pain. She is diagnosed with biliary dyskinesia. Laparoscopic cholecystectomy is indicated. The risk and benefits were explained and documented. Procedure: Preoperative diagnosis: Biliary dyskinesia Postoperative diagnosis: Same Procedure performed: Laparoscopic cholecystectomy Surgeon: Dr. Raghu Quijano DO Estimated blood loss: 5 mL Specimens: Gallbladder to pathology Complications: None apparent Description of procedure: Patient was wheeled into the operative room and placed on the OR table in a supine position. Abdomen was inspected prepped and draped in usual sterile fashion. Time-out was performed and all present were in agreement. A 15 blade scalp was used to make a stab incision in the left upper quadrant and intra- abdominal insufflation was achieved using a Veress needle. After localizing the tissue incisions were made and a 5 millimeter trocar was placed into the umbilicus as well as 2 in the right upper quadrant. A 12 millimeter trocar was placed in the epigastrium. Gallbladder was grasped and elevated. The triangle of Calot was carefully dissected using blunt dissection and electrocautery until the triangle of Calot clearly identified. The cystic duct was clipped proximally and double clipped distally. The duct was then ligated proximally. The cystic artery was doubly clipped and ligated. The gallbladder was then removed from the liver bed using electrocautery. The gallbladder was removed from the abdomen using an Endo-Catch bag through the epigastric incision. The liver bed was inspected and no bleeding was seen. The abdomen was irrigated and suctioned. All ports removed. Skin was washed and dried. Incisions were closed with 4-0 Monocryl in a subcuticular interrupted fashion. Skin glue was applied. Patient tolerated the procedure well.
[2024-03-30] MEDS: HYDROcodone-acetaminophen 7.5-325 mg Tablet 1 TAB PO (09:14)
--- NOTE | 2024-03-30 09:30 | ANE.PACU2 ---
Inpatient post-anesthesia follow up: Airway intact: Yes Vital signs: Temperature 98.2 F Pulse Rate 69 Respiratory Rate 17 Blood Pressure 116/75 Pulse Oximetry 95 Oxygen Delivery Me thod Room Air Oxygen Flow Rate 6 Fraction of Inspir ed Oxygen Hydration adequate: Yes Nausea and vomiting: No Pain level: 1 Mental status: Baseline
== END 2024-03-30 09:34 | disposition home or self-care (01) ==
PROVIDERS: Anesthesiology; PCP Family Medicine; Visit Provider Surgery
PROC: 0FT44ZZ Resection of Gallbladder, Percutaneous Endoscopic Approach (ICD-10-PCS; CPT 47562; principal; 2024-03-30 07:00)
DX: K81.1 Chronic cholecystitis (principal); K21.9 Gastro-esophageal reflux disease without esophagitis; E11.9 Type 2 diabetes mellitus without complications; E66.01 Morbid (severe) obesity due to excess calories; E28.2 Polycystic ovarian syndrome; Z79.84 Long term (current) use of oral hypoglycemic drugs; F17.200 Nicotine dependence, unspecified, uncomplicated; G35 Multiple sclerosis
CPT/HCPCS: 47562; 81025; 88304; J0330; J0690; J1100; J1170; J1200; J1720; J1885; J2250; J2405; J2704; J2710; J3010; J3490; J7030

== ENCOUNTER → 2024-05-04 08:37 | Outpatient (BNVA) | payer BC, SELFPAY | PROVIDERS: PCP Family Medicine; Visit Provider Nurse Practitioner | DX: R10.30 Lower abdominal pain, unspecified (principal) | CPT/HCPCS: 81000 ==

== ENCOUNTER 2024-05-11 08:48 | Emergency (ER) | payer BC, SELFPAY ==
[2024-05-11 09:08] VITALS: BP 151/78; PULSE 77; RESP 16; TEMP 36.9; O2SAT 100; BMI 47.2
--- NOTE | 2024-05-11 09:25 | ED_ITS ---
HPI - Abdominal Pain 2 General: Chief Complaint: Abdominal Pain Stated Complaint: abdominal pain Time Seen by Provider: 05/11/24 09:00 History of Present Illness: 53-year-old female presents emergency ro om with complaint of pelvic pain generally. Said this for the last 9 days intermittent nausea and vomiting with some constipation and diarrhea alternating as well. She has had a couple of episodes where she has had bright red blood from the rectum both with wiping after bowel movement and streaked on the stool has not been enough to discolor the entire toilet bowl. Last month patient had a cholecystectomy. She denies any dysuria urgency or frequency no history of kidney stones. Associated Symptoms: Reports hematochezia, nausea and vomiting; Denies chills, dysuria and fever(s) Related Data Home Medications Medication Instructions Recorded Confirmed metformin 500 mg tablet 500 mg PO QPM PCOS 03/29/24 05/11/24 amitriptyline 25 mg tablet 25 mg PO BEDTIME 03/30/24 05/11/24 interferon beta-1a 30 mcg/0.5 mL 0.5 ml IM Q7D 04/24/24 05/11/24 intramuscular syringe kit (Avonex) cholecalciferol (vitamin D3) 125 5,000 unit PO QPM 05/11/24 05/11/24 mcg (5,000 unit) capsule pantoprazole 40 mg tablet,delayed 40 mg PO QPM 05/11/24 05/11/24 release Previous Rx's Medication Instructions Recorded sulfamethoxazole 800 1 tab PO BID 7 days #14 tabs 05/04/24 mg-trimethoprim 160 mg tablet (Bactrim DS) diclofenac sodium 75 mg 75 mg PO Q12H PRN pain #20 tabs 05/11/24 tablet,delayed release Allergies Allergy/AdvReac Type Severity Reaction Status Date / Time glatiramer (copolymer 1) Allergy Severe ALGY-Hives Verified 05/11/24 09:14 [From [facility] [place]] Review of Systems 2 Const: Denies: fever(s) or chills Card: Denies: chest pain Resp: Denies: dyspnea GI: Reports: abdominal pain, nausea, vomiting and hematochezia : Denies: dysuria, urinary frequency or urinary urgency Musc: Denies: neck pain or back pain Skin/Breast: Denies: rash PFSH ED 2 PFSH: Medical History Anxiety Hyperglycemia, drug-induced Morbid obesity with BMI of 45.0-49.9, adult Abnormal vaginal bleeding Chronic migraine Multiple sclerosis Surgical History Hx laparoscopic cholecystectomy 03/30/24 Dr Quijano Status post lumbar spine surgery for decompression of spinal cord Hx of appendectomy Family History Father Diabetes Grandfather Diabetes paternal Grandmother Diabetes paternal Hypertension paternal Denies family history of Colon cancer Ovarian cancer Clotting disorder Heart disease Hyperlipidemia Breast cancer Anesthesia complication Bleeding disorder Uterine cancer Thyroid disease Stroke Social History Smoking and tobacco/nicotine status: never used tobacco/nicotine Alcohol intake: never Substance/Drug Use: never Marital status: Number of children: 0 Current occupational status: employed Female Reproductive History: Spontaneous abortions: No Physical Exam 2 Const: COMMON NORMALS: no acute distress GENERAL APPEARANCE: cooperative and comfortable ORIENTATION/CONSCIOUSNESS: Yes awake, Yes oriented to person, Yes oriented to place and Yes oriented to time HENMT: COMMON NORMALS: normocephalic, atraumatic and hearing grossly normal bilaterally HEAD & SCALP: normocephalic and atraumatic Resp: COMMON NORMALS: normal respiratory effort, No retractions, No use of accessory muscles and clear to auscultation bilaterally AUSCULTATION: clear to auscultation bilaterally Cardio: COMMON NORMALS: regular rate, regular rhythm and No murmurs present (Cardio) RATE: regular rate RHYTHM: regular rhythm GI: COMMON NORMALS: Soft to palpation and No hepatosplenomegaly present A USCULTATION: Yes normoactive bowel sounds PALPATION: Yes Soft to palpation, No Tenderness to palpation present (GI), No Guarding due to palpation present (GI) and Yes No hepatosplenomegaly present Extremity: COMMON NORMALS: normal to inspection, capillary refill normal, no clubbing, cyanosis or edema, no calf tenderness and no pedal edema Neuro: SENSORIUM/ORIENTATION: Yes oriented to person, Yes oriented to place and Yes oriented to time Skin: COMMON NORMALS: no rashes or lesions noted GENERAL SKIN EXAM: no rashes or lesions noted Course 2 Vital Signs: Vital signs: Vital Signs Temperature 98.5 F 05/11/24 09:08 Pulse Rate 79 05/11/24 13:24 Respiratory Rate 16 05/11/24 13:24 Blood Pressure 151/78 05/11/24 13:24 Pulse Oximetry 100 05/11/24 13:24 Oxygen Delivery Me thod Room Air 05/11/24 09:54 MDM - Abdominal Pain Medical Decision Making Pelvic ultrasound shows fluid in the pelvis. Suspect is from ovarian cyst likely has. White count is normal test negative, UA was negative. Discharge patient home anti-inflammatories follow-up with primary care return if has any worsening or change of symptoms. Lab Data 05/11/24 09:23 05/11/24 09:23 Labs/Radiology: Radiology Impressions Pelvis Ultrasound 05/11/24 09:28 IMPRESSION: 1. Retroverted uterus with thickened endometrium measuring 12 mm. 2. Multi follicular ovaries bilaterally. 3. Small amount of free fluid in the cul-de-sac with debris. 4. No other suspicious findings. Laboratory Results WBC 7.14 10^3/uL (3.29-11.43) 05/11/24 09:23 RBC 5.37 10^6/uL (3.85-5.65) 05/11/24 09:23 Hgb 13.40 g/dL (11.27-16.99) 05/11/24 09:23 Hct 43.8 % (36-47) 05/11/24 09:23 MCV 81.6 fl (85-98) L 05/11/24 09:23 MCH 25.0 pg (27-33) L 05/11/24 09:23 MCHC 30.6 g/dL (30-55) 05/11/24 09:23 RDW 15.5 % (12.1-15.1) H 05/11/24 09:23 Plt Count 380 10^3/cmm (157-399) 05/11/24 09:23 MPV 10.3 fL (7.4-10.4) 05/11/24 09:23 Neut % (Auto) 64.2 % 05/11/24 09:23 Lymph % (Auto) 27.5 % 05/11/24 09:23 Sunflower % (Auto) 5.2 % 05/11/24 09:23 Eos % (Auto) 2.7 % 05/11/24 09:23 Baso % (Auto) 0.3 % 05/11/24 09:23 Neut # (Auto) 4.59 10^3/uL (1.8-7.7) 05/11/24 09:23 Lymph # (Auto) 2.0 10^3/uL (0.8-4.8) 05/11/24 09:23 Sunflower # (Auto) 0.4 10^3/uL (0.2-0.9) 05/11/24 09:23 Eos # (Auto) 0.2 10^3/uL (0.0-0.8) 05/11/24 09:23 Baso # (Auto) 0.0 10^3/uL (0.0-0.1) 05/11/24 09:23 Nucleated RBC % (auto) 0 % 05/11/24 09: Nucleated RBCs # 0.0 /100WBC 05/11/24 09:23 Sodium 138 mmol/L (136-145) 05/11/24 09:23 Potassium 4.4 mmol/L (3.5-5.1) 05/11/24 09:23 Chloride 105 mmol/L (98-107) 05/11/24 09:23 Carbon Dioxide 22 mmol/L (22-29) 05/11/24 09:23 Anion Gap 15.4 (5-19) 05/11/24 09:23 BUN 9 mg/dL (6-20) 05/11/24 09:23 Creatinine 0.7 mg/dL (0.5-0.9) 05/11/24 09:23 GFR Calculation 103.7 mL/min (90-130) 05/11/24 09:23 Glucose 101 mg/dL (65-115) 05/11/24 09:23 Calculated Osmolality 285 mOsm/kg (285-295) 05/11/24 09:23 Calcium 8.8 mg/dL (8.5-10.5) 05/11/24 09:23 Total Bilirubin 0.3 mg/dL (0.15-1.2) 05/11/24 09:23 AST 23 U/L (0-32) 05/11/24 09:23 ALT 31 U/L (0-33) 05/11/24 09:23 Alkaline Phosphatase 67 U/L (35-105) 05/11/24 09:23 Total Protein 7.3 g/dL (6.6-8.7) 05/11/24 09:23 Albumin 4.1 g/dL (3.5-5.2) 05/11/24 09:23 Globulin 3.2 g/dL (1.3-4.6) 05/11/24 09:23 Lipase 51 U/L (13-60) 05/11/24 09:23 HCG, Qual Negative (Negative) 05/11/24 09:23 Urine Color Yellow (Yellow) 05/11/24 09:37 Urine Appearance Clear (CLEAR) 05/11/24 09:37 Urine pH 6.5 (5-7) 05/11/24 09:37 Ur Specific Bynum 1.014 (1.005-1.030) 05/11/24 09:37 Urine Protein Negative (Negative) 05/11/24 09:37 Urine Glucose (UA) Negative (Normal) 05/11/24 09:37 Urine Ketones Negative (Negative) 05/11/24 09:37 Urine Blood Negative (Negative) 05/11/24 09:37 Urine Nitrate Negative (Negative) 05/11/24 09:37 Urine Bilirubin Negative (Negative) 05/11/24 09:37 Urine Urobilinogen 0.2 mg/dL (Negative) 05/11/24 09:37 Ur Leukocyte Esterase Negative (Negative) 05/11/24 09:37 Urine RBC 0-2 /hpf (0-2) 05/11/24 09:37 Urine WBC 0-5 /hpf (0-5) 05/11/24 09:37 Ur Squamous Epith Cells 6-10 /hpf (0-5) 05/11/24 09:37 Amorphous Sediment Not Reportable 05/11/24 09:37 Urine Bacteria None seen /hpf (NONE) 05/11/24 09:37 Hyaline Casts 0-4 /lpf H 05/11/24 09:37 All radiology interpretation(s) finalized by discharge Discharge Plan Discharge Patient Disposition: Home Clinical Impression: Pelvic pain, Ovarian cyst Condition: Stable Prescriptions: New diclofenac sodium 75 mg tablet,delayed release (DR/EC) 75 mg PO Q12H PRN (Reason: pain) Qty: 20 0RF No Action sulfamethoxazole-trimethoprim [Bactrim DS] 800-160 mg tablet 1 tab PO BID 7 Days Qty: 14 0RF Avonex 30 mcg/0.5 mL syringe kit 0.5 ml IM Q7D Rx Instructions: on Wednesday cholecalciferol (vitamin D3) 125 mcg (5,000 unit) capsule 5,000 unit PO QPM pantoprazole 40 mg tablet,delayed release (DR/EC) 40 mg PO QPM metformin 500 mg tablet 500 mg PO QPM amitriptyline 25 mg tablet 25 mg PO BEDTIME Discharge Orders: Discharge ED (Routine); Ordered 05/11/24 Ordered By: Sreedhar Marvin Referrals: Yasir Hamilton, [Primary Care Provider] - Discharge Diet: Usual diet Discharge Activity: Increase activity as tolerated Patient Instructions: Opioid Safety, Pain Management Activity Restrictions/Additional Instructions: Thank you for choosing [facility] for your healthcare needs today. It is very important that you follow up as instructed or that you return to the Emergency Department should you have concerns or if your condition changes or worsens in any way. You were seen in the emergency room with pelvic pain. Your test was negative. White count was normal. There is no sign of infection in your urine. Pelvic ultrasound showed fluid in the pelvis consistent with a recently ruptured ovarian cyst. Use diclofenac as needed to relieve pain follow-up with your primary care doctor if persists or changes Stand Alone Forms: Work/School Release Coding Level of Care Code ED [employer] for Yvette Pendleton
--- NOTE | 2024-05-11 09:28 | US_ITS ---
WS: [id number] ULTRASOUND PELVIS TECHNIQUE: Transvaginal cyst CLINICAL INFORMATION: pelvic pain LMP:? :? COMPARISON: 04/05/2023 FINDINGS: Uterus Orientation: Retroverted Size: 7.5 cm x 5.6 cm x 4.5 cm Masses: None. Cervix: 2.4 cm. Endometrium: Thickened Endometrium thickness: 12 mm Adnexa: Small amount of free fluid. Multi follicular ovaries. Right ovary size: 2.4 cm x 2.0 cm x 2.4 cm. Right ovary volume: 5.8 ccm3 Left ovary size: 3.5 cm x 2.1 cm x 2.6 cm. Left ovary volume: 10.2 ccm3 Free fluid: Small amount of free fluid with debris in the cul-de-sac Other findings: None. US/US pelvic complete* [id number] IMPRESSION: 1. Retroverted uterus with thickened endometrium measuring 12 mm. 2. Multi follicular ovaries bilaterally. 3. Small amount of free fluid in the cul-de-sac with debris. 4. No other suspicious findings.
[2024-05-11 09:29] LABS: Basophils % 0.3 %; Eosinophils # 0.2 10^3/uL (0.0-0.8); Eosinophils % 2.7 %; Hematocrit 43.8 % (36-47); Lymphocytes % 27.5 %; Mean Corpuscular HGB Conc 30.6 g/dL (30-55); Mean Corpuscular Volume 81.6 fl (85-98); Mean Platelet Volume 10.3 fL (7.4-10.4); Monocytes # 0.4 10^3/uL (0.2-0.9); Monocytes % 5.2 %; Neutrophils # 4.59 10^3/uL (1.8-7.7); Neutrophils % 64.2 %; Nucleated Red Blood Cells % 0 %; Platelet Count 380 10^3/cmm (157-399); Red Blood Count 5.37 10^6/uL (3.85-5.65); Red Cell Distribution Width 15.5 % (12.1-15.1); White Blood Count 7.14 10^3/uL (3.29-11.43)
[2024-05-11] MEDS: sodium chloride 0.9% 1,000 ML 999 ML IV (09:35)
[2024-05-11 09:42] LABS: Charge for UA Resulting for Rev
[2024-05-11 09:45] LABS: HCG, Serum Qual Negative (Negative)
[2024-05-11 09:46] LABS: Alanine Aminotransferase 31 U/L (0-33); Albumin Level 4.1 g/dL (3.5-5.2); Alkaline Phosphatase 67 U/L (35-105); Anion Gap 15.4 (5-19); Aspartate Amino Transferase 23 U/L (0-32); Blood Urea Nitrogen 9 mg/dL (6-20); Calcium 8.8 mg/dL (8.5-10.5); Carbon Dioxide 22 mmol/L (22-29); Chloride 105 mmol/L (98-107); Creatinine Clr Calc Pharmacy 146.0952; Globulin 3.2 g/dL (1.3-4.6); Glomerular Filtration Rate 103.7 mL/min (90-130); Glucose 101 mg/dL (65-115); Lipase 51 U/L (13-60); Osmolality Calculated 285 mOsm/kg (285-295); Potassium 4.4 mmol/L (3.5-5.1); Sodium 138 mmol/L (136-145); Total Bilirubin 0.3 mg/dL (0.15-1.2); Total Protein 7.3 g/dL (6.6-8.7)
[2024-05-11 09:54] VITALS: BP 151/78; PULSE 86; O2SAT 97
[2024-05-11 10:54] LABS: Bilirubin Urine Negative (Negative); Blood Urine Negative (Negative); Glucose Urine UA Negative (Normal); Ketones Urine Negative (Negative); Leukocyte Esterase Urine Negative (Negative); Nitrate Urine Negative (Negative); Protein Urine Negative (Negative); Specific Gravity, Urine 1.014 (1.005-1.030); Urine Appearance Clear (CLEAR); Urine Color Yellow (Yellow); Urobilinogen Urine 0.2 mg/dL (Negative); pH Urine 6.5 (5-7)
[2024-05-11 11:03] LABS: Bacteria Urine None Seen /hpf; Hyaline Casts Urine 0-4 /lpf; RBC Urine 0-2 /hpf (0-2); WBC Urine 0-5 /hpf (0-5)
[2024-05-11 11:07] LABS: Add Urine Culture? No
[2024-05-11] MEDS: ketorolac 30 mg/mL INJ IVP (11:38)
[2024-05-11 13:24] VITALS: BP 151/78; PULSE 79; RESP 16; O2SAT 100
== END 2024-05-11 13:38 | disposition home or self-care (01) ==
PROVIDERS: Emergency Provider Family Medicine; PCP Family Medicine
DX: R10.2 Pelvic and perineal pain (principal); N83.209 Unspecified ovarian cyst, unspecified side; Z79.84 Long term (current) use of oral hypoglycemic drugs; G35 Multiple sclerosis
CPT/HCPCS: 76856; 80053; 81003; 81015; 83690; 84703; 85025; 96374; 99285; J1885; J7030

== ENCOUNTER → 2024-05-19 08:00 | Outpatient (BNVA) | payer BC, SELFPAY | PROVIDERS: PCP Family Medicine; Visit Provider Obstetrics & Gynecology | DX: Z31.69 Encounter for other general counseling and advice on procreation (principal); E28.2 Polycystic ovarian syndrome; N92.6 Irregular menstruation, unspecified | CPT/HCPCS: 82670; 83001; 83520; 84443 ==

== ENCOUNTER → 2024-05-29 12:45 | Outpatient (BNVA) | payer BC, SELFPAY | PROVIDERS: PCP Family Medicine; Visit Provider Nurse Practitioner Family | DX: R52 Pain, unspecified (principal) | CPT/HCPCS: 87400; 87426 ==

== ENCOUNTER → 2024-06-06 08:27 | Outpatient (BNVA) | payer BC, SELFPAY | PROVIDERS: PCP Family Medicine; Visit Provider Obstetrics & Gynecology | DX: Z31.69 Encounter for other general counseling and advice on procreation (principal) | CPT/HCPCS: 84144 ==

== ENCOUNTER 2024-06-22 07:29 | Emergency (ER) | payer BC, SELFPAY ==
[2024-06-22 08:10] VITALS: BP 126/83; PULSE 95; RESP 20; TEMP 36.9; O2SAT 98; BMI 47.2
[2024-06-22 08:18] VITALS: BP 126/83; PULSE 91; RESP 16; O2SAT 96
--- NOTE | 2024-06-22 08:22 | ED_ITS ---
HPI - Neuro Symptoms/Deficit 2 General: Chief Complaint: Neuro Symptoms/Deficit Stated Complaint: women problems Time Seen by Provider: 06/22/24 07:31 History of Present Illness: 23-year-old female presents emergency ro om planing numbness bilaterally in her feet and her hands states it began last night that is resolved she is also had some discomfort in her lower back. She has not had any difficulty urinating. She sees a neurologist at [facility] she had a MRI in February with 2023 there is also an MRI from 2021 in her chart here neither which show any lumbar spinal stenosis. No difficulty ambulating. No fecal incontinence or urinary retention Associated symptoms: Deny chest pain Related Data Home Medications Medication Instructions Recorded Confirmed amitriptyline 25 mg tablet 25 mg PO BEDTIME 03/30/24 06/22/24 interferon beta-1a 30 mcg/0.5 mL 0.5 ml IM Q7D 04/24/24 06/22/24 intramuscular syringe kit (Avonex) cholecalciferol (vitamin D3) 125 5,000 unit PO QPM 05/11/24 06/22/24 mcg (5,000 unit) capsule Previous Rx's Medication Instructions Recorded clomiphene citrate 50 mg tablet 50 mg PO DAILY 5 days #1 tab 05/18/24 phenazopyridine 200 mg tablet 200 mg PO TID PRN pain 6 doses #6 06/22/24 (Pyridium) tabs sulfamethoxazole 800 1 tab PO DAILY 7 days #14 tabs 06/22/24 mg-trimethoprim 160 mg tablet (Bactrim DS) Allergies Allergy/AdvReac Type Severity Reaction Status Date / Time glatiramer (copolymer 1) Allergy Severe ALGY-Hives Verified 06/22/24 08:17 [From Copaxone] Review of Systems 2 Const: Denies: fever(s) or chills Card: Denies: chest pain Resp: Denies: dyspnea GI: Denies: abdominal pain : Denies: dysuria, urinary frequency or urinary urgency Musc: Denies: neck pain or back pain Skin/Breast: Denies: rash PFSH ED 2 PFSH: Medical History Anxiety Hyperglycemia, drug-induced Morbid obesity with BMI of 45.0-49.9, adult Abnormal vaginal bleeding Chronic migraine Multiple sclerosis Surgical History Hx laparoscopic cholecystectomy 03/30/24 Dr Quijano Status post lumbar spine surgery for decompression of spinal cord Hx of appendectomy Family History Father Diabetes Grandfather Diabetes paternal Grandmother Diabetes paternal Hypertension paternal Denies family history of Colon cancer Ovarian cancer Clotting disorder Heart disease Hyperlipidemia Breast cancer Anesthesia complication Bleeding disorder Uterine cancer Thyroid disease Stroke Social History Smoking and tobacco/nicotine status: never used tobacco/nicotine Alcohol intake: never Substance/Drug Use: never Marital status: Number of children: 0 Current occupational status: employed Female Reproductive History: Date of last menstrual period: 06/17/24 S pontaneous abortions: No Physical Exam 2 Const: COMMON NORMALS: no acute distress GENERAL APPEARANCE: cooperative and comfortable ORIENTATION/CONSCIOUSNESS: Yes awake, Yes oriented to person, Yes oriented to place and Yes oriented to time HENMT: COMMON NORMALS: normocephalic, atraumatic and hearing grossly normal bilaterally HEAD & SCALP: normocephalic and atraumatic Resp: COMMON NORMALS: normal respiratory effort, No retractions, No use of accessory muscles and clear to auscultation bilaterally AUSCULTATION: clear to auscultation bilaterally Cardio: COMMON NORMALS: regular rate, regular rhythm and No murmurs present (Cardio) RATE: regular rate RHYTHM: regular rhythm GI: COMMON NORMALS: Soft to palpation and No hepatosplenomegaly present A USCULTATION: Yes normoactive bowel sounds PALPATION: Yes Soft to palpation, No Tenderness to palpation present (GI), No Guarding due to palpation present (GI) and Yes No hepatosplenomegaly present Extremity: COMMON NORMALS: normal to inspection, capillary refill normal, no clubbing, cyanosis or edema, no calf tenderness and no pedal edema Neuro: SENSORIUM/ORIENTATION: Yes oriented to person, Yes oriented to place and Yes oriented to time Skin: COMMON NORMALS: no rashes or lesions noted GENERAL SKIN EXAM: no rashes or lesions noted Course 2 Vital Signs: Vital signs: Vital Signs Temperature 98.4 F 06/22/24 08:10 Pulse Rate 95 10/10/24 11:06 Respiratory Rate 16 06/22/24 11:06 Blood Pressure 140/84 06/22/24 11:06 Pulse Oximetry 96 06/22/24 11:06 Oxygen Delivery Me thod Room Air 06/22/24 10:51 MDM - Neuro Symptoms/Deficit Medical Decision Making Labs and imaging reviewed. Patient has no high-grade's stenosis either on recent MRI or on lumbar or cervical spine CTs done today discussed with radiologist. Patient does have bladder infection she also has MS I think some of her symptoms are related to her MS others are related to her bladder. I do not believe she has cauda equina syndrome at this time based on her exam and imaging done today. Discharge patient home on IV antibiotics and have her follow-up with her neurologist regarding her multiple sclerosis Medical Records MR/MR lumbar spine w con [id number] IMPRESSION: 1. Mild lumbar curve. No acute compression. No high-grade central canal stenosis. 2. No enhancing lesions in the lower thoracic cord or cauda equina. 3. Broad-based LEFT pericentral disc protrusion L5-S1 impinges the traversing LEFT S1 nerve root in the subarticular recess. Recommend correlation LEFT S1 nerve root symptoms. Spinal canal remains patent. Mild proximal LEFT L5-S1 foraminal narrowing. 4. Shallow central protrusion L3-L4 with a small annular fissure and slight effacement of the ventral thecal sac. 5. Shallow central disc protrusion L4-L5 with mild central canal stenosis and slight impingement on the subarticular recess and traversing L5 nerve roots bilaterally. 6. Mild facet arthropathy L3-L5. Dictated By: Abdon Gamino MD Signed By: Abdon Gamino MD Signed Date/Time 12/26/21 1333 Lab Data 06/22/24 08:25 06/22/24 08:25 Radiology Impressions Cervical Spine CT 06/22/24 08:33 IMPRESSION: 1. Straightening the normal cervical doses. Mild spondylitic changes. 2. Tiny disc osteophyte complexes at C4-C5 C5-C6 and C6-C7 with slight effacement of the ventral thecal sac. No significant central canal stenosis. 3. No high-grade foraminal narrowing. 4. Mild RIGHT C3-4 and RIGHT C4-5 bony foraminal narrowing Lumbar Spine CT 06/22/24 08:33 IMPRESSION: Overall no significant changes compared to 2022 1. Minimal lumbar curve. No acute fractures. 2. Mild disc bulge with endplate ridging at L3-L4 L4-L5 and L5-S1 with slight effacement of ventral thecal sac. No high-grade central canal stenosis. 3. Evidence of prior LEFT micro hemilaminectomy L5-S1. This is unchanged from previous. 4. Small disc osteophyte protrusions L3-L4 and L4-L5 with narrowing of the subarticular recess bilaterally similar to previous. 5. LEFT paracentral disc osteophyte protrusion L5-S1 impinges the LEFT S1 nerve root with mild LEFT proximal foraminal narrowing unchanged. Laboratory Results WBC 6.34 10^3/uL (3.29-11.43) 06/22/24 08:25 RBC 4.90 10^6/uL (3.85-5.65) 06/22/24 08:25 Hgb 12.20 g/dL (11.27-16.99) 06/22/24 08:25 Hct 39.5 % (36-47) 06/22/24 08:25 MCV 80.6 fl (85-98) L 06/22/24 08:25 MCH 24.9 pg (27-33) L 06/22/24 08:25 MCHC 30.9 g/dL (30-55) 06/22/24 08:25 RDW 15.4 % (12.1-15.1) H 06/22/24 08:25 Plt Count 397 10^3/cmm (157-399) 06/22/24 08:25 MPV 9.9 fL (7.4-10.4) 06/22/24 08:25 Neut % (Auto) 60.6 % 06/22/24 08:25 Lymph % (Auto) 29.8 % 06/22/24 08:25 [place] % (Auto) 6.0 % 06/22/24 08:25 Eos % (Auto) 3.0 % 06/22/24 08:25 Baso % (Auto) 0.3 % 06/22/24 08:25 Neut # (Auto) 3.84 10^3/uL (1.8-7.7) 06/22/24 08:25 Lymph # (Auto) 1.9 10^3/uL (0.8-4.8) 06/22/24 08:25 Ell[place] # (Auto) 0.4 10^3/uL (0.2-0.9) 06/22/24 08:25 Eos # (Auto) 0.2 10^3/uL (0.0-0.8) 06/22/24 08:25 Baso # (Auto) 0.0 10^3/uL (0.0-0.1) 06/22/24 08:25 Nucleated RBC % (auto) 0 % 06/22/24 08:25 Nucleated RBCs # 0.0 /100WBC 06/22/24 08:25 Sodium 140 mmol/L (136-145) 06/22/24 08:25 Potassium 3.9 mmol/L (3.5-5.1) 06/22/24 08:25 Chloride 106 mmol/L (98-107) 06/22/24 08:25 Carbon Dioxide 24 mmol/L (22-29) 06/22/24 08:25 Anion Gap 13.9 (5-19) 06/22/24 08:25 BUN 8 mg/dL (6-20) 06/22/24 08:25 Creatinine 0.7 mg/dL (0.5-0.9) 06/22/24 08:25 GFR Calculation 103.7 mL/min (90-130) 06/22/24 08:25 Glucose 113 mg/dL (65-115) 06/22/24 08:25 Calculated Osmolality 289 mOsm/kg (285-295) 06/22/24 08:25 Calcium 8.5 mg/dL (8.5-10.5) 06/22/24 08:25 Total Bilirubin 0.5 mg/dL (0.15-1.2) 06/22/24 08:25 AST 21 U/L (0-32) 06/22/24 08:25 ALT 21 U/L (0-33) 06/22/24 08:25 Alkaline Phosphatase 66 U/L (35-105) 06/22/24 08:25 Total Protein 7.1 g/dL (6.6-8.7) 06/22/24 08:25 Albumin 4.1 g/dL (3.5-5.2) 06/22/24 08:25 Globulin 3.0 g/dL (1.3-4.6) 06/22/24 08:25 HCG, Qual Negative (Negative) 06/22/24 08:25 Urine Color Yellow (Yellow) 06/22/24 08:30 Urine Appearance Cloudy (CLEAR) A 06/22/24 08:30 Urine pH 7.0 (5-7) 06/22/24 08:30 Ur Specific [place] 1.009 (1.005-1.030) 06/22/24 08:30 Urine Protein Trace (Negative) A 06/22/24 08:30 Urine Glucose (UA) Negative (Normal) 06/22/24 08:30 Urine Ketones Negative (Negative) 06/22/24 08:30 Urine Blood 3+ (Negative) A 06/22/24 08:30 Urine Nitrate Negative (Negative) 06/22/24 08:30 Urine Bilirubin Negative (Negative) 06/22/24 08:30 Urine Urobilinogen 1.0 mg/dL (Negative) 06/22/24 08:30 Ur Leukocyte Esterase 1+ (Negative) A 06/22/24 08:30 Urine RBC 6-10 /hpf (0-2) 06/22/24 08:30 Urine WBC 51-100 /hpf (0-5) H 06/22/24 08:30 Ur Squamous Epith Cells 51-100 /hpf (0-5) 06/22/24 08:30 Amorphous Sediment Not Reportable 06/22/24 08:30 Urine Bacteria 2+ /hpf (NONE) H 06/22/24 08:30 Hyaline Casts 0-4 /lpf H 06/22/24 08:30 All radiology interpretation(s) finalized by discharge Discharge Plan Discharge Patient Disposition: Home Clinical Impression: Back pain, Multiple sclerosis, Cystitis Condition: Stable Prescriptions: New sulfamethoxazole-trimethoprim [Bactrim DS] 800-160 mg tablet 1 tab PO DAILY 7 Days Qty: 14 0RF phenazopyridine [Pyridium] 200 mg tablet 200 mg PO TID PRN (Reason: pain) Qty: 6 0RF No Action Avonex 30 mcg/0.5 mL syringe kit 0.5 ml IM Q7D Rx Instructions: on Wednesday clomiphene citrate 50 mg tablet 50 mg PO DAILY 5 Days Qty: 1 1RF Rx Instructions: Take on cycle days 5-9 cholecalciferol (vitamin D3) 125 mcg (5,000 unit) capsule 5,000 unit PO QPM amitriptyline 25 mg tablet 25 mg PO BEDTIME Discharge Orders: Discharge ED (Routine); Ordered 06/22/24 Ordered By: Sreedhar Marvin Referrals: Yasir Hamilton DO [Primary Care Provider] - Discharge Diet: Usual diet Discharge Activity: Increase activity as tolerated Patient Instructions: Opioid Safety, Pain Management Activity Restrictions/Additional Instructions: Thank you for choosing [facility] for your healthcare needs today. It is very important that you follow up as instructed or that you return to the Emergency Department should you have concerns or if your condition changes or worsens in any way. You were seen today with complaints of discomfort in your arms and legs. CT of your neck and lumbar spine did not show any stenosis review of previous MRI showed no central canal stenosis. You did have a bladder infection. Suspect that may be causing the bladder symptoms and your MS may be causing some of the other symptoms. Recommend you follow-up with your neurologist as soon as you are able. 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
--- NOTE | 2024-06-22 08:33 | CT_ITS ---
WS: [id number] CT CERVICAL SPINE TECHNIQUE: Noncontrast CT of the cervical spine with coronal and sagittal reformatted images. CLINICAL INFORMATION: pain COMPARISON: None. DLP: 267.[address] scans at [facility] use at least one of these dose optimization techniques: automated e xposure control; mA and/or kV adjustment per patient size (includes targeted exams where dose is matc hed to clinical indication); or iterative reconstruction. FINDINGS: Straightening of the normal cervical doses. Mild spondylitic changes. C2-C3: Normal. C3-C4: Mild RIGHT and no significant LEFT foraminal narrowing. Mild facet arthropathy. C4-C5: Mild disc osteophyte ridging. Slight effacement of ventral thecal sac. Mild RIGHT foraminal na rrowing. C5-C6: Mild disc osteophyte complex with endplate ridging. Slight effacement of ventral thecal sac. M ild facet arthropathy. Spinal canal and foramen are patent. C6-C7: Mild disc osteophyte complex with endplate ridging. Spinal canal and foramen are patent. Mild facet arthropathy. C7-T1: No significant disc bulging. Spinal canal and foramen are patent. Visualized posterior nasopharynx: Normal. Prevertebral soft tissues: Normal. CT/CT cervical spin wo con* [id number] IMPRESSION: 1. Straightening the normal cervical doses. Mild spondylitic changes. 2. Tiny disc osteophyte complexes at C4-C5 C5-C6 and C6-C7 with slight effacem ent of the ventral thecal sac. No significant central canal stenosis. 3. No high-grade foraminal narrowing. 4. Mild RIGHT C3-4 and RIGHT C4-5 bony foraminal narrowing
--- NOTE | 2024-06-22 08:33 | CT_ITS ---
WS: [id number] CT LUMBAR SPINE TECHNIQUE: Noncontrast CT of the lumbar spine with coronal and sagittal reformatted images. CLINICAL INFORMATION: pain COMPARISON: None. DLP: 1128.[address] scans at [facility] use at least one of these dose optimization techniques: automated e xposure control; mA and/or kV adjustment per patient size (includes targeted exams where dose is matc hed to clinical indication); or iterative reconstruction. FINDINGS: Minimal lumbar curve. No acute compression. L1-L2: Normal. L2-L3: Mild facet arthropathy. Spinal canal and foramen are patent. L3-L4: Mild disc bulge with osteophytic ridging. Slight narrowing of the subarticular recess bilatera lly. Mild facet arthropathy. Foramen are patent. L4-L5: Small central protrusion with slight narrowing of the subarticular recess bilaterally. Mild fa cet arthropathy. Foramen are patent. L5-S1: LEFT paracentral disc osteophyte complex impinges the LEFT S1 nerve root in the subarticular r ecess. This is similar to previous. Mild LEFT and no significant RIGHT foraminal narrowing. Prior LEF T hemilaminectomy. Mild facet arthropathy. Visualized pelvic bony structures: Normal. Paravertebral soft tissues: Normal. CT/CT lumbar spine wo con* [id number] IMPRESSION: Overall no significant changes compared to 2022 1. Minimal lumbar curve. No acute fractures. 2. Mild disc bulge with endplate ridging at L3-L4 L4-L5 and L5-S1 with slight effacement of ventral thecal sac. No high-grade central canal stenosis. 3. Evidence of prior LEFT micro hemilaminectomy L5-S1. This is unchanged from previous. 4. Small disc osteophyte protrusions L3-L4 and L4-L5 with narrowing of the sub articular recess bilaterally similar to previous. 5. LEFT paracentral disc osteophyte protrusion L5-S1 impinges the LEFT S1 nerv e root with mild LEFT proximal foraminal narrowing unchanged.
[2024-06-22 08:44] LABS: Basophils % 0.3 %; Eosinophils # 0.2 10^3/uL (0.0-0.8); Hematocrit 39.5 % (36-47); Lymphocytes # 1.9 10^3/uL (0.8-4.8); Lymphocytes % 29.8 %; Mean Corpuscular HGB Conc 30.9 g/dL (30-55); Mean Corpuscular Hemoglobin 24.9 pg (27-33); Mean Corpuscular Volume 80.6 fl (85-98); Mean Platelet Volume 9.9 fL (7.4-10.4); Monocytes # 0.4 10^3/uL (0.2-0.9); Neutrophils # 3.84 10^3/uL (1.8-7.7); Neutrophils % 60.6 %; Nucleated Red Blood Cells % 0 %; Platelet Count 397 10^3/cmm (157-399); Red Cell Distribution Width 15.4 % (12.1-15.1); White Blood Count 6.34 10^3/uL (3.29-11.43)
[2024-06-22 08:45] LABS: Bilirubin Urine Negative (Negative); Blood Urine 3+ (Negative); Glucose Urine UA Negative (Normal); Ketones Urine Negative (Negative); Leukocyte Esterase Urine 1+ (Negative); Nitrate Urine Negative (Negative); Protein Urine Trace (Negative); Specific Gravity, Urine 1.009 (1.005-1.030); Urine Appearance Cloudy (CLEAR); Urine Color Yellow (Yellow)
[2024-06-22 08:48] LABS: Add Urine Microscopic? YES; Bacteria Urine 2+ /hpf; Hyaline Casts Urine 0-4 /lpf; Squamous Epithelial Cell Urine 51-100 /hpf (0-5); WBC Urine 51-100 /hpf (0-5)
[2024-06-22 08:49] VITALS: BP 139/90; PULSE 101; RESP 16; O2SAT 97
[2024-06-22 09:02] LABS: Alanine Aminotransferase 21 U/L (0-33); Albumin Level 4.1 g/dL (3.5-5.2); Alkaline Phosphatase 66 U/L (35-105); Anion Gap 13.9 (5-19); Aspartate Amino Transferase 21 U/L (0-32); Blood Urea Nitrogen 8 mg/dL (6-20); Calcium 8.5 mg/dL (8.5-10.5); Carbon Dioxide 24 mmol/L (22-29); Chloride 106 mmol/L (98-107); Creatinine Clr Calc Pharmacy 146.0952; Glomerular Filtration Rate 103.7 mL/min (90-130); Glucose 113 mg/dL (65-115); HCG, Serum Qual Negative (Negative); Osmolality Calculated 289 mOsm/kg (285-295); Potassium 3.9 mmol/L (3.5-5.1); Sodium 140 mmol/L (136-145); Total Bilirubin 0.5 mg/dL (0.15-1.2); Total Protein 7.1 g/dL (6.6-8.7)
[2024-06-22 09:15] LABS: UA Slide Review UA Slide Review Perf
[2024-06-22 09:18] LABS: Add Urine Culture? Yes
[2024-06-22 10:07] VITALS: BP 114/82; PULSE 90; RESP 16; O2SAT 90
[2024-06-22] MEDS: cefTRIAXone 1,000 mg SDV 1000 MG IVP (10:21)
[2024-06-22 10:51] VITALS: BP 135/98; PULSE 86; RESP 16; O2SAT 98
[2024-06-22 11:06] VITALS: BP 140/84; PULSE 95; RESP 16; O2SAT 96
== END 2024-06-22 11:18 | disposition home or self-care (01) ==
PROVIDERS: Emergency Provider Family Medicine; PCP Family Medicine
DX: G35 Multiple sclerosis (principal); N30.90 Cystitis, unspecified without hematuria; M54.9 Dorsalgia, unspecified
CPT/HCPCS: 36415; 51798; 72125; 72131; 80053; 81001; 84703; 85025; 87086; 96374; 99285; J0696

== ENCOUNTER 2024-07-10 13:40 | Emergency (ER) | payer BC, SELFPAY ==
[2024-07-10 13:55] VITALS: BP 125/85; PULSE 79; RESP 18; TEMP 36.9; O2SAT 98; BMI 47.2
[2024-07-10 14:08] LABS: Glucose Point of Care 77 mg/dL (70-110)
[2024-07-10 14:34] LABS: Basophils % 0.3 %; Eosinophils # 0.2 10^3/uL (0.0-0.8); Eosinophils % 1.4 %; Hematocrit 40.9 % (36-47); Lymphocytes # 3.2 10^3/uL (0.8-4.8); Lymphocytes % 27.6 %; Mean Corpuscular HGB Conc 31.3 g/dL (30-55); Mean Corpuscular Hemoglobin 25.5 pg (27-33); Mean Corpuscular Volume 81.5 fl (85-98); Mean Platelet Volume 10.1 fL (7.4-10.4); Monocytes # 0.8 10^3/uL (0.2-0.9); Monocytes % 6.7 %; Neutrophils # 7.28 10^3/uL (1.8-7.7); Neutrophils % 63.6 %; Nucleated Red Blood Cells % 0 %; Platelet Count 388 10^3/cmm (157-399); Red Blood Count 5.02 10^6/uL (3.85-5.65); White Blood Count 11.42 10^3/uL (3.29-11.43)
[2024-07-10 14:48] LABS: HCG, Serum Qual Negative (Negative)
[2024-07-10 14:51] LABS: Alanine Aminotransferase 20 U/L (0-33); Albumin Level 4.3 g/dL (3.5-5.2); Alkaline Phosphatase 62 U/L (35-105); Anion Gap 13.8 (5-19); Aspartate Amino Transferase 26 U/L (0-32); Blood Urea Nitrogen 9 mg/dL (6-20); Calcium 8.6 mg/dL (8.5-10.5); Carbon Dioxide 22 mmol/L (22-29); Chloride 105 mmol/L (98-107); Creatinine Clr Calc Pharmacy 146.0952; Globulin 3.2 g/dL (1.3-4.6); Glomerular Filtration Rate 103.7 mL/min (90-130); Glucose 83 mg/dL (65-115); Osmolality Calculated 282 mOsm/kg (285-295); Potassium 3.8 mmol/L (3.5-5.1); Sodium 137 mmol/L (136-145); Total Bilirubin 0.4 mg/dL (0.15-1.2); Total Protein 7.5 g/dL (6.6-8.7)
--- NOTE | 2024-07-10 16:12 | ECG_ITS ---
[facility] Date[facility] 2024-07[facility]10 Pat Name: Allyn Lira Department: Room: Gender: Female Hospice Registered Nurse: : 2000 Requested By: Hannah Moore Order Number: [id number] Sarahy MD: Raimundo Baez M.D. Measurements Intervals Saffell Rate: 87 P: 52 VT: 145 QRS: 40 QRSD: 84 T: 44 QT: 358 QTc: 432 Interpretive Statements SINUS RHYTHM LOW QRS VOLTAGE IN PRECORDIAL LEADS [QRS DEFLECTION < 1.0 mV IN CHEST LEADS] Compared to ECG 03/31/2023 13:09:41 Low QRS voltage now present Electronically Signed On 07-10-2024 23:58:00 CDT by Raimundo Baez M.D. [email or web address]
[2024-07-10 16:13] VITALS: BP 129/82; PULSE 86; O2SAT 99
--- NOTE | 2024-07-10 16:14 | ED_ITS ---
HPI - Dizziness 2 General: Chief Complaint: Dizziness Stated Complaint: dizzy spell, sugar is dropping low Time Seen by Provider: 07/10/24 16:02 Source: patient Mode of arrival: ambulatory Limitations: no limitations History of Present Illness: HPI Narrative: 23-year-old female states she has felt l alice she has been hypoglycemic today as she states that she had an in and checked her sugar and it was in the 60s she had felt lightheaded and had some diaphoresis states she had eaten she did felt improved but states she has had episodes like this in the past as well. She denies any chest pain denies any vomiting denies any fever Associated symptoms: Denies chest pain, chills, headache(s), nausea or vomiting Related Data Home Medications Medication Instructions Recorded Confirmed amitriptyline 25 mg tablet 25 mg PO BEDTIME 03/30/24 06/22/24 interferon beta-1a 30 mcg/0.5 mL 0.5 ml IM Q7D 04/24/24 06/22/24 intramuscular syringe kit (Avonex) cholecalciferol (vitamin D3) 125 5,000 unit PO QPM 05/11/24 06/22/24 mcg (5,000 unit) capsule Previous Rx's Medication Instructions Recorded clomiphene citrate 50 mg tablet 50 mg PO DAILY 5 days #1 tab 05/18/24 phenazopyridine 200 mg tablet 200 mg PO TID PRN pain 6 doses #6 06/22/24 (Pyridium) tabs Allergies Allergy/AdvReac Type Severity Reaction Status Date / Time glatiramer (copolymer 1) Allergy Severe ALGY-Hives Verified 07/10/24 14:04 [From Copaxone] Review of Systems 2 Const: Denies: fever(s), chills, body aches or change in appetite Eyes: Denies: blurry vision or eye discomfort ENMT: Denies: throat pain or dental pain Card: Reports: lightheadedness; Denies: chest pain Resp: Denies: dyspnea GI: Denies: abdominal pain, nausea, vomiting or diarrhea Musc: Denies: neck pain or back pain Skin/Breast: Denies: rash Neuro: Denies: headache(s) PFSH ED 2 PFSH: Medical History Anxiety Hyperglycemia, drug-induced Morbid obesity with BMI of 45.0-49.9, adult Abnormal vaginal bleeding Chronic migraine Multiple sclerosis Surgical History Hx laparoscopic cholecystectomy 03/30/24 Dr Quijano Status post lumbar spine surgery for decompression of spinal cord Hx of appendectomy Family History Father Diabetes Grandfather Diabetes paternal Grandmother Diabetes paternal Hypertension paternal Denies family history of Colon cancer Ovarian cancer Clotting disorder Heart disease Hyperlipidemia Breast cancer Anesthesia complication Bleeding disorder Uterine cancer Thyroid disease Stroke Social History Smoking and tobacco/nicotine status: never used tobacco/nicotine Alcohol intake: never Substance/Drug Use: never Marital status: Number of children: 0 Current occupational status: employed Female Reproductive History: Date of last menstrual period: 06/17/24 S pontaneous abortions: No Physical Exam 2 Const: COMMON NORMALS: no acute distress, patient oriented x3 and healthy appearing HENMT: COMMON NORMALS: normocephalic and atraumatic HEAD & SCALP: n ormocephalic and atraumatic Eye: COMMON NORMALS: conjunctivae normal CONJUNCTIVA: Yes conjunctivae normal Neck/C-Spine: COMMON NORMALS: full ROM and supple Chest: COMMONS NORMALS: normal inspection of the chest Resp: COMMON NORMALS: normal respiratory effort, No retractions, No use of accessory muscles and clear to auscultation bilaterally AUSCULTATION: clear to auscultation bilaterally Cardio: COMMON NORMALS: regular rate, regular rhythm and No murmurs present (Cardio) RATE: regular rate RHYTHM: regular rhythm Extremity: COMMON NORMALS: normal to inspection and full ROM Neuro: COMMON NORMALS: patient oriented x3, moves all extremities and no focal motor deficits Psych: COMMON NORMALS: mental status grossly normal, Normal thought process present and cooperative THOUGHT PROCESS: Normal thought process present Skin: COMMON NORMALS: no rashes or lesions noted and no wounds GENERAL SKIN EXAM: no rashes or lesions noted Course 2 Vital Signs: Vital signs: Vital Signs Temperature 98.5 F 07/10/24 13:55 Pulse Rate 86 07/10/24 16:13 Respiratory Rate 18 07/10/24 13:55 Blood Pressure 129/82 07/10/24 16:13 Pulse Oximetry 99 07/10/24 16:13 Oxygen Delivery Me thod Room Air 07/10/24 16:13 MDM - Dizziness Medical Decision Making Patient presents here with some lightheadedness with possible hypoglycemic episodes her blood sugar here has been normal she been well-appearing here vitals have been normal she is stable for discharge she is follow-up with her PCP and return if worsening. Medical Records I reviewed the patient's medical records. Lab Data I reviewed the patient's lab results. 07/10/24 14:13 07/10/24 14:13 Laboratory Results WBC 11.42 10^3/uL (3.29-11.43) 07/10/24 14:13 RBC 5.02 10^6/uL (3.85-5.65) 07/10/24 14:13 Hgb 12.80 g/dL (11.27-16.99) 07/10/24 14:13 Hct 40.9 % (36-47) 07/10/24 14:13 MCV 81.5 fl (85-98) L 07/10/24 14:13 MCH 25.5 pg (27-33) L 07/10/24 14:13 MCHC 31.3 g/dL (30-55) 07/10/24 14:13 RDW 16.0 % (12.1-15.1) H 07/10/24 14:13 Plt Count 388 10^3/cmm (157-399) 07/10/24 14:13 MPV 10.1 fL (7.4-10.4) 07/10/24 14:13 Neut % (Auto) 63.6 % 07/10/24 14:13 Lymph % (Auto) 27.6 % 07/10/24 14:13 Moore % (Auto) 6.7 % 07/10/24 14:13 Eos % (Auto) 1.4 % 07/10/24 14:13 Baso % (Auto) 0.3 % 07/10/24 14:13 Neut # (Auto) 7.28 10^3/uL (1.8-7.7) 07/10/24 14:13 Lymph # (Auto) 3.2 10^3/uL (0.8-4.8) 07/10/24 14:13 Moore # (Auto) 0.8 10^3/uL (0.2-0.9) 07/10/24 14:13 Eos # (Auto) 0.2 10^3/uL (0.0-0.8) 07/10/24 14:13 Baso # (Auto) 0.0 10^3/uL (0.0-0.1) 07/10/24 14:13 Nucleated RBC % (auto) 0 % 07/10/24 14:13 Nucleated RBCs # 0.0 /100WBC 07/10/24 14:13 Sodium 137 mmol/L (136-145) 07/10/24 14:13 Potassium 3.8 mmol/L (3.5-5.1) 07/10/24 14:13 Chloride 105 mmol/L (98-107) 07/10/24 14:13 Carbon Dioxide 22 mmol/L (22-29) 07/10/24 14:13 Anion Gap 13.8 (5-19) 07/10/24 14:13 BUN 9 mg/dL (6-20) 07/10/24 14:13 Creatinine 0.7 mg/dL (0.5-0.9) 07/10/24 14:13 GFR Calculation 103.7 mL/min (90-130) 07/10/24 14:13 Glucose 83 mg/dL (65-115) 07/10/24 14:13 POC Glucose 76 mg/dL (70-110) 07/10/24 16:25 Calculated Osmolality 282 mOsm/kg (285-295) L 07/10/24 14:13 Calcium 8.6 mg/dL (8.5-10.5) 07/10/24 14:13 Total Bilirubin 0.4 mg/dL (0.15-1.2) 07/10/24 14:13 AST 26 U/L (0-32) 07/10/24 14:13 ALT 20 U/L (0-33) 07/10/24 14:13 Alkaline Phosphatase 62 U/L (35-105) 07/10/24 14:13 Total Protein 7.5 g/dL (6.6-8.7) 07/10/24 14:13 Albumin 4.3 g/dL (3.5-5.2) 07/10/24 14:13 Globulin 3.2 g/dL (1.3-4.6) 07/10/24 14:13 HCG, Qual Negative (Negative) 07/10/24 14:13 All radiology interpretation(s) finalized by discharge EKG Data EKG 1: I personally reviewed and interpreted this EKG as follows: EKG interpretation date: 07/10/24 EKG interpretation time: 16:25 Interpretation: nsr hr [address] or t wave abnormalities qrs 84 qtc 403 Discharge Plan Discharge Patient Disposition: Home Clinical Impression: Dizziness Condition: Stable Prescriptions: No Action Avonex 30 mcg/0.5 mL syringe kit 0.5 ml IM Q7D Rx Instructions: on Wednesday clomiphene citrate 50 mg tablet 50 mg PO DAILY 5 Days Qty: 1 1RF Rx Instructions: Take on cycle days 5-9 cholecalciferol (vitamin D3) 125 mcg (5,000 unit) capsule 5,000 unit PO QPM amitriptyline 25 mg tablet 25 mg PO BEDTIME phenazopyridine [Pyridium] 200 mg tablet 200 mg PO TID PRN (Reason: pain) Qty: 6 0RF Discharge Orders: Discharge ED (Routine); Ordered 07/10/24 Ordered By: Hannah Moore Referrals: Yasir Hamilton DO [Primary Care Provider] - Discharge Diet: Advance as tolerated Discharge Activity: Resume usual activity Patient Instructions: Dizziness (ED) Coding Level of Care Code 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
[2024-07-10 16:32] LABS: Glucose Point of Care 76 mg/dL (70-110)
[2024-07-10 16:59] VITALS: BP 125/75; BP 135/85; BP 138/90; PULSE 101; PULSE 94; PULSE 96
[2024-07-10 17:53] VITALS: BP 118/74; PULSE 92; O2SAT 100
--- NOTE | 2024-07-11 07:41 | DCPLANNER ---
Message sent to clinics to establish PCP-
== END 2024-07-10 17:55 | disposition home or self-care (01) ==
PROVIDERS: Emergency Provider Emergency Medicine; PCP Family Medicine
DX: R42 Dizziness and giddiness (principal)
CPT/HCPCS: 36415; 36416; 80053; 82962; 84703; 85025; 93005; 99284

== ENCOUNTER 2024-07-21 10:53 | Outpatient (CLI) | payer BC, SELFPAY ==
[2024-07-21 11:42] LABS: HCG Quantitative 2.91 mIU/mL
== END 2024-07-21 10:54 | disposition home or self-care (01) ==
LOC: LAB 10:54
PROVIDERS: PCP Family Medicine; Visit Provider Obstetrics & Gynecology
DX: N92.6 Irregular menstruation, unspecified (principal)
CPT/HCPCS: 36415; 84702; 86850; 86900

== ENCOUNTER 2024-07-24 08:03 | Outpatient (CLI) | payer BC, SELFPAY | END 2024-07-24 08:04 | disposition home or self-care (01) | LOC: LAB 08:04 | PROVIDERS: PCP Family Medicine; Visit Provider Obstetrics & Gynecology | DX: N92.6 Irregular menstruation, unspecified (principal) | CPT/HCPCS: 36415; 84702 ==

== ENCOUNTER → 2024-08-17 14:20 | Outpatient (BNVA) | payer BC, SELFPAY | PROVIDERS: PCP Family Medicine | DX: R32 Unspecified urinary incontinence (principal); E28.2 Polycystic ovarian syndrome | CPT/HCPCS: 80053; 81000; 83036 ==

== ENCOUNTER 2024-09-15 07:54 | Outpatient (CLI) | payer BC, SELFPAY ==
[2024-09-15 08:53] LABS: Progesterone 7.38 ng/mL
== END 2024-09-15 07:55 | disposition home or self-care (01) ==
LOC: LAB 07:56
PROVIDERS: PCP Family Medicine; Visit Provider Nurse Practitioner Women's Health
DX: E28.2 Polycystic ovarian syndrome (principal)
CPT/HCPCS: 36415; 84144

== ENCOUNTER → 2024-09-21 08:10 | Outpatient (BNVA) | payer BC, SELFPAY | DX: R05.9 Cough, unspecified (principal) | CPT/HCPCS: 87071; 87400; 87426; 87880 ==

== ENCOUNTER → 2024-10-12 10:50 | Outpatient (BNVA) | payer BC, SELFPAY | PROVIDERS: Visit Provider Nurse Practitioner Women's Health | DX: E28.2 Polycystic ovarian syndrome (principal); Z31.69 Encounter for other general counseling and advice on procreation | CPT/HCPCS: 84144 ==

== ENCOUNTER → 2024-11-26 16:21 | Outpatient (BNVA) | payer BC, SELFPAY | PROVIDERS: Visit Provider Family Medicine | DX: M79.641 Pain in right hand (principal) | CPT/HCPCS: 73130 ==

== ENCOUNTER 2024-12-04 08:18 | Emergency (ER) | payer BC, SELFPAY ==
[2024-12-04 08:28] VITALS: BP 140/79; PULSE 81; RESP 18; TEMP 36.8; O2SAT 100; BMI 47.2
--- NOTE | 2024-12-04 08:34 | W.ED.ABDPA2 ---
HPI - Abdominal Pain General: Chief Complaint: Abdominal Pain Stated Complaint: abd pain Time Seen by Provider: 12/04/24 08:18 History of Present Illness: 24-year-old female Presents to the emergency room with complaint of right upper quadrant abdominal pain. Patient previously has had a cholecystectomy and appendectomy. She has some indigestion symptoms at times. She has been having nausea no diarrhea. She denies dysuria urgency or frequency she did have some loose stools this morning no hematochezia melena hematemesis or coffee-ground emesis. States it almost feels similar to when she has had gallbladder issues in the past. She states it is worse when she eats. She has noticed a lot of indigestion symptoms recently. Associated Symptoms: Reports diarrhea and nausea; Denies chills, dysuria, fever(s) and vomiting Related Data Home Medications ?Medication ?Instructions ?Recorded ?Confirmed amitriptyline 25 mg tablet 25 mg PO BEDTIME 03/30/24 12/04/24 interferon beta-1a 30 mcg/0.5 mL 0.5 ml IM Q7D 04/24/24 12/04/24 intramuscular syringe kit (Avonex) cholecalciferol (vitamin D3) 125 5,000 unit PO QPM 05/11/24 12/04/24 mcg (5,000 unit) capsule acetaminophen 325 mg tablet 650 mg PO QID PRN Fever Or Pain 12/04/24 12/04/24 (Tylenol) Previous Rx's ?Medication ?Instructions ?Recorded oxybutynin chloride 5 mg tablet 5 mg PO BID #60 tabs 09/21/24 pantoprazole 40 mg tablet,delayed 40 mg PO BID 30 days #40 tabs 12/04/24 release (Protonix) sucralfate 1 gram tablet (Carafate) 1 g PO Q6H 4 weeks #112 tabs 12/04/24 Allergies Allergy/AdvReac Type Severity Reaction Status Date / Time glatiramer (copolymer 1) Allergy Severe ALGY-Hives Verified 11/26/24 16:15 (From [employer]) Review of Systems Const: Denies: fever(s) or chills Card: Denies: chest pain Resp: Denies: dyspnea GI: Reports: abdominal pain, nausea and diarrhea; Denies: vomiting : Denies: dysuria, urinary frequency or urinary urgency Musc: Denies: neck pain or back pain Skin/Breast: Denies: rash PFSH ED PFS: Medical History Fasting low blood sugar Urinary incontinence History of hysterosalpingogram (~08/30/23) both tubes patent; performed by Rajeev at [facility] Anxiety Hyperglycemia, drug-induced Morbid obesity with BMI of 45.0-49.9, adult Chronic migraine Multiple sclerosis Surgical History Hx laparoscopic cholecystectomy 03/30/24 Dr Quijano Status post lumbar spine surgery for decompression of spinal cord Hx of appendectomy Family History Father Diabetes Grandfather Diabetes paternal Grandmother Diabetes paternal Hypertension paternal Denies family history of Colon cancer Ovarian cancer Clotting disorder Heart disease Hyperlipidemia Breast cancer Anesthesia complication Bleeding disorder Uterine cancer Thyroid disease Stroke Social History Smoking and tobacco/nicotine status: never used tobacco/nicotine Alcohol intake: never Substance/Drug Use: never Marital status: Number of children: 0 Current occupational status: employed Female Reproductive History: Spontaneous abortions: No Physical Exam Const: GENERAL APPEARANCE: cooperative ORIENTATION/CONSCIOUSNESS: Yes awake, Yes oriented to person, Yes oriented to place and Yes oriented to time HENMT: COMMON NORMALS: normocephalic, atraumatic and hearing grossly normal bilaterally HEAD & SCALP: normocephalic and atraumatic Resp: COMMON NORMALS: normal respiratory effort, No retractions, No use of accessory muscles and clear to auscultation bilaterally AUSCULTATION: clear to auscultation bilaterally Cardio: COMMON NORMALS: regular rate, regular rhythm and No murmurs present (Cardio) RATE: regular rate RHYTHM: regular rhythm GI: COMMON NORMALS: No hepatosplenomegaly present AUSCULTATION: Yes normoactive bowel sounds PALPATION: Yes Tenderness to palpation present (GI) (Epigastric no guarding or rebound), No Guarding due to palpation present (GI), No Rigid due to palpation and Yes No hepatosplenomegaly present Extremity: COMMON NORMALS: normal to inspection, capillary refill normal, no clubbing, cyanosis or edema, no calf tenderness and no pedal edema Neuro: SENSORIUM/ORIENTATION: Yes oriented to person, Yes oriented to place and Yes oriented to time Skin: COMMON NORMALS: no rashes or lesions noted GENERAL SKIN EXAM: no rashes or lesions noted Course Vital Signs: Vital signs: Vital Signs Temperature 98.2 F 12/04/24 08:28 Pulse Rate 91 12/04/24 11:24 Respiratory Rate 18 12/04/24 08:28 Blood Pressure 146/91 12/04/24 11:24 Pulse Oximetry 99 12/04/24 11:24 Oxygen Delivery Me thod Room Air 12/04/24 08:28 MDM - Abdominal Pain Medical Decision Making Clinically no significant findings CT shows prior appendectomy and cholecystectomy no other acute findings on the CT white count normal CMP does not show significant abnormality. Her lipase is very slightly elevated but there is no clinical findings acute pancreatitis with the minimal increase in lipase at home believe that is clinically significant she is not drinking significant amount no evidence of cystitis she has a few white blood cells but no nitrites mostly squamous cells. Discharge patient home supportive care start her on PPI. It is possible that she may be getting some biliary reflux with having it previously cholecystectomy. If the PPI does not improve she may want to talk to her primary care doctor about EGD or considering a possible trial of cholestyramine to see if that resolves her symptoms. Lab Data 12/04/24 08:44 12/04/24 08:44 Labs/Radiology: Radiology Impressions Abdomen/Pelvis CT 12/04/24 08:57 IMPRESSION: 1. Prior cholecystectomy. Prior appendectomy. 2. No hydronephrosis in either kidney. 3. Tiny fat-containing umbilical hernia. 4. No other acute findings in the abdomen or pelvis. Laboratory Results WBC 7.72 10^3/uL (3.29-11.43) 12/04/24 08:44 RBC 5.03 10^6/uL (3.85-5.65) 12/04/24 08:44 Hgb 13.20 g/dL (11.27-16.99) 12/04/24 08:44 Hct 41.5 % (36-47) 12/04/24 08:44 MCV 82.5 fl (85-98) L 12/04/24 08:44 MCH 26.2 pg (27-33) L 12/04/24 08:44 MCHC 31.8 g/dL (30-55) 12/04/24 08:44 RDW 14.6 % (12.1-15.1) 12/04/24 08:44 Plt Count 387 10^3/cmm (157-399) 12/04/24 08:44 MPV 10.1 fL (7.4-10.4) 12/04/24 08:44 Neut % (Auto) 58.5 % 12/04/24 08:44 Lymph % (Auto) 32.4 % 12/04/24 08:44 [place] % (Auto) 5.8 % 12/04/24 08:44 Eos % (Auto) 2.7 % 12/04/24 08:44 Baso % (Auto) 0.3 % 12/04/24 08:44 Neut # (Auto) 4.52 10^3/uL (1.8-7.7) 12/04/24 08:44 Lymph # (Auto) 2.5 10^3/uL (0.8-4.8) 12/04/24 08:44 [place] # (Auto) 0.5 10^3/uL (0.2-0.9) 12/04/24 08:44 Eos # (Auto) 0.2 10^3/uL (0.0-0.8) 12/04/24 08:44 Baso # (Auto) 0.0 10^3/uL (0.0-0.1) 12/04/24 08:44 Nucleated RBC % (auto) 0 % 12/04/24 08:44 Nucleated RBCs # 0.0 /100WBC 12/04/24 08:44 Sodium 138 mmol/L (136-145) 12/04/24 08:44 Potassium 4.1 mmol/L (3.5-5.1) 12/04/24 08:44 Chloride 106 mmol/L (98-107) 12/04/24 08:44 Carbon Dioxide 21 mmol/L (22-29) L 12/04/24 08:44 Anion Gap 15.1 (5-19) 12/04/24 08:44 BUN 8 mg/dL (6-20) 12/04/24 08:44 Creatinine 0.7 mg/dL (0.5-0.9) 12/04/24 08:44 GFR Calculation 102.8 mL/min (90-130) 12/04/24 08:44 Glucose 112 mg/dL (65-115) 12/04/24 08:44 Calculated Osmolality 285 mOsm/kg (285-295) 12/04/24 08:44 Calcium 8.9 mg/dL (8.5-10.5) 12/04/24 08:44 Total Bilirubin 0.3 mg/dL (0.15-1.2) 12/04/24 08:44 AST 24 U/L (0-32) 12/04/24 08:44 ALT 29 U/L (0-33) 12/04/24 08:44 Alkaline Phosphatase 62 U/L (35-105) 12/04/24 08:44 Total Protein 7.2 g/dL (6.6-8.7) 12/04/24 08:44 Albumin 4.3 g/dL (3.5-5.2) 12/04/24 08:44 Globulin 2.9 g/dL (1.3-4.6) 12/04/24 08:44 Lipase 65 U/L (13-60) H 12/04/24 08:44 HCG, Qual Negative (Negative) 12/04/24 08:44 Urine Color Yellow (Yellow) 12/04/24 08:48 Urine Appearance Cloudy (CLEAR) A 12/04/24 08:48 Urine pH 6.0 (5-7) 12/04/24 08:48 Ur Specific [place] 1.019 (1.005-1.030) 12/04/24 08:48 Urine Protein Negative (Negative) 12/04/24 08:48 Urine Glucose (UA) Negative (Normal) 12/04/24 08:48 Urine Ketones Negative (Negative) 12/04/24 08:48 Urine Blood Negative (Negative) 12/04/24 08:48 Urine Nitrate Negative (Negative) 12/04/24 08:48 Urine Bilirubin Negative (Negative) 12/04/24 08:48 Urine Urobilinogen 0.2 mg/dL (Negative) 12/04/24 08:48 Ur Leukocyte Esterase Trace (Negative) A 12/04/24 08:48 Urine RBC 0-2 /hpf (0-2) 12/04/24 08:48 Urine WBC 6-10 /hpf (0-5) 12/04/24 08:48 Ur Squamous Epith Cells 21-50 /hpf (0-5) H 12/04/24 08:48 Calcium Oxalate Crystal 10-15 /hpf H 12/04/24 08:48 Amorphous Sediment Not Reportable 12/04/24 08:48 Urine Bacteria None seen /hpf (NONE) 12/04/24 08:48 Hyaline Casts 0-4 /lpf H 12/04/24 08:48 All radiology interpretation(s) finalized by discharge Discharge Plan Discharge Patient Disposition: Home Clinical Impression: GERD (gastroesophageal reflux disease) Condition: Stable Prescriptions: New pantoprazole [Protonix] 40 mg tablet,delayed release (DR/EC) 40 mg PO BID 30 Days Qty: 40 0RF Rx Instructions: 1 p.o. twice daily x 10 days then daily sucralfate [Carafate] 1 gram tablet 1 g PO Q6H 28 Days Qty: 112 0RF No Action Avonex 30 mcg/0.5 mL syringe kit 0.5 ml IM Q7D Rx Instructions: on Wednesday oxybutynin chloride 5 mg tablet 5 mg PO BID Qty: 60 2RF cholecalciferol (vitamin D3) 125 mcg (5,000 unit) capsule 5,000 unit PO QPM acetaminophen [Tylenol] 325 mg Tablet 650 mg PO QID PRN (Reason: Fever Or Pain) amitriptyline 25 mg tablet 25 mg PO BEDTIME Discharge Orders: Discharge ED (Routine); Ordered 12/04/24 Ordered By: Sreedhar Marvin Referrals: Cindi Ledezma, ENVIRONMENTAL SCIENCE TECHNICIAN [Primary Care Provider] - Patient Instructions: Opioid Safety, Pain Management Activity Restrictions/Additional Instructions: Thank you for choosing [facility] for your healthcare needs today. It is very important that you follow up as instructed or that you return to the Emergency Department should you have concerns or if your condition changes or worsens in any way. You were seen in the emergency room for abdominal pain. Your laboratory test did not show any significant abnormality CT did not show any acute changes. Suspect your symptoms are from reflux. Will start you on Protonix 40 mg 1 pill twice a day for 10 days then once daily. Also gave you Carafate to use as needed for immediate relief of symptoms. It is possible you could have some biliary reflux from previously having her gallbladder out if your symptoms persist follow-up your primary care doctor and they can pursue further evaluation and adjust medications as appropriate. Stand Alone Forms: Work/School Release Print Language: Ethiopian Coding Level of Care Code ED [employer] Architect for Yvette Pendleton
[2024-12-04 08:54] LABS: Basophils % 0.3 %; Eosinophils # 0.2 10^3/uL (0.0-0.8); Eosinophils % 2.7 %; Hematocrit 41.5 % (36-47); Lymphocytes # 2.5 10^3/uL (0.8-4.8); Lymphocytes % 32.4 %; Mean Corpuscular HGB Conc 31.8 g/dL (30-55); Mean Corpuscular Hemoglobin 26.2 pg (27-33); Mean Corpuscular Volume 82.5 fl (85-98); Mean Platelet Volume 10.1 fL (7.4-10.4); Monocytes # 0.5 10^3/uL (0.2-0.9); Monocytes % 5.8 %; Neutrophils # 4.52 10^3/uL (1.8-7.7); Neutrophils % 58.5 %; Nucleated Red Blood Cells % 0 %; Platelet Count 387 10^3/cmm (157-399); Red Blood Count 5.03 10^6/uL (3.85-5.65); Red Cell Distribution Width 14.6 % (12.1-15.1); White Blood Count 7.72 10^3/uL (3.29-11.43)
--- NOTE | 2024-12-04 08:57 | CT_ITS ---
WS: [id number] CT ABDOMEN PELVIS TECHNIQUE: Noncontrast CT of the abdomen and pelvis with coronal and sagittal reformatted images. CLINICAL INFORMATION: Abdominal pain COMPARISON: CT 01/18/2024 DLP: 1121.[address] scans at [facility] use at least one of these dose optimization techniques: automated exposure control; mA and/or kV adjustment per patient size (includes targeted exams where dose is matched to clinical indication); or iterative reconstruction. FINDINGS: Cholecystectomy clips. Normal GE junction. Lung bases are well aerated. Adrenal glands are normal. No hydronephrosis in either kidney. Normal GE junction. Noncontrast pancreas and spleen are normal. Tiny fat-containing umbilical hernia. Prior appendectomy. Normal sigmoid colon. No evidence of small or large bowel obstruction. No free fluid in the abdomen or pelvis. No other acute findings. CT/CT abdomen pelvis wo con [id number] IMPRESSION: 1. Prior cholecystectomy. Prior appendectomy. 2. No hydronephrosis in either kidney. 3. Tiny fat-containing umbilical hernia. 4. No other acute findings in the abdomen or pelvis.
[2024-12-04 09:01] LABS: HCG, Serum Qual Negative (Negative)
[2024-12-04 09:06] LABS: Alanine Aminotransferase 29 U/L (0-33); Albumin Level 4.3 g/dL (3.5-5.2); Alkaline Phosphatase 62 U/L (35-105); Anion Gap 15.1 (5-19); Aspartate Amino Transferase 24 U/L (0-32); Blood Urea Nitrogen 8 mg/dL (6-20); Calcium 8.9 mg/dL (8.5-10.5); Carbon Dioxide 21 mmol/L (22-29); Chloride 106 mmol/L (98-107); Creatinine Clr Calc Pharmacy 144.8465; Globulin 2.9 g/dL (1.3-4.6); Glomerular Filtration Rate 102.8 mL/min (90-130); Glucose 112 mg/dL (65-115); Lipase 65 U/L (13-60); Osmolality Calculated 285 mOsm/kg (285-295); Potassium 4.1 mmol/L (3.5-5.1); Sodium 138 mmol/L (136-145); Total Bilirubin 0.3 mg/dL (0.15-1.2); Total Protein 7.2 g/dL (6.6-8.7)
[2024-12-04 09:19] LABS: Bilirubin Urine Negative (Negative); Blood Urine Negative (Negative); Glucose Urine UA Negative (Normal); Ketones Urine Negative (Negative); Leukocyte Esterase Urine Trace (Negative); Nitrate Urine Negative (Negative); Protein Urine Negative (Negative); Specific Gravity, Urine 1.019 (1.005-1.030); Urine Appearance Cloudy (CLEAR); Urine Color Yellow (Yellow); Urobilinogen Urine 0.2 mg/dL (Negative)
[2024-12-04 09:23] LABS: Add Urine Microscopic? YES; Bacteria Urine None Seen /hpf; Hyaline Casts Urine 0-4 /lpf; RBC Urine 0-2 /hpf (0-2); Squamous Epithelial Cell Urine 21-50 /hpf (0-5)
[2024-12-04 09:36] LABS: Add Urine Culture? No; UA Slide Review UA Slide Review Perf
[2024-12-04] MEDS: lidocaine 2% viscous 15 ML, aluminum-mag hydrox-simethicon 30 ML, sucralfate oral liq 1 GM PO (10:47)
[2024-12-04 10:49] VITALS: BP 116/80; PULSE 87; O2SAT 98
[2024-12-04 11:24] VITALS: BP 146/91; PULSE 91; O2SAT 99
== END 2024-12-04 11:30 | disposition home or self-care (01) ==
PROVIDERS: Emergency Provider Family Medicine
DX: K21.9 Gastro-esophageal reflux disease without esophagitis (principal)
CPT/HCPCS: 74176; 80053; 81001; 83690; 84703; 85025; 99284; J9999

== ENCOUNTER 2025-02-08 08:22 | Emergency (ER) | payer BC, SELFPAY ==
[2025-02-08 08:31] VITALS: BP 127/81; PULSE 100; RESP 16; TEMP 36.8; O2SAT 100; BMI 47.2
--- NOTE | 2025-02-08 08:36 | ECG_ITS ---
[facility] [employer] Test Date: 2025-02-08 Pat Name: Allyn Lira Department: Room: Gender: Female Patent Prosecution Paralegal: : 2000 Requested By: Sreedhar Phillips Order Number: [id number] Sarahy MD: Buster Larios M.D. Measurements Intervals [place] Rate: 89 P: 64 UT: 146 QRS: 74 QRSD: 83 T: 61 QT: 338 QTc: 413 Interpretive Statements SINUS RHYTHM LOW QRS VOLTAGE IN PRECORDIAL LEADS [QRS DEFLECTION < 1.0 mV IN CHEST LEADS] Compared to ECG 07/10/2024 16:25:13 No significant changes Electronically Signed On 02-13-2025 11:51:49 CDT by Buster Larios M.D. [email or web address]
--- NOTE | 2025-02-08 08:39 | XR_ITS ---
WS: [id number] Portable AP upright chest, 02/08/2025 Clinical Data: dyspnea/cough Comparison: Portable chest, 10/31/2023 Findings: No nodules, masses or effusions are seen. The heart is normal. The pulmonary vascularity is not increased. No pneumonia or pneumothorax is seen. XR/XR chest 1V portable [id number] Impression: Negative chest.
--- NOTE | 2025-02-08 08:55 | W.ED.BACK ---
HPI - Back Pain/Injury General: Chief Complaint: Back Pain/Injury Stated Complaint: back pain with chest pressure Time Seen by Provider: 02/08/25 08:38 History of Present Illness: 24-year-old female presents emergency room with low back pain radiating to her hips bilaterally. Symptoms began last night. Patient has a history of a previous traumatic back injury that required lumbar decompression approximately 3 years ago. She has a little bit of chest discomfort and shortness of breath however she relates it to anxiety. No recent trauma falls or precipitating activities or in relation to her back pain. No radicular leg pain. This is similar to difficulty she has had in the past with her back since a previous injury. Patient did recently undergo artificial insemination 1 week ago. Associated symptoms: Deny abdominal pain, chills, dysuria, fever(s) or urinary urgency Related Data Home Medications ?Medication ?Instructions ?Recorded ?Confirmed amitriptyline 25 mg tablet 25 mg PO BEDTIME 03/30/24 12/04/24 interferon beta-1a 30 mcg/0.5 mL 0.5 ml IM Q7D 04/24/24 12/04/24 intramuscular syringe kit (Avonex) cholecalciferol (vitamin D3) 125 5,000 unit PO QPM 05/11/24 12/04/24 mcg (5,000 unit) capsule acetaminophen 325 mg tablet 650 mg PO QID PRN Fever Or Pain 12/04/24 12/04/24 (Tylenol) Previous Rx's ?Medication ?Instructions ?Recorded oxybutynin chloride 5 mg tablet 5 mg PO BID #60 tabs 12/22/24 hydrocodone 5 mg-acetaminophen 325 1 tab PO Q6H PRN pain #5 tabs 02/08/25 mg tablet prednisone 20 mg tablet 20 mg PO TID #15 tabs 02/08/25 tizanidine 4 mg tablet 4 mg PO Q6H PRN muscle spasticity 02/08/25 #20 tabs Allergies Allergy/AdvReac Type Severity Reaction Status Date / Time glatiramer (copolymer 1) Allergy Severe ALGY-Hives Verified 11/26/24 16:15 (From [employer]) Review of Systems Const: Denies: fever(s) or chills Card: Denies: chest pain Resp: Denies: dyspnea GI: Denies: abdominal pain : Denies: dysuria, urinary frequency or urinary urgency Musc: Reports: back pain; Denies: neck pain Skin/Breast: Denies: rash PFSH ED PFSH: Medical History Fasting low blood sugar Urinary incontinence History of hysterosalpingogram (~08/30/23) both tubes patent; performed by Rajeev at [facility] Anxiety Hyperglycemia, drug-induced Morbid obesity with BMI of 45.0-49.9, adult Chronic migraine Multiple sclerosis Surgical History Hx laparoscopic cholecystectomy 03/30/24 Dr Quijano Status post lumbar spine surgery for decompression of spinal cord Hx of appendectomy Family History Father Diabetes Grandfather Diabetes paternal Grandmother Diabetes paternal Hypertension paternal Denies family history of Colon cancer Ovarian cancer Clotting disorder Heart disease Hyperlipidemia Breast cancer Anesthesia complication Bleeding disorder Uterine cancer Thyroid disease Stroke Social History Smoking and tobacco/nicotine status: never used tobacco/nicotine Alcohol intake: never Substance/Drug Use: never Marital status: Number of children: 0 Current occupational status: employed Female Reproductive History: Spontaneous abortions: No Physical Exam Const: GENERAL APPEARANCE: cooperative ORIENTATION/CONSCIOUSNESS: Yes awake, Yes oriented to person, Yes oriented to place and Yes oriented to time HENMT: COMMON NORMALS: normocephalic, atraumatic and hearing grossly normal bilaterally HEAD & SCALP: normocephalic and atraumatic Resp: COMMON NORMALS: normal respiratory effort, No retractions, No use of accessory muscles and clear to auscultation bilaterally AUSCULTATION: clear to auscultation bilaterally Cardio: COMMON NORMALS: regular rate, regular rhythm and No murmurs present (Cardio) RATE: regular rate RHYTHM: regular rhythm GI: COMMON NORMALS: Soft to palpation and No hepatosplenomegaly present AUSCULTATION: Yes normoactive bowel sounds PALPATION: Yes Soft to palpation, No Tenderness to palpation present (GI), No Guarding due to palpation present (GI) and Yes No hepatosplenomegaly present Extremity: COMMON NORMALS: normal to inspection, capillary refill normal, no clubbing, cyanosis or edema, no calf tenderness and no pedal edema Neuro: SENSORIUM/ORIENTATION: Yes oriented to person, Yes oriented to place and Yes oriented to time OTHER: Lower extremities neurovascular intact straight leg raising negative strength 5 of 5 dorsi plantarflex strength normal sensation normal Skin: COMMON NORMALS: no rashes or lesions noted GENERAL SKIN EXAM: no rashes or lesions noted Course Vital Signs: Vital signs: Vital Signs Temperature 98.3 F 02/08/25 08:31 Pulse Rate 93 02/08/25 10:05 Respiratory Rate 22 H 02/08/25 10:05 Blood Pressure 140/90 02/08/25 10:05 Pulse Oximetry 96 02/08/25 10:05 Oxygen Delivery Me thod Room Air 02/08/25 09:29 MDM - Back Pain/Injury Medical Decision Making Back pain improved. Reviewed results with patient including her negative beta-hCG. Will discharge home with steroid taper tizanidine to use as needed hydrocodone as needed and follow-up with her primary care doctor return if she has further problems Medical Records I reviewed the patient's medical records. Labs I reviewed the patient's lab results. 02/08/25 08:56 02/08/25 08:56 Radiology Impressions Chest X-Ray 02/08/25 08:39 Impression: Negative chest. Laboratory Results WBC 12.79 10^3/uL (3.29-11.43) H 02/08/25 08:56 RBC 5.08 10^6/uL (3.85-5.65) 02/08/25 08:56 Hgb 13.50 g/dL (11.27-16.99) 02/08/25 08:56 Hct 42.9 % (36-47) 02/08/25 08:56 MCV 84.4 fl (85-98) L 02/08/25 08:56 MCH 26.6 pg (27-33) L 02/08/25 08:56 MCHC 31.5 g/dL (30-55) 02/08/25 08:56 RDW 13.9 % (12.1-15.1) 02/08/25 08:56 Plt Count 408 10^3/cmm (157-399) H 02/08/25 08:56 MPV 9.7 fL (7.4-10.4) 02/08/25 08:56 Neut % (Auto) 71.5 % 02/08/25 08:56 Lymph % (Auto) 20.8 % 02/08/25 08:56 [place] % (Auto) 5.6 % 02/08/25 08:56 Eos % (Auto) 1.6 % 02/08/25 08:56 Baso % (Auto) 0.2 % 02/08/25 08:56 Neut # (Auto) 9.14 10^3/uL (1.8-7.7) H 02/08/25 08:56 Lymph # (Auto) 2.7 10^3/uL (0.8-4.8) 02/08/25 08:56 [place] # (Auto) 0.7 10^3/uL (0.2-0.9) 02/08/25 08:56 Eos # (Auto) 0.2 10^3/uL (0.0-0.8) 02/08/25 08:56 Baso # (Auto) 0.0 10^3/uL (0.0-0.1) 02/08/25 08:56 Nucleated RBC % (auto) 0 % 02/08/25 08:56 Nucleated RBCs # 0.0 /100WBC 02/08/25 08:56 Sodium 139 mmol/L (136-145) 02/08/25 08:56 Potassium 3.6 mmol/L (3.5-5.1) 02/08/25 08:56 Chloride 103 mmol/L (98-107) 02/08/25 08:56 Carbon Dioxide 22 mmol/L (22-29) 02/08/25 08:56 Anion Gap 17.6 (5-19) 02/08/25 08:56 BUN 12 mg/dL (6-20) 02/08/25 08:56 Creatinine 0.8 mg/dL (0.5-0.9) 02/08/25 08:56 GFR Calculation 88.1 mL/min (90-130) L 02/08/25 08:56 Glucose 119 mg/dL (65-115) H 02/08/25 08:56 Calculated Osmolality 289 mOsm/kg (285-295) 02/08/25 08:56 Calcium 9.6 mg/dL (8.5-10.5) 02/08/25 08:56 Total Bilirubin 0.3 mg/dL (0.15-1.2) 02/08/25 08:56 AST 24 U/L (0-32) 02/08/25 08:56 ALT 27 U/L (0-33) 02/08/25 08:56 Alkaline Phosphatase 66 U/L (35-105) 02/08/25 08:56 Total Protein 8.0 g/dL (6.6-8.7) 02/08/25 08:56 Albumin 4.3 g/dL (3.5-5.2) 02/08/25 08:56 Globulin 3.7 g/dL (1.3-4.6) 02/08/25 08:56 Lipase 35 U/L (13-60) 02/08/25 08:56 HCG, Qual Negative (Negative) 02/08/25 08:56 Urine Color Yellow (Yellow) 02/08/25 08:56 Urine Appearance Clear (CLEAR) 02/08/25 08:56 Urine pH 6.5 (5-7) 02/08/25 08:56 Ur Specific [place] 1.017 (1.005-1.030) 02/08/25 08:56 Urine Protein Negative (Negative) 02/08/25 08:56 Urine Glucose (UA) Negative (Normal) 02/08/25 08:56 Urine Ketones Negative (Negative) 02/08/25 08:56 Urine Blood Negative (Negative) 02/08/25 08:56 Urine Nitrate Negative (Negative) 02/08/25 08:56 Urine Bilirubin Negative (Negative) 02/08/25 08:56 Urine Urobilinogen 0.2 mg/dL (Negative) 02/08/25 08:56 Ur Leukocyte Esterase Negative (Negative) 02/08/25 08:56 Urine RBC 3-5 /hpf (0-2) 02/08/25 08:56 Urine WBC 0-5 /hpf (0-5) 02/08/25 08:56 Ur Squamous Epith Cells 11-20 /hpf (0-5) H 02/08/25 08:56 Amorphous Sediment Not Reportable 02/08/25 08:56 Urine Bacteria None seen /hpf (NONE) 02/08/25 08:56 Hyaline Casts 0-4 /lpf H 02/08/25 08:56 Urine Opiates Screen Negative ng/mL (Negative) 02/08/25 08:56 Ur Barbiturates Screen Negative ng/mL (Negative) 02/08/25 08:56 Ur Phencyclidine Scrn Negative ng/mL (Negative) 02/08/25 08:56 Ur Amphetamines Screen Negative ng/mL (Negative) 02/08/25 08:56 U Benzodiazepines Scrn Negative ng/mL (Negative) 02/08/25 08:56 Urine Cocaine Screen Negative ng/mL (Negative) 02/08/25 08:56 U Marijuana (THC) Screen Positive ng/mL (Negative) H 02/08/25 08:56 No radiology studies performed this visit EKG Data EKG 1: Interpretation: EKG 02/08/2025 was 8:36 AM sinus rhythm rate of 89 MD interval 146. No acute ST changes. No changes from EKG 06/20/2024 Discharge Plan Discharge Patient Disposition: Home Clinical Impression: Strain of lumbar region Condition: Stable Prescriptions: New tizanidine 4 mg tablet 4 mg PO Q6H PRN (Reason: muscle spasticity) Qty: 20 0RF Rx Instructions: do not exceed 3 doses per 24 hrs hydrocodone-acetaminophen 5-325 mg tablet 1 tab PO Q6H PRN (Reason: pain) Qty: 5 0RF prednisone 20 mg tablet 20 mg PO TID Qty: 15 0RF Rx Instructions: 1 p.o. 3 times daily x3 days, 1 p.o. twice daily x2 days, 1 p.o. daily x2 days No Action Avonex 30 mcg/0.5 mL syringe kit 0.5 ml IM Q7D Rx Instructions: on Wednesday oxybutynin chloride 5 mg tablet 5 mg PO BID Qty: 60 2RF cholecalciferol (vitamin D3) 125 mcg (5,000 unit) capsule 5,000 unit PO QPM acetaminophen [Tylenol] 325 mg Tablet 650 mg PO QID PRN (Reason: Fever Or Pain) amitriptyline 25 mg tablet 25 mg PO BEDTIME Discharge Orders: Discharge ED (Routine); Ordered 02/08/25 Ordered By: Sreedhar Marvin Referrals: Cindi Ledezma NP [Primary Care Provider, Family Practice] Discharge Diet: Usual diet Discharge Activity: Increase activity as tolerated Patient Instructions: Acute Low Back Pain (ED), Opioid Safety, Pain Management Activity Restrictions/Additional Instructions: Thank you for choosing [facility] for your healthcare needs today. It is very important that you follow up as instructed or that you return to the Emergency Department should you have concerns or if your condition changes or worsens in any way. Stand Alone Forms: Work/School Release Print Language: Comoran Coding Level of Care Code ED Soda Clerk for Yvette Pendleton
[2025-02-08 09:02] LABS: Basophils % 0.2 %; Eosinophils # 0.2 10^3/uL (0.0-0.8); Eosinophils % 1.6 %; Hematocrit 42.9 % (36-47); Lymphocytes # 2.7 10^3/uL (0.8-4.8); Lymphocytes % 20.8 %; Mean Corpuscular HGB Conc 31.5 g/dL (30-55); Mean Corpuscular Hemoglobin 26.6 pg (27-33); Mean Corpuscular Volume 84.4 fl (85-98); Mean Platelet Volume 9.7 fL (7.4-10.4); Monocytes # 0.7 10^3/uL (0.2-0.9); Monocytes % 5.6 %; Neutrophils # 9.14 10^3/uL (1.8-7.7); Neutrophils % 71.5 %; Nucleated Red Blood Cells % 0 %; Platelet Count 408 10^3/cmm (157-399); Red Blood Count 5.08 10^6/uL (3.85-5.65); Red Cell Distribution Width 13.9 % (12.1-15.1); White Blood Count 12.79 10^3/uL (3.29-11.43)
[2025-02-08 09:07] LABS: Bilirubin Urine Negative (Negative); Blood Urine Negative (Negative); Glucose Urine UA Negative (Normal); Ketones Urine Negative (Negative); Leukocyte Esterase Urine Negative (Negative); Nitrate Urine Negative (Negative); Protein Urine Negative (Negative); Specific Gravity, Urine 1.017 (1.005-1.030); Urine Appearance Clear (CLEAR); Urine Color Yellow (Yellow); Urobilinogen Urine 0.2 mg/dL (Negative); pH Urine 6.5 (5-7)
[2025-02-08 09:12] LABS: Add Urine Microscopic? YES; Bacteria Urine None Seen /hpf; Hyaline Casts Urine 0-4 /lpf; WBC Urine 0-5 /hpf (0-5)
[2025-02-08 09:14] LABS: Amphetamines Screen Urine Negative (Negative); Barbiturates Screen Urine Negative (Negative); Benzodiazepines Screen Urine Negative (Negative); Cocaine Screen Urine Negative (Negative); Opiate Screen Urine Negative (Negative); PCP Screen Urine Negative (Negative); THC Screen Urine Positive (Negative)
[2025-02-08] MEDS: dexamethasone 10 mg/mL INJ IM (09:19)
[2025-02-08] MEDS: ketorolac 30 mg/mL INJ IVP (09:20)
[2025-02-08] MEDS: orphenadrine 30 mg/mL Inj 2 mL 60 MG IM (09:21)
[2025-02-08 09:23] LABS: HCG, Serum Qual Negative (Negative)
[2025-02-08 09:28] LABS: Alanine Aminotransferase 27 U/L (0-33); Albumin Level 4.3 g/dL (3.5-5.2); Alkaline Phosphatase 66 U/L (35-105); Anion Gap 17.6 (5-19); Aspartate Amino Transferase 24 U/L (0-32); Blood Urea Nitrogen 12 mg/dL (6-20); Calcium 9.6 mg/dL (8.5-10.5); Carbon Dioxide 22 mmol/L (22-29); Chloride 103 mmol/L (98-107); Creatinine Clr Calc Pharmacy 126.7407; Globulin 3.7 g/dL (1.3-4.6); Glomerular Filtration Rate 88.1 mL/min (90-130); Glucose 119 mg/dL (65-115); Lipase 35 U/L (13-60); Osmolality Calculated 289 mOsm/kg (285-295); Potassium 3.6 mmol/L (3.5-5.1); Sodium 139 mmol/L (136-145); Total Bilirubin 0.3 mg/dL (0.15-1.2)
[2025-02-08 09:29] VITALS: BP 136/100; PULSE 86; RESP 18; O2SAT 99
[2025-02-08 10:05] VITALS: BP 140/90; PULSE 93; RESP 22; O2SAT 96
== END 2025-02-08 10:06 | disposition home or self-care (01) ==
PROVIDERS: Emergency Provider Family Medicine
DX: S39.012A Strain of muscle, fascia and tendon of lower back, initial encounter (principal); X58.XXXA Exposure to other specified factors, initial encounter
CPT/HCPCS: 36415; 71045; 80053; 80306; 81001; 83690; 84703; 85025; 93005; 96372; 96374; 99285; J1100; J1885; J2360

== ENCOUNTER 2025-02-12 15:14 | Outpatient (CLI) | payer BC, SELFPAY | END 2025-02-12 15:15 | disposition home or self-care (01) | DX: Z32.01 Encounter for pregnancy test, result positive (principal) | CPT/HCPCS: 36415; 84702 ==

== ENCOUNTER 2025-02-14 07:03 | Outpatient (CLI) | payer BC, SELFPAY | END 2025-02-14 07:04 | disposition home or self-care (01) | PROVIDERS: Visit Provider Obstetrics & Gynecology | DX: Z32.01 Encounter for pregnancy test, result positive (principal) | CPT/HCPCS: 36415; 84702 ==

== ENCOUNTER 2025-02-20 07:02 | Outpatient (CLI) | payer BC, SELFPAY ==
[2025-02-20 07:40] LABS: HCG Quantitative 81.06 mIU/mL
== END 2025-02-20 07:03 | disposition home or self-care (01) ==
PROVIDERS: Visit Provider Nurse Practitioner Family
DX: Z32.01 Encounter for pregnancy test, result positive (principal)
CPT/HCPCS: 36415; 84702

== ENCOUNTER 2025-02-27 07:04 | Outpatient (CLI) | payer BC, SELFPAY ==
[2025-02-27 08:12] LABS: HCG Quantitative < 1.00 mIU/mL
== END 2025-02-27 07:05 | disposition home or self-care (01) ==
PROVIDERS: Visit Provider Nurse Practitioner Family
DX: O20.0 Threatened abortion (principal)
CPT/HCPCS: 36415; 84702

== ENCOUNTER 2025-03-25 15:46 | Emergency (ER) | payer BC, SELFPAY ==
[2025-03-25 15:49] VITALS: BP 137/82; PULSE 95; TEMP 36.8; O2SAT 100
[2025-03-25 17:01] LABS: Hematocrit 40.7 % (36-47); Hemoglobin 12.90 g/dL (11.27-16.99); Mean Corpuscular HGB Conc 31.7 g/dL (30-55); Mean Corpuscular Hemoglobin 26.4 pg (27-33); Mean Corpuscular Volume 83.4 fl (85-98); Nucleated Red Blood Cells % 0 %; Platelet Count 378 10^3/cmm (157-399); Red Blood Count 4.88 10^6/uL (3.85-5.65); White Blood Count 8.57 10^3/uL (3.29-11.43)
[2025-03-25 17:26] LABS: Alanine Aminotransferase 30 U/L (0-33); Albumin Level 4.2 g/dL (3.5-5.2); Alkaline Phosphatase 62 U/L (35-105); Anion Gap 16.6 (5-19); Aspartate Amino Transferase 28 U/L (0-32); Blood Urea Nitrogen 8 mg/dL (6-20); Calcium 9.2 mg/dL (8.5-10.5); Carbon Dioxide 23 mmol/L (22-29); Chloride 104 mmol/L (98-107); Creatinine Clr Calc Pharmacy 144.8465; Globulin 3.1 g/dL (1.3-4.6); Glucose 82 mg/dL (65-115); Lipase 30 U/L (13-60); Osmolality Calculated 287 mOsm/kg (285-295); Potassium 3.6 mmol/L (3.5-5.1); Sodium 140 mmol/L (136-145); Total Protein 7.3 g/dL (6.6-8.7)
[2025-03-25 17:30] LABS: HCG, Serum Qual Negative (Negative)
--- NOTE | 2025-03-25 18:01 | W.ED.ABDPA2 ---
HPI - Abdominal Pain General: Chief Complaint: Abdominal Pain Stated Complaint: belly button pain Time Seen by Provider: 03/25/25 17:52 History of Present Illness: Patient is a 24-year-old female presents ED with umbilicus pain. She states that she has had bleeding in her umbilicus, as well as pain that radiates just underneath her umbilicus. There is been no nausea, vomiting, bowel movement changes. She is passing gas. No history of hernia in this area. Associated Symptoms: Denies chills, diarrhea, fever(s), nausea and vomiting Related Data Home Medications ?Medication ?Instructions ?Recorded ?Confirmed amitriptyline 25 mg tablet 25 mg PO BEDTIME 03/30/24 03/17/25 interferon beta-1a 30 mcg/0.5 mL 0.5 ml IM Q7D 04/24/24 03/17/25 intramuscular syringe kit (Avonex) cholecalciferol (vitamin D3) 125 5,000 unit PO QPM 05/11/24 03/17/25 mcg (5,000 unit) capsule acetaminophen 325 mg tablet 650 mg PO QID PRN Fever Or Pain 12/04/24 03/17/25 (Tylenol) Previous Rx's ?Medication ?Instructions ?Recorded oxybutynin chloride 5 mg tablet 5 mg PO BID #60 tabs 12/22/24 mupirocin 2 % topical ointment 1 applic topical BID #22 grams 03/17/25 (Centany) sulfamethoxazole 800 1 tab PO BID 10 days #20 tabs 03/17/25 mg-trimethoprim 160 mg tablet (Bactrim DS) cefdinir 300 mg capsule 300 mg PO BID 10 days #20 caps 03/25/25 Allergies Allergy/AdvReac Type Severity Reaction Status Date / Time glatiramer (copolymer 1) Allergy Severe ALGY-Hives Verified 03/25/25 15:52 (From Copaxone) Review of Systems General: Reports: 10 or more systems reviewed and unremarkable except in HPI and below Const: Denies: fever(s), chills or fatigue Eyes: Denies: change in vision or blurry vision Card: Denies: chest pain, palpitations or swelling of feet/ankles Resp: Denies: dyspnea or productive cough GI: Reports: abdominal pain; Denies: nausea, vomiting or diarrhea : Denies: flank pain or difficulty voiding Musc: Denies: back pain or extremity swelling Skin/Breast: Reports: erythema, skin tenderness and skin swelling Neuro: Denies: headache(s), numbness in extremities, weakness in extremities or confusion Psych: Denies: anxiety or depression FOR[facility]LY [facility] ED PFS: Medical History (Updated 03/25/25 @ 20:36 by PETE Vences) Fasting low blood sugar Urinary incontinence History of hysterosalpingogram (~08/30/23) both tubes patent; performed by Rajeev at [facility] Anxiety Hyperglycemia, drug-induced Morbid obesity with BMI of 45.0-49.9, adult Chronic migraine Multiple sclerosis Surgical History Hx laparoscopic cholecystectomy 03/30/24 Dr Quijano Status post lumbar spine surgery for decompression of spinal cord Hx of appendectomy Family History Father Diabetes Grandfather Diabetes paternal Grandmother Diabetes paternal Hypertension paternal Denies family history of Colon cancer Ovarian cancer Clotting disorder Heart disease Hyperlipidemia Breast cancer Anesthesia complication Bleeding disorder Uterine cancer Thyroid disease Stroke Social History Smoking and tobacco/nicotine status: never used tobacco/nicotine Alcohol intake: never Substance/Drug Use: never Marital status: Number of children: 0 Current occupational status: employed Female Reproductive History: Spontaneous abortions: No Physical Exam Const: COMMON NORMALS: no acute distress and patient oriented x3 GENERAL APPEARANCE: cooperative; not in distress HENMT: COMMON NORMALS: normocephalic HEAD & SCALP: normal to inspection and normocephalic Neck/C-Spine: COMMON NORMALS: no lymphadenopathy, supple and no meningeal signs GENERAL: Yes normal visual inspection and Yes trachea midline Chest: COMMONS NORMALS: normal inspection of the chest Resp: COMMON NORMALS: normal respiratory effort and clear to auscultation bilaterally EFFORT & INSPECTION: Yes able to speak in complete sentences and No respiratory distress AUSCULTATION: clear to auscultation bilaterally, no rales, no rhonchi and no wheezes Cardio: COMMON NORMALS: regular rate, regular rhythm, S1 normal heart sound present, S2 normal heart sound present and No murmurs present (Cardio) RATE: regular rate RHYTHM: regular rhythm HEART SOUNDS: S1 normal heart sound present and S2 normal heart sound present GI: COMMON NORMALS: Normal to inspection, nondistended, normoactive bowel sounds present and Soft to palpation PALPATION: Yes Soft to palpation and Yes Tenderness to palpation present (GI) (umbilicus) Extremity: COMMON NORMALS: full ROM and capillary refill normal OTHER: right axilla- 3cm indurated area with 1cm erythematous central area, no fluctuance, Neuro: COMMON NORMALS: patient oriented x3, moves all extremities and no focal motor deficits MENINGEAL SIGNS: Yes no meningeal signs Psych: COMMON NORMALS: mental status grossly normal and Normal thought process present THOUGHT PROCESS: Normal thought process present Course Vital Signs: Vital signs: Vital Signs Temperature 98.2 F 03/25/25 15:49 Pulse Rate 78 03/25/25 21:11 Respiratory Rate 16 03/25/25 21:11 Blood Pressure 122/92 03/25/25 21:11 Pulse Oximetry 97 03/25/25 21:11 Oxygen Delivery Me thod Room Air 03/25/25 15:49 MDM - Abdominal Pain Medical Decision Making Patient is a 24-year-old female with pain in her umbilicus and awakening bleeding in her umbilicus. Will add mupirocin to her umbilicus, and dressing. As far as her CT, this appears to be without any concern. No hernia. No obstruction. Discussed with patient. Medical Records I reviewed the patient's medical records. Lab Data I reviewed the patient's lab results. 03/25/25 16:44 03/25/25 16:44 Labs/Radiology: Radiology Impressions Abdomen/Pelvis CT 03/25/25 18:08 IMPRESSION: 1. 2.6 cm left ovarian cyst which requires no follow-up. 2. No other acute findings. Laboratory Results WBC 8.57 10^3/uL (3.29-11.43) 03/25/25 16:44 RBC 4.88 10^6/uL (3.85-5.65) 03/25/25 16:44 Hgb 12.90 g/dL (11.27-16.99) 03/25/25 16:44 Hct 40.7 % (36-47) 03/25/25 16:44 MCV 83.4 fl (85-98) L 03/25/25 16:44 MCH 26.4 pg (27-33) L 03/25/25 16:44 MCHC 31.7 g/dL (30-55) 03/25/25 16:44 RDW 14.1 % (12.1-15.1) 03/25/25 16:44 Plt Count 378 10^3/cmm (157-399) 03/25/25 16:44 MPV 9.9 fL (7.4-10.4) 03/25/25 16:44 Neut % (Auto) 61.5 % 03/25/25 16:44 Lymph % (Auto) 28.0 % 03/25/25 16:44 [place] % (Auto) 8.3 % 03/25/25 16:44 Eos % (Auto) 1.9 % 03/25/25 16:44 Baso % (Auto) 0.1 % 03/25/25 16:44 Neut # (Auto) 5.27 10^3/uL (1.8-7.7) 03/25/25 16:44 Lymph # (Auto) 2.4 10^3/uL (0.8-4.8) 03/25/25 16:44 [place] # (Auto) 0.7 10^3/uL (0.2-0.9) 03/25/25 16:44 Eos # (Auto) 0.2 10^3/uL (0.0-0.8) 03/25/25 16:44 Baso # (Auto) 0.0 10^3/uL (0.0-0.1) 03/25/25 16:44 Nucleated RBC % (auto) 0 % 03/25/25 16:44 Nucleated RBCs # 0.0 /100WBC 03/25/25 16:44 Sodium 140 mmol/L (136-145) 03/25/25 16:44 Potassium 3.6 mmol/L (3.5-5.1) 03/25/25 16:44 Chloride 104 mmol/L (98-107) 03/25/25 16:44 Carbon Dioxide 23 mmol/L (22-29) 03/25/25 16:44 Anion Gap 16.6 (5-19) 03/25/25 16:44 BUN 8 mg/dL (6-20) 03/25/25 16:44 Creatinine 0.7 mg/dL (0.5-0.9) 03/25/25 16:44 GFR Calculation 102.8 mL/min (90-130) 03/25/25 16:44 Glucose 82 mg/dL (65-115) 03/25/25 16:44 Calculated Osmolality 287 mOsm/kg (285-295) 03/25/25 16:44 Calcium 9.2 mg/dL (8.5-10.5) 03/25/25 16:44 Total Bilirubin 0.4 mg/dL (0.15-1.2) 03/25/25 16:44 AST 28 U/L (0-32) 03/25/25 16:44 ALT 30 U/L (0-33) 03/25/25 16:44 Alkaline Phosphatase 62 U/L (35-105) 03/25/25 16:44 Total Protein 7.3 g/dL (6.6-8.7) 03/25/25 16:44 Albumin 4.2 g/dL (3.5-5.2) 03/25/25 16:44 Globulin 3.1 g/dL (1.3-4.6) 03/25/25 16:44 Lipase 30 U/L (13-60) 03/25/25 16:44 HCG, Qual Negative (Negative) 03/25/25 16:44 Urine Color Yellow (Yellow) 03/25/25 18:16 Urine Appearance Turbid (CLEAR) A 03/25/25 18:16 Urine pH 6.0 (5-7) 03/25/25 18:16 Ur Specific [place] 1.034 (1.005-1.030) H 03/25/25 18:16 Urine Protein Trace (Negative) A 03/25/25 18:16 Urine Glucose (UA) Negative (Normal) 03/25/25 18:16 Urine Ketones Trace (Negative) 03/25/25 18:16 Urine Blood 1+ (Negative) A 03/25/25 18:16 Urine Nitrate Negative (Negative) 03/25/25 18:16 Urine Bilirubin Negative (Negative) 03/25/25 18:16 Urine Urobilinogen 1.0 mg/dL (Negative) 03/25/25 18:16 Ur Leukocyte Esterase 1+ (Negative) A 03/25/25 18:16 Urine RBC 6-10 /hpf (0-2) 03/25/25 18:16 Urine WBC 21-50 /hpf (0-5) H 03/25/25 18:16 Ur Squamous Epith Cells 11-20 /hpf (0-5) H 03/25/25 18:16 Calcium Oxalate Crystal 25-40 /hpf H 03/25/25 18:16 Amorphous Sediment Not Reportable 03/25/25 18:16 Urine Bacteria 4+ /hpf (NONE) H 03/25/25 18:16 Hyaline Casts 1.65 /lpf 03/25/25 18:16 Urine Mucus Trace /hpf 03/25/25 18:16 All radiology interpretation(s) finalized by discharge Discharge Plan Discharge Patient Disposition: Home Clinical Impression: Pyuria due to bacterial urinary tract infection, Umbilical bleeding Condition: Stable Prescriptions: New cefdinir 300 mg capsule 300 mg PO BID 10 Days Qty: 20 0RF No Action sulfamethoxazole-trimethoprim [Bactrim DS] 800-160 mg tablet 1 tab PO BID 10 Days Qty: 20 0RF mupirocin [Centany] 2 % ointment 1 applic topical BID Qty: 22 0RF Avonex 30 mcg/0.5 mL syringe kit 0.5 ml IM Q7D Rx Instructions: on Wednesday oxybutynin chloride 5 mg tablet 5 mg PO BID Qty: 60 2RF cholecalciferol (vitamin D3) 125 mcg (5,000 unit) capsule 5,000 unit PO QPM acetaminophen [Tylenol] 325 mg Tablet 650 mg PO QID PRN (Reason: Fever Or Pain) amitriptyline 25 mg tablet 25 mg PO BEDTIME Discharge Orders: Discharge ED (Routine); Ordered 03/25/25 Ordered By: Danae Ruffin Referrals: Cindi Ledezma NP [Primary Care Provider, Family Practice] Patient Instructions: Urinary Tract Infection in Women (ED), Patient Portal & Farhan Instructions Activity Restrictions/Additional Instructions: Place mupirocin in your umbilicus, cover with nonadherent dressing twice daily. Take antibiotics as prescribed. Utilize a probiotic x 2 daily, or active culture Print Language: German Coding Level of Care Code ED Medical Insurance Clerk for Yvette Pendleton
--- NOTE | 2025-03-25 18:08 | CTR_ITS ---
PROCEDURE INFORMATION: Exam: CT Abdomen And Pelvis With Contrast Exam date and time: 03/25/2025 6:19 PM Age: 24 years old Clinical indication: Abdominal pain; Prior surgery; Surgery date: 6+ months; Surgery type: Gb. Appy; C/O periumbilical pain; Additional info: Umbilical pain with hernia TECHNIQUE: Imaging protocol: Computed tomography of the abdomen and pelvis with contrast. Radiation optimization: All CT scans at this facility use at least one of these dose optimization techniques: automated exposure control; mA and/or kV adjustment per patient size (includes targeted exams where dose is matched to clinical indication); or iterative reconstruction. Contrast material: OMNI 350; Contrast volume: 100 ml; Contrast route: INTRAVENOUS (IV); COMPARISON: CT abdomen pelvis wo con [id number] 12/04/2024 9:31 AM RADIATION DOSE METRICS: Total DLP (mGy-cm): 1131.63 FINDINGS: Lungs: Lung bases are unremarkable. Liver: The liver is diffusely decreased in density, compatible with hepatic steatosis. Gallbladder and biliary ducts: Post cholecystectomy. Pancreas: The pancreas is unremarkable. Spleen: The spleen is unremarkable. Adrenal glands: The adrenal glands are unremarkable. Kidneys and ureters: No hydronephrosis or nephrolithiasis. Stomach and bowel: No evidence of bowel obstruction. No pericolonic inflammatory stranding. Appendix: No evidence of appendicitis. Intraperitoneal space: No significant peritoneal free fluid. No free peritoneal air. Vasculature: Aortic caliber is normal. Lymph nodes: No lymph node enlargement. Unchanged small right lower quadrant mesenteric nodes. Urinary bladder: Bladder is collapsed, but is otherwise unremarkable. Reproductive: 2.6 cm left ovarian cyst. The uterus and ovaries are normal in size. Bones/joints: Unremarkable. No acute fracture. Soft tissues: The abdominal wall is unremarkable. CT/CT abdomen pelvis w con* [id number] IMPRESSION: 1. 2.6 cm left ovarian cyst which requires no follow-up. 2. No other acute findings.
[2025-03-25] MEDS: iohexol 350 mg/mL 500 mL Btl (per mL) IV (18:19)
[2025-03-25 18:24] LABS: Glucose Urine UA Negative (Normal); Nitrate Urine Negative (Negative)
[2025-03-25 18:27] VITALS: PULSE 87; O2SAT 99
[2025-03-25 18:59] LABS: Add Urine Microscopic? YES; Specific Gravity, Urine 1.034 (1.005-1.030); Universal Test for UA Present (0)
[2025-03-25] MEDS: cefTRIAXone 1,000 mg SDV 1000 MG IVP (21:08)
[2025-03-25] MEDS: mupirocin oint 22 gm 1 APPLIC TOPICAL (21:08)
[2025-03-25 21:11] VITALS: BP 122/92; PULSE 78; RESP 16; O2SAT 97
== END 2025-03-25 21:13 | disposition home or self-care (01) ==
PROVIDERS: Emergency Medicine; Emergency Provider Physician Assistant
DX: N39.0 Urinary tract infection, site not specified (principal); P51.9 Umbilical hemorrhage of newborn, unspecified
CPT/HCPCS: 36415; 74177; 80053; 81001; 83690; 84703; 85025; 96374; 99285; J0696; J7030; J9999

== ENCOUNTER 2025-07-17 14:43 | Emergency (ER) | payer BC, SELFPAY ==
[2025-07-17 14:44] VITALS: BP 136/76; PULSE 124; TEMP 36.4; O2SAT 99; BMI 47.2
--- NOTE | 2025-07-17 15:09 | ECG_ITS ---
[facility] Date: 2025-07-17 Pat Name: Allyn Lira Department: Room: Gender: Female Store Cashier: : 2000 Requested By: Edwardo Rivas Order Number: [id number] Sarahy MD: Raimundo Baez M.D. Measurements Intervals [place] Rate: 127 P: 65 AL: 142 QRS: 54 QRSD: 73 T: 45 QT: 308 QTc: 449 Interpretive Statements SINUS TACHYCARDIA ABNORMAL RHYTHM ECG INTERPRETATION BASED ON A DEFAULT AGE OF 40 YEARS Compared to ECG 02/08/2025 08:36:46 Sinus rhythm no longer present Electronically Signed On 07-17-2025 22:17:12 CORPORATE HUMAN RESOURCES MANAGER by Raimundo Baez M.D. [email or web address]
--- NOTE | 2025-07-17 15:09 | XR_ITS ---
WS: [id number] Portable AP upright chest, 07/17/2025 Clinical Data: cp Comparison: Portable chest, 02/08/2025 Findings: No nodules, masses or effusions are seen. The heart is normal. The pulmonary vascularity is not increased. No pneumonia or pneumothorax is seen. Monitor leads are on the chest wall. XR/XR chest 1V portable [id number] Impression: Negative chest.
--- NOTE | 2025-07-17 15:16 | ED_ITS ---
HPI - Chest Pain 2 General: Chief Complaint: Chest Pain Stated Complaint: cp, sob, buring feeling in arms Time Seen by Provider: 07/17/25 14:56 Source: patient Mode of arrival: ambulatory Limitations: no limitations History of Present Illness: Patient is a 24-year-old female with past medical history of anxiety and panic attacks, chronic migraines, and multiple sclerosis presented to the emergency department for sudden onset of chest pain beginning 30 minutes prior to coming in. States that she was seated at her desk at work, eating beef jerky stick when she had sudden feeling of being flushed, it was noted that her skin became red and then she had the onset of chest pain with burning radiation down her arms. States that she had a panic attack when she was 11 years old, somewhat similar feeling but not this severe. She does note that overall her symptoms have improved but she still feels anxious at this time. No abdominal pain or nausea vomiting. States that she does not have any allergies or consume anything exotic prior to symptoms. Currently is undergoing fertility treatment but has been handling this okay with no issues so far. She does feel some palpitations at this time in her chest. Is noting a headache, but overall is nontoxic-appearing and other than mild tachycardia her vitals are stable. MD complaint: chest pain Onset (ago): minute(s) Timing of current episode: still present Prior episodes: Yes Onset: during rest Pain location: substernal Pain radiation: right arm and left arm Severity: similar to previous episodes Quality: burning Associated symptoms: Reports palpitations; Deny abdominal pain, dyspnea, fever(s), nausea or vomiting Related Data Home Medications ?Medication ?Instructions ?Recorded ?Confirmed amitriptyline 25 mg tablet 25 mg PO BEDTIME 03/30/24 0 05/16/25 interferon beta-1a 30 mcg/0.5 mL 0.5 ml IM Q7D 4 05/16/25 intramuscular syringe kit (Avonex) cholecalciferol (vitamin D3) 125 5,000 unit PO QPM 05/16/25 mcg (5,000 unit) capsule acetaminophen 325 mg tablet 650 mg PO QID PRN Fever Or Pain 12/04/24 05/16/25 (Tylenol) Previous Rx's ?Medication ?Instructions ?Recorded oxybutynin chloride 5 mg tablet 5 mg PO BID #60 tabs 0 12/22/24 mupirocin 2 % topical ointment 1 applic topical BID #2 2 grams 03/17/25 (Centany) Allergies Allergy/AdvReac Type Severity Reaction Status Date / Time glatiramer (copolymer 1) Allergy Severe ALGY-Hives Verified 07/17/25 14:55 (From Copaxone) Review of Systems 2 General: Reports: 10 or more systems reviewed and unremarkable except in HPI and below Const: Denies: fever(s), chills or fatigue Eyes: Denies: change in vision ENMT: Denies: throat pain, ear or mastoid pain or nasal discharge Card: Reports: chest pain and palpitations; Denies: swelling of feet/ankles or lightheadedness Resp: Denies: dyspnea, productive cough or wheezing GI: Denies: abdominal pain, nausea, vomiting, diarrhea or constipation : Denies: flank pain, difficulty voiding, dysuria or urinary frequency Musc: Denies: neck pain, back pain or joint pain Skin/Breast: Denies: rash Neuro: Reports: headache(s) and sensory changes; Denies: numbness in extremities or weakness in extremities Psych: Reports: anxiety Endo: Reports: flushing All/Imm: Denies: throat swelling or tongue swelling PFSH ED 2 PFSH: Medical History Fasting low blood sugar Urinary incontinence History of hysterosalpingogram (~08/30/23) both tubes patent; performed by Rajeev at [facility] Anxiety Hyperglycemia, drug-induced Morbid obesity with BMI of 45.0-49.9, adult Chronic migraine Multiple sclerosis Surgical History Hx laparoscopic cholecystectomy 03/30/24 Dr Quijano Status post lumbar spine surgery for decompression of spinal cord Hx of appendectomy Family History Father Diabetes Grandfather Diabetes paternal Grandmother Diabetes paternal Hypertension paternal Denies family history of Colon cancer Ovarian cancer Clotting disorder Heart disease Hyperlipidemia Breast cancer Anesthesia complication Bleeding disorder Uterine cancer Thyroid disease Stroke Social History Smoking and tobacco/nicotine status: never used tobacco/nicotine Alcohol intake: never Substance/Drug Use: never Marital status: Number of children: 0 Current occupational status: employed Female Reproductive History: Spontaneous abortions: No Physical Exam 2 Const: COMMON NORMALS: no acute distress, patient oriented x3 and no limitations GENERAL APPEARANCE: cooperative, well developed and anxious O RIENTATION/CONSCIOUSNESS: Yes awake, Yes oriented to person, Yes oriented to place and Yes oriented to time HENMT: COMMON NORMALS: normocephalic, atraumatic and hearing grossly normal bilaterally HEAD & SCALP: normocephalic and atraumatic Eye: COMMON NORMALS: Equal, round and reactive pupils present, EOMs intact bilaterally and conjunctivae normal CONJUNCTIVA: Yes conjunctivae normal P UPIL: Yes Equal, round and reactive pupils present Neck/C-Spine: COMMON NORMALS: full ROM and supple Resp: COMMON NORMALS: normal respiratory effort, No retractions, No use of accessory muscles and clear to auscultation bilaterally AUSCULTATION: clear to auscultation bilaterally Cardio: COMMON NORMALS: regular rhythm, No clicks present (Cardio), No murmurs present (Cardio) and No rub (Cardio) RATE: tachycardic RHYTHM: regular rhythm GI: COMMON NORMALS: Normal to inspection, nondistended, normoactive bowel sounds present, Soft to palpation and non-tender AUSCULTATION: Yes normoactive bowel sounds PALPATION: Yes Soft to palpation RECTAL EXAM: d eferred Extremity: COMMON NORMALS: normal to inspection, full ROM and capillary refill normal Neuro: COMMON NORMALS: patient oriented x3, moves all extremities, no focal motor deficits and no sensory deficits noted SENSORIUM/ORIENTATION: Yes oriented to person, Yes oriented to place and Yes oriented to time Skin: COMMON NORMALS: no rashes or lesions noted GENERAL SKIN EXAM: no rashes or lesions noted Course 2 Vital Signs: Vital signs: Vital Signs Temperature 97.6 F 07/17/25 14:44 Pulse Rate 97 07/17/25 16:00 Respiratory Rate 16 07/17/25 16:00 Blood Pressure 121/88 07/17/25 16:00 Pulse Oximetry 95 07/17/25 16:00 Oxygen Delivery Me thod Room Air 07/17/25 14:44 MDM - Chest Pain Medical Decision Making This patient presented with multiple symptoms beginning about 30 minutes prehospital, please see the HPI in reference to this. Of note she had chest pain and headache, EKG here showing sinus tachycardia with no rhythm changes. She had no pertinent cardiac history. Does have a history of anxiety and panic attacks. Chest x-ray is negative. All of her lab work is unremarkable which includes thyroid level that is normal. She has amelioration of symptoms here in the emergency department spontaneously but is given IV fluids and medications. Do not suspect this is any acute process, likely anxiety related and she is encouraged to follow-up with primary care for reevaluation and return with any new or worsening. Patient agrees with this plan. Lab Data 07/17/25 15:27 07/17/25 15:27 Radiology Impressions Chest X-Ray 07/17/25 15:09 Impression: Negative chest. Laboratory Results WBC 6.34 10^3/uL (3.29-11.43) 07/17/25 15:27 RBC 5.27 10^6/uL (3.85-5.65) 07/17/25 15: Hgb 13.70 g/dL (11.27-16.99) 07/17/25 15:27 Hct 41.9 % (36-47) 07/17/25 15:27 MCV 79.5 fl (85-98) L 07/17/25 15: MCH 26.0 pg (27-33) L 07/17/25 15:27 MCHC 32.7 g/dL (30-55) 07/17/25 15:27 RDW 14.6 % (12.1-15.1) 07/17/25 15:27 Plt Count 377 10^3/cmm (157-399) 07/17/25 15: MPV 9.6 fL (7.4-10.4) 07/17/25 15:27 Neut % (Auto) 65.0 % 07/17/25 15:27 Lymph % (Auto) 27.9 % 07/17/25 15:27 [place] % (Auto) 5.7 % 07/17/25 15:27 Eos % (Auto) 0.9 % 07/17/25 15:27 Baso % (Auto) 0.2 % 07/17/25 15:27 Neut # (Auto) 4.12 10^3/uL (1.8-7.7) 07/17/25 15:27 Lymph # (Auto) 1.8 10^3/uL (0.8-4.8) 07/17/25 15:27 [place] # (Auto) 0.4 10^3/uL (0.2-0.9) 07/17/25 15:27 Eos # (Auto) 0.1 10^3/uL (0.0-0.8) 07/17/25 15:27 Baso # (Auto) 0.0 10^3/uL (0.0-0.1) 07/17/25 15:27 Nucleated RBC % (auto) 0 % 07/17/25 15:27 Nucleated RBCs # 0.0 /100WBC 07/17/25 15:27 Sodium 138 mmol/L (136-145) 07/17/25 15:27 Potassium 3.7 mmol/L (3.5-5.1) 07/17/25 15: Chloride 104 mmol/L (98-107) 07/17/25 15: Carbon Dioxide 20 mmol/L (22-29) L 07/17/25 15:27 Anion Gap 17.7 (5-19) 07/17/25 15:27 BUN 8 mg/dL (6-20) 07/17/25 15:27 Creatinine 0.7 mg/dL (0.5-0.9) 07/17/25 15:27 GFR Calculation 102.8 mL/min (90-130) 07/17/25 15:27 Glucose 119 mg/dL (65-115) H 07/17/25 15:27 Calculated Osmolality 285 mOsm/kg (285-295) 07/17/25 15:27 Calcium 9.2 mg/dL (8.5-10.5) 07/17/25 15:27 Total Bilirubin 0.4 mg/dL (0.15-1.2) 07/17/25 15:27 AST 34 U/L (0-32) H 07/17/25 15:27 ALT 39 U/L (0-33) H 07/17/25 15:27 Alkaline Phosphatase 71 U/L (35-105) 07/17/25 15:27 Total Protein 8.1 g/dL (6.6-8.7) 07/17/25 15:27 Albumin 4.8 g/dL (3.5-5.2) 07/17/25 15:27 Globulin 3.3 g/dL (1.3-4.6) 07/17/25 15: TSH 3.23 uIU/mL (0.27-4.20) 07/17/25 15:27 HCG, Qual Negative (Negative) 07/17/25 15:27 Urine Color Yellow (Yellow) 07/17/25 15:55 Urine Appearance Clear (CLEAR) 07/17/25 15:55 Urine pH 6.0 (5-7) 07/17/25 15:55 Ur Specific [place] 1.026 (1.005-1.030) 07/17/25 15:55 Urine Protein 2+ (Negative) A 07/17/25 15:55 Urine Glucose (UA) Negative (Normal) 07/17/25 15:55 Urine Ketones Negative (Negative) 07/17/25 15:55 Urine Blood Trace (Negative) A 07/17/25 15:55 Urine Nitrate Negative (Negative) 07/17/25 15:55 Urine Bilirubin Negative (Negative) 07/17/25 15:55 Urine Urobilinogen 1.0 mg/dL (Negative) 07/17/25 15:55 Ur Leukocyte Esterase Negative (Negative) 07/17/25 15:55 Urine RBC 0-2 /hpf (0-2) 07/17/25 15:55 Urine WBC 11-20 /hpf (0-5) H 07/17/25 15:55 Ur Squamous Epith Cells 11-20 /hpf (0-5) H 07/17/25 15:55 Amorphous Sediment Not Reportable 07/17/25 15:55 Urine Bacteria Trace /hpf (NONE) 07/17/25 15:55 Hyaline Casts 1.21 /lpf 07/17/25 15:55 All radiology interpretation(s) finalized by discharge Discharge Plan Discharge Patient Disposition: Home Clinical Impression: Anxiety Chest pain Qualifiers: Chest pain type: unspecified Qualified Code(s): R07.9 - Chest pain, unspecified Condition: Stable Prescriptions: No Action mupirocin [Centany] 2 % ointment 1 applic topical BID Qty: 22 0RF Avonex 30 mcg/0.5 mL syringe kit 0.5 ml IM Q7D Rx Instructions: on Wednesday oxybutynin chloride 5 mg tablet 5 mg PO BID Qty: 60 2RF cholecalciferol (vitamin D3) 125 mcg (5,000 unit) capsule 5,000 unit PO QPM acetaminophen [Tylenol] 325 mg Tablet 650 mg PO QID PRN (Reason: Fever Or Pain) amitriptyline 25 mg tablet 25 mg PO BEDTIME Discharge Orders: Discharge ED (Routine); Ordered 07/17/25 Ordered By: Edwardo Hodges Referrals: Cindi Ledezma NP [Primary Care Provider, Family Practice] Patient Instructions: Patient Portal & Farhan Instructions Activity Restrictions/Additional Instructions: Your evaluation here in the emergency department today did not reveal any emergent findings, this included evaluation with EKG, x-ray of your chest, and lab work. It is appropriate for outpatient follow-up with primary care, please return with any recurrence of symptoms or any other new concerns that you have at home. Print Language: [place] Citizen Coding Level of Care Code ED Visual Merchandiser for Chg Fwd Heart Score HEART Score Components History: Slightly Suspicous EKG: Normal Age: Less than 45 yrs Risk Factors: No Risk Factors Known Troponin: Baseline Trop <16 ng/L HEART Score RESULT HEART Score: 0
[2025-07-17 15:33] LABS: Hematocrit 41.9 % (36-47); Hemoglobin 13.70 g/dL (11.27-16.99); Mean Corpuscular HGB Conc 32.7 g/dL (30-55); Mean Corpuscular Hemoglobin 26.0 pg (27-33); Mean Corpuscular Volume 79.5 fl (85-98); Nucleated Red Blood Cells % 0 %; Platelet Count 377 10^3/cmm (157-399); Red Blood Count 5.27 10^6/uL (3.85-5.65); White Blood Count 6.34 10^3/uL (3.29-11.43)
[2025-07-17] MEDS: diphenhydrAMINE 50 mg/mL SDV 1mL IVP (15:52)
[2025-07-17 15:55] LABS: HCG, Serum Qual Negative (Negative)
[2025-07-17 16:00] VITALS: BP 121/88; PULSE 97; RESP 16; O2SAT 95
[2025-07-17 16:03] LABS: Alanine Aminotransferase 39 U/L (0-33); Albumin Level 4.8 g/dL (3.5-5.2); Alkaline Phosphatase 71 U/L (35-105); Anion Gap 17.7 (5-19); Aspartate Amino Transferase 34 U/L (0-32); Blood Urea Nitrogen 8 mg/dL (6-20); Calcium 9.2 mg/dL (8.5-10.5); Carbon Dioxide 20 mmol/L (22-29); Chloride 104 mmol/L (98-107); Creatinine Clr Calc Pharmacy 144.8465; Globulin 3.3 g/dL (1.3-4.6); Glucose 119 mg/dL (65-115); Osmolality Calculated 285 mOsm/kg (285-295); Potassium 3.7 mmol/L (3.5-5.1); Sodium 138 mmol/L (136-145); Thyroid Stimulating Hormone 3.23 uIU/mL (0.27-4.20); Total Protein 8.1 g/dL (6.6-8.7)
[2025-07-17 16:09] LABS: Glucose Urine UA Negative (Normal); Nitrate Urine Negative (Negative); Specific Gravity, Urine 1.026 (1.005-1.030)
[2025-07-17 16:12] LABS: Add Urine Microscopic? YES
[2025-07-17 16:27] VITALS: BP 121/88; PULSE 91; RESP 16; O2SAT 97
== END 2025-07-17 17:34 | disposition home or self-care (01) ==
PROVIDERS: Emergency Provider Physician Assistant
DX: F41.9 Anxiety disorder, unspecified (principal); R07.9 Chest pain, unspecified
CPT/HCPCS: 71045; 80053; 81001; 84443; 84703; 85025; 93005; 96374; 96375; 99285; J1100; J1200; J1885; J7030